=== PATIENT | female | born 1950 | race Caucasian/White ===

== ENCOUNTER 2017-08-24 20:04 | Inpatient (IN) ==
[2017-08-24 20:43] LABS: Basophils # 0.2 K/mm3 (0-0.2); Basophils % 0.5 % (0.1-2.0); Eosinophils # 0.2 K/mm3 (0.0-0.4); Eosinophils % 0.6 % (0.1-12.0); Hematocrit 35.8 % (37.0-47.0); Hemoglobin 10.6 g/dL (12.2-16.2); Lymphocytes # 0.9 K/mm3 (0.7-4.5); Lymphocytes % 2.7 K/mm3 (10-50); Mean Corpuscular HGB Conc 29.5 g/dL (31.8-35.4); Mean Corpuscular Hemoglobin 25.2 pg (27.0-31.2); Mean Corpuscular Volume 85.5 fl (81-99); Mean Platelet Volume 7.7 fl (7.4-10.4); Monocytes # 0.7 K/mm3 (0.1-1.0); Monocytes % 2.2 % (1.7-9.3); Neutrophils # 31.7 K/mm3 (1.8-7.8); Neutrophils % 94.1 % (37.0-80.0); Platelet Count 393 K/mm3 (142-424); Red Blood Count 4.18 M/mm3 (4.20-5.40); Red Cell Distribution Width 14.2 % (11.5-17.5); White Blood Count 33.7 K/mm3 (4.8-10.8)
[2017-08-24 20:51] LABS: Microscopic, Urine URINE MICROSCOPIC (MICROSCOPIC)
[2017-08-24 20:55] LABS: Albumin Level 2.7 gm/dL (3.4-5.0); Albumin/Globulin Ratio 0.5 (1.1-1.8); Anion Gap 16.4 mEq/L (5-15); Bilirubin,Total 0.4 mg/dL (0.2-1.0); Calcium 8.9 mg/dL (8.5-10.1); Globulin 5.7 gm/dl (1.3-3.2); Potassium 5.4 mmoL/L (3.5-5.1); Total Protein,Serum 8.4 gm/dL (6.4-8.2)
[2017-08-24 20:56] LABS: Appearance,Urine CLOUDY (Clear); Blood, Urine 3+ (Negative); Color,Urine YELLOW (Yellow); Glucose,Urine (UA) Negative (Negative); Ketones,Urine TRACE (Negative); Leukocyte Esterase,Urine 1+ (Negative); PH,Urine 5.5 (5.0-8.5); Protein,Urine 2+ (Negative); Specific Gravity, Urine 1.025 (1.005-1.030); Urobilinogen,Urine 0.2 EU/dl (0.2)
[2017-08-24 21:15] LABS: Bilirubin,Urine Negative (Negative)
[2017-08-24 21:16] LABS: Bacteria,Urine 2+ /lpf
--- NOTE | 2017-08-24 21:44 | Emergency Department Note ---
ED Disposition Clinical Impression: Acute febrile illness UTI (urinary tract infection) Qualifiers: Urinary tract infection type: site unspecified Hematuria presence: without hematuria Qualified Code(s): N39.0 - Urinary tract infection, site not specified Leukocytosis Qualifiers: Leukocytosis type: bandemia Qualified Code(s): D72.825 - Bandemia Disposition: Admitted as Observation Condition on Discharge: Good - Critical Care Critical Care Time: No Attestation: On 08/24/17, the high probability of a clinically significant, sudden or life threatening deterioration of the following system(s) required my full and direct attention, intervention and personal management. The time I documented below is in addition to time spent performing reported procedures but includes the following listed in this critical care notation. Medical Decision Making - Medical Records Medical records reviewed: Yes: I reviewed the patient's medical records. - Lonnie Inquiry Pt receiving controlled substance: No Vital Signs: 08/24/17 20:06 08/24/17 20:15 08/24/17 21:23 Temperature 103.7 F H 100.2 F H Temperature Source Rectal Oral Pulse Rate [Right Radial] 119 H Respiratory Rate 20 Blood Pressure [Right Arm] 188/90 Blood Pressure Mean [Right Arm] 122 Blood Pressure Source [Right Arm] Automatic Cuff Blood Pressure Position [Right Arm] Sitting 02 Sat by Pulse Oximetry 93 L Oxygen Delivery Method Room Air 08/24/17 21:49 08/24/17 22:14 08/24/17 22:21 Temperature 102.1 F H 101.1 F H Temperature Source Oral Oral Pulse Rate [Right Radial] 85 67 103 H Respiratory Rate 22 20 20 Blood Pressure [Right Arm] 120/60 120/60 Blood Pressure Mean [Right Arm] 80 80 Blood Pressure Source [Right Arm] Manual Cuff/ Auscultation Manual Cuff/ Auscultation Blood Pressure Position [Right Arm] Sitting 02 Sat by Pulse Oximetry 94 L 94 L 94 L Oxygen Delivery Method Room Air Room Air 08/24/17 23:45 Temperature Temperature Source Pulse Rate [Right Radial] 102 H Respiratory Rate 18 Blood Pressure [Right Arm] 124/62 Blood Pressure Mean [Right Arm] 82 Blood Pressure Source [Right Arm] Automatic Cuff Blood Pressure Position [Right Arm] 02 Sat by Pulse Oximetry 96 Oxygen Delivery Method - Lab Data Lab results reviewed: Yes: I reviewed the patient's lab results. Lab Results 08/24/17 20:20: WBC 33.7 H*, RBC 4.18 L, Hgb 10.6 L, Hct 35.8 L, MCV 85.5, MCH 25.2 L, MCHC 29.5 L, RDW 14.2, Plt Count 393, MPV 7.7, Neut % (Auto) 94.1 H, Lymph % (Auto) 2.7 L, [place] % (Auto) 2.2, Eos % (Auto) 0.6, Baso % (Auto) 0.5, Neut # (Auto) 31.7 H, Lymph # (Auto) 0.9, [place] # (Auto) 0.7, Eos # (Auto) 0.2, Baso # (Auto) 0.2, Total Counted 100, Neutrophils % (Manual) 91 H, Lymphocytes % (Manual) 5 L, Monocytes % (Manual) 3, Basophils % (Manual) 1.0, Platelet Estimate Normal, RBC Morphology Not Reportable, Anisocytosis 1+, Stomatocytes 1+ 08/24/17 20:20: Sodium 132 L, Potassium 5.4 H, Chloride 100, Carbon Dioxide 21, Anion Gap 16.4 H, BUN 24 H, Creatinine 1.38 H, Estimated Creat Clear 40, Estimated GFR 38 L, Est GFR ( Amer) 46 L, Glucose 209 H, Calcium 8.9, Total Bilirubin 0.4, AST 10 L, ALT 13, Alkaline Phosphatase 87, Total Protein 8.4 H, Albumin 2.7 L, Globulin 5.7 H, Albumin/Globulin Ratio 0.5 L 08/24/17 20:20: Lactic Acid 2.8 H 08/24/17 20:20: ESR 96 H 08/24/17 20:20: C-Reactive Protein 7.4 H 08/24/17 20:45: Urine Color Yellow, Urine Appearance Cloudy, Urine pH 5.5, Ur Specific [place] 1.025, Urine Protein 2+, Urine Glucose (UA) Negative, Urine Ketones Trace, Urine Blood 3+, Urine Nitrate Negative, Urine Bilirubin Negative , Urine Urobilinogen 0.2, Ur Leukocyte Esterase 1+ A, Urine RBC 5-10, Urine WBC 10-20, Ur Squamous Epith Cells 3-5, Urine Bacteria 2+ Result diagrams: 08/24/17 20:20 08/24/17 20:20 Orders (Tests/Meds): ED MEDICATIONS Discontinued Medications Generic Name Dose Route Start Last Admin Trade Name Rosalino PRN Reason Stop Dose Admin Acetaminophen 1,000 mg 08/24/17 20:15 08/24/17 20:22 Tylenol 500mg Tablet PO 08/24/17 20:16 1,000 mg ONCE ONE Administration Sodium Chloride 1,000 mls @ 999 mls/hr 08/24/17 20:15 08/24/17 20:22 Sod Chlor 0.9% 1000ml Bag IV 08/24/17 21:15 999 mls/hr .Q1H1M ULISES Administration Vancomycin HCl 2,500 mg/ 250 mls @ 125 mls/hr 08/24/17 23:30 08/24/17 23:47 Sodium Chloride IV 08/24/17 23:31 125 mls/hr ONCE ONE Administration Protocol Tobramycin Sulfate 500 mg/ 112.5 mls @ 112.5 mls/hr 08/24/17 23:30 Sodium Chloride IV 08/24/17 23:31 ONCE ONE Protocol ORDERS Category Date Time Status CT abdomen pelvis wo con Stat Cat Scan 08/24/17 20:17 Taken Peripheral Smear Review Routine Lab 08/24/17 20:20 Received Blood Culture Stat Micro 08/24/17 20:04 Received Urine Culture Stat Micro 08/24/17 20:45 Received - CT Data CT Scan: Abdomen, Pelvis Time Received: 00:[address] Reviewed: Yes: I have viewed the radiologist's interpretation Preliminary Findings: Abnormal (see report) - Physician Consults Physician Consulted: dinesh Reason -: Admission Nausea/Vomiting/Diarrhea HPI - General Chief complaint: Fever Stated complaint: fever Time Seen by Provider: 08/24/17 21:43 Mode of Arrival: EMS Source of Information: Patient, Relative, EMS, Medical Record Limitations: No Limitations Description of Symptoms (Recalled from ER Triage Doc. by RN): Pt. reports vomiting and fever that started at around 11am. - History of Present Illness HPI Narrative: fever with abd pain with vomiting - no diarrhea and no rash over the last 2-3 days MD complaint: nausea, vomiting, abdominal pain Onset (ago): day(s) Associated Abdominal Pain: Yes Location of pain: periumbilical Severity: moderate Quality: dull Consistency: intermittent Associated symptoms: nausea/vomiting - Related Data Home Medications Medication Instructions Recorded Confirmed Aspirin [Aspirin 81mg chewable 81 mg PO DAILY 08/24/17 08/24/17 tab] Fexofenadine HCl 180 mg PO DAILY 08/24/17 08/24/17 Furosemide [Furosemide 20mg Tab] 20 mg PO DAILY 08/24/17 08/24/17 Gabapentin [Gabapentin 300mg Cap] 300 mg PO DAILY 08/24/17 08/24/17 Gabapentin [Gabapentin 300mg Cap] 600 mg PO HS 08/24/17 08/24/17 Hydrocodone/Acetaminophen 10 mg PO QID 08/24/17 08/24/17 [Hydrocodone-Acetamin 10-325 mg] Levothyroxine Sodium 300 mcg PO DAILY 08/24/17 08/24/17 [Levothyroxine 300mcg (0.3mg) Tab] Metformin HCl 500 mg PO TID 08/24/17 08/24/17 Sennosides/Docusate Sodium [Stool 1 each PO DAILY 08/24/17 08/24/17 Softener-Laxative Tablet] Spironolactone 50 mg PO DAILY 08/24/17 08/24/17 Allergies Allergy/AdvReac Type Severity Reaction Status Date / Time vancomycin Allergy Severe red man Verified 08/24/17 20:14 syndrome ceftriaxone Allergy Mild Rash Verified 08/24/17 22:51 amoxicillin Allergy Unknown Verified 08/24/17 20:14 atropine Allergy Unknown Verified 08/24/17 20:14 aztreonam Allergy Unknown Verified 08/24/17 20:14 ciprofloxacin Allergy Unknown Verified 08/24/17 20:14 clindamycin Allergy Unknown Verified 08/24/17 20:14 levofloxacin Allergy Unknown Verified 08/24/17 20:14 morphine Allergy Unknown Verified 08/24/17 20:14 nabumetone Allergy Unknown Verified 08/24/17 20:14 oxytetracycline Allergy Unknown Verified 08/24/17 20:14 Penicillins Allergy Unknown Verified 08/24/17 20:14 polymyxin B Allergy Unknown Verified 08/24/17 20:14 Sulfa (Sulfonamide Allergy Unknown Verified 08/24/17 20:14 Antibiotics) tramadol Allergy Unknown Verified 08/24/17 20:14 [facility] History I have reviewed the patient's past medical history: Yes - Social History Alcohol Intake: never - Psychiatric History Expresses thoughts of harming self/others: None Suicide Plan Description: No Plan ROS Obtained: Yes All systems reviewed & no additional complaints - Constitutional Constitutional: Reports fever(s) - Eyes Eyes: Denies change in vision - ENT Ears, Nose, Mouth, and Throat: Denies sore throat - Cardiovascular Cardiovascular: Denies chest pain - Respiratory Respiratory: No cough - Gastrointestinal Gastrointestingal: Reports: abdominal pain, nausea, vomiting. Denies: diarrhea , bright red blood in stools, black, tarry stools - Genitourinary Female Genitourinary: Denies hematuria - Musculoskeletal Musculoskeletal: Denies joint pain - Integumentary/Breasts Skin/Breast: Denies rash - Neurologic Neurologic: Denies seizure-like activity Physical Exam - General General appearance: in no apparent distress - Head Head exam: normocephalic - Eye Eye exam: Present: PERRL, EOMI. Absent: scleral icterus - ENT ENT exam: Present: mucous membranes dry - Neck Neck exam: Present: trachea midline - Respiratory Respiratory exam: Present: normal lung sounds bilaterally. Absent: respiratory distress - Cardiovascular Cardiovascular exam: Present: regular rate, systolic murmur, +S4 - Abdominal Exam Abdominal exam: Present: soft, tenderness Abdominal tenderness: Present: epigastrium, moderate - Extremities Exam Extremities exam: Absent: calf tenderness - Neurological Exam Neurological exam: Present: alert, oriented X3, CN II-XII intact - Psychiatric Psychiatric exam: Present: normal affect - Skin Skin exam: Absent: rash
[2017-08-24 22:29] LABS: Anisocytosis 1+; Lymphocytes % 5 % (10-50); Monocytes % 3 % (2-9); Neutrophils % 91 % (42-76); Total Cells Counted 100
[2017-08-24 22:30] LABS: Stomatocytes 1+
--- NOTE | 2017-08-25 07:25 | History & Physical Report ---
*Admission Date: 08/24/17 *Chief complaint: Vomiting and chills *History of present illness: 66-year-old female with history of diabetes and chronic venous stasis ulcers of bilateral lower extremities presented to the emergency department after onset of vomiting yesterday morning. Patient attempted to replace any fluid she lost after vomiting by drinking water but vomiting persisted. She developed chills and according to the patient became confused as her was having a difficult time understanding her and her needs. Decision was made to bring her to the hospital. Workup revealed an elevated white blood cell count with abnormal urine. He was admitted and placed on IV antibiotics. Lactic acid was elevated on presentation but has since decreased. Patient has received tobramycin overnight. This morning she is still having chills. Patient was febrile on presentation with temperature of 103. She has been caring for her venous stasis ulcers at home and reports no change in their appearance. She denies redness of the extremities or significant purulent discharge. I have spoken with her nurse this morning who has actually in care of her at a home health nurse and reports that the ulcers have improved in appearance compared to the last time she saw him. [facility] History Medical History: Reports:: Diabetes Mellitus Type 2, Hypertension Denies:: Cancer, Diabetes Mellitus Type 1, MRSA Other Medical History: Reports: Hypothyroidism Comment: Venous stasis ulcers Amputation: No Fractures: No - *Social History Educational Level: Completed Grade School Smoking Status: Never smoker Alcohol Intake: never Occupational Status: disabled Housing: house Household Members: spouse - Psychiatric History Expresses thoughts of harming self/others: None Suicide Plan Description: No Plan *Family Hx:: Unable to obtain Review of Systems - Review of Systems Review of systems:: pertinent systems reviewed and negative unless documented below - *Cardiovascular Denies chest pain - *Respiratory Denies chest congestion, Denies cough - *Gastrointestinal Reports vomiting - *Genitourinary Denies difficulty urinating, Denies painful urination - *Neurologic Denies seizure-like activity Meds Home Medications Medication Instructions Recorded Confirmed Type Aspirin [Aspirin 81mg chewable 81 mg PO DAILY 08/24/17 08/25/17 History tab] Fexofenadine HCl 180 mg PO DAILY 08/24/17 08/25/17 History Gabapentin [Gabapentin 300mg Cap] 300 mg PO DAILY 08/24/17 08/25/17 History Gabapentin [Gabapentin 300mg Cap] 600 mg PO HS 08/24/17 08/25/17 History Hydrocodone/Acetaminophen 10 mg PO Q6HP PRN 08/24/17 08/25/17 History [Hydrocodone-Acetamin 10-325 mg] Levothyroxine Sodium 300 mcg PO DAILY 08/24/17 08/25/17 History [Levothyroxine 300mcg (0.3mg) Tab] Metformin HCl 500 mg PO TID 08/24/17 08/25/17 History Sennosides/Docusate Sodium [Stool 1 each PO DAILY 08/24/17 08/25/17 History Softener-Laxative Tablet] Spironolactone 50 mg PO DAILY 08/24/17 08/25/17 History Allergies Allergy/AdvReac Type Severity Reaction Status Date / Time vancomycin Allergy Severe red man Verified 08/25/17 01:29 syndrome ceftriaxone Allergy Mild Rash Verified 08/25/17 01:29 amoxicillin Allergy Unknown Verified 08/25/17 01:29 atropine Allergy Unknown Verified 08/25/17 01:29 aztreonam Allergy Unknown Verified 08/25/17 01:29 ciprofloxacin Allergy Unknown Verified 08/25/17 01:29 clindamycin Allergy Unknown Verified 08/25/17 01:29 levofloxacin Allergy Unknown Verified 08/25/17 01:29 morphine Allergy Unknown Verified 08/25/17 01:29 nabumetone Allergy Unknown Verified 08/25/17 01:29 oxytetracycline Allergy Unknown Verified 08/25/17 01:29 Penicillins Allergy Unknown Verified 08/25/17 01:29 polymyxin B Allergy Unknown Verified 08/25/17 01:29 Sulfa (Sulfonamide Allergy Unknown Verified 08/25/17 01:29 Antibiotics) tramadol Allergy Unknown Verified 08/25/17 01:29 Exam Vital signs and Labs for Last 24 Hours: Temp Pulse Resp BP Pulse Ox 98.8 F 91 H 20 123/73 98 08/25/17 04:00 08/25/17 04:00 08/25/17 04:00 08/25/17 04:00 08/25/17 04:00 Laboratory Results - last 24 hr 08/24/17 20:20: WBC 33.7 H*, RBC 4.18 L, Hgb 10.6 L, Hct 35.8 L, MCV 85.5, MCH 25.2 L, MCHC 29.5 L, RDW 14.2, Plt Count 393, MPV 7.7, Neut % (Auto) 94.1 H, Lymph % (Auto) 2.7 L, [place] % (Auto) 2.2, Eos % (Auto) 0.6, Baso % (Auto) 0.5, Neut # (Auto) 31.7 H, Lymph # (Auto) 0.9, [place] # (Auto) 0.7, Eos # (Auto) 0.2, Baso # (Auto) 0.2, Total Counted 100, Neutrophils % (Manual) 91 H, Lymphocytes % (Manual) 5 L, Monocytes % (Manual) 3, Basophils % (Manual) 1.0, Platelet Estimate Normal, RBC Morphology Not Reportable, Anisocytosis 1+, Stomatocytes 1+ 08/24/17 20:20: Sodium 132 L, Potassium 5.4 H, Chloride 100, Carbon Dioxide 21, Anion Gap 16.4 H, BUN 24 H, Creatinine 1.38 H, Estimated Creat Clear 40, Estimated GFR 38 L, Est GFR ( Amer) 46 L, Glucose 209 H, Calcium 8.9, Total Bilirubin 0.4, AST 10 L, ALT 13, Alkaline Phosphatase 87, Total Protein 8.4 H, Albumin 2.7 L, Globulin 5.7 H, Albumin/Globulin Ratio 0.5 L 08/24/17 20:20: Lactic Acid 2.8 H 08/24/17 20:20: ESR 96 H 08/24/17 20:20: C-Reactive Protein 7.4 H 08/24/17 20:45: Urine Color Yellow, Urine Appearance Cloudy, Urine pH 5.5, Ur Specific [place] 1.025, Urine Protein 2+, Urine Glucose (UA) Negative, Urine Ketones Trace, Urine Blood 3+, Urine Nitrate Negative, Urine Bilirubin Negative , Urine Urobilinogen 0.2, Ur Leukocyte Esterase 1+ A, Urine RBC 5-10, Urine WBC 10-20, Ur Squamous Epith Cells 3-5, Urine Bacteria 2+ 08/25/17 00:45: Lactic Acid Fup @ 4Hr 1.9 08/25/17 06:58: POC Glucose 182 H I & O for Last 24 hours: Intake & Output 08/22/17 08/23/17 08/24/17 08/25/17 11:59 11:59 11:59 11:59 Weight 280 lb 1 oz Narrative: Patient is sitting up in a chair covered in blankets. No Reiger's or tremors are witnessed. HEENT exam is grossly normal. Lungs overall sound clear although exam is difficult due to patient's body habitus. Heart has a regular rate and rhythm. Abdomen is obese. Lower extremities are bandaged. Pictures of her lower extremities have been reviewed. H&P: Result - Labs Labs: Short CBC 08/24/17 Range/Units 20:20 WBC 33.7 H* (4.8-10.8) K/mm3 Hgb 10.6 L (12.2-16.2) g/dL Hct 35.8 L (37.0-47.0) % Plt Count 393 (142-424) K/mm3 BMP 08/24/17 20:20 Sodium 132 L Potassium 5.4 H Chloride 100 Carbon Dioxide 21 BUN 24 H Creatinine 1.38 H Glucose 209 H Calcium 8.9 Liver Function 08/24/17 Range/Units 20:20 Total Bilirubin 0.4 (0.2-1.0) mg/dL AST 10 L (15-37) U/L ALT 13 (12-78) U/L Alkaline Phosphatase 87 (46-116) U/L Albumin 2.7 L (3.4-5.0) gm/dL Urine 08/24/17 Range/Units 20:45 Urine Color Yellow (Yellow) Urine Appearance Cloudy (Clear) Urine pH 5.5 (5.0-8.5) Ur Specific [place] 1.025 (1.005-1.030) Urine Protein 2+ (Negative) Urine Glucose (UA) Negative (Negative) Assessment and Plan (1) Sepsis Current visit: Yes Status: Suspected Category: Medical Code(s): A41.9 - Sepsis, unspecified organism (2) Acute febrile illness Current visit: Yes Status: Acute Category: Medical Code(s): R50.9 - Fever , unspecified (3) Leukocytosis Current visit: Yes Status: Acute Qualifiers: Leukocytosis type: bandemia Qualified Code(s): D72.825 - Bandemia Category: Medical Code(s): D72.829 - Elevated white blood cell count, unspecified (4) UTI (urinary tract infection) Current visit: Yes Status: Acute Qualifiers: Urinary tract infection type: site unspecified Hematuria presence: without hematuria Qualified Code(s): N39.0 - Urinary tract infection, site not specified Category: Medical Code(s): N39.0 - Urinary tract infection, site not specified - Assessment and plan all Dx Assessment and Plan for all problems:: He has been admitted and was given tobramycin initially. I am going to place the patient on Invanz for empiric antibiotic coverage while we await urine and blood cultures. Continue wound dressings per nursing. Home medications will be given.
[2017-08-25 09:05] LABS: Anion Gap 13.8 mEq/L (5-15); Calcium 8.6 mg/dL (8.5-10.1); Potassium 4.8 mmoL/L (3.5-5.1)
[2017-08-25 09:19] LABS: Basophils # 0.1 K/mm3 (0-0.2); Basophils % 0.3 % (0.1-2.0); Eosinophils # 0.1 K/mm3 (0.0-0.4); Eosinophils % 0.4 % (0.1-12.0); Hemoglobin 10.9 g/dL (12.2-16.2); Lymphocytes # 0.3 K/mm3 (0.7-4.5); Lymphocytes % 1.1 K/mm3 (10-50); Mean Corpuscular HGB Conc 28.6 g/dL (31.8-35.4); Mean Corpuscular Hemoglobin 24.4 pg (27.0-31.2); Mean Corpuscular Volume 85.4 fl (81-99); Mean Platelet Volume 7.8 fl (7.4-10.4); Monocytes # 0.4 K/mm3 (0.1-1.0); Monocytes % 1.4 % (1.7-9.3); Neutrophils # 26.9 K/mm3 (1.8-7.8); Neutrophils % 96.8 % (37.0-80.0); Platelet Count 337 K/mm3 (142-424); Red Blood Count 4.45 M/mm3 (4.20-5.40); Red Cell Distribution Width 14.3 % (11.5-17.5); White Blood Count 27.8 K/mm3 (4.8-10.8)
--- NOTE | 2017-08-25 09:59 | Pharmacy Consult Notes ---
[facility] Pharmacy VTE Monitoring - Patient Demographics Admission date: 08/25/17 Report Date: 08/25/17 Time: 09:58 Allergies/Adverse Reactions: Patient Allergies vancomycin Allergy (Severe, Verified 08/25/17 01:29) red man syndrome ceftriaxone Allergy (Mild, Verified 08/25/17 01:29) Rash amoxicillin Allergy (Unknown, Verified 08/25/17 01:29) atropine Allergy (Unknown, Verified 08/25/17 01:29) aztreonam Allergy (Unknown, Verified 08/25/17 01:29) ciprofloxacin Allergy (Unknown, Verified 08/25/17 01:29) clindamycin Allergy (Unknown, Verified 08/25/17 01:29) levofloxacin Allergy (Unknown, Verified 08/25/17 01:29) morphine Allergy (Unknown, Verified 08/25/17 01:29) nabumetone Allergy (Unknown, Verified 08/25/17 01:29) oxytetracycline Allergy (Unknown, Verified 08/25/17 01:29) Penicillins Allergy (Unknown, Verified 08/25/17 01:29) polymyxin B Allergy (Unknown, Verified 08/25/17 01:29) Sulfa (Sulfonamide Antibiotics) Allergy (Unknown, Verified 08/25/17 01:29) tramadol Allergy (Unknown, Verified 08/25/17 01:29) Height: 1.63 m Weight: 127.034 kg Patient Problems: Current Active Problems Acute febrile illness (Acute) UTI (urinary tract infection) (Acute) Leukocytosis (Acute) - VTE Risk Labs: VTE Related Lab Results Hgb 10.9 g/dL (12.2-16.2) L 08/25/17 08:40 Hct 38.0 % (37.0-47.0) 08/25/17 08:40 Plt Count 337 K/mm3 (142-424) 08/25/17 08:40 BUN 23 mg/dL (7-18) H 08/25/17 08:40 Creatinine 1.21 mg/dL (0.55-1.02) H 08/25/17 08:40 Estimated Creat Clear 40 mL/min (0-300) 08/25/17 08:40 Was VTE Risk Assessment Performed: Yes VTE Score: 6 VTE Risk Level: Moderate Risk - Prophylaxis VTE Prophylaxis Ordered?: Yes Types of VTE Prophylaxis: TEDS Knee High Location of Applied Device: Bilateral Lower Extremeties - VTE Diagnosis Confirmed Treatment or plan recommended: Continue Current Treatment
--- NOTE | 2017-08-25 10:19 | Consult Report ---
*Admission Date: 08/25/17 *Chief complaint: Urology consultation *History of present illness: 66-year-old female with history of diabetes and chronic venous stasis ulcers of bilateral lower extremities presented to the emergency department after onset of vomiting yesterday morning. Patient attempted to replace any fluid she lost after vomiting by drinking water but vomiting persisted. She developed chills and according to the patient became confused as her was having a difficult time understanding her and her needs. Decision was made to bring her to the hospital. Workup revealed an elevated white blood cell count with abnormal urine. He was admitted and placed on IV antibiotics. Lactic acid was elevated on presentation but has since decreased. Patient has received tobramycin overnight. This morning she is still having chills. Patient was febrile on presentation with temperature of 103. She has been caring for her venous stasis ulcers at home and reports no change in their appearance. She denies redness of the extremities or significant purulent discharge. I have spoken with her nurse this morning who has actually in care of her at a home health nurse and reports that the ulcers have improved in appearance compared to the last time she saw him. I saw this patient several years ago for recurrent urinary infections. She has had no infections in the last 2 years. She was feeling well 2 days ago but yesterday morning awoke and had generalized malaise and fever. She also had nausea and emesis. No flank pain. She had no dysuria. On presentation here catheterized specimen did appear to be infected. Urine culture and blood cultures are pending. CT scan was reviewed. She has several stones bilaterally no obstruction. She has a larger stone lower pole calyx on the right. She has no perinephric stranding. No ureteral stones or obstruction. Past medical history Type 2 diabetes, hypertension, morbid obesity, chronic venous stasis ulcers lower extremities Physical exam Appears ill. She has no palpable CVA tenderness with palpation or percussion Labs and CT scan reviewed and are as above. Impression: Fever and sepsis likely of urologic origin. She does not appear to have obstruction and does not require intervention urologically at this time. I recommend awaiting urine cultures for pointed antibiotic therapy but continue empiric broad based therapy at this time. She states that she is having suprapubic pressure and has not been able to void this morning. We will place a Childers catheter initially when she returns to the bed. Will be removed once she has improved her performance status. He will follow-up with me in 1-2 weeks. No surgical intervention at this time. We will then readdress her stones considering her surgical risks. Review of Systems - *Neurologic Denies seizure-like activity [facility] History Medical History: Reports:: Diabetes Mellitus Type 2, Hypertension Denies:: Cancer, Diabetes Mellitus Type 1, MRSA Other Medical History: Reports: Hypothyroidism Amputation: No Fractures: No - *Social History Educational Level: Completed Grade School Smoking Status: Never smoker Alcohol Intake: never Occupational Status: disabled Housing: house Household Members: spouse - Psychiatric History Expresses thoughts of harming self/others: None Suicide Plan Description: No Plan *Family Hx:: Unable to obtain Meds Home Medications Medication Instructions Recorded Confirmed Type Fexofenadine HCl 180 mg PO DAILY 08/24/17 08/25/17 History Gabapentin [Gabapentin 300mg Cap] 300 mg PO DAILY 08/24/17 08/25/17 History Gabapentin [Gabapentin 300mg Cap] 600 mg PO HS 08/24/17 08/25/17 History Hydrocodone/Acetaminophen 1 tab PO Q6HP PRN 08/24/17 08/25/17 History [Hydrocodone-Acetamin 10-325 mg] Levothyroxine Sodium 300 mcg PO DAILY 08/24/17 08/25/17 History [Levothyroxine 300mcg (0.3mg) Tab] Metformin HCl 500 mg PO TIDWM 08/24/17 08/25/17 History Sennosides/Docusate Sodium [Stool 1 each PO DAILY 08/24/17 08/25/17 History Softener-Laxative Tablet] Spironolactone 50 mg PO DAILY 08/24/17 08/25/17 History Aspirin [Aspirin 81mg EC Tab] 81 mg PO DAILY 08/25/17 08/25/17 History Allergies Allergy/AdvReac Type Severity Reaction Status Date / Time vancomycin Allergy Severe red man Verified 08/25/17 01:29 syndrome ceftriaxone Allergy Mild Rash Verified 08/25/17 01:29 amoxicillin Allergy Unknown Verified 08/25/17 01:29 atropine Allergy Unknown Verified 08/25/17 01:29 aztreonam Allergy Unknown Verified 08/25/17 01:29 ciprofloxacin Allergy Unknown Verified 08/25/17 01:29 clindamycin Allergy Unknown Verified 08/25/17 01:29 levofloxacin Allergy Unknown Verified 08/25/17 01:29 morphine Allergy Unknown Verified 08/25/17 01:29 nabumetone Allergy Unknown Verified 08/25/17 01:29 oxytetracycline Allergy Unknown Verified 08/25/17 01:29 Penicillins Allergy Unknown Verified 08/25/17 01:29 polymyxin B Allergy Unknown Verified 08/25/17 01:29 Sulfa (Sulfonamide Allergy Unknown Verified 08/25/17 01:29 Antibiotics) tramadol Allergy Unknown Verified 08/25/17 01:29 Exam Vital signs and Labs for Last 24 Hours: Temp Pulse Resp BP Pulse Ox 99.5 F 101 H 20 138/53 100 08/25/17 08:00 08/25/17 08:00 08/25/17 08:00 08/25/17 08:00 08/25/17 08:00 Laboratory Results - last 24 hr 08/24/17 20:20: WBC 33.7 H*, RBC 4.18 L, Hgb 10.6 L, Hct 35.8 L, MCV 85.5, MCH 25.2 L, MCHC 29.5 L, RDW 14.2, Plt Count 393, MPV 7.7, Neut % (Auto) 94.1 H, Lymph % (Auto) 2.7 L, [place] % (Auto) 2.2, Eos % (Auto) 0.6, Baso % (Auto) 0.5, Neut # (Auto) 31.7 H, Lymph # (Auto) 0.9, [place] # (Auto) 0.7, Eos # (Auto) 0.2, Baso # (Auto) 0.2, Total Counted 100, Neutrophils % (Manual) 91 H, Lymphocytes % (Manual) 5 L, Monocytes % (Manual) 3, Basophils % (Manual) 1.0, Platelet Estimate Normal, RBC Morphology Not Reportable, Anisocytosis 1+, Stomatocytes 1+ 08/24/17 20:20: Sodium 132 L, Potassium 5.4 H, Chloride 100, Carbon Dioxide 21, Anion Gap 16.4 H, BUN 24 H, Creatinine 1.38 H, Estimated Creat Clear 40, Estimated GFR 38 L, Est GFR ( Amer) 46 L, Glucose 209 H, Calcium 8.9, Total Bilirubin 0.4, AST 10 L, ALT 13, Alkaline Phosphatase 87, Total Protein 8.4 H, Albumin 2.7 L, Globulin 5.7 H, Albumin/Globulin Ratio 0.5 L 08/24/17 20:20: Lactic Acid 2.8 H 08/24/17 20:20: ESR 96 H 08/24/17 20:20: C-Reactive Protein 7.4 H 08/24/17 20:45: Urine Color Yellow, Urine Appearance Cloudy, Urine pH 5.5, Ur Specific [place] 1.025, Urine Protein 2+, Urine Glucose (UA) Negative, Urine Ketones Trace, Urine Blood 3+, Urine Nitrate Negative, Urine Bilirubin Negative , Urine Urobilinogen 0.2, Ur Leukocyte Esterase 1+ A, Urine RBC 5-10, Urine WBC 10-20, Ur Squamous Epith Cells 3-5, Urine Bacteria 2+ 08/25/17 00:45: Lactic Acid Fup @ 4Hr 1.9 08/25/17 06:58: POC Glucose 182 H 08/25/17 08:40: WBC 27.8 H*, RBC 4.45, Hgb 10.9 L, Hct 38.0, MCV 85.4, MCH 24.4 L, MCHC 28.6 L, RDW 14.3, Plt Count 337, MPV 7.8, Neut % (Auto) 96.8 H, Lymph % (Auto) 1.1 L, [place] % (Auto) 1.4 L, Eos % (Auto) 0.4, Baso % (Auto) 0.3, Neut # ( Auto) 26.9 H, Lymph # (Auto) 0.3 L, [place] # (Auto) 0.4, Eos # (Auto) 0.1, Baso # (Auto) 0.1 08/25/17 08:40: Sodium 131 L, Potassium 4.8, Chloride 100, Carbon Dioxide 22, Anion Gap 13.8, BUN 23 H, Creatinine 1.21 H, Estimated Creat Clear 40, Estimated GFR 45 L, Est GFR ( Amer) 54 L, Glucose 184 H, Calcium 8.6 I & O for Last 24 hours: Intake & Output 08/22/17 08/23/17 08/24/17 08/25/17 23:59 23:59 23:59 23:59 Intake Total 0 / 0 Balance 0 / 0 Weight 148.325 kg 127.034 kg Results - Labs 08/25/17 08:40 08/25/17 08:40 Laboratory Results - last 24 hr 08/24/17 20:20: WBC 33.7 H*, RBC 4.18 L, Hgb 10.6 L, Hct 35.8 L, MCV 85.5, MCH 25.2 L, MCHC 29.5 L, RDW 14.2, Plt Count 393, MPV 7.7, Neut % (Auto) 94.1 H, Lymph % (Auto) 2.7 L, [place] % (Auto) 2.2, Eos % (Auto) 0.6, Baso % (Auto) 0.5, Neut # (Auto) 31.7 H, Lymph # (Auto) 0.9, [place] # (Auto) 0.7, Eos # (Auto) 0.2, Baso # (Auto) 0.2, Total Counted 100, Neutrophils % (Manual) 91 H, Lymphocytes % (Manual) 5 L, Monocytes % (Manual) 3, Basophils % (Manual) 1.0, Platelet Estimate Normal, RBC Morphology Not Reportable, Anisocytosis 1+, Stomatocytes 1+ 08/24/17 20:20: Sodium 132 L, Potassium 5.4 H, Chloride 100, Carbon Dioxide 21, Anion Gap 16.4 H, BUN 24 H, Creatinine 1.38 H, Estimated Creat Clear 40, Estimated GFR 38 L, Est GFR ( Amer) 46 L, Glucose 209 H, Calcium 8.9, Total Bilirubin 0.4, AST 10 L, ALT 13, Alkaline Phosphatase 87, Total Protein 8.4 H, Albumin 2.7 L, Globulin 5.7 H, Albumin/Globulin Ratio 0.5 L 08/24/17 20:20: Lactic Acid 2.8 H 08/24/17 20:20: ESR 96 H 08/24/17 20:20: C-Reactive Protein 7.4 H 08/24/17 20:45: Urine Color Yellow, Urine Appearance Cloudy, Urine pH 5.5, Ur Specific [place] 1.025, Urine Protein 2+, Urine Glucose (UA) Negative, Urine Ketones Trace, Urine Blood 3+, Urine Nitrate Negative, Urine Bilirubin Negative , Urine Urobilinogen 0.2, Ur Leukocyte Esterase 1+ A, Urine RBC 5-10, Urine WBC 10-20, Ur Squamous Epith Cells 3-5, Urine Bacteria 2+ 08/25/17 00:45: Lactic Acid Fup @ 4Hr 1.9 08/25/17 06:58: POC Glucose 182 H 08/25/17 08:40: WBC 27.8 H*, RBC 4.45, Hgb 10.9 L, Hct 38.0, MCV 85.4, MCH 24.4 L, MCHC 28.6 L, RDW 14.3, Plt Count 337, MPV 7.8, Neut % (Auto) 96.8 H, Lymph % (Auto) 1.1 L, [place] % (Auto) 1.4 L, Eos % (Auto) 0.4, Baso % (Auto) 0.3, Neut # ( Auto) 26.9 H, Lymph # (Auto) 0.3 L, [place] # (Auto) 0.4, Eos # (Auto) 0.1, Baso # (Auto) 0.1 08/25/17 08:40: Sodium 131 L, Potassium 4.8, Chloride 100, Carbon Dioxide 22, Anion Gap 13.8, BUN 23 H, Creatinine 1.21 H, Estimated Creat Clear 40, Estimated GFR 45 L, Est GFR ( Amer) 54 L, Glucose 184 H, Calcium 8.6 Assessment and Plan (1) Sepsis Current visit: Yes Status: Suspected Category: Medical Code(s): A41.9 - Sepsis, unspecified organism (2) Acute febrile illness Current visit: Yes Status: Acute Category: Medical Code(s): R50.9 - Fever , unspecified (3) Leukocytosis Current visit: Yes Status: Acute Qualifiers: Leukocytosis type: bandemia Qualified Code(s): D72.825 - Bandemia Category: Medical Code(s): D72.829 - Elevated white blood cell count, unspecified (4) UTI (urinary tract infection) Current visit: Yes Status: Acute Qualifiers: Urinary tract infection type: site unspecified Hematuria presence: without hematuria Qualified Code(s): N39.0 - Urinary tract infection, site not specified Category: Medical Code(s): N39.0 - Urinary tract infection, site not specified
[2017-08-25 11:58] LABS: Lymphocytes % 6 % (10-50); Monocytes % 2 % (2-9); Neutrophils % 83 % (42-76); Total Cells Counted 100
[2017-08-26 06:56] LABS: Eosinophils # 0.3 K/mm3 (0.0-0.4); Eosinophils % 1.2 % (0.1-12.0); Hematocrit 34.3 % (37.0-47.0); Lymphocytes # 0.5 K/mm3 (0.7-4.5); Lymphocytes % 2.3 K/mm3 (10-50); Mean Corpuscular HGB Conc 29.1 g/dL (31.8-35.4); Mean Corpuscular Hemoglobin 24.6 pg (27.0-31.2); Mean Corpuscular Volume 84.6 fl (81-99); Mean Platelet Volume 7.5 fl (7.4-10.4); Monocytes # 0.8 K/mm3 (0.1-1.0); Monocytes % 3.3 % (1.7-9.3); Neutrophils # 21.4 K/mm3 (1.8-7.8); Neutrophils % 93.2 % (37.0-80.0); Platelet Count 283 K/mm3 (142-424); Red Blood Count 4.05 M/mm3 (4.20-5.40); Red Cell Distribution Width 14.4 % (11.5-17.5)
[2017-08-26 07:01] LABS: Anion Gap 12.1 mEq/L (5-15); Calcium 8.2 mg/dL (8.5-10.1); Potassium 4.1 mmoL/L (3.5-5.1)
--- NOTE | 2017-08-26 07:43 | Progress Note ---
Internal Medicine - PN: Subj *Date: 08/26/17 *Time: 07:42 Interval history: Patient is starting to feel better this morning. She did have another fever again yesterday afternoon. Wound care evaluated the large stasis ulcers on the anterior legs. Urine culture at this point has not shown any growth. Blood cultures are still pending. Exam Vital signs and Labs for Last 24 Hours: Temp Pulse Resp BP Pulse Ox 99.5 F 100 H 20 126/45 95 08/26/17 04:00 08/26/17 04:00 08/26/17 04:00 08/26/17 04:00 08/26/17 04:00 Laboratory Results - last 24 hr 08/25/17 08:40: WBC 27.8 H*, RBC 4.45, Hgb 10.9 L, Hct 38.0, MCV 85.4, MCH 24.4 L, MCHC 28.6 L, RDW 14.3, Plt Count 337, MPV 7.8, Neut % (Auto) 96.8 H, Lymph % (Auto) 1.1 L, [place] % (Auto) 1.4 L, Eos % (Auto) 0.4, Baso % (Auto) 0.3, Neut # ( Auto) 26.9 H, Lymph # (Auto) 0.3 L, [place] # (Auto) 0.4, Eos # (Auto) 0.1, Baso # (Auto) 0.1, Total Counted 100, Neutrophils % (Manual) 83 H, Band Neutrophils % 9.0 H, Lymphocytes % (Manual) 6 L, Monocytes % (Manual) 2, Platelet Estimate Normal 08/25/17 08:40: Sodium 131 L, Potassium 4.8, Chloride 100, Carbon Dioxide 22, Anion Gap 13.8, BUN 23 H, Creatinine 1.21 H, Estimated Creat Clear 40, Estimated GFR 45 L, Est GFR ( Amer) 54 L, Glucose 184 H, Calcium 8.6 08/25/17 11:46: POC Glucose 177 H 08/25/17 16:57: POC Glucose 148 H 08/25/17 20:24: POC Glucose 156 H 08/26/17 06:14: POC Glucose 131 H 08/26/17 06:40: WBC 23.0 H*, RBC 4.05 L, Hgb 10.0 L, Hct 34.3 L, MCV 84.6, MCH 24.6 L, MCHC 29.1 L, RDW 14.4, Plt Count 283, MPV 7.5, Neut % (Auto) 93.2 H, Lymph % (Auto) 2.3 L, [place] % (Auto) 3.3, Eos % (Auto) 1.2, Baso % (Auto) 0.0 L, Neut # (Auto) 21.4 H, Lymph # (Auto) 0.5 L, [place] # (Auto) 0.8, Eos # (Auto) 0.3 , Baso # (Auto) 0.0 08/26/17 06:40: Sodium 129 L, Potassium 4.1, Chloride 101, Carbon Dioxide 20 L, Anion Gap 12.1, BUN 27 H, Creatinine 1.11 H, Estimated Creat Clear 44, Estimated GFR 49 L, Est GFR ( Amer) 60, Glucose 133 H D, Calcium 8.2 L I & O for Last 24 hours: Intake & Output 08/23/17 08/24/17 08/25/17 08/26/17 11:59 11:59 11:59 11:59 Intake Total 0 / 0 360 / 360 Output Total 1525 / 1525 Balance 0 / 0 -1165 / -1165 Weight 280 lb 1 oz 282 lb 1 oz Microbiology Reports for the Last 24 Hours: Microbiology 08/24/17 20:45 Urine,Catheterized Urine Culture - Preliminary NO GROWTH AFTER 24 HOURS Narrative: Patient is more awake and alert this morning and appears to be feeling better. Lungs are clear to auscultation. Heart has regular rate and rhythm. Abdomen is soft. Childers catheter is in place Assessment and Plan (1) Sepsis Current visit: Yes Status: Suspected Category: Medical Code(s): A41.9 - Sepsis, unspecified organism (2) Acute febrile illness Current visit: Yes Status: Acute Category: Medical Code(s): R50.9 - Fever , unspecified (3) Leukocytosis Current visit: Yes Status: Acute Qualifiers: Leukocytosis type: bandemia Qualified Code(s): D72.825 - Bandemia Category: Medical Code(s): D72.829 - Elevated white blood cell count, unspecified (4) UTI (urinary tract infection) Current visit: Yes Status: Acute Qualifiers: Urinary tract infection type: site unspecified Hematuria presence: without hematuria Qualified Code(s): N39.0 - Urinary tract infection, site not specified Category: Medical Code(s): N39.0 - Urinary tract infection, site not specified - Assessment and plan all Dx Assessment and Plan for all problems:: Continue empiric antibiotic coverage while awaiting blood and urine cultures. Encourage patient to ambulate within the room.
[2017-08-26 13:01] LABS: Lymphocytes % 3 % (10-50); Monocytes % 3 % (2-9); Neutrophils % 94 % (42-76); Total Cells Counted 100
[2017-08-26 13:03] LABS: Hypochromasia 1+
--- NOTE | 2017-08-27 07:28 | Progress Note ---
Internal Medicine - PN: Subj *Date: 08/27/17 *Time: 07:26 Interval history: Patient developed significant fever to 102.4 again overnight. Fever has responded mildly to Tylenol. Patient reports poor appetite and malaise. Exam Vital signs and Labs for Last 24 Hours: Temp Pulse Resp BP Pulse Ox 100.0 F H 105 H 20 108/47 94 L 08/27/17 06:00 08/27/17 04:00 08/27/17 04:00 08/27/17 04:00 08/27/17 04:00 Laboratory Results - last 24 hr 08/26/17 06:40: Total Counted 100, Neutrophils % (Manual) 94 H, Lymphocytes % ( Manual) 3 L, Monocytes % (Manual) 3, Platelet Estimate Normal, Hypochromasia 1+ 08/26/17 10:46: POC Glucose 126 H 08/26/17 16:40: POC Glucose 98 08/26/17 20:20: POC Glucose 105 08/27/17 06:11: POC Glucose 86 I & O for Last 24 hours: Intake & Output 08/24/17 08/25/17 08/26/17 08/27/17 11:59 11:59 11:59 11:59 Intake Total 0 / 0 480 / 480 1368 / 1368 Output Total 1525 / 1525 2300 / 2300 Balance 0 / 0 -1045 / -1045 -932 / -932 Weight 280 lb 1 oz 282 lb 1 oz 286 lb 8 oz Microbiology Reports for the Last 24 Hours: Microbiology 08/24/17 20:45 Urine,Catheterized Urine Culture - Final NO GROWTH AFTER 48 HOURS 08/24/17 20:04 Blood Blood Culture - Preliminary NO GROWTH AFTER 48 HOURS 08/24/17 20:04 Blood Blood Culture - Preliminary NO GROWTH AFTER 48 HOURS 08/25/17 14:45 Urine,Catheterized Urine Culture - Preliminary NO GROWTH AFTER 24 HOURS Narrative: She is in no distress. Extremity exam reveals edematous bilateral lower extremities that have wound dressings in place. Patient has significant tenderness along the extremities from the popliteal space down to the foot. However patient tells me this is more of a chronic type pain Assessment and Plan (1) Cellulitis of anterior lower leg Current visit: Yes Status: Acute Category: Medical Code(s): L03.119 - Cellulitis of unspecified part of limb (2) Sepsis Current visit: Yes Status: Suspected Category: Medical Code(s): A41.9 - Sepsis, unspecified organism (3) Acute febrile illness Current visit: Yes Status: Acute Category: Medical Code(s): R50.9 - Fever , unspecified (4) Leukocytosis Current visit: Yes Status: Acute Qualifiers: Leukocytosis type: bandemia Qualified Code(s): D72.825 - Bandemia Category: Medical Code(s): D72.829 - Elevated white blood cell count, unspecified (5) UTI (urinary tract infection) Current visit: Yes Status: Acute Qualifiers: Urinary tract infection type: site unspecified Hematuria presence: without hematuria Qualified Code(s): N39.0 - Urinary tract infection, site not specified Category: Medical Code(s): N39.0 - Urinary tract infection, site not specified - Assessment and plan all Dx Assessment and Plan for all problems:: I am going to add clindamycin to the patient's antibiotic regimen. Repeat cultures if she spikes a temp again.
[2017-08-27 07:33] LABS: Basophils % 0.1 % (0.1-2.0); Eosinophils # 0.4 K/mm3 (0.0-0.4); Eosinophils % 2.9 % (0.1-12.0); Hematocrit 34.5 % (37.0-47.0); Hemoglobin 10.1 g/dL (12.2-16.2); Lymphocytes # 0.6 K/mm3 (0.7-4.5); Lymphocytes % 3.6 K/mm3 (10-50); Mean Corpuscular HGB Conc 29.4 g/dL (31.8-35.4); Mean Corpuscular Hemoglobin 24.8 pg (27.0-31.2); Mean Corpuscular Volume 84.3 fl (81-99); Monocytes # 0.5 K/mm3 (0.1-1.0); Monocytes % 3.6 % (1.7-9.3); Neutrophils # 13.6 K/mm3 (1.8-7.8); Neutrophils % 89.8 % (37.0-80.0); Platelet Count 258 K/mm3 (142-424); Red Blood Count 4.09 M/mm3 (4.20-5.40); Red Cell Distribution Width 14.1 % (11.5-17.5); White Blood Count 15.2 K/mm3 (4.8-10.8)
[2017-08-27 07:44] LABS: Anion Gap 11.4 mEq/L (5-15); Calcium 7.6 mg/dL (8.5-10.1); Potassium 3.4 mmoL/L (3.5-5.1)
[2017-08-27 09:11] LABS: Eosinophils % 3 % (0-3); Lymphocytes % 2 % (10-50); Monocytes % 1 % (2-9); Neutrophils % 92 % (42-76); Total Cells Counted 100
[2017-08-27 09:14] LABS: Hypochromasia 1+
--- NOTE | 2017-08-27 10:26 | Pharmacy Consult Notes ---
- Pharmacy Consult Date: 08/27/17 Time: 10:24 Referring provider: DR. VASQUEZ Reason for Consult:: TOBRAMYCIN DOSING Allergies and ADEs:: Allergies Allergy/AdvReac Type Severity Reaction Status Date / Time vancomycin Allergy Severe red man Verified 08/25/17 01:29 syndrome ceftriaxone Allergy Mild Rash Verified 08/25/17 01:29 amoxicillin Allergy Unknown Verified 08/25/17 01:29 atropine Allergy Unknown Verified 08/25/17 01:29 aztreonam Allergy Unknown Verified 08/25/17 01:29 ciprofloxacin Allergy Unknown Verified 08/25/17 01:29 clindamycin Allergy Unknown Verified 08/25/17 01:29 levofloxacin Allergy Unknown Verified 08/25/17 01:29 morphine Allergy Unknown Verified 08/25/17 01:29 nabumetone Allergy Unknown Verified 08/25/17 01:29 oxytetracycline Allergy Unknown Verified 08/25/17 01:29 Penicillins Allergy Unknown Verified 08/25/17 01:29 polymyxin B Allergy Unknown Verified 08/25/17 01:29 Sulfa (Sulfonamide Allergy Unknown Verified 08/25/17 01:29 Antibiotics) tramadol Allergy Unknown Verified 08/25/17 01:29 Home Medications:: Home Medications Medication Instructions Recorded Confirmed Type Fexofenadine HCl 180 mg PO DAILY 08/24/17 08/25/17 History Gabapentin [Gabapentin 300mg Cap] 300 mg PO DAILY 08/24/17 08/25/17 History Gabapentin [Gabapentin 300mg Cap] 600 mg PO HS 08/24/17 08/25/17 History Hydrocodone/Acetaminophen 1 tab PO Q6HP PRN 08/24/17 08/25/17 History [Hydrocodone-Acetamin 10-325 mg] Levothyroxine Sodium 300 mcg PO DAILY 08/24/17 08/25/17 History [Levothyroxine 300mcg (0.3mg) Tab] Metformin HCl 500 mg PO TIDWM 08/24/17 08/25/17 History Sennosides/Docusate Sodium [Stool 1 each PO DAILY 08/24/17 08/25/17 History Softener-Laxative Tablet] Spironolactone 50 mg PO DAILY 08/24/17 08/25/17 History Aspirin [Aspirin 81mg EC Tab] 81 mg PO DAILY 07/17/18 07/17/18 History Height: 1.63 m Weight: 129.954 kg Laboratory Results:: Laboratory Results - last 24 hr 08/26/17 06:40: Total Counted 100, Neutrophils % (Manual) 94 H, Lymphocytes % ( Manual) 3 L, Monocytes % (Manual) 3, Platelet Estimate Normal, Hypochromasia 1+ 08/26/17 10:46: POC Glucose 126 H 08/26/17 16:40: POC Glucose 98 08/26/17 20:20: POC Glucose 105 08/27/17 06:11: POC Glucose 86 08/27/17 06:43: WBC 15.2 H D, RBC 4.09 L, Hgb 10.1 L, Hct 34.5 L, MCV 84.3, MCH 24.8 L, MCHC 29.4 L, RDW 14.1, Plt Count 258, MPV 9.0, Neut % (Auto) 89.8 H, Lymph % (Auto) 3.6 L, [place] % (Auto) 3.6, Eos % (Auto) 2.9, Baso % (Auto) 0.1, Neut # (Auto) 13.6 H, Lymph # (Auto) 0.6 L, [place] # (Auto) 0.5, Eos # (Auto) 0.4 , Baso # (Auto) 0.0, Total Counted 100, Neutrophils % (Manual) 92 H, Band Neutrophils % 1.0, Lymphocytes % (Manual) 2 L, Monocytes % (Manual) 1 L, Eosinophils % (Manual) 3, Basophils % (Manual) 1.0, Platelet Estimate Normal, Hypochromasia 1+ 08/27/17 06:43: Sodium 131 L, Potassium 3.4 L, Chloride 102, Carbon Dioxide 21, Anion Gap 11.4, BUN 20 H D, Creatinine 1.03 H, Estimated Creat Clear 47, Estimated GFR 54 L, Est GFR ( Amer) 65, Glucose 95, Calcium 7.6 L Medical History: Reports:: Diabetes Mellitus Type 2, Hypertension Denies:: Cancer, Diabetes Mellitus Type 1, MRSA Assessment and Plan (1) Cellulitis of anterior lower leg Current visit: Yes Status: Acute Category: Medical Code(s): L03.119 - Cellulitis of unspecified part of limb (2) Sepsis Current visit: Yes Status: Suspected Category: Medical Code(s): A41.9 - Sepsis, unspecified organism (3) Acute febrile illness Current visit: Yes Status: Acute Category: Medical Code(s): R50.9 - Fever , unspecified (4) Leukocytosis Current visit: Yes Status: Acute Qualifiers: Leukocytosis type: bandemia Qualified Code(s): D72.825 - Bandemia Category: Medical Code(s): D72.829 - Elevated white blood cell count, unspecified (5) UTI (urinary tract infection) Current visit: Yes Status: Acute Qualifiers: Urinary tract infection type: site unspecified Hematuria presence: without hematuria Qualified Code(s): N39.0 - Urinary tract infection, site not specified Category: Medical Code(s): N39.0 - Urinary tract infection, site not specified - Assessment and plan all Dx Assessment and Plan for all problems:: BASED ON PATIENT FACTORS, RECOMMEND TOBRAMYCIN 440 MG IV Q36H. WILL OBTAIN LEVELS AT 4 AND 12 HOURS POST INFUSION. PHARMACY WILL FOLLOW DAILY AND ADJUST APPROPRIATE.
[2017-08-28 07:10] LABS: Anion Gap 9.8 mEq/L (5-15); Calcium 7.8 mg/dL (8.5-10.1); Potassium 3.8 mmoL/L (3.5-5.1)
[2017-08-28 07:41] LABS: Basophils % 0.1 % (0.1-2.0); Eosinophils # 0.7 K/mm3 (0.0-0.4); Eosinophils % 2.4 % (0.1-12.0); Hematocrit 34.8 % (37.0-47.0); Lymphocytes % 3.5 K/mm3 (10-50); Mean Corpuscular HGB Conc 31.7 g/dL (31.8-35.4); Mean Corpuscular Hemoglobin 26.5 pg (27.0-31.2); Mean Corpuscular Volume 83.5 fl (81-99); Mean Platelet Volume 8.1 fl (7.4-10.4); Monocytes # 1.3 K/mm3 (0.1-1.0); Monocytes % 4.5 % (1.7-9.3); Neutrophils # 25.1 K/mm3 (1.8-7.8); Neutrophils % 89.5 % (37.0-80.0); Platelet Count 284 K/mm3 (142-424); Red Blood Count 4.17 M/mm3 (4.20-5.40); Red Cell Distribution Width 14.5 % (11.5-17.5)
[2017-08-28 09:03] VITALS: BP 114/52
--- NOTE | 2017-08-28 10:33 | Pharmacy Consult Notes ---
- Pharmacy Consult Date: 08/28/17 Time: 10:29 Referring provider: DR. VASQUEZ Reason for Consult:: TOBRAMYCIN LEVELS Allergies and ADEs:: Allergies Allergy/AdvReac Type Severity Reaction Status Date / Time vancomycin Allergy Severe red man Verified 08/25/17 01:29 syndrome ceftriaxone Allergy Mild Rash Verified 08/25/17 01:29 amoxicillin Allergy Unknown Verified 08/25/17 01:29 atropine Allergy Unknown Verified 08/25/17 01:29 aztreonam Allergy Unknown Verified 08/25/17 01:29 ciprofloxacin Allergy Unknown Verified 08/25/17 01:29 clindamycin Allergy Unknown Verified 08/25/17 01:29 levofloxacin Allergy Unknown Verified 08/25/17 01:29 morphine Allergy Unknown Verified 08/25/17 01:29 nabumetone Allergy Unknown Verified 08/25/17 01:29 oxytetracycline Allergy Unknown Verified 08/25/17 01:29 Penicillins Allergy Unknown Verified 08/25/17 01:29 polymyxin B Allergy Unknown Verified 08/25/17 01:29 Sulfa (Sulfonamide Allergy Unknown Verified 08/25/17 01:29 Antibiotics) tramadol Allergy Unknown Verified 08/25/17 01:29 Home Medications:: Home Medications Medication Instructions Recorded Confirmed Type Fexofenadine HCl 180 mg PO DAILY 08/24/17 08/25/17 History Gabapentin [Gabapentin 300mg Cap] 300 mg PO DAILY 08/24/17 08/25/17 History Gabapentin [Gabapentin 300mg Cap] 600 mg PO HS 08/24/17 08/25/17 History Hydrocodone/Acetaminophen 1 tab PO Q6HP PRN 08/24/17 08/25/17 History [Hydrocodone-Acetamin 10-325 mg] Levothyroxine Sodium 300 mcg PO DAILY 08/24/17 08/25/17 History [Levothyroxine 300mcg (0.3mg) Tab] Metformin HCl 500 mg PO TIDWM 08/24/17 08/25/17 History Sennosides/Docusate Sodium [Stool 1 each PO DAILY 08/24/17 08/25/17 History Softener-Laxative Tablet] Spironolactone 50 mg PO DAILY 08/24/17 08/25/17 History Aspirin [Aspirin 81mg EC Tab] 81 mg PO DAILY 07/17/18 07/17/18 History Height: 1.63 m Weight: 132.052 kg Laboratory Results:: Laboratory Results - last 24 hr 08/27/17 11:24: POC Glucose 108 08/27/17 16:28: Random Tobramycin 6.9 08/27/17 16:30: POC Glucose 136 H 08/27/17 20:11: POC Glucose 123 H 08/28/17 00:45: Random Tobramycin 3.5 08/28/17 06:16: POC Glucose 135 H 08/28/17 06:46: WBC 28.0 H* D, RBC 4.17 L, Hgb 11.0 L, Hct 34.8 L, MCV 83.5, MCH 26.5 L, MCHC 31.7 L, RDW 14.5, Plt Count 284, MPV 8.1, Neut % (Auto) 89.5 H , Lymph % (Auto) 3.5 L, Walsh % (Auto) 4.5, Eos % (Auto) 2.4, Baso % (Auto) 0.1, Neut # (Auto) 25.1 H, Lymph # (Auto) 1.0, Walsh # (Auto) 1.3 H, Eos # (Auto) 0.7 H, Baso # (Auto) 0.0 08/28/17 06:46: Sodium 128 L, Potassium 3.8, Chloride 100, Carbon Dioxide 22, Anion Gap 9.8, BUN 24 H, Creatinine 1.08 H, Estimated Creat Clear 45, Estimated GFR 51 L, Est GFR ( Amer) 62, Glucose 140 H, Calcium 7.8 L Medical History: Reports:: Diabetes Mellitus Type 2, Hypertension Denies:: Cancer, Diabetes Mellitus Type 1, MRSA Assessment and Plan (1) Cellulitis of anterior lower leg Current visit: Yes Status: Acute Category: Medical Code(s): L03.119 - Cellulitis of unspecified part of limb (2) Sepsis Current visit: Yes Status: Ruled-out Category: Medical Code(s): A41.9 - Sepsis, unspecified organism (3) Acute febrile illness Current visit: Yes Status: Acute Category: Medical Code(s): R50.9 - Fever , unspecified (4) Leukocytosis Current visit: Yes Status: Acute Qualifiers: Leukocytosis type: bandemia Qualified Code(s): D72.825 - Bandemia Category: Medical Code(s): D72.829 - Elevated white blood cell count, unspecified (5) UTI (urinary tract infection) Current visit: Yes Status: Ruled-out Qualifiers: Urinary tract infection type: site unspecified Hematuria presence: without hematuria Qualified Code(s): N39.0 - Urinary tract infection, site not specified Category: Medical Code(s): N39.0 - Urinary tract infection, site not specified (6) Diabetes mellitus, type II, insulin dependent Current visit: Yes Status: Acute Category: Medical Code(s): E11.9 - Type 2 diabetes mellitus without complications; Z79.4 - assisted (current) use of insulin (7) Chronic pain Current visit: Yes Status: Acute Category: Medical Code(s): G89.29 - Other chronic pain - Assessment and plan all Dx Assessment and Plan for all problems:: TOBRAMYCIN LEVELS: 4-HOUR POST-INFUSION=6.9 MCG/ML CALCULATED PEAK=8.90 MCG/ML 12-HOUR POST-INFUSION=3.5 MCG/ML CALCULATED TROUGH=0.46 MCG/ML BASED ON PATIENT FACTORS AND LEVELS, RECOMMEND INCREASING TOBRAMYCIN TO 600 MG ( 7 MG/KG/DBW) IV Q36H. WILL OBTAIN A 12-HOUR TOBRAMYCIN LEVEL. PHARMACY WILL FOLLOW DAILY AND ADJUST APPROPRIATE.
[2017-08-28 12:48] LABS: Eosinophils % 2 % (0-3); Hypochromasia 1+; Lymphocytes % 3 % (10-50); Monocytes % 5 % (2-9); Neutrophils % 85 % (42-76); Total Cells Counted 100
== END 2017-08-28 11:41 | disposition swing bed (61) ==
LOC: 2ND 20:04 → ER 20:04 → 2ND 08-25 00:58 → UNDODISIN 08-28 09:30
PROVIDERS: ADMIT Internal Medicine Adolescent Medicine; ATTEND Family Medicine
CPT/HCPCS: 36415; 74176; 80048; 80053; 80200; 81001; 82962; 83605; 85007; 85025; 85651; 86140; 87040; 87086; 96365; 96366; 99285; J1335; J2405; J3370

== ENCOUNTER 2017-08-28 11:43 | Inpatient (IN) ==
--- NOTE | 2017-08-28 14:34 | Pharmacy Consult Notes ---
[facility] Pharmacy VTE Monitoring - Patient Demographics Admission date: 08/28/17 Report Date: 08/28/17 Time: 14:33 Allergies/Adverse Reactions: Patient Allergies vancomycin Allergy (Severe, Verified 08/25/17 01:29) red man syndrome ceftriaxone Allergy (Mild, Verified 08/25/17 01:29) Rash amoxicillin Allergy (Unknown, Verified 08/25/17 01:29) atropine Allergy (Unknown, Verified 08/25/17 01:29) aztreonam Allergy (Unknown, Verified 08/25/17 01:29) ciprofloxacin Allergy (Unknown, Verified 08/25/17 01:29) clindamycin Allergy (Unknown, Verified 08/25/17 01:29) levofloxacin Allergy (Unknown, Verified 08/25/17:29) morphine Allergy (Unknown, Verified 08/25/17:29) nabumetone Allergy (Unknown, Verified 08/25/17 01:29) oxytetracycline Allergy (Unknown, Verified 08/25/17 01:29) Penicillins Allergy (Unknown, Verified 08/25/17 01:29) polymyxin B Allergy (Unknown, Verified 08/25/17 01:29) Sulfa (Sulfonamide Antibiotics) Allergy (Unknown, Verified 08/25/17 01:29) tramadol Allergy (Unknown, Verified 08/25/17 01:29) Height: 1.63 m Weight: 129.444 kg - Prophylaxis Location of Applied Device: Bilateral Lower Extremeties (CHARISSA HOSE ORDERED)
--- NOTE | 2017-08-28 19:10 | Swing Bed Reports ---
[facility] Swing Bed H&P Swing Bed History and Physical: 66 year old female with chronic wounds of bilateral lower legs from stasis ulcers was admitted on 08/24 with high fevers. Initially source of infection was felt to be urologic but after negative urine and blood cultures it was beleived wounds with associated cellulitis are source of infection. Patient admitted for broad spectrum antibiotics and wound care to swing bed after 3 day qualifying stay. PMH: Diabetes, Venous stasis ulcers Soc: and lives at home. still cooks. Non smoker, nondrinker FH: noncontributory Ros: fevers, chills, myalgias, malaise, urinary retention PE: VS: see EMR HEENT: grossly normal NECK: no JVD Lungs: distant, clear CV: RRR Abd: obese Ext: erythema of feet and lower extermeities with bilateral large ulcerated wounds on anterior lower legs Neuro: no deficit A/P Cellulitis of Chronic Leg Wounds--broad spectrum antibiotics. Wound care. PT for strengthening Rehab potential: Fair Prognosis: Fair Mental status average
--- NOTE | 2017-08-29 12:22 | Pharmacy Consult Notes ---
- Pharmacy Consult Date: 08/29/17 Time: 12:19 Referring provider: DR. VASQUEZ Reason for Consult:: TOBRAMYCIN LEVEL Allergies and ADEs:: Allergies Allergy/AdvReac Type Severity Reaction Status Date / Time vancomycin Allergy Severe red man Verified 08/25/17 01:29 syndrome ceftriaxone Allergy Mild Rash Verified 08/25/17 01:29 amoxicillin Allergy Unknown Verified 08/25/17 01:29 atropine Allergy Unknown Verified 08/25/17 01:29 aztreonam Allergy Unknown Verified 08/25/17 01:29 ciprofloxacin Allergy Unknown Verified 08/25/17 01:29 clindamycin Allergy Unknown Verified 08/25/17 01:29 levofloxacin Allergy Unknown Verified 08/25/17 01:29 morphine Allergy Unknown Verified 08/25/17 01:29 nabumetone Allergy Unknown Verified 08/25/17 01:29 oxytetracycline Allergy Unknown Verified 08/25/17 01:29 Penicillins Allergy Unknown Verified 08/25/17 01:29 polymyxin B Allergy Unknown Verified 08/25/17 01:29 Sulfa (Sulfonamide Allergy Unknown Verified 08/25/17 01:29 Antibiotics) tramadol Allergy Unknown Verified 08/25/17 01:29 Home Medications:: Home Medications Medication Instructions Recorded Confirmed Type Fexofenadine HCl 180 mg PO DAILY 08/24/17 08/28/17 History Gabapentin [Gabapentin 300mg Cap] 300 mg PO DAILY 08/24/17 08/28/17 History Gabapentin [Gabapentin 300mg Cap] 600 mg PO HS 08/24/17 08/28/17 History Levothyroxine Sodium 300 mcg PO DAILY 08/24/17 08/28/17 History [Levothyroxine 300mcg (0.3mg) Tab] Metformin HCl 500 mg PO TIDWM 08/24/17 08/28/17 History Sennosides/Docusate Sodium [Stool 1 each PO DAILY 08/24/17 08/28/17 History Softener-Laxative Tablet] Spironolactone 50 mg PO DAILY 08/24/17 08/28/17 History Aspirin [Aspirin 81mg EC Tab] 81 mg PO DAILY 08/25/17 08/28/17 History Ertapenem Sodium [Invanz 1gm Vial] 1 gm IV Q24H 08/28/17 08/28/17 History Insulin Lispro [HumaLOG 100 0 unit SQ ACHS 08/28/17 08/28/17 History units/mL 3mL vial (SSI)] Tobramycin Sulfate [Tobramycin 440 mg IV Q36H 08/28/17 08/28/17 History 80mg/2mL Vial] Height: 1.63 m Weight: 134.887 kg Laboratory Results:: Laboratory Results - last 24 hr 08/28/17 16:54: POC Glucose 141 H 08/28/17 21:33: POC Glucose 132 H 08/29/17 06:58: POC Glucose 97 08/29/17 11:25: Random Tobramycin 7.9 08/29/17 11:59: POC Glucose 92 Medical History: Reports:: Diabetes Mellitus Type 2, Hypertension Denies:: Cancer, Diabetes Mellitus Type 1, MRSA Assessment and Plan - Assessment and plan all Dx Assessment and Plan for all problems:: BASED ON PATIENT FACTORS AND TOBRAMYCIN 12-HOUR LEVEL, RECOMMEND TOBRAMYCIN 600 MG IV Q48H. PHARMACY WILL CONTINUE TO MONITOR DAILY AND ADJUST APPROPRIATE.
[2017-08-30 06:55] LABS: Calcium 8.2 mg/dL (8.5-10.1)
[2017-08-31 06:40] LABS: Anion Gap 10.6 mEq/L (5-15); Potassium 3.6 mmoL/L (3.5-5.1)
--- NOTE | 2017-08-31 07:14 | Progress Note ---
Internal Medicine - PN: Subj *Date: 08/31/17 *Time: 07:11 Interval history: Patient has remained afebrile through the weekend. Nursing staff reports significant sloughing of skin with dressing changes. Patient admits she feels quite weak and it is painful to try to walk which is limited her attempts at getting out of bed. Exam Vital signs and Labs for Last 24 Hours: Temp Pulse Resp BP Pulse Ox 98.2 F 85 20 131/51 99 08/30/17 19:28 08/30/17 21:15 08/30/17 19:28 08/30/17 19:28 08/30/17 19:28 Laboratory Results - last 24 hr 08/30/17 16:22: POC Glucose 107 08/30/17 21:17: POC Glucose 130 H 08/31/17 06:13: Sodium 138, Potassium 3.6, Chloride 105, Carbon Dioxide 26, Anion Gap 10.6, BUN 22 H, Creatinine 1.16 H, Estimated Creat Clear 42, Estimated GFR 47 L, Est GFR ( Amer) 57 L, Glucose 122 H D, Calcium 8.0 L 08/31/17 06:26: POC Glucose 113 H I & O for Last 24 hours: Intake & Output 08/28/17 08/29/17 08/30/17 08/31/17 11:59 11:59 11:59 11:59 Intake Total 1080 / 1080 510 / 510 980 / 980 Output Total 1999 / 1999 1800 / 1800 600 / 600 Balance -920 / -920 -1290 / -1290 380 / 380 Weight 285 lb 6 oz 297 lb 6 oz 284 lb 7 oz 282 lb 9 oz Microbiology Reports for the Last 24 Hours: Microbiology 08/28/17 11:15 Leg,Left Gram Stain - Final 08/28/17 11:15 Leg,Left Wound Culture - Final Pseudomonas aeruginosa 08/28/17 11:10 Leg,Right Gram Stain - Final 08/28/17 11:10 Leg,Right Wound Culture - Final Pseudomonas putida Narrative: Patient appears comfortable. Dressings are in place on the legs below the knees. Feet remain erythematous although they are no longer hot to the touch. Swelling in the feet has decreased significantly. Assessment and Plan (1) Cellulitis of anterior lower leg Current visit: No Status: Acute Category: Medical Code(s): L03.119 - Cellulitis of unspecified part of limb (2) Chronic pain Current visit: No Status: Acute Category: Medical Code(s): G89.29 - Other chronic pain (3) Diabetes mellitus, type II, insulin dependent Current visit: No Status: Acute Category: Medical Code(s): E11.9 - Type 2 diabetes mellitus without complications; Z79.4 - terminal computer operator (current) use of insulin - Assessment and plan all Dx Assessment and Plan for all problems:: I discussed with the patient treatment of her cellulitis and chronic wound infections. Cultures have returned positive for Pseudomonas. Review of old records at the office shows previous pseudomonal leg infections. 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 We will continue tobramycin and add on imipenem with the last and to treat the wound infections. In the past it has been suggested to the patient that she undergo bilateral lower leg amputations for definitive treatment of her wounds. Patient tells me that as long as she can walk, even if it is just a little, she hopes to avoid amputations. Remove Childers catheter today
--- NOTE | 2017-09-02 06:54 | Progress Note ---
Internal Medicine - PN: Subj *Date: 09/02/17 *Time: 06:52 Interval history: Patient has no complaints. She has not been out of bed in the last 24 hours to participate in any physical therapy. Nursing staff reports is very difficult to get the patient out of bed. I did question the patient about her activity level at home and essentially she has to be able to walk about 10 feet at the most. Exam Vital signs and Labs for Last 24 Hours: Temp Pulse Resp BP Pulse Ox 98.3 F 76 20 105/48 96 09/01/17 20:00 09/01/17 20:00 09/01/17 20:00 09/01/17 20:00 09/01/17 22:00 Laboratory Results - last 24 hr 09/01/17 12:02: POC Glucose 100 09/01/17 17:07: POC Glucose 89 09/01/17 21:25: Tobramycin Trough 0.9 09/01/17 21:35: POC Glucose 107 I & O for Last 24 hours: Intake & Output 08/30/17 08/31/17 09/01/17 09/02/17 11:59 11:59 11:59 11:59 Intake Total 510 / 510 980 / 980 1530 / 1530 980 / 980 Output Total 1800 / 1800 600 / 600 1100 / 1100 950 / 950 Balance -1290 / -1290 380 / 380 430 / 430 30 / 30 Weight 284 lb 7 oz 282 lb 9 oz 286 lb 6.087 oz 291 lb 0.163 oz Narrative: Patient is in no distress. Erythema of the feet is improving. Patient has no edema of the feet. Dressings are in place on the lower legs Assessment and Plan (1) Cellulitis of anterior lower leg Current visit: No Status: Acute Category: Medical Code(s): L03.119 - Cellulitis of unspecified part of limb (2) Chronic pain Current visit: No Status: Acute Category: Medical Code(s): G89.29 - Other chronic pain (3) Diabetes mellitus, type II, insulin dependent Current visit: No Status: Acute Category: Medical Code(s): E11.9 - Type 2 diabetes mellitus without complications; Z79.4 - detention (current) use of insulin - Assessment and plan all Dx Assessment and Plan for all problems:: Continue dual antibiotics for Pseudomonas. Anticipate patient will be discharged on Thursday of this week
--- NOTE | 2017-09-02 08:36 | Progress Note ---
Internal Medicine - PN: Subj *Date: 09/02/17 *Time: 08:35 Exam Vital signs and Labs for Last 24 Hours: Temp Pulse Resp BP Pulse Ox 99.1 F 81 16 106/49 97 09/02/17 08:00 09/02/17 08:00 09/02/17 08:00 09/02/17 08:00 09/02/17 08:00 Laboratory Results - last 24 hr 09/01/17 12:02: POC Glucose 100 09/01/17 17:07: POC Glucose 89 09/01/17 21:25: Tobramycin Trough 0.9 09/01/17 21:35: POC Glucose 107 09/02/17 06:23: POC Glucose 95 I & O for Last 24 hours: Intake & Output 08/30/17 08/31/17 09/01/17 09/02/17 23:59 23:59 23:59 23:59 Intake Total 1440 / 1440 1050 / 1050 920 / 920 780 / 780 Output Total 1300 / 1300 1100 / 1100 750 / 750 800 / 800 Balance 140 / 140 -50 / -50 170 / 170 -20 / -20 Weight 129.019 kg 128.168 kg 129.9 kg 132 kg Assessment and Plan (1) Cellulitis of anterior lower leg Current visit: No Status: Acute Category: Medical Code(s): L03.119 - Cellulitis of unspecified part of limb (2) Chronic pain Current visit: No Status: Acute Category: Medical Code(s): G89.29 - Other chronic pain (3) Diabetes mellitus, type II, insulin dependent Current visit: No Status: Acute Category: Medical Code(s): E11.9 - Type 2 diabetes mellitus without complications; Z79.4 - half-way (current) use of insulin The patient's infection will respond to the chosen ABx?: Yes Is the patient receiving the right drug, dose, and route?: Yes Could a more targeted ABx be ordered?: No (pseudomonas/merrem+tobramycin)
--- NOTE | 2017-09-02 10:23 | Pharmacy Consult Notes ---
- Pharmacy Consult Date: 09/02/17 Time: 10:20 Referring provider: DR. VASQUEZ Reason for Consult:: TOBRAMYCIN TROUGH LEVEL Allergies and ADEs:: Allergies Allergy/AdvReac Type Severity Reaction Status Date / Time vancomycin Allergy Severe red man Verified 08/25/17 01:29 syndrome ceftriaxone Allergy Mild Rash Verified 08/25/17 01:29 amoxicillin Allergy Unknown Verified 08/25/17 01:29 atropine Allergy Unknown Verified 08/25/17 01:29 aztreonam Allergy Unknown Verified 08/25/17 01:29 ciprofloxacin Allergy Unknown Verified 08/25/17 01:29 clindamycin Allergy Unknown Verified 08/25/17 01:29 levofloxacin Allergy Unknown Verified 08/25/17 01:29 morphine Allergy Unknown Verified 08/25/17 01:29 nabumetone Allergy Unknown Verified 08/25/17 01:29 oxytetracycline Allergy Unknown Verified 08/25/17 01:29 Penicillins Allergy Unknown Verified 08/25/17 01:29 polymyxin B Allergy Unknown Verified 08/25/17 01:29 Sulfa (Sulfonamide Allergy Unknown Verified 08/25/17 01:29 Antibiotics) tramadol Allergy Unknown Verified 08/25/17 01:29 Home Medications:: Home Medications Medication Instructions Recorded Confirmed Type Fexofenadine HCl 180 mg PO DAILY 08/24/17 08/28/17 History Gabapentin [Gabapentin 300mg Cap] 300 mg PO DAILY 08/24/17 08/28/17 History Gabapentin [Gabapentin 300mg Cap] 600 mg PO HS 08/24/17 08/28/17 History Levothyroxine Sodium 300 mcg PO DAILY 08/24/17 08/28/17 History [Levothyroxine 300mcg (0.3mg) Tab] Metformin HCl 500 mg PO TIDWM 08/24/17 08/28/17 History Sennosides/Docusate Sodium [Stool 1 each PO DAILY 08/24/17 08/28/17 History Softener-Laxative Tablet] Spironolactone 50 mg PO DAILY 08/24/17 08/28/17 History Aspirin [Aspirin 81mg EC Tab] 81 mg PO DAILY 08/25/17 08/28/17 History Ertapenem Sodium [Invanz 1gm Vial] 1 gm IV Q24H 08/28/17 08/28/17 History Insulin Lispro [HumaLOG 100 0 unit SQ ACHS 08/28/17 08/28/17 History units/mL 3mL vial (SSI)] Tobramycin Sulfate [Tobramycin 440 mg IV Q36H 08/28/17 08/28/17 History 80mg/2mL Vial] Height: 1.63 m Weight: 132 kg Laboratory Results:: Laboratory Results - last 24 hr 09/01/17 12:02: POC Glucose 100 09/01/17 17:07: POC Glucose 89 09/01/17 21:25: Tobramycin Trough 0.9 09/01/17 21:35: POC Glucose 107 09/02/17 06:23: POC Glucose 95 Medical History: Reports:: Diabetes Mellitus Type 2, Hypertension Denies:: Cancer, Diabetes Mellitus Type 1, MRSA Assessment and Plan (1) Cellulitis of anterior lower leg Current visit: No Status: Acute Category: Medical Code(s): L03.119 - Cellulitis of unspecified part of limb (2) Chronic pain Current visit: No Status: Acute Category: Medical Code(s): G89.29 - Other chronic pain (3) Diabetes mellitus, type II, insulin dependent Current visit: No Status: Acute Category: Medical Code(s): E11.9 - Type 2 diabetes mellitus without complications; Z79.4 - terminal makeup operator (current) use of insulin - Assessment and plan all Dx Assessment and Plan for all problems:: DAY 7 OF TOBRAMYCIN BASED ON TOBRAMYCIN LEVEL AND PATIENT FACTORS, RECOMMEND CONTINUING TOBRAMYCIN 600 MG IV Q48H. PATIENT WILL RECEIVE 2 MORE DOSES BEFORE LIKELY DISCHARGE ON .
--- NOTE | 2017-09-04 07:07 | Progress Note ---
Internal Medicine - PN: Subj *Date: 09/04/17 *Time: 07:06 Interval history: Patient is feeling better and reports she thinks she is getting stronger and is doing better with therapy. Exam Vital signs and Labs for Last 24 Hours: Temp Pulse Resp BP Pulse Ox 98.6 F 85 16 130/60 99 09/03/17 20:00 09/03/17 20:00 09/03/17 20:00 09/03/17 20:00 09/03/17 20:00 Laboratory Results - last 24 hr 09/02/17 17:12: POC Glucose 116 H 09/03/17 06:04: POC Glucose 115 H 09/03/17 11:17: POC Glucose 109 09/03/17 17:03: POC Glucose 117 H 09/03/17 20:57: POC Glucose 121 H I & O for Last 24 hours: Intake & Output 09/01/17 09/02/17 09/03/17 09/04/17 11:59 11:59 11:59 11:59 Intake Total 1530 / 1530 1220 / 1220 820 / 820 240 / 240 Output Total 1100 / 1100 950 / 950 400 / 400 1250 / 1250 Balance 430 / 430 270 / 270 420 / 420 -1010 / -1010 Weight 286 lb 6.087 oz 291 lb 0.163 oz 284 lb 6.341 oz 287 lb 4 oz Narrative: Legs are dressed. Feet are less red and edematous. There is still some heat radiating from the lower legs. 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 She feels like she is almost back to baseline in regards to her physical activity. Anticipate discharge on Thursday
--- NOTE | 2017-09-06 06:52 | Discharge Summary ---
General - General Admission date:: 08/28/17 Discharge date: 09/06/17 HPI HPI: 66-year-old male with chronic venous stasis ulcers that are rather large on the lower legs was admitted to swing bed for IV antibiotics secondary to pseudomonal cellulitis. Patient had been admitted to the hospital initially for sepsis workup and other source of infection were ruled out. Patient was admitted to swing bed for antibiotics and physical therapy for strengthening. Hospital Course Hospital Course: Upon admission to the swing bed patient was on Invanz and tobramycin. Wound cultures had not returned at that time but later returned with Pseudomonas as the cause infection. Invanz was switched to Merrem and tobramycin was continued. Patient was continued antibiotics throughout the week and physical therapy visited the patient twice daily. Patient participated with PT approximately 50% of the time. As the week went on patient's strength improved. Cellulitis improved as well. Dressing changes were performed daily. On September 06 patient was discharged home. Patient completed 1 week of Merrem in 2 weeks of tobramycin. Home health will be arranged at discharge for wound monitoring, physical therapy, home safety. Patient does require either a walker or wheelchair to ambulate within the home Objective Vital signs: Temp Pulse Resp BP Pulse Ox 97.8 F 73 18 95/56 96 09/05/17 19:34 09/05/17 19:34 09/05/17 19:34 09/05/17 19:34 09/05/17 19:34 Results Labs on day of discharge: Labs from last 24 hours 09/05/17 09/05/17 09/05/17 20:04 16:29 11:55 POC Glucose 98 121 H 90 DS: Diagnosis - Discharge Diagnosis (1) Cellulitis of anterior lower leg Status: Acute (2) Chronic pain Status: Acute (3) Diabetes mellitus, type II, insulin dependent Status: Acute Discharge Plan - Patient Discharge Instructions ACTIVITY: Continue current activity DIET: continue same diet - Follow up Plan Follow up with: Yann Hargrove MD [Staff Physician] - Disposition: Home, Self-Correction Medications: Home Medications Medication Instructions Recorded Confirmed Type Fexofenadine HCl 180 mg PO DAILY 08/24/17 08/28/17 History Gabapentin [Gabapentin 300mg Cap] 300 mg PO DAILY 08/24/17 08/28/17 History Gabapentin [Gabapentin 300mg Cap] 600 mg PO HS 08/24/17 08/28/17 History Levothyroxine Sodium 300 mcg PO DAILY 08/24/17 08/28/17 History [Levothyroxine 300mcg (0.3mg) Tab] Metformin HCl 500 mg PO TIDWM 08/24/17 08/28/17 History Sennosides/Docusate Sodium [Stool 1 each PO DAILY 08/24/17 08/28/17 History Softener-Laxative Tablet] Spironolactone 50 mg PO DAILY 08/24/17 08/28/17 History Aspirin [Aspirin 81mg EC Tab] 81 mg PO DAILY 08/25/17 08/28/17 History Ertapenem Sodium [Invanz 1gm Vial] 1 gm IV Q24H 08/28/17 08/28/17 History Insulin Lispro [HumaLOG 100 0 unit SQ ACHS 08/28/17 08/28/17 History units/mL 3mL vial (SSI)] Tobramycin Sulfate [Tobramycin 440 mg IV Q36H 08/28/17 08/28/17 History 80mg/2mL Vial] Prescriptions/Medication Reconciliation: Continue Gabapentin [Gabapentin 300mg Cap] 600 mg PO HS Levothyroxine Sodium [Levothyroxine 300mcg (0.3mg) Tab] 300 mcg PO DAILY Gabapentin [Gabapentin 300mg Cap] 300 mg PO DAILY Sennosides/Docusate Sodium [Stool Softener-Laxative Tablet] 1 each PO DAILY Fexofenadine HCl 180 mg PO DAILY Insulin Lispro [HumaLOG 100 units/mL 3mL vial (SSI)] 0 unit SQ ACHS Spironolactone 50 mg PO DAILY Metformin HCl 500 mg PO TIDWM Aspirin [Aspirin 81mg EC Tab] 81 mg PO DAILY Hydrocodone/Acetaminophen [Lortab 10/325mg tablet] 1 tab PO Q4HP PRN tab PRN Reason: Moderate To Severe Pain Discontinued Ondansetron HCl/Pf [Zofran 4mg/2mL vial] 4 mg IV Q8HP PRN vial PRN Reason: Nausea Tobramycin Sulfate [Tobramycin 80mg/2mL Vial] 440 mg IV Q36H Ertapenem Sodium [Invanz 1gm Vial] 1 gm IV Q24H
== END 2017-09-06 11:53 | disposition home or self-care (01) ==
LOC: 2ND 11:43
PROVIDERS: ADMIT Internal Medicine Adolescent Medicine; ATTEND Family Medicine
CPT/HCPCS: 36415; 80048; 80200; 82962; 86580; 87070; 87077; 87186; 87205; 97530; 97597; 97598; J1335; J2185; J2405

== ENCOUNTER 2017-09-26 05:28 | Inpatient (IN) ==
[2017-09-26 06:09] LABS: Basophils # 0.1 K/mm3 (0-0.2); Basophils % 0.4 % (0.1-2.0); Eosinophils % 0.1 % (0.1-12.0); Lymphocytes # 3.1 K/mm3 (0.7-4.5); Lymphocytes % 17.3 K/mm3 (10-50); Mean Corpuscular HGB Conc 28.9 g/dL (31.8-35.4); Mean Corpuscular Hemoglobin 26.1 pg (27.0-31.2); Mean Corpuscular Volume 90.2 fl (81-99); Mean Platelet Volume 7.5 fl (7.4-10.4); Monocytes # 0.7 K/mm3 (0.1-1.0); Neutrophils # 14.2 K/mm3 (1.8-7.8); Neutrophils % 78.2 % (37.0-80.0); Platelet Count 473 K/mm3 (142-424); Red Blood Count 1.31 M/mm3 (4.20-5.40); Red Cell Distribution Width 20.9 % (11.5-17.5); White Blood Count 18.1 K/mm3 (4.8-10.8)
[2017-09-26 06:11] LABS: Albumin Level 1.8 gm/dL (3.4-5.0); Albumin/Globulin Ratio 0.4 (1.1-1.8); Anion Gap 18.4 mEq/L (5-15); Bilirubin,Total 0.1 mg/dL (0.2-1.0); Calcium 7.9 mg/dL (8.5-10.1); Globulin 4.7 gm/dl (1.3-3.2); Total Protein,Serum 6.5 gm/dL (6.4-8.2)
[2017-09-26 06:13] LABS: Hematocrit 11.8 % (37.0-47.0)
[2017-09-26 06:14] LABS: Potassium 6.4 mmoL/L (3.5-5.1)
--- NOTE | 2017-09-26 06:30 | Emergency Department Note ---
ED Disposition Clinical Impression: Acute upper GI bleeding, Hyperkalemia, Anemia associated with acute blood loss , Diabetes mellitus, type II, insulin dependent Acute renal failure (ARF) Qualifiers: Acute renal failure type: unspecified Qualified Code(s): N17.9 - Acute kidney failure, unspecified Disposition: Admitted As Inpatient Condition on Discharge: Serious Instructions: DI for Diarrhea and Traveler's Diarrhea -- Adult, DI for Diarrhea and Traveler's Diarrhea -- Child, DI for Nausea -- Adult, DI for Nausea -- Child Referrals: Jacoby Jordan MD [Primary Care Provider] - - Critical Care Critical Care Time: Yes Attestation: On 09/26/17, the high probability of a clinically significant, sudden or life threatening deterioration of the following system(s) required my full and direct attention, intervention and personal management. The time I documented below is in addition to time spent performing reported procedures but includes the following listed in this critical care notation. Total Critical Care Time: 60 Vital system(s) involved:: Metabolic Failure My critical care processes included: Assessment & monitoring of V/S, Initial and Re-exams, Data Review/Interpretation, Coordinating Care, Medication Orders and management, Documentation Medical Decision Making - Medical Records Medical records reviewed: Yes: I reviewed the patient's medical records. - Lonnie Inquiry Pt receiving controlled substance: No Vital Signs: 09/26/17 05:29 09/26/17 06:28 Temperature 98.5 F 98.5 F Temperature Source Oral Oral Pulse Rate [Right] 106 H 103 H Respiratory Rate 18 18 Blood Pressure [Right Arm] 130/37 150/84 Blood Pressure Mean [Right Arm] 68 106 Blood Pressure Source [Right Arm] Manual Cuff/ Doppler Automatic Cuff Blood Pressure Position [Right Arm] Sitting Sitting 02 Sat by Pulse Oximetry 100 100 Oxygen Delivery Method Room Air Room Air - Lab Data Lab results reviewed: Yes: I reviewed the patient's lab results. Lab Results 09/26/17 05:44: WBC 18.1 H, RBC 1.31 L*, Hgb 3.4 L*, Hct 11.8 L*, MCV 90.2, MCH 26.1 L, MCHC 28.9 L, RDW 20.9 H, Plt Count 473 H, MPV 7.5, Neut % (Auto) 78.2, Lymph % (Auto) 17.3, [place] % (Auto) 4.0, Eos % (Auto) 0.1, Baso % (Auto) 0.4, Neut # (Auto) 14.2 H, Lymph # (Auto) 3.1, [place] # (Auto) 0.7, Eos # (Auto) 0.0, Baso # (Auto) 0.1, Total Counted 100, Neutrophils % (Manual) 75, Lymphocytes % ( Manual) 25, Platelet Estimate Slight increase, Hypochromasia 1+ 09/26/17 05:44: Sodium 134 L, Potassium 6.4 H*, Chloride 101, Carbon Dioxide 21 , Anion Gap 18.4 H, BUN 82 H, Creatinine 3.55 H, Estimated Creat Clear 14, Estimated GFR 13 L*, Est GFR ( Amer) 16 L*, Glucose 225 H, Calcium 7.9 L , Total Bilirubin 0.1 L, AST 10 L, ALT 14, Alkaline Phosphatase 67, Total Protein 6.5, Albumin 1.8 L, Globulin 4.7 H, Albumin/Globulin Ratio 0.4 L, Amylase 43, Lipase 172 09/26/17 05:44: Troponin I < 0.02 09/26/17 06:25: Stool Occult Blood Positive A 09/26/17 06:30: Lactate 2.5 H 09/26/17 06:30: Blood Type A Positive, Crossmatch (AHG) See Detail Result diagrams: 09/26/17 05:44 09/26/17 05:44 Orders (Tests/Meds): ED MEDICATIONS Generic Name Dose Route Start Last Admin Trade Name Freq PRN Reason Stop Dose Admin Sodium Chloride 250 mls @ 25 mls/hr 09/26/17 06:30 Sod Chlor 0.9% 250ml Bag IV 09/27/17 06:29 .Q10H ULISES Discontinued Medications Generic Name Dose Route Start Last Admin Trade Name Freq PRN Reason Stop Dose Admin Albuterol Sulfate 2.5 mg 09/26/17 06:47 Albuterol 0.083% 2.5mg/3ml Neb IH 09/26/17 06:48 ONCE ONE Dextrose 50 ml 09/26/17 06:46 09/26/17 07:02 Dextrose 50% 50ml Syringe IVP 09/26/17 06:47 50 ml ONCE ONE Administration Insulin Human Regular 5 unit 09/26/17 06:46 09/26/17 07:02 Humulin R Insulin 100 Units/Ml 10ml Vial SQ 09/26/17 06:47 5 unit ONCE ONE Administration Ondansetron HCl 4 mg 09/26/17 06:03 09/26/17 07:02 Zofran 4mg/2ml Vial IV 09/26/17 06:04 4 mg ONCE ONE Administration Sodium Polystyrene Sulfonate 30 gm 09/26/17 06:47 09/26/17 07:02 Kayexalate 15gm/60ml Bottle RC 09/26/17 06:48 30 gm ONCE ONE Administration ORDERS Category Date Time Status Packed Red Cells [Red Blood Cells] Stat BBK 09/26/17 06:30 Results Type and Screen Stat BBK 09/26/17 06:[address] abdomen pelvis wo con Stat Cat Scan 09/26/17 05:42 Taken CXR --portable [XR chest portable] Stat Exams 09/26/17 06:29 Taken Lactic Acid Follow Up (RFLX 1) Stat Lab 09/26/17 06:59 Ordered UA [Urinalysis and Microscopic] Stat Lab 09/26/17 05:42 Ordered Blood Culture Stat Micro 09/26/17 06:30 Received 12-lead EKG Request [ECG Request by /Gavin] Stat Y 09/26/17 06:17 Ordered - Radiology Data #1 Image(s): Chest Image Reviewed: Yes I reviewed the patient's radiology image Preliminary Findings: Abnormal (cm ) - CT Data CT Scan: Abdomen, Pelvis Time Received: 07:[address] Reviewed: Yes: I have viewed the radiologist's interpretation Preliminary Findings: Abnormal (rt renal pelvis stones ) - ECG Data Tracing #1 I reviewed this ECG and interpreted as documented below: Arrhythmias present: sinus tach Ischemic changes: non-specific ST-T wave changes - Physician Consults Physician Consulted: lanny Reason -: Admission GI Bleed HPI - General Chief complaint: Nausea/Vomiting/Diarrhea Stated complaint: bleeding Time Seen by Provider: 09/26/17 05:35 Mode of Arrival: EMS Source of Information: Patient, Relative, Medical Record Limitations: No Limitations Description of Symptoms (Recalled from ER Triage Doc. by RN): c/o nausea, vomiting, poor appetite, diarrhea that looks like blood x 2 days. c/o abd pain - History of Present Illness HPI Narrative: upper abd pain with weakness and dark stool over the last few days MD complaint: melena Onset (ago): day(s) Severity: moderate Associated symptoms: abdominal pain, nausea Treatments Prior to Arrival: none - Related Data Home Medications Medication Instructions Recorded Confirmed Fexofenadine HCl 180 mg PO DAILY 08/24/17 09/26/17 Gabapentin [Gabapentin 300mg Cap] 300 mg PO DAILY 08/24/17 09/26/17 Gabapentin [Gabapentin 300mg Cap] 600 mg PO HS 08/24/17 09/26/17 Levothyroxine Sodium 300 mcg PO DAILY 08/24/17 09/26/17 [Levothyroxine 300mcg (0.3mg) Tab] Metformin HCl 500 mg PO TIDWM 08/24/17 09/26/17 Sennosides/Docusate Sodium [Stool 1 each PO DAILY 08/24/17 09/26/17 Softener-Laxative Tablet] Spironolactone 50 mg PO DAILY 08/24/17 09/26/17 Aspirin [Aspirin 81mg EC Tab] 81 mg PO DAILY 08/25/17 09/26/17 Insulin Lispro [HumaLOG 100 0 unit SQ ACHS 08/28/17 09/26/17 units/mL 3mL vial (SSI)] Previous Rx's Medication Instructions Recorded Hydrocodone/Acetaminophen [Lortab 1 tab PO Q4HP PRN tab 08/28/17 10/325mg tablet] Allergies Allergy/AdvReac Type Severity Reaction Status Date / Time vancomycin Allergy Severe red man Verified 08/25/17 01:29 syndrome ceftriaxone Allergy Mild Rash Verified 08/25/17 01:29 amoxicillin Allergy Unknown Verified 08/25/17 01:29 atropine Allergy Unknown Verified 08/25/17 01:29 aztreonam Allergy Unknown Verified 08/25/17 01:29 ciprofloxacin Allergy Unknown Verified 08/25/17 01:29 clindamycin Allergy Unknown Verified 08/25/17 01:29 levofloxacin Allergy Unknown Verified 08/25/17 01:29 morphine Allergy Unknown Verified 08/25/17 01:29 nabumetone Allergy Unknown Verified 08/25/17 01:29 oxytetracycline Allergy Unknown Verified 08/25/17 01:29 Penicillins Allergy Unknown Verified 08/25/17 01:29 polymyxin B Allergy Unknown Verified 08/25/17 01:29 Sulfa (Sulfonamide Allergy Unknown Verified 08/25/17 01:29 Antibiotics) tramadol Allergy Unknown Verified 08/25/17 01:[address] [facility] History I have reviewed the patient's past medical history: Yes Medical History: Reports:: Diabetes Mellitus Type 2, Hypertension Denies:: Cancer, Diabetes Mellitus Type 1, Internal Pacemaker, MRSA Other Medical History: Reports: Hypothyroidism Comment: Venous stasis ulcers Other Surgeries: No: Pacemaker Amputation: No Fractures: No - Social History Educational Level: Attended High School Smoking Status: Never smoker Alcohol Intake: never Occupational Status: retired Housing: house Household Members: spouse, family - Psychiatric History Expresses thoughts of harming self/others: None Suicide Plan Description: No Plan Family Hx:: Unable to obtain ROS Obtained: Yes All systems reviewed & no additional complaints - Constitutional Constitutional: Denies fever(s) - Eyes Eyes: Denies change in vision - ENT Ears, Nose, Mouth, and Throat: Denies sore throat - Cardiovascular Cardiovascular: Denies chest pain - Respiratory Respiratory: No cough - Gastrointestinal Gastrointestingal: Reports: abdominal pain, black, tarry stools, nausea, vomiting - Genitourinary Female Genitourinary: Denies hematuria - Integumentary/Breasts Skin/Breast: Reports other (lt post thigh changes - compression boots bilat ) - Neurologic Neurologic: Denies seizure-like activity Physical Exam - General General appearance: alert, obese - Head Head exam: normocephalic - Eye Eye exam: Present: PERRL, EOMI, other (pale conj) - ENT ENT exam: Present: mucous membranes dry - Neck Neck exam: Present: trachea midline - Respiratory Respiratory exam: Present: other (dec bs bilat ). Absent: respiratory distress - Cardiovascular Cardiovascular exam: Present: regular rate, systolic murmur, +S4 - Abdominal Exam Abdominal exam: Present: soft, tenderness, diminished bowel sounds Abdominal tenderness: Present: epigastrium - Rectal Exam Rectal exam: Present: normal rectal tone, heme (+) stool, black stool - Extremities Exam Extremities exam: Present: other (bilat compression ) - Neurological Exam Neurological exam: Present: alert, oriented X3, CN II-XII intact - Psychiatric Psychiatric exam: Present: normal affect - Skin Skin exam: Absent: rash
[2017-09-26 06:35] LABS: Hypochromasia 1+; Lymphocytes % 25 % (10-50); Neutrophils % 75 % (42-76); Total Cells Counted 100
[2017-09-26 06:48] LABS: Hemoglobin 3.4 g/dL (12.2-16.2)
--- NOTE | 2017-09-26 08:20 | History & Physical Report ---
*Admission Date: 09/26/17 *Chief complaint: nausea, melana *History of present illness: 66-year-old female with diabetes and chronic lymphedema of the lower extremities with chronic bilateral leg wounds presented to the emergency department with a near 3 day history of nausea without abdominal pain but change in bowel habits with stools becoming black. Patient denies use of NSAIDs. She has never had any upper or lower GI bleeding. Patient was recently hospitalized at this facility with cellulitis of the lower extremities from her open wounds by Pseudomonas. [facility] History I have reviewed the patient's past medical history: Yes Medical History: Reports:: Diabetes Mellitus Type 2, Hypertension Denies:: Cancer, Diabetes Mellitus Type 1, Internal Pacemaker, MRSA Other Medical History: Reports: Hypothyroidism Comment: Chronic venous insufficiency/lymphedema with bilateral leg wounds Other Surgeries: No: Pacemaker Amputation: No Fractures: No - *Social History Educational Level: Attended High School Smoking Status: Never smoker Alcohol Intake: never Occupational Status: retired Housing: house Household Members: spouse, family - Psychiatric History Expresses thoughts of harming self/others: None Suicide Plan Description: No Plan *Family Hx:: Unable to obtain Review of Systems - Review of Systems Review of systems:: pertinent systems reviewed and negative unless documented below - Constitutional Reports anorexia, Reports fatigue, Denies chills, Denies fever(s) - *Cardiovascular Denies chest pain - *Gastrointestinal Reports abdominal pain, Reports change in bowel habits, Reports change in stools , Reports black, tarry stools, Reports nausea - Integumentary/Breasts Reports unusual bruising - *Neurologic Reports abnormal walking, Denies seizure-like activity - Hematologic/Lymphatic Reports other (Lymphedema of both legs) Meds Home Medications Medication Instructions Recorded Confirmed Type Fexofenadine HCl 180 mg PO DAILY 08/24/17 09/26/17 History Gabapentin [Gabapentin 300mg Cap] 300 mg PO DAILY 08/24/17 09/26/17 History Gabapentin [Gabapentin 300mg Cap] 600 mg PO HS 08/24/17 09/26/17 History Levothyroxine Sodium 300 mcg PO DAILY 08/24/17 09/26/17 History [Levothyroxine 300mcg (0.3mg) Tab] Metformin HCl 500 mg PO TIDWM 08/24/17 09/26/17 History Sennosides/Docusate Sodium [Stool 1 each PO DAILY 08/24/17 09/26/17 History Softener-Laxative Tablet] Spironolactone 50 mg PO DAILY 08/24/17 09/26/17 History Aspirin [Aspirin 81mg EC Tab] 81 mg PO DAILY 08/25/17 09/26/17 History Insulin Lispro [HumaLOG 100 0 unit SQ ACHS 08/28/17 09/26/17 History units/mL 3mL vial (SSI)] Allergies Allergy/AdvReac Type Severity Reaction Status Date / Time vancomycin Allergy Severe red man Verified 08/25/17 01:29 syndrome ceftriaxone Allergy Mild Rash Verified 08/25/17 01:29 amoxicillin Allergy Unknown Verified 08/25/17 01:29 atropine Allergy Unknown Verified 08/25/17 01:29 aztreonam Allergy Unknown Verified 08/25/17 01:29 ciprofloxacin Allergy Unknown Verified 08/25/17 01:29 clindamycin Allergy Unknown Verified 08/25/17 01:29 levofloxacin Allergy Unknown Verified 08/25/17 01:29 morphine Allergy Unknown Verified 08/25/17 01:29 nabumetone Allergy Unknown Verified 08/25/17 01:29 oxytetracycline Allergy Unknown Verified 08/25/17 01:29 Penicillins Allergy Unknown Verified 08/25/17 01:29 polymyxin B Allergy Unknown Verified 08/25/17 01:29 Sulfa (Sulfonamide Allergy Unknown Verified 08/25/17 01:29 Antibiotics) tramadol Allergy Unknown Verified 08/25/17 01:29 Exam Vital signs and Labs for Last 24 Hours: Temp Pulse Resp BP Pulse Ox 98.5 F 103 H 18 150/84 100 09/26/17 06:28 09/26/17 06:28 09/26/17 06:28 09/26/17 06:28 09/26/17 06:28 Laboratory Results - last 24 hr 09/26/17 05:44: WBC 18.1 H, RBC 1.31 L*, Hgb 3.4 L*, Hct 11.8 L*, MCV 90.2, MCH 26.1 L, MCHC 28.9 L, RDW 20.9 H, Plt Count 473 H, MPV 7.5, Neut % (Auto) 78.2, Lymph % (Auto) 17.3, [place] % (Auto) 4.0, Eos % (Auto) 0.1, Baso % (Auto) 0.4, Neut # (Auto) 14.2 H, Lymph # (Auto) 3.1, [place] # (Auto) 0.7, Eos # (Auto) 0.0, Baso # (Auto) 0.1, Total Counted 100, Neutrophils % (Manual) 75, Lymphocytes % ( Manual) 25, Platelet Estimate Slight increase, Hypochromasia 1+ 09/26/17 05:44: Sodium 134 L, Potassium 6.4 H*, Chloride 101, Carbon Dioxide 21 , Anion Gap 18.4 H, BUN 82 H, Creatinine 3.55 H, Estimated Creat Clear 14, Estimated GFR 13 L*, Est GFR ( Amer) 16 L*, Glucose 225 H, Calcium 7.9 L , Total Bilirubin 0.1 L, AST 10 L, ALT 14, Alkaline Phosphatase 67, Total Protein 6.5, Albumin 1.8 L, Globulin 4.7 H, Albumin/Globulin Ratio 0.4 L, Amylase 43, Lipase 172 09/26/17 05:44: Troponin I < 0.02 09/26/17 06:25: Stool Occult Blood Positive A 09/26/17 06:30: Lactate 2.5 H 09/26/17 06:30: Blood Type A Positive, Antibody Screen Negative, Crossmatch (AHG ) See Detail 09/26/17 07:00: Blood Type Confirm A Positive I & O for Last 24 hours: Intake & Output 09/23/17 09/24/17 09/25/17 09/26/17 11:59 11:59 11:59 11:59 Weight 296 lb 9.092 oz Narrative: Patient is pale, but awake and alert and oriented. HEENT exam reveals a moist oropharynx, normal external ears, pupils are reactive to light. Skin is cool. Lungs are clear. Heart has a rapid rate and rhythm. Abdomen is obese and soft with active bowel sounds. Lower extremities have wound dressings in place. Assessment and Plan (1) Chronic venous insufficiency Current visit: Yes Status: Acute Category: Medical Code(s): I87.2 - Venous insufficiency (chronic) (peripheral) (2) Lymphedema Current visit: Yes Status: Acute Category: Medical Code(s): I89.0 - Lymphedema, not elsewhere classified (3) Acute renal failure (ARF) Current visit: Yes Status: Acute Qualifiers: Acute renal failure type: unspecified Qualified Code(s): N17.9 - Acute kidney failure, unspecified Category: Medical Code(s): N17.9 - Acute kidney failure, unspecified (4) Acute upper GI bleeding Current visit: Yes Status: Acute Category: Medical Code(s): K92.2 - Gastrointestinal hemorrhage, unspecified (5) Anemia associated with acute blood loss Current visit: Yes Status: Acute Category: Medical Code(s): D62 - Acute posthemorrhagic anemia (6) Diabetes mellitus, type II, insulin dependent Current visit: Yes Status: Acute Category: Medical Code(s): E11.9 - Type 2 diabetes mellitus without complications; Z79.4 - half-way (current) use of insulin (7) Hyperkalemia Current visit: Yes Status: Acute Category: Medical Code(s): E87.5 - Hyperkalemia - Assessment and plan all Dx Assessment and Plan for all problems:: 1. Transfuse 4 units packed red blood cells and repeat H&H 2. Intravenous Protonix 3. IV fluids 4. Wound care to lower legs
--- NOTE | 2017-09-26 08:55 | Consult Report ---
*Admission Date: 09/26/17 *Chief complaint: ANEMIA, GI BLOOD LOSS *History of present illness: 66-year-old female with diabetes and chronic lymphedema of the lower extremities with chronic bilateral leg wounds presented to the emergency department with a near 3 day history of nausea without abdominal pain but change in bowel habits with stools becoming black. Patient denies use of NSAIDs. She has never had any upper or lower GI bleeding. Patient was recently hospitalized at this facility with cellulitis of the lower extremities from her open wounds by Pseudomonas. Review of Systems - Constitutional Reports fatigue, Reports lack of energy, Reports malaise, Reports weakness - Eyes Denies change in vision - ENT Denies abnormal hearing - *Cardiovascular Denies chest pain - *Gastrointestinal Reports black, tarry stools, Reports nausea, Denies abdominal pain, Denies vomiting blood, Denies bright, red blood in stools - *Neurologic Reports abnormal walking, Denies seizure-like activity [facility] History Medical History: Reports:: Diabetes Mellitus Type 2, Hypertension Denies:: Cancer, Diabetes Mellitus Type 1, Internal Pacemaker, MRSA Other Medical History: Reports: Hypothyroidism Other Surgeries: No: Pacemaker Amputation: No Fractures: No - *Social History Educational Level: Attended High School Smoking Status: Never smoker Alcohol Intake: never Occupational Status: retired Housing: house Household Members: spouse, family - Psychiatric History Expresses thoughts of harming self/others: None Suicide Plan Description: No Plan *Family Hx:: Unable to obtain Meds Home Medications Medication Instructions Recorded Confirmed Type Fexofenadine HCl 180 mg PO DAILY 08/24/17 09/26/17 History Gabapentin [Gabapentin 300mg Cap] 300 mg PO DAILY 08/24/17 09/26/17 History Gabapentin [Gabapentin 300mg Cap] 600 mg PO HS 08/24/17 09/26/17 History Levothyroxine Sodium 300 mcg PO DAILY 08/24/17 09/26/17 History [Levothyroxine 300mcg (0.3mg) Tab] Metformin HCl 500 mg PO TIDWM 08/24/17 09/26/17 History Sennosides/Docusate Sodium [Stool 1 each PO DAILY 08/24/17 09/26/17 History Softener-Laxative Tablet] Spironolactone 50 mg PO DAILY 08/24/17 09/26/17 History Aspirin [Aspirin 81mg EC Tab] 81 mg PO DAILY 08/25/17 09/26/17 History Insulin Lispro [HumaLOG 100 0 unit SQ ACHS 08/28/17 09/26/17 History units/mL 3mL vial (SSI)] Allergies Allergy/AdvReac Type Severity Reaction Status Date / Time vancomycin Allergy Severe red man Verified 08/25/17 01:29 syndrome ceftriaxone Allergy Mild Rash Verified 08/25/17 01:29 amoxicillin Allergy Unknown Verified 08/25/17 01:29 atropine Allergy Unknown Verified 08/25/17 01:29 aztreonam Allergy Unknown Verified 08/25/17 01:29 ciprofloxacin Allergy Unknown Verified 08/25/17 01:29 clindamycin Allergy Unknown Verified 08/25/17 01:29 levofloxacin Allergy Unknown Verified 08/25/17 01:29 morphine Allergy Unknown Verified 08/25/17 01:29 nabumetone Allergy Unknown Verified 08/25/17 01:29 oxytetracycline Allergy Unknown Verified 08/25/17 01:29 Penicillins Allergy Unknown Verified 08/25/17 01:29 polymyxin B Allergy Unknown Verified 08/25/17 01:29 Sulfa (Sulfonamide Allergy Unknown Verified 08/25/17 01:29 Antibiotics) tramadol Allergy Unknown Verified 08/25/17 01:29 Exam Vital signs and Labs for Last 24 Hours: Temp Pulse Resp BP Pulse Ox 97.9 F 109 H 20 111/61 100 09/26/17 08:31 09/26/17 08:31 09/26/17 08:31 09/26/17 08:31 09/26/17 08:08 Laboratory Results - last 24 hr 09/26/17 05:44: WBC 18.1 H, RBC 1.31 L*, Hgb 3.4 L*, Hct 11.8 L*, MCV 90.2, MCH 26.1 L, MCHC 28.9 L, RDW 20.9 H, Plt Count 473 H, MPV 7.5, Neut % (Auto) 78.2, Lymph % (Auto) 17.3, [place] % (Auto) 4.0, Eos % (Auto) 0.1, Baso % (Auto) 0.4, Neut # (Auto) 14.2 H, Lymph # (Auto) 3.1, [place] # (Auto) 0.7, Eos # (Auto) 0.0, Baso # (Auto) 0.1, Total Counted 100, Neutrophils % (Manual) 75, Lymphocytes % ( Manual) 25, Platelet Estimate Slight increase, Hypochromasia 1+ 09/26/17 05:44: Sodium 134 L, Potassium 6.4 H*, Chloride 101, Carbon Dioxide 21 , Anion Gap 18.4 H, BUN 82 H, Creatinine 3.55 H, Estimated Creat Clear 14, Estimated GFR 13 L*, Est GFR ( Amer) 16 L*, Glucose 225 H, Calcium 7.9 L , Total Bilirubin 0.1 L, AST 10 L, ALT 14, Alkaline Phosphatase 67, Total Protein 6.5, Albumin 1.8 L, Globulin 4.7 H, Albumin/Globulin Ratio 0.4 L, Amylase 43, Lipase 172 09/26/17 05:44: Troponin I < 0.02 09/26/17 05:44: TSH 0.32 L 09/26/17 06:25: Stool Occult Blood Positive A 09/26/17 06:30: Lactate 2.5 H 09/26/17 06:30: Blood Type A Positive, Antibody Screen Negative, Crossmatch (AHG ) See Detail 09/26/17 07:00: Blood Type Confirm A Positive I & O for Last 24 hours: Intake & Output 09/23/17 09/24/17 09/25/17 09/26/17 11:59 11:59 11:59 11:59 Weight 296 lb 9.092 oz - Constitutional no acute distress - *Routine HEENT Exam Head: Present: normocephalic - *Routine Respiratory Exam Present: decreased breath sounds - *Routine Cardiovascular Exam Present: RRR - *Routine Abdominal Exam Present: soft Results - Labs 09/26/17 05:44 09/26/17 05:44 Laboratory Results - last 24 hr 09/26/17 05:44: WBC 18.1 H, RBC 1.31 L*, Hgb 3.4 L*, Hct 11.8 L*, MCV 90.2, MCH 26.1 L, MCHC 28.9 L, RDW 20.9 H, Plt Count 473 H, MPV 7.5, Neut % (Auto) 78.2, Lymph % (Auto) 17.3, York % (Auto) 4.0, Eos % (Auto) 0.1, Baso % (Auto) 0.4, Neut # (Auto) 14.2 H, Lymph # (Auto) 3.1, York # (Auto) 0.7, Eos # (Auto) 0.0, Baso # (Auto) 0.1, Total Counted 100, Neutrophils % (Manual) 75, Lymphocytes % ( Manual) 25, Platelet Estimate Slight increase, Hypochromasia 1+ 09/26/17 05:44: Sodium 134 L, Potassium 6.4 H*, Chloride 101, Carbon Dioxide 21 , Anion Gap 18.4 H, BUN 82 H, Creatinine 3.55 H, Estimated Creat Clear 14, Estimated GFR 13 L*, Est GFR ( Amer) 16 L*, Glucose 225 H, Calcium 7.9 L , Total Bilirubin 0.1 L, AST 10 L, ALT 14, Alkaline Phosphatase 67, Total Protein 6.5, Albumin 1.8 L, Globulin 4.7 H, Albumin/Globulin Ratio 0.4 L, Amylase 43, Lipase 172 09/26/17 05:44: Troponin I < 0.02 09/26/17 05:44: TSH 0.32 L 09/26/17 06:25: Stool Occult Blood Positive A 09/26/17 06:30: Lactate 2.5 H 09/26/17 06:30: Blood Type A Positive, Antibody Screen Negative, Crossmatch (AHG ) See Detail 09/26/17 07:00: Blood Type Confirm A Positive Assessment and Plan (1) Chronic venous insufficiency Current visit: Yes Status: Acute Category: Medical Code(s): I87.2 - Venous insufficiency (chronic) (peripheral) (2) Lymphedema Current visit: Yes Status: Acute Category: Medical Code(s): I89.0 - Lymphedema, not elsewhere classified (3) Acute renal failure (ARF) Current visit: Yes Status: Acute Qualifiers: Acute renal failure type: unspecified Qualified Code(s): N17.9 - Acute kidney failure, unspecified Category: Medical Code(s): N17.9 - Acute kidney failure, unspecified (4) Acute upper GI bleeding Current visit: Yes Status: Acute Category: Medical Code(s): K92.2 - Gastrointestinal hemorrhage, unspecified (5) Anemia associated with acute blood loss Current visit: Yes Status: Acute Category: Medical Code(s): D62 - Acute posthemorrhagic anemia (6) Diabetes mellitus, type II, insulin dependent Current visit: Yes Status: Acute Category: Medical Code(s): E11.9 - Type 2 diabetes mellitus without complications; Z79.4 - correction (current) use of insulin (7) Hyperkalemia Current visit: Yes Status: Acute Category: Medical Code(s): E87.5 - Hyperkalemia - Assessment and plan all Dx Assessment and Plan for all problems:: Patient has signs and symptoms consistent with anemia likely secondary to GI blood loss. This appears to be most likely upper GI etiology. She seems to be relatively compensated at this time. Plan for IV fluid hydration, transfusion, correction of hyperkalemia. Recommend proton pump inhibitors. Tentatively would plan for upper endoscopy in 24-48 hours.
--- NOTE | 2017-09-26 11:16 | Pharmacy Consult Notes ---
[facility] Pharmacy VTE Monitoring - Patient Demographics Admission date: 09/26/17 Report Date: 09/26/17 Time: 11:15 Allergies/Adverse Reactions: Patient Allergies vancomycin Allergy (Severe, Verified 08/25/17 01:29) red man syndrome ceftriaxone Allergy (Mild, Verified 08/25/17 01:29) Rash amoxicillin Allergy (Unknown, Verified 08/25/17 01:29) atropine Allergy (Unknown, Verified 08/25/17 01:29) aztreonam Allergy (Unknown, Verified 08/25/17 01:29) ciprofloxacin Allergy (Unknown, Verified 08/25/17 01:29) clindamycin Allergy (Unknown, Verified 08/25/17:29) levofloxacin Allergy (Unknown, Verified 08/25/17:29) morphine Allergy (Unknown, Verified 08/25/17:29) nabumetone Allergy (Unknown, Verified 08/25/17:29) oxytetracycline Allergy (Unknown, Verified 08/25/17 01:29) Penicillins Allergy (Unknown, Verified 08/25/17:29) polymyxin B Allergy (Unknown, Verified 08/25/17 01:29) Sulfa (Sulfonamide Antibiotics) Allergy (Unknown, Verified 08/25/17:29) tramadol Allergy (Unknown, Verified 08/25/17 01:29) Height: 1.63 m Weight: 134.521 kg Patient Problems: Current Active Problems Diabetes mellitus, type II, insulin dependent (Acute) Acute upper GI bleeding (Acute) Acute renal failure (ARF) (Acute) Hyperkalemia (Acute) Anemia associated with acute blood loss (Acute) Chronic venous insufficiency (Acute) Lymphedema (Acute) - VTE Risk Labs: VTE Related Lab Results Hgb 3.4 g/dL (12.2-16.2) L* 09/26/17 05:44 Hct 11.8 % (37.0-47.0) L* 09/26/17 05:44 Plt Count 473 K/mm3 (142-424) H 09/26/17 05:44 BUN 82 mg/dL (7-18) H 09/26/17 05:44 Creatinine 3.55 mg/dL (0.55-1.02) H 09/26/17 05:44 Estimated Creat Clear 14 mL/min (0-300) 09/26/17 05:44 - Prophylaxis Types of VTE Prophylaxis: TEDS Knee High (CHARISSA HOSE ORDERED) Location of Applied Device: Not Applicable
[2017-09-26 13:38] LABS: Anion Gap 14.9 mEq/L (5-15); Calcium 7.8 mg/dL (8.5-10.1); Potassium 4.9 mmoL/L (3.5-5.1)
[2017-09-26 21:29] LABS: Hematocrit 25.1 % (37.0-47.0)
[2017-09-26 21:36] LABS: Hemoglobin 8.2 g/dL (12.2-16.2)
[2017-09-27 05:44] LABS: Basophils % 0.3 % (0.1-2.0); Eosinophils # 0.1 K/mm3 (0.0-0.4); Eosinophils % 0.7 % (0.1-12.0); Lymphocytes # 2.8 K/mm3 (0.7-4.5); Lymphocytes % 18.7 K/mm3 (10-50); Mean Corpuscular HGB Conc 32.6 g/dL (31.8-35.4); Mean Corpuscular Hemoglobin 29.1 pg (27.0-31.2); Mean Corpuscular Volume 89.2 fl (81-99); Mean Platelet Volume 7.3 fl (7.4-10.4); Monocytes # 0.8 K/mm3 (0.1-1.0); Monocytes % 5.1 % (1.7-9.3); Neutrophils # 11.3 K/mm3 (1.8-7.8); Neutrophils % 75.3 % (37.0-80.0); Platelet Count 241 K/mm3 (142-424); Red Blood Count 2.55 M/mm3 (4.20-5.40); Red Cell Distribution Width 17.9 % (11.5-17.5)
[2017-09-27 06:10] LABS: Hematocrit 22.7 % (37.0-47.0); Hemoglobin 7.4 g/dL (12.2-16.2)
--- NOTE | 2017-09-27 07:57 | Progress Note ---
Internal Medicine - PN: Subj *Date: 09/27/17 *Time: 07:56 Interval history: Patient complains of feeling a little better than she did yesterday. She is on liquid diet and tolerating that. She denies any abdominal pain or nausea. She reports having one small bowel movement and stools remained black Exam Vital signs and Labs for Last 24 Hours: Temp Pulse Resp BP Pulse Ox 98.0 F 73 16 123/82 100 09/27/17 07:32 09/27/17 07:32 09/27/17 07:32 09/27/17 07:32 09/27/17 07:32 Laboratory Results - last 24 hr 09/26/17 05:44: TSH 0.32 L 09/26/17 06:30: Blood Type A Positive, Antibody Screen Negative, Crossmatch (AHG ) See Detail 09/26/17 10:52: Lactate 2.9 H 09/26/17 11:24: POC Glucose 195 H 09/26/17 13:20: Sodium 134 L, Potassium 4.9 D, Chloride 102, Carbon Dioxide 22 , Anion Gap 14.9, BUN 79 H, Creatinine 3.36 H, Estimated Creat Clear 14, Estimated GFR 14 L*, Est GFR ( Amer) 17 L*, Glucose 160 H D, Calcium 7.8 L 09/26/17 13:20: Lactate 1.3 09/26/17 16:43: POC Glucose 127 H 09/26/17 20:32: POC Glucose 127 H 09/26/17 21:20: Hgb 8.2 L D, Hct 25.1 L 09/27/17 05:08: WBC 15.0 H, RBC 2.55 L D, Hgb 7.4 L*, Hct 22.7 L*, MCV 89.2, MCH 29.1, MCHC 32.6, RDW 17.9 H, Plt Count 241 D, MPV 7.3 L, Neut % (Auto) 75.3 , Lymph % (Auto) 18.7, [place] % (Auto) 5.1, Eos % (Auto) 0.7, Baso % (Auto) 0.3, Neut # (Auto) 11.3 H, Lymph # (Auto) 2.8, [place] # (Auto) 0.8, Eos # (Auto) 0.1, Baso # (Auto) 0.0 09/27/17 05:50: POC Glucose 102 I & O for Last 24 hours: Intake & Output 09/24/17 09/25/17 09/26/17 09/27/17 11:59 11:59 11:59 11:59 Intake Total 250 / 250 701 / 701 Output Total 600 / 600 750 / 750 Balance -350 / -350 -49 / -49 Weight 296 lb 9.092 oz 274 lb 9 oz Narrative: Pallor has improved. Lungs remain clear. Heart has a regular rate and rhythm. Abdomen is obese and soft. Assessment and Plan (1) Chronic venous insufficiency Current visit: Yes Status: Acute Category: Medical Code(s): I87.2 - Venous insufficiency (chronic) (peripheral) (2) Lymphedema Current visit: Yes Status: Acute Category: Medical Code(s): I89.0 - Lymphedema, not elsewhere classified (3) Acute renal failure (ARF) Current visit: Yes Status: Acute Qualifiers: Acute renal failure type: unspecified Qualified Code(s): N17.9 - Acute kidney failure, unspecified Category: Medical Code(s): N17.9 - Acute kidney failure, unspecified (4) Acute upper GI bleeding Current visit: Yes Status: Acute Category: Medical Code(s): K92.2 - Gastrointestinal hemorrhage, unspecified (5) Anemia associated with acute blood loss Current visit: Yes Status: Acute Category: Medical Code(s): D62 - Acute posthemorrhagic anemia (6) Diabetes mellitus, type II, insulin dependent Current visit: Yes Status: Acute Category: Medical Code(s): E11.9 - Type 2 diabetes mellitus without complications; Z79.4 - rat exterminator (current) use of insulin (7) Hyperkalemia Current visit: Yes Status: Acute Category: Medical Code(s): E87.5 - Hyperkalemia - Assessment and plan all Dx Assessment and Plan for all problems:: Transfuse an additional 2 units of packed red blood cells this morning due to a drop in hemoglobin. Continue Protonix IV although I will place her on twice daily dosing and discontinue her drip.
[2017-09-27 08:17] LABS: Lymphocytes % 18 % (10-50); Monocytes % 9 % (2-9); Neutrophils % 73 % (42-76); Nucleated Red Blood Cells 3; RBC Morphology Normal; Total Cells Counted 100
--- NOTE | 2017-09-27 09:17 | Progress Note ---
Subjective Patient reports: feels better Narrative: Patient transfused 4 units of packed red blood cells yesterday for hemoglobin of 3.4 with a evening hemoglobin of 8.2. This morning hemoglobin is 7.4. She feels somewhat stronger. Exam Vital signs and Labs for Last 24 Hours: Temp Pulse Resp BP Pulse Ox 98.0 F 73 16 123/82 100 09/27/17 07:32 09/27/17 07:32 09/27/17 07:32 09/27/17 07:32 09/27/17 07:32 Laboratory Results - last 24 hr 09/26/17 06:30: Blood Type A Positive, Antibody Screen Negative, Crossmatch (AHG ) See Detail 09/26/17 10:52: Lactate 2.9 H 09/26/17 11:24: POC Glucose 195 H 09/26/17 13:20: Sodium 134 L, Potassium 4.9 D, Chloride 102, Carbon Dioxide 22 , Anion Gap 14.9, BUN 79 H, Creatinine 3.36 H, Estimated Creat Clear 14, Estimated GFR 14 L*, Est GFR ( Amer) 17 L*, Glucose 160 H D, Calcium 7.8 L 09/26/17 13:20: Lactate 1.3 09/26/17 16:43: POC Glucose 127 H 09/26/17 20:32: POC Glucose 127 H 09/26/17 21:20: Hgb 8.2 L D, Hct 25.1 L 09/27/17 05:08: WBC 15.0 H, RBC 2.55 L D, Hgb 7.4 L*, Hct 22.7 L*, MCV 89.2, MCH 29.1, MCHC 32.6, RDW 17.9 H, Plt Count 241 D, MPV 7.3 L, Neut % (Auto) 75.3 , Lymph % (Auto) 18.7, Esmeralda % (Auto) 5.1, Eos % (Auto) 0.7, Baso % (Auto) 0.3, Neut # (Auto) 11.3 H, Lymph # (Auto) 2.8, Esmeralda # (Auto) 0.8, Eos # (Auto) 0.1, Baso # (Auto) 0.0, Total Counted 100, Neutrophils % (Manual) 73, Lymphocytes % ( Manual) 18, Monocytes % (Manual) 9, Nucleated RBCs 3, Platelet Estimate Normal, RBC Morphology Normal 09/27/17 05:50: POC Glucose 102 I & O for Last 24 hours: Intake & Output 09/24/17 09/25/17 09/26/17 09/27/17 11:59 11:59 11:59 11:59 Intake Total 250 / 250 701 / 701 Output Total 600 / 600 750 / 750 Balance -350 / -350 -49 / -49 Weight 296 lb 9.092 oz 274 lb 9 oz - Constitutional somnolent - *Routine Abdominal Exam Present: soft. Absent: tenderness Progress Note: A&P (1) Chronic venous insufficiency Status: Acute Current Visit: Yes (2) Lymphedema Status: Acute Current Visit: Yes (3) Acute renal failure (ARF) Status: Acute Current Visit: Yes (4) Acute upper GI bleeding Status: Acute Current Visit: Yes (5) Anemia associated with acute blood loss Status: Acute Current Visit: Yes (6) Diabetes mellitus, type II, insulin dependent Status: Acute Current Visit: Yes (7) Hyperkalemia Status: Acute Current Visit: Yes Assessment and Plan for All Diagnoses:: Patient receiving 2 additional units today. Plan for upper endoscopy tomorrow morning.
[2017-09-27 18:20] LABS: Hematocrit 29.1 % (37.0-47.0)
[2017-09-27 18:44] LABS: Hemoglobin 9.5 g/dL (12.2-16.2)
--- NOTE | 2017-09-28 07:06 | Progress Note ---
Internal Medicine - PN: Subj *Date: 09/28/17 *Time: 07:05 Interval history: Patient has no complaints this morning. She continues to deny abdominal pain. She received 2 units of packed red blood cells yesterday with excellent response and H&H. Her morning labs are pending at this time. Exam Vital signs and Labs for Last 24 Hours: Temp Pulse Resp BP Pulse Ox 98.2 F 71 22 127/55 94 L 09/28/17 04:00 09/28/17 04:00 09/28/17 04:00 09/28/17 04:00 09/28/17 04:00 Laboratory Results - last 24 hr 09/26/17 06:30: Blood Type A Positive, Antibody Screen Negative, Crossmatch (AHG ) See Detail 09/27/17 05:08: Total Counted 100, Neutrophils % (Manual) 73, Lymphocytes % ( Manual) 18, Monocytes % (Manual) 9, Nucleated RBCs 3, Platelet Estimate Normal, RBC Morphology Normal 09/27/17 11:22: POC Glucose 89 09/27/17 16:39: POC Glucose 79 09/27/17 18:12: Hgb 9.5 L D, Hct 29.1 L 09/27/17 20:15: POC Glucose 79 09/28/17 06:01: POC Glucose 83 I & O for Last 24 hours: Intake & Output 09/25/17 09/26/17 09/27/17 09/28/17 11:59 11:59 11:59 11:59 Intake Total 250 / 250 701 / 701 3936 / 3936 Output Total 600 / 600 750 / 750 800 / 800 Balance -350 / -350 -49 / -49 3136 / 3136 Weight 296 lb 9.092 oz 274 lb 9 oz 270 lb Microbiology Reports for the Last 24 Hours: Microbiology 09/26/17 06:30 Blood Blood Culture - Preliminary NO GROWTH AFTER 48 HOURS 09/26/17 06:30 Blood Blood Culture - Preliminary NO GROWTH AFTER 48 HOURS Narrative: Pallor has improved. Lungs are clear. Heart has a regular rate and rhythm. Abdomen is obese and soft. Lower extremities remained bandaged Assessment and Plan (1) Acute upper GI bleeding Current visit: Yes Status: Acute Category: Medical Code(s): K92.2 - Gastrointestinal hemorrhage, unspecified (2) Anemia associated with acute blood loss Current visit: Yes Status: Acute Category: Medical Code(s): D62 - Acute posthemorrhagic anemia (3) Chronic venous insufficiency Current visit: Yes Status: Acute Category: Medical Code(s): I87.2 - Venous insufficiency (chronic) (peripheral) (4) Lymphedema Current visit: Yes Status: Acute Category: Medical Code(s): I89.0 - Lymphedema, not elsewhere classified (5) Acute renal failure (ARF) Current visit: Yes Status: Acute Qualifiers: Acute renal failure type: unspecified Qualified Code(s): N17.9 - Acute kidney failure, unspecified Category: Medical Code(s): N17.9 - Acute kidney failure, unspecified (6) Diabetes mellitus, type II, insulin dependent Current visit: Yes Status: Acute Category: Medical Code(s): E11.9 - Type 2 diabetes mellitus without complications; Z79.4 - longterm (current) use of insulin (7) Hyperkalemia Current visit: Yes Status: Acute Category: Medical Code(s): E87.5 - Hyperkalemia - Assessment and plan all Dx Assessment and Plan for all problems:: 1. EGD today 2. Continue close monitoring of H&H
--- NOTE | 2017-09-28 07:07 | Progress Note ---
[facility] Anesthesia Checklist - Patient Identification Patient Identification: Arm Band, Verbal (Name & ) - Structural Data Admitted From: Inpatient Planned Operative Procedure/s: EGD Consent for Planned Operative Procedure(s) Verified: Yes Verified Documents: Surgical Consent, History and Physical - NPO Status Verified Time NPO: 00:00 - Additional verifications Anesthesia Reactions: No - Airway Assessment C-Spine Mobility Assessed: Yes TMJ Mobility Assessed: Yes Dentition: Poor Dentition (Broken teeth, missing teeth) - Neurological Assessment Level of Consciousness: Awake Hx Seizures: No Numbness or tingling in extremities: No - Anesthesia Plan Anesthesia Risk discussed: Yes Anesthesia Plan: Verified ASA Class: III Anesthesia Type: MAC [facility] Anesthesia HX I have reviewed the patient's past medical history: Yes Medical History: Reports:: Diabetes Mellitus Type 2, Hypertension Denies:: Cancer, Diabetes Mellitus Type 1, Internal Pacemaker, MRSA Other Medical History: Reports: Anemia, Arthritis, Fibromyalgia, Hypothyroidism , Other (Morbid obesity) Other Surgeries: Yes: No Previous Surgery. No: Pacemaker Amputation: No Fractures: No *Family Hx:: Cancer, Diabetes
--- NOTE | 2017-09-28 07:29 | Procedure Note ---
- Procedure: Date: 09/28/17 Procedure Performed:: Esophagogastroduodenoscopy with biopsy Indications:: Patient is a 66-year-old white female. She has several chronic medical conditions. She had presented with melena and was found to have a hemoglobin of 3.4. She was admitted for inpatient management and surgical consultation. Patient was relatively stable regarding vital signs. She was transfused 4 units of packed red blood cells with somewhat of a hyper response with resultant hemoglobin of 8.2. Following morning she had more than appropriate laboratory finding after transfusion of 4 units of 7.4. She was given additional 2 units of packed red blood cells for a total 6 and the plan was made for upper endoscopy to evaluate source. Performing Provider:: Austin Burgos MD Referring Provider:: Yann Hargrove MD Sedation:: Propofol Procedure:: Consent was obtained. Patient was taken to endoscopy procedure room. She was positioned in lateral decubitus position. Adequate intravenous sedation was achieved. Olympus endoscope was inserted via the oropharynx and advanced through the esophagus which appeared overall grossly normal. Stomach was cannulated and insufflated and retroflexion revealed no evidence of any appreciable hiatal hernia. In the prepyloric location there is linear erosion with exudate. No evidence of any recent bleeding. Pylorus was traversed. Within the duodenal bulb there was a small nonbleeding duodenal bulb ulcer with clean exudative base. I thin the separation of the duodenum there was a small to moderate ulcer. This was somewhat inflamed appearing with erythematous edematous surrounding mucosa but no evidence of any active bleeding, visible vessel, or adherent clot. Endoscope was advanced into the distal duodenum which appeared unremarkable. Endoscope was withdrawn into the stomach and gastric antral mucosal biopsy was obtained for CLOtest for H. pylori. Stomach was desufflated and the scope was withdrawn. Findings:: Prepyloric gastric erosion Duodenal ulcer 2 Recommendations:: Continue proton pump inhibitors. There were no stigmata that would be indicative of high likelihood of recurrent bleeding. Likely had bled from the ulcer within the second portion of the duodenum due to some of the inflammatory changes surrounding this. If hemoglobin remains stable after transfusion for 4872 hours may be a little discharge on oral therapy with plan for repeat endoscopy in several weeks. Complications:: None immediately apparent Estimated blood obtained (mL): 1
[2017-09-28 08:38] LABS: Basophils % 0.2 % (0.1-2.0); Eosinophils # 0.2 K/mm3 (0.0-0.4); Eosinophils % 1.6 % (0.1-12.0); Hematocrit 31.2 % (37.0-47.0); Hemoglobin 10.1 g/dL (12.2-16.2); Lymphocytes # 2.1 K/mm3 (0.7-4.5); Lymphocytes % 17.6 K/mm3 (10-50); Mean Corpuscular HGB Conc 32.5 g/dL (31.8-35.4); Mean Corpuscular Hemoglobin 29.3 pg (27.0-31.2); Mean Corpuscular Volume 90.1 fl (81-99); Mean Platelet Volume 7.2 fl (7.4-10.4); Monocytes # 0.8 K/mm3 (0.1-1.0); Monocytes % 6.2 % (1.7-9.3); Neutrophils % 74.4 % (37.0-80.0); Platelet Count 234 K/mm3 (142-424); Red Blood Count 3.46 M/mm3 (4.20-5.40); Red Cell Distribution Width 17.7 % (11.5-17.5); White Blood Count 12.1 K/mm3 (4.8-10.8)
[2017-09-28 08:45] LABS: Anion Gap 12.4 mEq/L (5-15); Calcium 7.6 mg/dL (8.5-10.1); Potassium 3.4 mmoL/L (3.5-5.1)
[2017-09-29 05:25] LABS: Basophils % 0.2 % (0.1-2.0); Eosinophils # 0.3 K/mm3 (0.0-0.4); Eosinophils % 3.1 % (0.1-12.0); Hematocrit 29.1 % (37.0-47.0); Hemoglobin 9.5 g/dL (12.2-16.2); Lymphocytes # 1.9 K/mm3 (0.7-4.5); Lymphocytes % 22.7 K/mm3 (10-50); Mean Corpuscular HGB Conc 32.5 g/dL (31.8-35.4); Mean Corpuscular Hemoglobin 29.3 pg (27.0-31.2); Mean Corpuscular Volume 90.2 fl (81-99); Mean Platelet Volume 7.2 fl (7.4-10.4); Monocytes # 0.7 K/mm3 (0.1-1.0); Monocytes % 8.5 % (1.7-9.3); Neutrophils # 5.5 K/mm3 (1.8-7.8); Neutrophils % 65.5 % (37.0-80.0); Platelet Count 195 K/mm3 (142-424); Red Blood Count 3.23 M/mm3 (4.20-5.40); White Blood Count 8.4 K/mm3 (4.8-10.8)
[2017-09-29 05:31] LABS: Anion Gap 6.2 mEq/L (5-15); Potassium 3.2 mmoL/L (3.5-5.1)
--- NOTE | 2017-09-29 07:10 | Progress Note ---
Subjective Patient reports: no new complaints Exam Vital signs and Labs for Last 24 Hours: Temp Pulse Resp BP Pulse Ox 97.9 F 75 20 114/45 97 09/29/17 04:00 09/29/17 04:00 09/29/17 04:00 09/29/17 04:00 09/29/17 04:00 Laboratory Results - last 24 hr 09/28/17 08:05: WBC 12.1 H, RBC 3.46 L D, Hgb 10.1 L, Hct 31.2 L, MCV 90.1, MCH 29.3, MCHC 32.5, RDW 17.7 H, Plt Count 234, MPV 7.2 L, Neut % (Auto) 74.4, Lymph % (Auto) 17.6, [place] % (Auto) 6.2, Eos % (Auto) 1.6, Baso % (Auto) 0.2, Neut # (Auto) 9.0 H, Lymph # (Auto) 2.1, [place] # (Auto) 0.8, Eos # (Auto) 0.2, Baso # (Auto) 0.0 09/28/17 08:05: Sodium 138, Potassium 3.4 L D, Chloride 106, Carbon Dioxide 23, Anion Gap 12.4, BUN 52 H D, Creatinine 2.44 H D, Estimated Creat Clear 20, Estimated GFR 20 L, Est GFR ( Amer) 24 L D, Glucose 72 L, Calcium 7.6 L 09/28/17 11:33: POC Glucose 78 09/28/17 17:01: POC Glucose 73 09/28/17 21:00: POC Glucose 105 09/29/17 00:00: Random Gentamicin 9.0 09/29/17 05:05: WBC 8.4 D, RBC 3.23 L, Hgb 9.5 L, Hct 29.1 L, MCV 90.2, MCH 29.3, MCHC 32.5, RDW 18.0 H, Plt Count 195, MPV 7.2 L, Neut % (Auto) 65.5, Lymph % (Auto) 22.7, [place] % (Auto) 8.5, Eos % (Auto) 3.1, Baso % (Auto) 0.2, Neut # (Auto) 5.5, Lymph # (Auto) 1.9, [place] # (Auto) 0.7, Eos # (Auto) 0.3, Baso # (Auto) 0.0 09/29/17 05:05: Sodium 136, Potassium 3.2 L, Chloride 108 H, Carbon Dioxide 25, Anion Gap 6.2, BUN 46 H, Creatinine 2.24 H, Estimated Creat Clear 22, Estimated GFR 22 L, Est GFR ( Amer) 27 L, Glucose 87 D, Calcium 7.0 L 09/29/17 06:36: POC Glucose 89 I & O for Last 24 hours: Intake & Output 09/26/17 09/27/17 09/28/17 09/29/17 11:59 11:59 11:59 11:59 Intake Total 250 / 250 701 / 701 4246 / 4246 1160 / 1160 Output Total 600 / 600 750 / 750 800 / 800 2300 / 2300 Balance -350 / -350 -49 / -49 3446 / 3446 -1140 / -1140 Weight 296 lb 9.092 oz 274 lb 9 oz 270 lb 275 lb 2 oz Microbiology Reports for the Last 24 Hours: Microbiology 09/26/17 06:30 Blood Blood Culture - Preliminary Staphylococcus species 09/26/17 06:30 Blood Blood Culture - Preliminary NO GROWTH AFTER 48 HOURS - *Routine Abdominal Exam Present: soft. Absent: tenderness Progress Note: A&P (1) Acute upper GI bleeding Status: Acute Current Visit: Yes (2) Anemia associated with acute blood loss Status: Acute Current Visit: Yes (3) Chronic venous insufficiency Status: Acute Current Visit: Yes (4) Lymphedema Status: Acute Current Visit: Yes (5) Acute renal failure (ARF) Status: Acute Current Visit: Yes (6) Diabetes mellitus, type II, insulin dependent Status: Acute Current Visit: Yes (7) Hyperkalemia Status: Acute Current Visit: Yes Assessment and Plan for All Diagnoses:: Continue medical management.
--- NOTE | 2017-09-29 07:25 | Progress Note ---
Internal Medicine - PN: Subj *Date: 09/29/17 *Time: 07:23 Interval history: Patient is without complaints this morning. She has not had a bowel movement in the last 24 hours. EGD performed yesterday showed 2 duodenal ulcers and a gastric erosion. None of the lesions were actively bleeding. Biopsies were performed for H pylori Exam Vital signs and Labs for Last 24 Hours: Temp Pulse Resp BP Pulse Ox 97.9 F 75 20 114/45 97 09/29/17 04:00 09/29/17 04:00 09/29/17 04:00 09/29/17 04:00 09/29/17 04:00 Laboratory Results - last 24 hr 09/28/17 08:05: WBC 12.1 H, RBC 3.46 L D, Hgb 10.1 L, Hct 31.2 L, MCV 90.1, MCH 29.3, MCHC 32.5, RDW 17.7 H, Plt Count 234, MPV 7.2 L, Neut % (Auto) 74.4, Lymph % (Auto) 17.6, [place] % (Auto) 6.2, Eos % (Auto) 1.6, Baso % (Auto) 0.2, Neut # (Auto) 9.0 H, Lymph # (Auto) 2.1, [place] # (Auto) 0.8, Eos # (Auto) 0.2, Baso # (Auto) 0.0 09/28/17 08:05: Sodium 138, Potassium 3.4 L D, Chloride 106, Carbon Dioxide 23, Anion Gap 12.4, BUN 52 H D, Creatinine 2.44 H D, Estimated Creat Clear 20, Estimated GFR 20 L, Est GFR ( Amer) 24 L D, Glucose 72 L, Calcium 7.6 L 09/28/17 11:33: POC Glucose 78 09/28/17 17:01: POC Glucose 73 09/28/17 21:00: POC Glucose 105 09/29/17 00:00: Random Gentamicin 9.0 09/29/17 05:05: WBC 8.4 D, RBC 3.23 L, Hgb 9.5 L, Hct 29.1 L, MCV 90.2, MCH 29.3, MCHC 32.5, RDW 18.0 H, Plt Count 195, MPV 7.2 L, Neut % (Auto) 65.5, Lymph % (Auto) 22.7, [place] % (Auto) 8.5, Eos % (Auto) 3.1, Baso % (Auto) 0.2, Neut # (Auto) 5.5, Lymph # (Auto) 1.9, [place] # (Auto) 0.7, Eos # (Auto) 0.3, Baso # (Auto) 0.0 09/29/17 05:05: Sodium 136, Potassium 3.2 L, Chloride 108 H, Carbon Dioxide 25, Anion Gap 6.2, BUN 46 H, Creatinine 2.24 H, Estimated Creat Clear 22, Estimated GFR 22 L, Est GFR ( Amer) 27 L, Glucose 87 D, Calcium 7.0 L 09/29/17 06:36: POC Glucose 89 I & O for Last 24 hours: Intake & Output 09/26/17 09/27/17 09/28/17 09/29/17 11:59 11:59 11:59 11:59 Intake Total 250 / 250 701 / 701 4246 / 4246 1160 / 1160 Output Total 600 / 600 750 / 750 800 / 800 2300 / 2300 Balance -350 / -350 -49 / -49 3446 / 3446 -1140 / -1140 Weight 296 lb 9.092 oz 274 lb 9 oz 270 lb 275 lb 2 oz Microbiology Reports for the Last 24 Hours: Microbiology 09/26/17 06:30 Blood Blood Culture - Preliminary Staphylococcus species 09/26/17 06:30 Blood Blood Culture - Preliminary NO GROWTH AFTER 48 HOURS - Constitutional no acute distress - *Routine Abdominal Exam Present: soft, normoactive bowel sounds. Absent: tenderness Assessment and Plan (1) Acute upper GI bleeding Current visit: Yes Status: Acute Category: Medical Code(s): K92.2 - Gastrointestinal hemorrhage, unspecified (2) Anemia associated with acute blood loss Current visit: Yes Status: Acute Category: Medical Code(s): D62 - Acute posthemorrhagic anemia (3) Chronic venous insufficiency Current visit: Yes Status: Acute Category: Medical Code(s): I87.2 - Venous insufficiency (chronic) (peripheral) (4) Lymphedema Current visit: Yes Status: Acute Category: Medical Code(s): I89.0 - Lymphedema, not elsewhere classified (5) Acute renal failure (ARF) Current visit: Yes Status: Acute Qualifiers: Acute renal failure type: unspecified Qualified Code(s): N17.9 - Acute kidney failure, unspecified Category: Medical Code(s): N17.9 - Acute kidney failure, unspecified (6) Diabetes mellitus, type II, insulin dependent Current visit: Yes Status: Acute Category: Medical Code(s): E11.9 - Type 2 diabetes mellitus without complications; Z79.4 - termite control service representative (current) use of insulin (7) Hyperkalemia Current visit: Yes Status: Acute Category: Medical Code(s): E87.5 - Hyperkalemia (8) Morbid obesity with BMI of 45.0-49.9, adult Current visit: Yes Status: Acute Category: Medical Code(s): E66.01 - Morbid (severe) obesity due to excess calories; Z68.42 - Body mass index (BMI) 45.0-49.9, adult (9) Acute worsening of stage 3 chronic kidney disease Current visit: Yes Status: Acute Category: Medical Code(s): N18.3 - Chronic kidney disease, stage 3 (moderate) - Assessment and plan all Dx Assessment and Plan for all problems:: Advance diet and repeat H&H this afternoon. Patient is on gentamicin due to a single positive blood culture that is growing staph aureus. Repeat cultures were performed yesterday.
--- NOTE | 2017-09-29 08:41 | Pharmacy Consult Notes ---
- Pharmacy Consult Date: 09/29/17 Time: 08:39 Referring provider: DR. VASQUEZ Reason for Consult:: GENTAMICIN DOSING AND LEVELS Allergies and ADEs:: Allergies Allergy/AdvReac Type Severity Reaction Status Date / Time vancomycin Allergy Severe red man Verified 08/25/17 01:29 syndrome ceftriaxone Allergy Mild Rash Verified 08/25/17 01:29 amoxicillin Allergy Unknown Verified 08/25/17 01:29 atropine Allergy Unknown Verified 08/25/17 01:29 aztreonam Allergy Unknown Verified 08/25/17 01:29 ciprofloxacin Allergy Unknown Verified 08/25/17 01:29 clindamycin Allergy Unknown Verified 08/25/17 01:29 levofloxacin Allergy Unknown Verified 08/25/17 01:29 morphine Allergy Unknown Verified 08/25/17 01:29 nabumetone Allergy Unknown Verified 08/25/17 01:29 oxytetracycline Allergy Unknown Verified 08/25/17 01:29 Penicillins Allergy Unknown Verified 08/25/17 01:29 polymyxin B Allergy Unknown Verified 08/25/17 01:29 Sulfa (Sulfonamide Allergy Unknown Verified 08/25/17 01:29 Antibiotics) tramadol Allergy Unknown Verified 08/25/17 01:29 Home Medications:: Home Medications Medication Instructions Recorded Confirmed Type Fexofenadine HCl 180 mg PO DAILY 08/24/17 09/26/17 History Gabapentin [Gabapentin 300mg Cap] 300 mg PO DAILY 08/24/17 09/26/17 History Gabapentin [Gabapentin 300mg Cap] 600 mg PO HS 08/24/17 09/26/17 History Levothyroxine Sodium 300 mcg PO DAILY 08/24/17 09/26/17 History [Levothyroxine 300mcg (0.3mg) Tab] Sennosides/Docusate Sodium [Stool 1 each PO DAILY 08/24/17 09/26/17 History Softener-Laxative Tablet] Spironolactone 50 mg PO DAILY 08/24/17 09/26/17 History Aspirin [Aspirin 81mg EC Tab] 81 mg PO DAILY 08/25/17 09/26/17 History glipiZIDE [Glucotrol 5mg tablet] 5 mg PO DAILY 09/26/17 09/26/17 History Height: 1.63 m Weight: 124.795 kg Laboratory Results:: Laboratory Results - last 24 hr 09/28/17 08:05: WBC 12.1 H, RBC 3.46 L D, Hgb 10.1 L, Hct 31.2 L, MCV 90.1, MCH 29.3, MCHC 32.5, RDW 17.7 H, Plt Count 234, MPV 7.2 L, Neut % (Auto) 74.4, Lymph % (Auto) 17.6, [place] % (Auto) 6.2, Eos % (Auto) 1.6, Baso % (Auto) 0.2, Neut # (Auto) 9.0 H, Lymph # (Auto) 2.1, [place] # (Auto) 0.8, Eos # (Auto) 0.2, Baso # (Auto) 0.0 09/28/17 08:05: Sodium 138, Potassium 3.4 L D, Chloride 106, Carbon Dioxide 23, Anion Gap 12.4, BUN 52 H D, Creatinine 2.44 H D, Estimated Creat Clear 20, Estimated GFR 20 L, Est GFR ( Amer) 24 L D, Glucose 72 L, Calcium 7.6 L 09/28/17 11:33: POC Glucose 78 09/28/17 17:01: POC Glucose 73 09/28/17 21:00: POC Glucose 105 09/29/17 00:00: Random Gentamicin 9.0 09/29/17 05:05: WBC 8.4 D, RBC 3.23 L, Hgb 9.5 L, Hct 29.1 L, MCV 90.2, MCH 29.3, MCHC 32.5, RDW 18.0 H, Plt Count 195, MPV 7.2 L, Neut % (Auto) 65.5, Lymph % (Auto) 22.7, [place] % (Auto) 8.5, Eos % (Auto) 3.1, Baso % (Auto) 0.2, Neut # (Auto) 5.5, Lymph # (Auto) 1.9, [place] # (Auto) 0.7, Eos # (Auto) 0.3, Baso # (Auto) 0.0 09/29/17 05:05: Sodium 136, Potassium 3.2 L, Chloride 108 H, Carbon Dioxide 25, Anion Gap 6.2, BUN 46 H, Creatinine 2.24 H, Estimated Creat Clear 22, Estimated GFR 22 L, Est GFR ( Amer) 27 L, Glucose 87 D, Calcium 7.0 L 09/29/17 06:36: POC Glucose 89 09/29/17 07:58: Random Gentamicin 6.8 Medical History: Reports:: Diabetes Mellitus Type 2, Hypertension Denies:: Cancer, Diabetes Mellitus Type 1, Internal Pacemaker, MRSA, Seizures Assessment and Plan (1) Acute upper GI bleeding Current visit: Yes Status: Acute Category: Medical Code(s): K92.2 - Gastrointestinal hemorrhage, unspecified (2) Anemia associated with acute blood loss Current visit: Yes Status: Acute Category: Medical Code(s): D62 - Acute posthemorrhagic anemia (3) Chronic venous insufficiency Current visit: Yes Status: Acute Category: Medical Code(s): I87.2 - Venous insufficiency (chronic) (peripheral) (4) Lymphedema Current visit: Yes Status: Acute Category: Medical Code(s): I89.0 - Lymphedema, not elsewhere classified (5) Acute renal failure (ARF) Current visit: Yes Status: Acute Qualifiers: Acute renal failure type: unspecified Qualified Code(s): N17.9 - Acute kidney failure, unspecified Category: Medical Code(s): N17.9 - Acute kidney failure, unspecified (6) Diabetes mellitus, type II, insulin dependent Current visit: Yes Status: Acute Category: Medical Code(s): E11.9 - Type 2 diabetes mellitus without complications; Z79.4 - correction (current) use of insulin (7) Hyperkalemia Current visit: Yes Status: Acute Category: Medical Code(s): E87.5 - Hyperkalemia (8) Morbid obesity with BMI of 45.0-49.9, adult Current visit: Yes Status: Acute Category: Medical Code(s): E66.01 - Morbid (severe) obesity due to excess calories; Z68.42 - Body mass index (BMI) 45.0-49.9, adult (9) Acute worsening of stage 3 chronic kidney disease Current visit: Yes Status: Acute Category: Medical Code(s): N18.3 - Chronic kidney disease, stage 3 (moderate) - Assessment and plan all Dx Assessment and Plan for all problems:: GENTAMICIN LEVELS 4-HOUR POST-INFUSION: 9.0 MCG/ML CALCULATED PEAK: 10.0 MCG/ML 12-HOUR POST-INFUSION: 6.8 MCG/ML CALCULATED TROUGH: 1.93 MCG/ML BASED ON GENTAMICIN LEVELS AND PATIENT FACTORS, RECOMMEND GENTAMICIN 400 MG ( 4.8 MG/KG/DBW) IV Q72H. PHARMACY WILL CONTINUE TO MONITOR DAILY AND ADJUST APPROPRIATE.
[2017-09-29 16:22] LABS: Hemoglobin 11.8 g/dL (12.2-16.2)
[2017-09-30 06:35] LABS: Anion Gap 10.4 mEq/L (5-15); Calcium 7.2 mg/dL (8.5-10.1); Potassium 3.4 mmoL/L (3.5-5.1)
[2017-09-30 06:42] LABS: Basophils % 0.3 % (0.1-2.0); Eosinophils # 0.4 K/mm3 (0.0-0.4); Hematocrit 28.6 % (37.0-47.0); Lymphocytes # 1.7 K/mm3 (0.7-4.5); Lymphocytes % 19.1 K/mm3 (10-50); Mean Corpuscular HGB Conc 32.2 g/dL (31.8-35.4); Mean Corpuscular Hemoglobin 29.4 pg (27.0-31.2); Mean Corpuscular Volume 91.2 fl (81-99); Mean Platelet Volume 7.3 fl (7.4-10.4); Monocytes # 0.8 K/mm3 (0.1-1.0); Monocytes % 8.7 % (1.7-9.3); Neutrophils % 67.9 % (37.0-80.0); Platelet Count 213 K/mm3 (142-424); Red Blood Count 3.14 M/mm3 (4.20-5.40); Red Cell Distribution Width 17.5 % (11.5-17.5); White Blood Count 8.8 K/mm3 (4.8-10.8)
--- NOTE | 2017-09-30 07:08 | Progress Note ---
Internal Medicine - PN: Subj *Date: 09/30/17 *Time: 07:05 Interval history: Patient has no complaints this morning. She ambulated some within her room yesterday. She spent the day in the wheelchair. Her appetite is good. She has not had another bowel movement. She does admit to flatus though Exam Vital signs and Labs for Last 24 Hours: Temp Pulse Resp BP Pulse Ox 98.2 F 82 20 143/61 98 09/30/17 03:41 09/30/17 03:41 09/30/17 03:41 09/30/17 03:41 09/30/17 03:41 Laboratory Results - last 24 hr 09/29/17 07:58: Random Gentamicin 6.8 09/29/17 10:54: POC Glucose 105 09/29/17 16:02: Hgb 11.8 L D, Hct 36.0 L 09/29/17 16:26: POC Glucose 116 H 09/29/17 21:59: POC Glucose 103 09/30/17 05:48: WBC 8.8, RBC 3.14 L, Hct 28.6 L, MCV 91.2, MCH 29.4, MCHC 32.2, RDW 17.5, Plt Count 213, MPV 7.3 L, Neut % (Auto) 67.9, Lymph % (Auto) 19.1, [place] % (Auto) 8.7, Eos % (Auto) 4.0, Baso % (Auto) 0.3, Neut # (Auto) 6.0, Lymph # (Auto) 1.7, [place] # (Auto) 0.8, Eos # (Auto) 0.4, Baso # (Auto) 0.0 09/30/17 05:48: Sodium 138, Potassium 3.4 L, Chloride 108 H, Carbon Dioxide 23, Anion Gap 10.4, BUN 34 H D, Creatinine 1.94 H, Estimated Creat Clear 25, Estimated GFR 26 L, Est GFR ( Amer) 31 L, Glucose 84, Calcium 7.2 L 09/30/17 06:10: POC Glucose 80 I & O for Last 24 hours: Intake & Output 09/27/17 09/28/17 09/29/17 09/30/17 11:59 11:59 11:59 11:59 Intake Total 701 / 701 4246 / 4246 1640 / 1640 4572 / 4572 Output Total 750 / 750 800 / 800 2300 / 2300 2250 / 2250 Balance -49 / -49 3446 / 3446 -660 / -660 2322 / 2322 Weight 274 lb 9 oz 270 lb 275 lb 2 oz 278 lb 6 oz Microbiology Reports for the Last 24 Hours: Microbiology 09/26/17 06:30 Blood Blood Culture - Preliminary Staphylococcus epidermidis 09/28/17 07:22 Gastric Biopsy Helicobacter pylori Urease &Culture - Final Negative Urease for Helicobacter pylori. Narrative: Patient is awake and alert. There is no pallor. Lungs are clear. Heart is regular rate abdomen is soft Assessment and Plan (1) Acute upper GI bleeding Current visit: Yes Status: Acute Category: Medical Code(s): K92.2 - Gastrointestinal hemorrhage, unspecified (2) Anemia associated with acute blood loss Current visit: Yes Status: Acute Category: Medical Code(s): D62 - Acute posthemorrhagic anemia (3) Chronic venous insufficiency Current visit: Yes Status: Acute Category: Medical Code(s): I87.2 - Venous insufficiency (chronic) (peripheral) (4) Lymphedema Current visit: Yes Status: Acute Category: Medical Code(s): I89.0 - Lymphedema, not elsewhere classified (5) Acute renal failure (ARF) Current visit: Yes Status: Acute Qualifiers: Acute renal failure type: unspecified Qualified Code(s): N17.9 - Acute kidney failure, unspecified Category: Medical Code(s): N17.9 - Acute kidney failure, unspecified (6) Diabetes mellitus, type II, insulin dependent Current visit: Yes Status: Acute Category: Medical Code(s): E11.9 - Type 2 diabetes mellitus without complications; Z79.4 - intermediate school teacher (current) use of insulin (7) Hyperkalemia Current visit: Yes Status: Acute Category: Medical Code(s): E87.5 - Hyperkalemia (8) Morbid obesity with BMI of 45.0-49.9, adult Current visit: Yes Status: Acute Category: Medical Code(s): E66.01 - Morbid (severe) obesity due to excess calories; Z68.42 - Body mass index (BMI) 45.0-49.9, adult (9) Acute worsening of stage 3 chronic kidney disease Current visit: Yes Status: Acute Category: Medical Code(s): N18.3 - Chronic kidney disease, stage 3 (moderate) - Assessment and plan all Dx Assessment and Plan for all problems:: Continue serial H&H's. Continue daily CBCs.. Anticipate discharge tomorrow as long as her repeat set of blood cultures are negative
--- NOTE | 2017-09-30 07:10 | Progress Note ---
Subjective Patient reports: no new complaints, feels better Exam Vital signs and Labs for Last 24 Hours: Temp Pulse Resp BP Pulse Ox 98.2 F 82 20 143/61 98 09/30/17 03:41 09/30/17 03:41 09/30/17 03:41 09/30/17 03:41 09/30/17 03:41 Laboratory Results - last 24 hr 09/29/17 07:58: Random Gentamicin 6.8 09/29/17 10:54: POC Glucose 105 09/29/17 16:02: Hgb 11.8 L D, Hct 36.0 L 09/29/17 16:26: POC Glucose 116 H 09/29/17 21:59: POC Glucose 103 09/30/17 05:48: WBC 8.8, RBC 3.14 L, Hct 28.6 L, MCV 91.2, MCH 29.4, MCHC 32.2, RDW 17.5, Plt Count 213, MPV 7.3 L, Neut % (Auto) 67.9, Lymph % (Auto) 19.1, [place] % (Auto) 8.7, Eos % (Auto) 4.0, Baso % (Auto) 0.3, Neut # (Auto) 6.0, Lymph # (Auto) 1.7, [place] # (Auto) 0.8, Eos # (Auto) 0.4, Baso # (Auto) 0.0 09/30/17 05:48: Sodium 138, Potassium 3.4 L, Chloride 108 H, Carbon Dioxide 23, Anion Gap 10.4, BUN 34 H D, Creatinine 1.94 H, Estimated Creat Clear 25, Estimated GFR 26 L, Est GFR ( Amer) 31 L, Glucose 84, Calcium 7.2 L 09/30/17 06:10: POC Glucose 80 I & O for Last 24 hours: Intake & Output 09/27/17 09/28/17 09/29/17 09/30/17 11:59 11:59 11:59 11:59 Intake Total 701 / 701 4246 / 4246 1640 / 1640 4572 / 4572 Output Total 750 / 750 800 / 800 2300 / 2300 2250 / 2250 Balance -49 / -49 3446 / 3446 -660 / -660 2322 / 2322 Weight 274 lb 9 oz 270 lb 275 lb 2 oz 278 lb 6 oz Microbiology Reports for the Last 24 Hours: Microbiology 09/26/17 06:30 Blood Blood Culture - Preliminary Staphylococcus epidermidis 09/28/17 07:22 Gastric Biopsy Helicobacter pylori Urease &Culture - Final Negative Urease for Helicobacter pylori. - *Routine Abdominal Exam Present: soft Progress Note: A&P (1) Acute upper GI bleeding Status: Acute Current Visit: Yes (2) Anemia associated with acute blood loss Status: Acute Current Visit: Yes (3) Chronic venous insufficiency Status: Acute Current Visit: Yes (4) Lymphedema Status: Acute Current Visit: Yes (5) Acute renal failure (ARF) Status: Acute Current Visit: Yes (6) Diabetes mellitus, type II, insulin dependent Status: Acute Current Visit: Yes (7) Hyperkalemia Status: Acute Current Visit: Yes (8) Morbid obesity with BMI of 45.0-49.9, adult Status: Acute Current Visit: Yes (9) Acute worsening of stage 3 chronic kidney disease Status: Acute Current Visit: Yes Assessment and Plan for All Diagnoses:: Patient has had no clinical bleeding and is doing well. Interestingly Hct this morning is 28%. Hgb still pending. Monitor closely.
[2017-09-30 07:18] LABS: Hemoglobin 9.3 g/dL (12.2-16.2)
[2017-10-01 07:00] LABS: Anion Gap 11.6 mEq/L (5-15); Calcium 7.3 mg/dL (8.5-10.1); Potassium 3.6 mmoL/L (3.5-5.1)
--- NOTE | 2017-10-01 07:10 | Discharge Summary ---
General - General Admission date:: 09/26/17 Discharge date: 10/01/17 HPI HPI: 66-year-old female with diabetes and chronic lymphedema of the lower extremities with chronic bilateral leg wounds presented to the emergency department with a near 3 day history of nausea without abdominal pain but change in bowel habits with stools becoming black. Patient denies use of NSAIDs. She has never had any upper or lower GI bleeding. Patient was recently hospitalized at this facility with cellulitis of the lower extremities from her open wounds by Pseudomonas. Hospital Course Hospital Course: Patient was admitted and initially transfused 4 units of packed red blood cells twice on a Protonix drip. Surgical service was consulted in case emergent EGD was needed and it was anticipated patient would need EGD during hospitalization. Patient had excellent response to initial blood transfusion but ultimately required 2 additional units almost 48 hours after hospitalization. On the morning of September 28 patient underwent EGD by Dr. Burgos was found to have 2 duodenal ulcers and gastric erosion. There was no active bleeding. Patient was continued on intravenous Protonix and started on a liquid diet which was gradually transitioned over the remainder of hospitalization to a diabetic diet. Patient had dark tarry stools initially but had infrequent bowel movements during hospitalization. She tolerated diet without problems. Serial H&H's were performed and hemoglobin stabilized in the low nines. Once hemoglobin had sufficiently stabilized patient was discharged home. Patient will follow-up with Dr. Burgos and myself as an outpatient. Patient has chronic lower extremity wounds from chronic lymphedema and venous insufficiency. When she arrived at the facility patient had a boots in place but when these were removed patient suffered some skin tears. Prior to discharge I have consulted wound care to make recommendations on her lower extremities. Patient will be discharged to home with home health for nursing and wound care Objective Vital signs: Temp Pulse Resp BP Pulse Ox 98.5 F 84 20 101/52 96 10/01/17 03:50 10/01/17 03:50 10/01/17 03:50 10/01/17 03:50 10/01/17 03:50 Results Labs on day of discharge: Labs from last 24 hours 10/01/17 09/30/17 09/30/17 06:04 20:38 16:38 Hgb POC Glucose 91 86 99 09/30/17 09/30/17 11:03 05:48 Hgb 9.3 L D POC Glucose 101 Preliminary micro results at discharge 09/28/17 16:59 Blood Culture - Preliminary Blood NO GROWTH AFTER 48 HOURS 09/28/17 16:50 Blood Culture - Preliminary Blood NO GROWTH AFTER 48 HOURS 09/26/17 06:30 Blood Culture - Preliminary Blood Staphylococcus epidermidis DS: Diagnosis - Discharge Diagnosis (1) Acute upper GI bleeding Status: Acute (2) Anemia associated with acute blood loss Status: Acute (3) Chronic venous insufficiency Status: Acute (4) Lymphedema Status: Acute (5) Acute renal failure (ARF) Status: Acute (6) Diabetes mellitus, type II, insulin dependent Status: Acute (7) Hyperkalemia Status: Acute (8) Morbid obesity with BMI of 45.0-49.9, adult Status: Acute (9) Acute worsening of stage 3 chronic kidney disease Status: Acute Discharge Plan - Patient Discharge Instructions ACTIVITY: Continue current activity DIET: continue same diet - Follow up Plan Follow up with: Austin Burgos MD [Staff Physician] - Yann Hargrove MD [Family Provider] - 10/05/17 11:00 am Disposition: Home, Self-Residential Medications: Home Medications Medication Instructions Recorded Confirmed Type RX: Fexofenadine HCl 180 mg PO DAILY 08/24/17 09/26/17 History RX: Gabapentin [Gabapentin 300mg 300 mg PO DAILY 08/24/17 09/26/17 History Cap] RX: Gabapentin [Gabapentin 300mg 600 mg PO HS 08/24/17 09/26/17 History Cap] RX: Levothyroxine Sodium 300 mcg PO DAILY 08/24/17 09/26/17 History [Levothyroxine 300mcg (0.3mg) Tab] RX: Sennosides/Docusate Sodium 1 each PO DAILY 08/24/17 09/26/17 History [Stool Softener-Laxative Tablet] RX: Spironolactone 50 mg PO DAILY 08/24/17 09/26/17 History RX: Aspirin [Aspirin 81mg EC 81 mg PO DAILY 08/25/17 09/26/17 History Tab] RX: glipiZIDE [Glucotrol 5mg 5 mg PO DAILY 09/26/17 09/26/17 History tablet] Prescriptions/Medication Reconciliation: New Pantoprazole Sodium [Protonix 40mg tablet] 40 mg PO BID 30 Days #60 tab Continue RX: Gabapentin [Gabapentin 300mg Cap] 600 mg PO HS RX: Levothyroxine Sodium [Levothyroxine 300mcg (0.3mg) Tab] 300 mcg PO DAILY RX: Gabapentin [Gabapentin 300mg Cap] 300 mg PO DAILY RX: Sennosides/Docusate Sodium [Stool Softener-Laxative Tablet] 1 each PO DAILY RX: Fexofenadine HCl 180 mg PO DAILY RX: glipiZIDE [Glucotrol 5mg tablet] 5 mg PO DAILY RX: Aspirin [Aspirin 81mg EC Tab] 81 mg PO DAILY RX: Hydrocodone/Acetaminophen [Lortab 10/325mg tablet] 1 tab PO Q4HP PRN tab PRN Reason: Moderate To Severe Pain Discontinued RX: Spironolactone 50 mg PO DAILY
[2017-10-01 07:19] LABS: Basophils % 0.3 % (0.1-2.0); Eosinophils # 0.4 K/mm3 (0.0-0.4); Eosinophils % 4.9 % (0.1-12.0); Hematocrit 28.5 % (37.0-47.0); Hemoglobin 9.2 g/dL (12.2-16.2); Lymphocytes # 1.5 K/mm3 (0.7-4.5); Lymphocytes % 19.9 K/mm3 (10-50); Mean Corpuscular HGB Conc 32.2 g/dL (31.8-35.4); Mean Corpuscular Hemoglobin 29.3 pg (27.0-31.2); Mean Corpuscular Volume 90.7 fl (81-99); Monocytes # 0.6 K/mm3 (0.1-1.0); Monocytes % 7.4 % (1.7-9.3); Neutrophils # 5.2 K/mm3 (1.8-7.8); Neutrophils % 67.5 % (37.0-80.0); Platelet Count 234 K/mm3 (142-424); Red Blood Count 3.14 M/mm3 (4.20-5.40); Red Cell Distribution Width 17.4 % (11.5-17.5); White Blood Count 7.7 K/mm3 (4.8-10.8)
== END 2017-10-01 12:29 | disposition home or self-care (01) ==
LOC: ER 05:28 → 2ND 07:35
PROVIDERS: ADMIT Family Medicine; ATTEND Family Medicine

== ENCOUNTER 2017-11-29 15:28 | Inpatient (IN) ==
[2017-11-29 17:44] LABS: Basophils % 0.2 % (0.1-2.0); Eosinophils # 0.1 K/mm3 (0.0-0.4); Eosinophils % 0.4 % (0.1-12.0); Hematocrit 32.4 % (37.0-47.0); Hemoglobin 9.8 g/dL (12.2-16.2); Lymphocytes # 0.8 K/mm3 (0.7-4.5); Lymphocytes % 4.3 K/mm3 (10-50); Mean Corpuscular HGB Conc 30.4 g/dL (31.8-35.4); Mean Corpuscular Hemoglobin 28.6 pg (27.0-31.2); Mean Platelet Volume 6.9 fl (7.4-10.4); Monocytes # 0.9 K/mm3 (0.1-1.0); Monocytes % 4.4 % (1.7-9.3); Neutrophils # 17.8 K/mm3 (1.8-7.8); Neutrophils % 90.8 % (37.0-80.0); Platelet Count 460 K/mm3 (142-424); Red Blood Count 3.44 M/mm3 (4.20-5.40); Red Cell Distribution Width 13.8 % (11.5-17.5); White Blood Count 19.6 K/mm3 (4.8-10.8)
[2017-11-29 17:54] LABS: Hypochromasia 3+; Lymphocytes % 6 % (10-50); Monocytes % 4 % (2-9); Neutrophils % 82 % (42-76); Rouleaux 2+; Total Cells Counted 100
[2017-11-29 18:08] LABS: Albumin Level 2.3 gm/dL (3.4-5.0); Albumin/Globulin Ratio 0.3 (1.1-1.8); Anion Gap 16.8 mEq/L (5-15); Bilirubin,Total 0.2 mg/dL (0.2-1.0); Calcium 9.2 mg/dL (8.5-10.1); Globulin 6.8 gm/dl (1.3-3.2); Potassium 5.8 mmoL/L (3.5-5.1); Total Protein,Serum 9.1 gm/dL (6.4-8.2)
--- NOTE | 2017-11-29 21:56 | Emergency Department Note ---
ED Disposition Clinical Impression: Sepsis, Hypoglycemia Disposition: Admitted As Inpatient Condition on Discharge: Serious - Critical Care Critical Care Time: Yes Attestation: On 11/29/17, the high probability of a clinically significant, sudden or life threatening deterioration of the following system(s) required my full and direct attention, intervention and personal management. The time I documented below is in addition to time spent performing reported procedures but includes the following listed in this critical care notation. Vital system(s) involved:: Circulatory Failure, Central Nervous System, Metabolic Failure My critical care processes included: Assessment & monitoring of V/S, Initial and Re-exams, Data Review/Interpretation, Coordinating Care, Medication Orders and management, Documentation Medical Decision Making - Medical Records Medical records reviewed: Yes: I reviewed the patient's medical records. - Lonnie Inquiry Pt receiving controlled substance: No Lonnie was queried for this patient: No Vital Signs: 11/29/17 15:36 11/29/17 16:23 11/29/17 17:24 Temperature 97.8 F Temperature Source Temporal Artery Scan Pulse Rate Pulse Rate [Right Brachial] 85 86 Respiratory Rate 18 Blood Pressure Blood Pressure [Right Arm] 142/75 H 150/86 H Blood Pressure Mean [Right Arm] 97 107 Blood Pressure Source Blood Pressure Source [Right Arm] Automatic Cuff Automatic Cuff Automatic Cuff Blood Pressure Position Blood Pressure Position [Right Arm] Sitting Sitting Sitting 02 Sat by Pulse Oximetry 98 100 95 Oxygen Delivery Method Room Air 11/29/17 18:34 11/29/17 19:08 11/29/17 20:43 Temperature Temperature Source Pulse Rate 87 Pulse Rate [Right Brachial] 83 85 Respiratory Rate Blood Pressure Blood Pressure [Right Arm] 100/66 L 144/69 H Blood Pressure Mean [Right Arm] 77 94 Blood Pressure Source Blood Pressure Source [Right Arm] Automatic Cuff Automatic Cuff Blood Pressure Position Blood Pressure Position [Right Arm] Supine Sitting 02 Sat by Pulse Oximetry 100 93 L Oxygen Delivery Method 11/29/17 20:44 11/29/17 21:30 11/29/17 21:55 Temperature 100.2 F H Temperature Source Oral Pulse Rate 92 H 102 H Pulse Rate [Right Brachial] 102 H Respiratory Rate 16 15 Blood Pressure 117/71 Blood Pressure [Right Arm] 117/71 Blood Pressure Mean [Right Arm] 86 Blood Pressure Source Automatic Cuff Blood Pressure Source [Right Arm] Automatic Cuff Blood Pressure Position Supine Blood Pressure Position [Right Arm] Supine 02 Sat by Pulse Oximetry 98 Oxygen Delivery Method Room Air Room Air 11/29/17 22:00 Temperature Temperature Source Pulse Rate Pulse Rate [Right Brachial] 102 H Respiratory Rate 16 Blood Pressure Blood Pressure [Right Arm] 119/70 Blood Pressure Mean [Right Arm] 86 Blood Pressure Source Blood Pressure Source [Right Arm] Manual Cuff/ Doppler Blood Pressure Position Blood Pressure Position [Right Arm] Left Lateral 02 Sat by Pulse Oximetry 98 Oxygen Delivery Method Room Air - Lab Data Lab results reviewed: Yes: I reviewed the patient's lab results. Lab Results 11/29/17 16:22: POC Glucose 101 11/29/17 17:40: WBC 19.6 H, RBC 3.44 L, Hgb 9.8 L, Hct 32.4 L, MCV 94.0, MCH 28.6, MCHC 30.4 L, RDW 13.8, Plt Count 460 H, MPV 6.9 L, Neut % (Auto) 90.8 H, Lymph % (Auto) 4.3 L, Whitley % (Auto) 4.4, Eos % (Auto) 0.4, Baso % (Auto) 0.2, Neut # (Auto) 17.8 H, Lymph # (Auto) 0.8, Whitley # (Auto) 0.9, Eos # (Auto) 0.1, Baso # (Auto) 0.0, Total Counted 100, Neutrophils % (Manual) 82 H, Band Neutrophils % 8.0, Lymphocytes % (Manual) 6 L, Monocytes % (Manual) 4, Platelet Estimate Slight increase, Hypochromasia 3+, Rouleaux 2+ 11/29/17 17:40: Sodium 132 L, Potassium 5.8 H, Chloride 100, Carbon Dioxide 21, Anion Gap 16.8 H, BUN 64 H, Creatinine 3.95 H, Estimated Creat Clear 24, Estimated GFR 11 L*, Est GFR ( Amer) 14 L*, Glucose 42 L, Calcium 9.2, Total Bilirubin 0.2, AST 15, ALT 10 L, Alkaline Phosphatase 78, Total Protein 9.1 H D, Albumin 2.3 L, Globulin 6.8 H, Albumin/Globulin Ratio 0.3 L 11/29/17 19:48: POC Glucose 69 L 11/29/17 20:10: Random Glucose 41 L* 11/29/17 20:10: Lactate 2.0 11/29/17 20:51: POC Glucose 54 L 11/29/17 21:28: POC Glucose 127 H Result diagrams: 11/29/17 17:40 11/29/17 17:40 Orders (Tests/Meds): ED MEDICATIONS Generic Name Dose Route Start Last Admin Trade Name Freq PRN Reason Stop Dose Admin Acetaminophen 1,000 mg 11/30/17 00:57 Tylenol 500mg Tablet PO 12/30/17 00:56 Q4HP PRN As Needed for Fever or Pain Hydrocodone Bitart/Acetaminophen 1 tab 11/29/17 22:46 Phillips 10/325mg Tablet PO 12/29/17 22:14 Q4HP PRN Moderate to Severe Pain Aspirin 81 mg 11/30/17 09:00 Aspirin 81mg Enteric Coated Tablet PO 12/30/17 08:59 DAILY ULISES Dextrose 50 ml 11/30/17 00:58 Dextrose 50% 50ml Syringe IV 12/30/17 00:57 DIRECTED PRN HYPOGLYCEMIC PROTOCOL Gabapentin 600 mg 11/30/17 21:00 Neurontin 300mg Capsule PO 12/30/17 20:59 HS ULISES Gabapentin 300 mg 11/30/17 09:00 Neurontin 300mg Capsule PO 12/30/17 08:59 DAILY ULISES Dextrose/Water 500 mls @ 25 mls/hr 11/29/17 22:46 11/30/17 00:28 Dextrose 10% In Water 500ml IV 12/29/17 19:14 25 mls/hr .Q20H ULISES Administration Sodium Chloride 1,000 mls @ 100 mls/hr 11/29/17 23:30 11/30/17 00:37 Sod Chlor 0.9% 1000ml Bag IV 12/29/17 23:29 100 mls/hr .Q10H ULISES Administration Sodium Chloride 1,000 mls @ 999 mls/hr 11/29/17 23:30 11/30/17 00:00 Sod Chlor 0.9% 1000ml Bag IV 11/30/17 00:30 999 mls/hr .Q1H1M ULISES Administration Linezolid 600 mg in 300 mls @ 300 mls/hr 11/30/17 09:00 11/30/17 00:02 Zyvox 600mg/300ml Premix Bag IV 12/07/17 08:59 300 mls/hr Q12 ULISES Administration Meropenem 1 gm/ Sodium 50 mls @ 100 mls/hr 11/29/17 01:00 11/30/17 00:30 Chloride IV 12/13/17 00:59 Not Given Q12H ULISES Tobramycin Sulfate 300 mg/ 107.5 mls @ 100 mls/hr 11/30/17 01:00 11/30/17 00:50 Sodium Chloride IV 12/14/17 00:59 100 mls/hr Q48H ULISES Administration Non-Formulary Medication 15 mg 11/30/17 09:00 Meloxicam [Meloxicam] PO 12/30/17 08:[address] [facility] Non-Formulary Medication 300 mcg 11/30/17 09:00 Levothyroxine Sodium [Levothyroxine 300mcg (0.3mg) Tab] PO 12/30/17 08:[address] [facility] Ondansetron HCl 4 mg 11/29/17 23:01 Zofran 4mg/2ml Vial IV 12/29/17 23:00 Q8HP PRN Nausea Pantoprazole Sodium 40 mg 11/30/17 09:00 Protonix 40mg Tablet PO 12/30/17 08:59 BID ULISES Senna/Docusate Sodium 1 tab 11/30/17 09:00 Senokot-S Tablet PO 12/30/17 08:[address] [facility] Sodium Chloride 10 ml 11/29/17 23:24 11/30/17 01:00 Saline Flush 10ml Syringe IV 12/29/17 23:23 10 ml NEEDED PRN Administration Maintain IV Site Discontinued Medications Generic Name Dose Route Start Last Admin Trade Name Freq PRN Reason Stop Dose Admin Acetaminophen 650 mg 11/30/17 01:00 11/30/17 00:46 Acetaminophen 325mg Tab PO 11/30/17 01:01 650 mg ONCE ONE Administration Hydrocodone Bitart/Acetaminophen 1 tab 11/29/17 19:30 11/29/17 19:32 Phillips 10/325mg Tablet PO 11/29/17 19:31 1 tab ONCE ONE Administration Hydrocodone Bitart/Acetaminophen 1 tab 11/29/17 22:15 Phillips 10/325mg Tablet PO 12/29/17 22:14 Q4HP PRN Moderate to Severe Pain Albuterol Sulfate 5 mg 11/29/17 20:19 11/29/17 20:43 Albuterol 0.083% 2.5mg/3ml Neb IH 11/29/17 20:20 5 mg ONCE ONE Administration Aspirin 81 mg 11/30/17 09:00 Aspirin 81mg Enteric Coated Tablet PO 12/30/17 08:59 DAILY ULISES Dextrose 25 ml 11/29/17 15:53 11/29/17 16:06 Dextrose 50% 50ml Syringe IVP 11/29/17 15:54 25 ml ONCE ONE Administration Dextrose 50 ml 11/29/17 15:53 11/29/17 16:06 Dextrose 50% 50ml Syringe IVP 11/29/17 15:54 Not Given ONCE ONE Dextrose 50 ml 11/29/17 19:12 11/29/17 19:12 Dextrose 50% 50ml Syringe IVP 11/29/17 19:13 50 ml ONCE ONE Administration Dextrose 50 ml 11/30/17 01:00 11/29/17 23:52 Dextrose 50% 50ml Syringe IV 11/30/17 01:01 50 ml ONCE ONE Administration Gabapentin 600 mg 11/30/17 21:00 Neurontin 300mg Capsule PO 12/30/17 20:59 HS ULISES Gabapentin 300 mg 11/30/17 09:00 Neurontin 300mg Capsule PO 12/30/17 08:59 DAILY ULISES Dextrose/Water 500 mls @ 25 mls/hr 11/29/17 19:15 11/29/17 19:14 Dextrose 10% In Water 500ml IV 12/29/17 19:14 25 mls/hr .Q20H ULISES Administration Calcium Gluconate 1,000 mg/ 35 mls @ 100 mls/hr 11/29/17 20:20 11/29/17 20:31 Sodium Chloride IV 11/29/17 20:40 100 mls/hr ONCE ONE Administration Ertapenem 1 gm/ Sodium 50 mls @ 100 mls/hr 11/29/17 21:45 11/29/17 21:38 Chloride IV 12/13/17 21:44 100 mls/hr Q24H ULISES Administration Protocol Non-Formulary Medication 300 mcg 11/30/17 09:00 Levothyroxine Sodium [Levothyroxine 300mcg (0.3mg) Tab] PO 12/30/17 08:59 DAILY ULISES Non-Formulary Medication 15 mg 11/30/17 09:00 Meloxicam [Meloxicam] PO 12/30/17 08:59 DAILY ULISES Pantoprazole Sodium 40 mg 11/30/17 09:00 Protonix 40mg Tablet PO 12/30/17 08:59 BID ULISES Senna/Docusate Sodium 1 tab 11/30/17 09:00 Senokot-S Tablet PO 12/30/17 08:59 DAILY ULISES ORDERS Category Date Time Status Blood Culture Stat Micro 11/29/17 20:00 Ordered Wound Culture and Gram Stain Stat Micro 11/29/17 20:00 Ordered Wound Culture and Gram Stain Stat Micro 11/29/17 20:00 Ordered EKG Request [ECG Request by /Gavin] Stat Y 11/29/17 15:47 Ordered - ECG Data Tracing #1 Normal Sinus Rhythm: Yes General Adult HPI - General Chief complaint: Hyper/Hypoglycemia Stated complaint: Low Blood Sugar Time Seen by Provider: 11/29/17 15:38 Mode of Arrival: EMS Limitations: No Limitations Description of Symptoms (Recalled from ER Triage Doc. by RN): hypoglycemia - History of Present Illness HPI narrative: Brought to the ED for her complain of generalized weakness for several days. When EMS arrived her home, BG was 20. Patient was given 1 amp of D50 and brought to ED. Reports occasional chills for several days. Denies any other associated complains at this time. On examination, patient is found to have dressing over BL LE. States she has wound on her LE but stopped going to her wound care clinic because her wound was not getting better. Onset (ago): day(s) (0) Location: abdomen Radiation: non-radiation - Related Data Home Medications Medication Instructions Recorded Confirmed Gabapentin [Gabapentin 300mg Cap] 300 mg PO DAILY 08/24/17 11/29/17 Gabapentin [Gabapentin 300mg Cap] 600 mg PO HS 08/24/17 11/29/17 Levothyroxine Sodium 300 mcg PO DAILY 08/24/17 11/29/17 [Levothyroxine 300mcg (0.3mg) Tab] Sennosides/Docusate Sodium [Stool 100 mg PO DAILY 08/24/17 11/29/17 Softener-Laxative Tablet] Aspirin [Aspirin 81mg EC Tab] 81 mg PO DAILY 08/25/17 11/29/17 glipiZIDE [Glucotrol 5mg tablet] 5 mg PO DAILY 09/26/17 11/29/17 Fexofenadine HCl 180 mg PO DAILYP PRN 11/29/17 11/29/17 Hydrocodone/Acetaminophen 1 each PO Q6HP PRN 11/29/17 11/29/17 [Hydrocodone-Acetamin 10-325 mg] Meloxicam 15 mg PO DAILYP PRN 11/29/17 11/29/17 Pantoprazole Sodium [Protonix 40mg 40 mg PO BID 11/29/17 11/29/17 tablet] Spironolactone [Aldactone 50mg Tab] 50 mg PO DAILY 11/29/17 11/29/17 Allergies Allergy/AdvReac Type Severity Reaction Status Date / Time vancomycin Allergy Severe red man Verified 08/25/17 01:29 syndrome ceftriaxone Allergy Mild Rash Verified 08/25/17 01:29 amoxicillin Allergy Unknown Verified 08/25/17 01:29 atropine Allergy Unknown Verified 08/25/17 01:29 aztreonam Allergy Unknown Verified 08/25/17 01:29 ciprofloxacin Allergy Unknown Verified 08/25/17 01:29 clindamycin Allergy Unknown Verified 08/25/17 01:29 levofloxacin Allergy Unknown Verified 08/25/17 01:29 morphine Allergy Unknown Verified 08/25/17 01:29 nabumetone Allergy Unknown Verified 08/25/17 01:29 oxytetracycline Allergy Unknown Verified 08/25/17 01:29 Penicillins Allergy Unknown Verified 08/25/17 01:29 polymyxin B Allergy Unknown Verified 08/25/17 01:29 Sulfa (Sulfonamide Allergy Unknown Verified 08/25/17 01:29 Antibiotics) tramadol Allergy Unknown Verified 08/25/17 01:29 [facility] History I have reviewed the patient's past medical history: No Medical History: Reports:: Diabetes Mellitus Type 2, Hypertension Denies:: Cancer, Diabetes Mellitus Type 1, Internal Pacemaker, MRSA, Seizures Other Medical History: Reports: Anemia, Arthritis, Fibromyalgia, Hypothyroidism, Other (Morbid obesity) Comment: 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 No: Pacemaker Amputation: No Fractures: No - Social History Smoking Status: Never smoker Alcohol Intake: never Occupational Status: retired Housing: house Household Members: spouse, family - Psychiatric History Expresses thoughts of harming self/others: None Suicide Plan Description: No Plan Family Hx:: Cancer, Diabetes ROS Obtained: Yes All systems reviewed & no additional complaints Physical Exam - General General appearance: alert, in no apparent distress - Head Head exam: atraumatic, normocephalic, normal inspection - Eye Eye exam: Present: normal appearance, PERRL, EOMI - ENT ENT exam: Present: normal exam, normal oropharynx, mucous membranes moist, TM's normal bilaterally, normal external ear exam - Neck Neck exam: Present: normal inspection, full ROM, trachea midline. Absent: meningismus, lymphadenopathy - Chest Chest inspection: Present: normal inspection, symmetric chest wall rise. Absent: tenderness - Respiratory Respiratory exam: Present: normal lung sounds bilaterally. Absent: respiratory distress - Cardiovascular Cardiovascular exam: Present: regular rate, normal rhythm. Absent: JVD - Abdominal Exam Abdominal exam: Present: soft, normal bowel sounds. Absent: distention, tenderness, guarding - Extremities Exam Extremities exam: Present: normal inspection, full ROM, normal capillary refill. Absent: calf tenderness - Back Exam Back exam: Present: normal inspection. Absent: tenderness - Neurological Exam Neurological exam: Present: alert, oriented X3 - Psychiatric Psychiatric exam: Present: normal affect, normal mood - Skin Skin exam: Present: warm, dry, intact, normal color - Lymphatic Lymphatic Findings: no adenopathy
[2017-11-30 06:15] LABS: Albumin Level 1.6 gm/dL (3.4-5.0); Albumin/Globulin Ratio 0.3 (1.1-1.8); Anion Gap 14.9 mEq/L (5-15); Bilirubin,Total 0.2 mg/dL (0.2-1.0); Globulin 5.4 gm/dl (1.3-3.2); Phosphorous 4.2 mg/dL (2.4-4.9); Potassium 4.9 mmoL/L (3.5-5.1)
[2017-11-30 06:34] LABS: Basophils % 0.2 % (0.1-2.0); Eosinophils # 0.1 K/mm3 (0.0-0.4); Eosinophils % 0.5 % (0.1-12.0); Hematocrit 27.2 % (37.0-47.0); Lymphocytes % 6.6 K/mm3 (10-50); Mean Corpuscular HGB Conc 30.8 g/dL (31.8-35.4); Mean Corpuscular Hemoglobin 28.4 pg (27.0-31.2); Mean Corpuscular Volume 92.2 fl (81-99); Mean Platelet Volume 7.8 fl (7.4-10.4); Neutrophils # 12.7 K/mm3 (1.8-7.8); Neutrophils % 85.7 % (37.0-80.0); Platelet Count 434 K/mm3 (142-424); Red Blood Count 2.95 M/mm3 (4.20-5.40); White Blood Count 14.8 K/mm3 (4.8-10.8)
[2017-11-30 06:43] LABS: Hemoglobin 8.3 g/dL (12.2-16.2)
--- NOTE | 2017-11-30 07:27 | Pharmacy Consult Notes ---
[facility] Pharmacy VTE Monitoring - Patient Demographics Admission date: 11/29/17 Report Date: 11/30/17 Time: 07:27 Allergies/Adverse Reactions: Patient Allergies vancomycin Allergy (Severe, Verified 08/25/17 01:29) red man syndrome ceftriaxone Allergy (Mild, Verified 08/25/17 01:29) Rash amoxicillin Allergy (Unknown, Verified 08/25/17 01:29) atropine Allergy (Unknown, Verified 08/25/17 01:29) aztreonam Allergy (Unknown, Verified 08/25/17 01:29) ciprofloxacin Allergy (Unknown, Verified 08/25/17 01:29) clindamycin Allergy (Unknown, Verified 08/25/17 01:29) levofloxacin Allergy (Unknown, Verified 08/25/17 01:29) morphine Allergy (Unknown, Verified 08/25/17:29) nabumetone Allergy (Unknown, Verified 08/25/17 01:29) oxytetracycline Allergy (Unknown, Verified 08/25/17 01:29) Penicillins Allergy (Unknown, Verified 08/25/17 01:29) polymyxin B Allergy (Unknown, Verified 08/25/17 01:29) Sulfa (Sulfonamide Antibiotics) Allergy (Unknown, Verified 08/25/17 01:29) tramadol Allergy (Unknown, Verified 08/25/17 01:29) Height: 1.73 m Weight: 116.658 kg Patient Problems: Current Active Problems Sepsis (Acute) Hypoglycemia (Acute) - VTE Risk Labs: VTE Related Lab Results Hgb 8.3 g/dL (12.2-16.2) L D 11/30/17 05:40 Hct 27.2 % (37.0-47.0) L 11/30/17 05:40 Plt Count 434 K/mm3 (142-424) H 11/30/17 05:40 BUN 52 mg/dL (7-18) H 11/30/17 05:40 Creatinine 3.43 mg/dL (0.55-1.02) H 11/30/17 05:40 Estimated Creat Clear 30 mL/min (0-300) 11/30/17 05:40 Was VTE Risk Assessment Performed: Yes VTE Score: 5 VTE Risk Level: Low Risk - Prophylaxis VTE Prophylaxis Ordered?: Yes Types of VTE Prophylaxis: TEDS Knee High Location of Applied Device: Bilateral Lower Extremeties - VTE Diagnosis Confirmed Treatment or plan recommended: Continue Current Treatment
[2017-11-30 07:48] LABS: Lymphocytes % 6 % (10-50); Monocytes % 4 % (2-9); Neutrophils % 89 % (42-76); Total Cells Counted 100
[2017-11-30 07:50] LABS: Rouleaux 1+
[2017-11-30 07:51] LABS: Hypochromasia 1+
--- NOTE | 2017-11-30 08:00 | History & Physical Report ---
*Admission Date: 11/29/17 *Chief complaint: Fever and weakness *History of present illness: 67-year-old female with long-standing venous insufficiency and lymphedema of the lower extremity with open wounds of both lower legs now for 5+ years presented to the emergency department after acute onset of fevers, weakness and almost passing out at home. Please see ER note for full details. Patient was felt to be septic and likely this was secondary to infected leg wounds. Patient was admitted and placed on Zyvox and tobramycin. She has a history of pseudomonal infections in her leg wounds as recently as August of this year. Patient was hypoglycemic as well and was given dextrose. This morning the patient is awake and alert. She recalls of the events of yesterday. She does note increased pain in the right leg. [facility] History I have reviewed the patient's past medical history: Yes Medical History: Reports:: Diabetes Mellitus Type 2, Hypertension Denies:: Cancer, Diabetes Mellitus Type 1, Internal Pacemaker, MRSA, Seizures Other Medical History: Reports: Anemia, Arthritis, Fibromyalgia, Hypothyroidism, Other (Morbid obesity) Other Surgeries: Yes: No Previous Surgery, Tubal Ligation. No: Pacemaker Amputation: No Fractures: No - *Social History Educational Level: Attended High School Smoking Status: Never smoker Alcohol Intake: never Occupational Status: retired Housing: house Household Members: spouse, family - Psychiatric History Expresses thoughts of harming self/others: None Suicide Plan Description: No Plan *Family Hx:: Cancer, Diabetes Review of Systems - Review of Systems Review of systems:: pertinent systems reviewed and negative unless documented below - Constitutional Reports body ache(s), Reports chills, Denies anorexia - *Cardiovascular Denies chest pain, Denies chest pain at rest - *Respiratory Denies chest congestion - *Gastrointestinal Denies abdominal pain Meds Home Medications Medication Instructions Recorded Confirmed Type Gabapentin [Gabapentin 300mg Cap] 300 mg PO DAILY 08/24/17 11/29/17 History Gabapentin [Gabapentin 300mg Cap] 600 mg PO HS 08/24/17 11/29/17 History Levothyroxine Sodium 300 mcg PO DAILY 08/24/17 11/29/17 History [Levothyroxine 300mcg (0.3mg) Tab] Sennosides/Docusate Sodium [Stool 100 mg PO DAILY 08/24/17 11/29/17 History Softener-Laxative Tablet] Aspirin [Aspirin 81mg EC Tab] 81 mg PO DAILY 08/25/17 11/29/17 History glipiZIDE [Glucotrol 5mg tablet] 5 mg PO DAILY 09/26/17 11/29/17 History Fexofenadine HCl 180 mg PO DAILYP PRN 11/29/17 11/29/17 History Hydrocodone/Acetaminophen 1 each PO Q6HP PRN 11/29/17 11/29/17 History [Hydrocodone-Acetamin 10-325 mg] Meloxicam 15 mg PO DAILYP PRN 11/29/17 11/29/17 History Pantoprazole Sodium [Protonix 40mg 40 mg PO BID 11/29/17 11/29/17 History tablet] Spironolactone [Aldactone 50mg Tab] 50 mg PO DAILY 11/29/17 11/29/17 History Allergies Allergy/AdvReac Type Severity Reaction Status Date / Time vancomycin Allergy Severe red man Verified 08/25/17 01:29 syndrome ceftriaxone Allergy Mild Rash Verified 08/25/17 01:29 amoxicillin Allergy Unknown Verified 08/25/17 01:29 atropine Allergy Unknown Verified 08/25/17 01:29 aztreonam Allergy Unknown Verified 08/25/17 01:29 ciprofloxacin Allergy Unknown Verified 08/25/17 01:29 clindamycin Allergy Unknown Verified 08/25/17 01:29 levofloxacin Allergy Unknown Verified 08/25/17 01:29 morphine Allergy Unknown Verified 08/25/17 01:29 nabumetone Allergy Unknown Verified 08/25/17 01:29 oxytetracycline Allergy Unknown Verified 08/25/17 01:29 Penicillins Allergy Unknown Verified 08/25/17 01:29 polymyxin B Allergy Unknown Verified 08/25/17 01:29 Sulfa (Sulfonamide Allergy Unknown Verified 08/25/17 01:29 Antibiotics) tramadol Allergy Unknown Verified 08/25/17 01:29 Exam Vital signs and Labs for Last 24 Hours: Temp Pulse Resp BP Pulse Ox 99.6 F 73 19 145/89 H 98 11/30/17 04:00 11/30/17 06:00 11/30/17 06:00 11/30/17 06:00 11/30/17 06:00 Laboratory Results - last 24 hr 11/29/17 16:22: POC Glucose 101 11/29/17 17:40: WBC 19.6 H, RBC 3.44 L, Hgb 9.8 L, Hct 32.4 L, MCV 94.0, MCH 28.6, MCHC 30.4 L, RDW 13.8, Plt Count 460 H, MPV 6.9 L, Neut % (Auto) 90.8 H, Lymph % (Auto) 4.3 L, [place] % (Auto) 4.4, Eos % (Auto) 0.4, Baso % (Auto) 0.2, Neut # (Auto) 17.8 H, Lymph # (Auto) 0.8, [place] # (Auto) 0.9, Eos # (Auto) 0.1, Baso # (Auto) 0.0, Total Counted 100, Neutrophils % (Manual) 82 H, Band Neutrophils % 8.0, Lymphocytes % (Manual) 6 L, Monocytes % (Manual) 4, Platelet Estimate Slight increase, Hypochromasia 3+, Rouleaux 2+ 11/29/17 17:40: Sodium 132 L, Potassium 5.8 H, Chloride 100, Carbon Dioxide 21, Anion Gap 16.8 H, BUN 64 H, Creatinine 3.95 H, Estimated Creat Clear 24, Estimated GFR 11 L*, Est GFR ( Amer) 14 L*, Glucose 42 L, Calcium 9.2, Total Bilirubin 0.2, AST 15, ALT 10 L, Alkaline Phosphatase 78, Total Protein 9.1 H D, Albumin 2.3 L, Globulin 6.8 H, Albumin/Globulin Ratio 0.3 L 11/29/17 19:48: POC Glucose 69 L 11/29/17 20:10: Random Glucose 41 L* 11/29/17 20:10: Lactate 2.0 11/29/17 20:51: POC Glucose 54 L 11/29/17 21:28: POC Glucose 127 H 11/30/17 00:01: Random Glucose 122 H 11/30/17 00:02: POC Glucose 135 H 11/30/17 00:45: Urine Color Yellow, Urine Appearance Clear, Urine pH 5.5, Ur Specific [place] 1.020, Urine Protein Trace, Urine Glucose (UA) Negative, Urine Ketones Negative, Urine Blood Trace-l, Urine Nitrate Positive, Urine Bilirubin Negative, Urine Urobilinogen 0.2, Ur Leukocyte Esterase Negative, Urine RBC 5- 10, Urine Bacteria 2+ A 11/30/17 01:10: POC Glucose 89 11/30/17 02:00: Lactate 2.0 11/30/17 02:11: POC Glucose 77 11/30/17 03:04: POC Glucose 85 11/30/17 04:01: POC Glucose 77 11/30/17 05:03: POC Glucose 75 11/30/17 05:40: WBC 14.8 H, RBC 2.95 L, Hgb 8.3 L D, Hct 27.2 L, MCV 92.2, MCH 28.4, MCHC 30.8 L, RDW 14.0, Plt Count 434 H, MPV 7.8, Neut % (Auto) 85.7 H, Lymph % (Auto) 6.6 L, [place] % (Auto) 7.0, Eos % (Auto) 0.5, Baso % (Auto) 0.2, Neut # (Auto) 12.7 H, Lymph # (Auto) 1.0, [place] # (Auto) 1.0, Eos # (Auto) 0.1, Baso # (Auto) 0.0, Total Counted 100, Neutrophils % (Manual) 89 H, Band Neutrophils % 1.0, Lymphocytes % (Manual) 6 L, Monocytes % (Manual) 4, Platelet Estimate Slight increase, RBC Morphology Not Reportable, Hypochromasia 1+, [place] 1+ 11/30/17 05:40: Sodium 131 L, Potassium 4.9, Chloride 101, Carbon Dioxide 20 L, Anion Gap 14.9, BUN 52 H, Creatinine 3.43 H, Estimated Creat Clear 30, Estimated GFR 13 L*, Est GFR ( Amer) 16 L*, Glucose 69 L D, Calcium 8.0 L D, Phosphorus 4.2, Magnesium 2.4 H, Total Bilirubin 0.2, AST 28 D, ALT 10 L, Alkaline Phosphatase 62, Total Protein 7.0, Albumin 1.6 L D, Globulin 5.4 H, Albumin/Globulin Ratio 0.3 L 11/30/17 05:56: POC Glucose 70 11/30/17 06:53: POC Glucose 78 I & O for Last 24 hours: Intake & Output 11/27/17 11/28/17 11/29/17 11/30/17 11:59 11:59 11:59 11:59 Intake Total 3364 / 3364 Output Total 1400 / 1400 Balance 1963 / 1963 Weight 257 lb 3 oz Microbiology Reports for the Last 24 Hours: Microbiology 11/29/17 20:00 Leg,Left - Abscess Gram Stain - Final 11/29/17 20:00 Leg,Left - Abscess Wound Culture - Preliminary 11/29/17 20:00 Leg,Right Gram Stain - Final 11/29/17 20:00 Leg,Right Wound Culture - Preliminary Narrative: Patient awakens easily this morning. She is oriented to person place and time. ENT exam is grossly normal. Lungs are clear. Heart has a regular rate and rhythm. Abdomen is obese and soft. Lower extremities have changes consistent with both chronic venous insufficiency and lymphedema. The right lower leg wound was exposed. Patient has significant ulceration of the skin with moist yellow slough and for smell coming from the wound. Please see pictures taken upon admission of the left leg and left heel wound as well as the sacrum. Assessment and Plan (1) Sepsis Current visit: Yes Status: Acute Category: Medical Code(s): A41.9 - Sepsis, unspecified organism (2) Lymphedema in adult patient Current visit: Yes Status: Acute Category: Medical Code(s): I89.0 - Lymphedema, not elsewhere classified (3) Open wound of lower limb Current visit: Yes Status: Acute Category: Medical Code(s): S81.809A - Unspecified open wound, unspecified lower leg, initial encounter (4) Acute kidney injury (nontraumatic) Current visit: Yes Status: Acute Category: Medical Code(s): N17.9 - Acute kidney failure, unspecified (5) Hypoglycemia Current visit: Yes Status: Acute Category: Medical Code(s): E16.2 - Hypoglycemia, unspecified (6) Chronic venous insufficiency Current visit: No Status: Acute Category: Medical Code(s): I87.2 - Venous insufficiency (chronic) (peripheral) (7) Lymphedema Current visit: No Status: Acute Category: Medical Code(s): I89.0 - Lymphedema, not elsewhere classified (8) BMI 39.0-39.9,adult Current visit: Yes Status: Acute Category: Medical Code(s): Z68.39 - Body mass index (BMI) 39.0-39.9, adult (9) Anemia Current visit: Yes Status: Acute Qualifiers: Anemia type: due to chronic kidney disease Chronic kidney disease stage: stage 4 (severe) Qualified Code(s): N18.4 - Chronic kidney disease, stage 4 (severe); D63.1 - Anemia in chronic kidney disease Category: Medical Code(s): D64.9 - Anemia, unspecified - Assessment and plan all Dx Assessment and Plan for all problems:: 1. Start Merrem and Zyvox. Patient had Pseudomonas infection as recently as August and suspect this is recurrence. 2. Hold hypoglycemic agents 3. Daily BMP and CBC
--- NOTE | 2017-11-30 08:23 | Consult Report ---
*Admission Date: 11/29/17 *Chief complaint: LEG WOUNDS *History of present illness: Patient is a 67-year-old morbidly obese minimally ambulatory diabetic female with a 7-year history of chronic venous stasis ulcers. She presented to the emergency department with some mental status changes and weakness and admitted for inpatient management. Surgical consultation was obtained for possible debridement of lower extremity wounds. Review of Systems - Review of Systems Review of systems:: pertinent systems reviewed and negative unless documented below [facility] History Medical History: Reports:: Diabetes Mellitus Type 2, Hypertension Denies:: Cancer, Diabetes Mellitus Type 1, Internal Pacemaker, MRSA, Seizures Other Medical History: Reports: Anemia, Arthritis, Fibromyalgia, Hypothyroidism, Other (Morbid obesity) Other Surgeries: Yes: No Previous Surgery, Tubal Ligation. No: Pacemaker Amputation: No Fractures: No - *Social History Educational Level: Attended High School Smoking Status: Never smoker Alcohol Intake: never Occupational Status: retired Housing: house Household Members: spouse, family - Psychiatric History Expresses thoughts of harming self/others: None Suicide Plan Description: No Plan *Family Hx:: Cancer, Diabetes Meds Home Medications Medication Instructions Recorded Confirmed Type Gabapentin [Gabapentin 300mg Cap] 300 mg PO DAILY 08/24/17 11/29/17 History Gabapentin [Gabapentin 300mg Cap] 600 mg PO HS 08/24/17 11/29/17 History Levothyroxine Sodium 300 mcg PO DAILY 08/24/17 11/29/17 History [Levothyroxine 300mcg (0.3mg) Tab] Sennosides/Docusate Sodium [Stool 100 mg PO DAILY 08/24/17 11/29/17 History Softener-Laxative Tablet] Aspirin [Aspirin 81mg EC Tab] 81 mg PO DAILY 08/25/17 11/29/17 History glipiZIDE [Glucotrol 5mg tablet] 5 mg PO DAILY 09/26/17 11/29/17 History Fexofenadine HCl 180 mg PO DAILYP PRN 11/29/17 11/29/17 History Hydrocodone/Acetaminophen 1 each PO Q6HP PRN 11/29/17 11/29/17 History [Hydrocodone-Acetamin 10-325 mg] Meloxicam 15 mg PO DAILYP PRN 11/29/17 11/29/17 History Pantoprazole Sodium [Protonix 40mg 40 mg PO BID 11/29/17 11/29/17 History tablet] Spironolactone [Aldactone 50mg Tab] 50 mg PO DAILY 11/29/17 11/29/17 History Allergies Allergy/AdvReac Type Severity Reaction Status Date / Time vancomycin Allergy Severe red man Verified 08/25/17 01:29 syndrome ceftriaxone Allergy Mild Rash Verified 08/25/17 01:29 amoxicillin Allergy Unknown Verified 08/25/17 01:29 atropine Allergy Unknown Verified 08/25/17 01:29 aztreonam Allergy Unknown Verified 08/25/17 01:29 ciprofloxacin Allergy Unknown Verified 08/25/17 01:29 clindamycin Allergy Unknown Verified 08/25/17 01:29 levofloxacin Allergy Unknown Verified 08/25/17 01:29 morphine Allergy Unknown Verified 08/25/17 01:29 nabumetone Allergy Unknown Verified 08/25/17 01:29 oxytetracycline Allergy Unknown Verified 08/25/17 01:29 Penicillins Allergy Unknown Verified 08/25/17 01:29 polymyxin B Allergy Unknown Verified 08/25/17 01:29 Sulfa (Sulfonamide Allergy Unknown Verified 08/25/17 01:29 Antibiotics) tramadol Allergy Unknown Verified 08/25/17 01:29 Exam Vital signs and Labs for Last 24 Hours: Temp Pulse Resp BP Pulse Ox 99.6 F 73 19 145/89 H 98 11/30/17 04:00 11/30/17 06:00 11/30/17 06:00 11/30/17 06:00 11/30/17 06:00 Laboratory Results - last 24 hr 11/29/17 16:22: POC Glucose 101 11/29/17 17:40: WBC 19.6 H, RBC 3.44 L, Hgb 9.8 L, Hct 32.4 L, MCV 94.0, MCH 28.6, MCHC 30.4 L, RDW 13.8, Plt Count 460 H, MPV 6.9 L, Neut % (Auto) 90.8 H, Lymph % (Auto) 4.3 L, [place] % (Auto) 4.4, Eos % (Auto) 0.4, Baso % (Auto) 0.2, Neut # (Auto) 17.8 H, Lymph # (Auto) 0.8, [place] # (Auto) 0.9, Eos # (Auto) 0.1, Baso # (Auto) 0.0, Total Counted 100, Neutrophils % (Manual) 82 H, Band Neutr ophils % 8.0, Lymphocytes % (Manual) 6 L, Monocytes % (Manual) 4, Platelet Estimate Slight increase, Hypochromasia 3+, Rouleaux 2+ 11/29/17 17:40: Sodium 132 L, Potassium 5.8 H, Chloride 100, Carbon Dioxide 21, Anion Gap 16.8 H, BUN 64 H, Creatinine 3.95 H, Estimated Creat Clear 24, Estimated GFR 11 L*, Est GFR ( Amer) 14 L*, Glucose 42 L, Calcium 9.2, Total Bilirubin 0.2, AST 15, ALT 10 L, Alkaline Phosphatase 78, Total Protein 9.1 H D, Albumin 2.3 L, Globulin 6.8 H, Albumin/Globulin Ratio 0.3 L 11/29/17 19:48: POC Glucose 69 L 11/29/17 20:10: Random Glucose 41 L* 11/29/17 20:10: Lactate 2.0 11/29/17 20:51: POC Glucose 54 L 11/29/17 21:28: POC Glucose 127 H 11/30/17 00:01: Random Glucose 122 H 11/30/17 00:02: POC Glucose 135 H 11/30/17 00:45: Urine Color Yellow, Urine Appearance Clear, Urine pH 5.5, Ur Spe cific [place] 1.020, Urine Protein Trace, Urine Glucose (UA) Negative, Urine Ketones Negative, Urine Blood Trace-l, Urine Nitrate Positive, Urine Bilirubin Negative, Urine Urobilinogen 0.2, Ur Leukocyte Esterase Negative, Urine RBC 5- 10, Urine Bacteria 2+ A 11/30/17 01:10: POC Glucose 89 11/30/17 02:00: Lactate 2.0 11/30/17 02:11: POC Glucose 77 11/30/17 03:04: POC Glucose 85 11/30/17 04:01: POC Glucose 77 11/30/17 05:03: POC Glucose 75 11/30/17 05:40: WBC 14.8 H, RBC 2.95 L, Hgb 8.3 L D, Hct 27.2 L, MCV 92.2, MCH 28.4, MCHC 30.8 L, RDW 14.0, Plt Count 434 H, MPV 7.8, Neut % (Auto) 85.7 H, Lymph % (Auto) 6.6 L, [place] % (Auto) 7.0, Eos % (Auto) 0.5, Baso % (Auto) 0.2, Neut # (Auto) 12.7 H, Lymph # (Auto) 1.0, [place] # (Auto) 1.0, Eos # (Auto) 0.1, Baso # (Auto) 0.0, Total Counted 100, Neutrophils % (Manual) 89 H, Band Neutrophils % 1.0, Lymphocytes % (Manual) 6 L, Monocytes % (Manual) 4, Platelet Estimate Slight increase, RBC Morphology Not Reportable, Hypochromasia 1+, Rouleaux 1+ 11/30/17 05:40: Sodium 131 L, Potassium 4.9, Chloride 101, Carbon Dioxide 20 L, Anion Gap 14.9, BUN 52 H, Creatinine 3.43 H, Estimated Creat Clear 30, Estimated GFR 13 L*, Est GFR ( Amer) 16 L*, Glucose 69 L D, Calcium 8.0 L D, Phosphorus 4.2, Magnesium 2.4 H, Total Bilirubin 0.2, AST 28 D, ALT 10 L, Alkaline Phosphatase 62, Total Protein 7.0, Albumin 1.6 L D, Globulin 5.4 H, Albumin/Globulin Ratio 0.3 L 11/30/17 05:56: POC Glucose 70 11/30/17 06:53: POC Glucose 78 I & O for Last 24 hours: Intake & Output 11/27/17 11/28/17 11/29/17 11/30/17 11:59 11:59 11:59 11:59 Intake Total 3364 / 3364 Output Total 1400 / 1400 Balance 1963 / 1963 Weight 257 lb 3 oz Microbiology Reports for the Last 24 Hours: Microbiology 11/29/17 20:00 Leg,Left - Abscess Gram Stain - Final 11/29/17 20:00 Leg,Left - Abscess Wound Culture - Preliminary 11/29/17 20:00 Leg,Right Gram Stain - Final 11/29/17 20:00 Leg,Right Wound Culture - Preliminary - Constitutional no acute distress - *Routine HEENT Exam Head: Present: normocephalic - *Routine Respiratory Exam Present: CTA bilaterally - *Routine Cardiovascular Exam Present: RRR - *Routine Abdominal Exam Present: soft - *Routine Extremities Exam Comments: Patient has some very significant bilateral brawny edema from the proximal calf distally. He does have ulceration bilaterally with the right being greater than left mostly on the posterior lateral calf region likely secondary to some pressure necrosis. There is some fibrinopurulent exudate. She does have faintly palpable pedal pulses on the right and normal palpable pulse on the left. Results - Labs 11/30/17 05:40 11/30/17 05:40 Laboratory Results - last 24 hr 11/29/17 16:22: POC Glucose 101 11/29/17 17:40: WBC 19.6 H, RBC 3.44 L, Hgb 9.8 L, Hct 32.4 L, MCV 94.0, MCH 28.6, MCHC 30.4 L, RDW 13.8, Plt Count 460 H, MPV 6.9 L, Neut % (Auto) 90.8 H, Lymph % (Auto) 4.3 L, [place] % (Auto) 4.4, Eos % (Auto) 0.4, Baso % (Auto) 0.2, Neut # (Auto) 17.8 H, Lymph # (Auto) 0.8, [place] # (Auto) 0.9, Eos # (Auto) 0.1, Baso # (Auto) 0.0, Total Counted 100, Neutrophils % (Manual) 82 H, Band Neutrophils % 8.0, Lymphocytes % (Manual) 6 L, Monocytes % (Manual) 4, Platelet Estimate Slight increase, Hypochromasia 3+, Rouleaux 2+ 11/29/17 17:40: Sodium 132 L, Potassium 5.8 H, Chloride 100, Carbon Dioxide 21, Anion Gap 16.8 H, BUN 64 H, Creatinine 3.95 H, Estimated Creat Clear 24, Estimated GFR 11 L*, Est GFR ( Amer) 14 L*, Glucose 42 L, Calcium 9.2, Total Bilirubin 0.2, AST 15, ALT 10 L, Alkaline Phosphatase 78, Total Protein 9.1 H D, Albumin 2.3 L, Globulin 6.8 H, Albumin/Globulin Ratio 0.3 L 11/29/17 19:48: POC Glucose 69 L 11/29/17 20:10: Random Glucose 41 L* 11/29/17 20:10: Lactate 2.0 11/29/17 20:51: POC Glucose 54 L 11/29/17 21:28: POC Glucose 127 H 11/30/17 00:01: Random Glucose 122 H 11/30/17 00:02: POC Glucose 135 H 11/30/17 00:45: Urine Color Yellow, Urine Appearance Clear, Urine pH 5.5, Ur Specific [place] 1.020, Urine Protein Trace, Urine Glucose (UA) Negative, Urine Ketones Negative, Urine Blood Trace-l, Urine Nitrate Positive, Urine Bilirubin Negative, Urine Urobilinogen 0.2, Ur Leukocyte Esterase Negative, Urine RBC 5- 10, Urine Bacteria 2+ A 11/30/17 01:10: POC Glucose 89 11/30/17 02:00: Lactate 2.0 11/30/17 02:11: POC Glucose 77 11/30/17 03:04: POC Glucose 85 11/30/17 04:01: POC Glucose 77 11/30/17 05:03: POC Glucose 75 11/30/17 05:40: WBC 14.8 H, RBC 2.95 L, Hgb 8.3 L D, Hct 27.2 L, MCV 92.2, MCH 28.4, MCHC 30.8 L, RDW 14.0, Plt Count 434 H, MPV 7.8, Neut % (Auto) 85.7 H, Lymph % (Auto) 6.6 L, [place] % (Auto) 7.0, Eos % (Auto) 0.5, Baso % (Auto) 0.2, Neut # (Auto) 12.7 H, Lymph # (Auto) 1.0, [place] # (Auto) 1.0, Eos # (Auto) 0.1, Baso # (Auto) 0.0, Total Counted 100, Neutrophils % (Manual) 89 H, Band Neutrophils % 1.0, Lymphocytes % (Manual) 6 L, Monocytes % (Manual) 4, Platelet Estimate Slight increase, RBC Morphology Not Reportable, Hypochromasia 1+, Rouleaux 1+ 11/30/17 05:40: Sodium 131 L, Potassium 4.9, Chloride 101, Carbon Dioxide 20 L, Anion Gap 14.9, BUN 52 H, Creatinine 3.43 H, Estimated Creat Clear 30, Estimated GFR 13 L*, Est GFR ( Amer) 16 L*, Glucose 69 L D, Calcium 8.0 L D, Phosphorus 4.2, Magnesium 2.4 H, Total Bilirubin 0.2, AST 28 D, ALT 10 L, Alkaline Phosphatase 62, Total Protein 7.0, Albumin 1.6 L D, Globulin 5.4 H, Albumin/Globulin Ratio 0.3 L 11/30/17 05:56: POC Glucose 70 11/30/17 06:53: POC Glucose 78 Assessment and Plan (1) Sepsis Current visit: Yes Status: Acute Category: Medical Code(s): A41.9 - Sepsis, unspecified organism (2) Lymphedema in adult patient Current visit: Yes Status: Acute Category: Medical Code(s): I89.0 - Lymphedema, not elsewhere classified (3) Open wound of lower limb Current visit: Yes Status: Acute Category: Medical Code(s): S81.809A - Unspecified open wound, unspecified lower leg, initial encounter (4) Acute kidney injury (nontraumatic) Current visit: Yes Status: Acute Category: Medical Code(s): N17.9 - Acute kidney failure, unspecified (5) Hypoglycemia Current visit: Yes Status: Acute Category: Medical Code(s): E16.2 - Hypoglycemia, unspecified (6) Chronic venous insufficiency Current visit: No Status: Acute Category: Medical Code(s): I87.2 - Venous insufficiency (chronic) (peripheral) (7) Lymphedema Current visit: No Status: Acute Category: Medical Code(s): I89.0 - Lymphedema, not elsewhere classified (8) BMI 39.0-39.9,adult Current visit: Yes Status: Acute Category: Medical Code(s): Z68.39 - Body mass index (BMI) 39.0-39.9, adult (9) Anemia Current visit: Yes Status: Acute Qualifiers: Anemia type: due to chronic kidney disease Chronic kidney disease stage: stage 4 (severe) Qualified Code(s): N18.4 - Chronic kidney disease, stage 4 (severe); D63.1 - Anemia in chronic kidney disease Category: Medical Code(s): D64.9 - Anemia, unspecified - Assessment and plan all Dx Assessment and Plan for all problems:: Patient has significant bilateral venous stasis ulcer disease. This has been a chronic problem. Doubtful that any debridement would be beneficial. Recommend consideration of physical therapy consult for consideration of application of [place] boot. Limit pressure. May consider orthopedic consult as amputation may be the only feasible option.
[2017-12-01 06:20] LABS: Basophils % 0.3 % (0.1-2.0); Eosinophils # 0.3 K/mm3 (0.0-0.4); Eosinophils % 2.2 % (0.1-12.0); Hematocrit 26.2 % (37.0-47.0); Lymphocytes # 1.1 K/mm3 (0.7-4.5); Lymphocytes % 8.6 K/mm3 (10-50); Mean Corpuscular HGB Conc 30.3 g/dL (31.8-35.4); Mean Corpuscular Hemoglobin 28.1 pg (27.0-31.2); Mean Corpuscular Volume 92.8 fl (81-99); Mean Platelet Volume 6.9 fl (7.4-10.4); Monocytes % 7.5 % (1.7-9.3); Neutrophils # 10.4 K/mm3 (1.8-7.8); Neutrophils % 81.5 % (37.0-80.0); Platelet Count 419 K/mm3 (142-424); Red Blood Count 2.82 M/mm3 (4.20-5.40); Red Cell Distribution Width 14.1 % (11.5-17.5); White Blood Count 12.8 K/mm3 (4.8-10.8)
[2017-12-01 06:26] LABS: Hemoglobin 7.9 g/dL (12.2-16.2)
[2017-12-01 06:43] LABS: Potassium 4.9 mmoL/L (3.5-5.1)
--- NOTE | 2017-12-01 07:12 | Progress Note ---
Internal Medicine - PN: Subj *Date: 12/01/17 *Time: 07:10 Interval history: Patient has no new complaints this morning. She was evaluated by physical therapy/wound care and wraps were placed on the feet and lower legs. Cultures are still pending. Patient's blood sugars have remained in the low 100s-150s. Exam Vital signs and Labs for Last 24 Hours: Temp Pulse Resp BP Pulse Ox 98.0 F 88 16 109/40 L 96 12/01/17 06:00 12/01/17 06:00 12/01/17 06:00 12/01/17 06:00 12/01/17 06:00 Laboratory Results - last 24 hr 11/29/17 19:04: POC Glucose < 40 L* 11/29/17 23:46: POC Glucose 47 L* 11/30/17 05:40: Total Counted 100, Neutrophils % (Manual) 89 H, Band Neutrophils % 1.0, Lymphocytes % (Manual) 6 L, Monocytes % (Manual) 4, Platelet Estimate Slight increase, RBC Morphology Not Reportable, Hypochromasia 1+, Rouleaux 1+ 11/30/17 08:18: POC Glucose 86 11/30/17 09:57: POC Glucose 143 H 11/30/17 11:47: POC Glucose 110 11/30/17 13:10: POC Glucose 180 H 11/30/17 15:19: POC Glucose 157 H 11/30/17 17:05: POC Glucose 126 H 11/30/17 20:07: POC Glucose 134 H 11/30/17 23:41: POC Glucose 159 H 12/01/17 02:45: POC Glucose 152 H 12/01/17 04:02: POC Glucose 147 H 12/01/17 05:45: WBC 12.8 H, RBC 2.82 L, Hgb 7.9 L*, Hct 26.2 L, MCV 92.8, MCH 28.1, MCHC 30.3 L, RDW 14.1, Plt Count 419, MPV 6.9 L, Neut % (Auto) 81.5 H, Lym ph % (Auto) 8.6 L, [place] % (Auto) 7.5, Eos % (Auto) 2.2, Baso % (Auto) 0.3, Neut # (Auto) 10.4 H, Lymph # (Auto) 1.1, [place] # (Auto) 1.0, Eos # (Auto) 0.3, Baso # (Auto) 0.0 I & O for Last 24 hours: Intake & Output 11/28/17 11/29/17 11/30/17 12/01/17 11:59 11:59 11:59 11:59 Intake Total 3964 / 3964 2380 / 2380 Output Total 1400 / 1400 700 / 700 Balance 2564 / 2564 1680 / 1680 Weight 257 lb 3 oz 262 lb 1 oz Microbiology Reports for the Last 24 Hours: Microbiology 11/30/17 00:45 Urine,Catheterized Urine Culture - Preliminary Gram Negative Rods 11/29/17 20:00 Leg,Left - Abscess Gram Stain - Final 11/29/17 20:00 Leg,Left - Abscess Wound Culture - Preliminary Enterobact cloac comp 11/29/17 20:00 Leg,Right Gram Stain - Final 11/29/17 20:00 Leg,Right Wound Culture - Preliminary Narrative: Patient is in no distress. She is awake and alert. Lungs are clear. Heart has a regular rate and rhythm. Abdomen is obese. Lower legs have intact dressings. Assessment and Plan (1) Sepsis Current visit: Yes Status: Acute Category: Medical Code(s): A41.9 - Sepsis, unspecified organism (2) Lymphedema in adult patient Current visit: Yes Status: Acute Category: Medical Code(s): I89.0 - Lymphedema, not elsewhere classified (3) Open wound of lower limb Current visit: Yes Status: Acute Category: Medical Code(s): S81.809A - Unspecified open wound, unspecified lower leg, initial encounter (4) Acute kidney injury (nontraumatic) Current visit: Yes Status: Acute Category: Medical Code(s): N17.9 - Acute kidney failure, unspecified (5) Hypoglycemia Current visit: Yes Status: Acute Category: Medical Code(s): E16.2 - Hypoglycemia, unspecified (6) Chronic venous insufficiency Current visit: No Status: Acute Category: Medical Code(s): I87.2 - Venous insufficiency (chronic) (peripheral) (7) Lymphedema Current visit: No Status: Acute Category: Medical Code(s): I89.0 - Lymphedema, not elsewhere classified (8) BMI 39.0-39.9,adult Current visit: Yes Status: Acute Category: Medical Code(s): Z68.39 - Body mass index (BMI) 39.0-39.9, adult (9) Anemia Current visit: Yes Status: Acute Qualifiers: Anemia type: due to chronic kidney disease Chronic kidney disease stage: stage 4 (severe) Qualified Code(s): N18.4 - Chronic kidney disease, stage 4 (severe); D63.1 - Anemia in chronic kidney disease Category: Medical Code(s): D64.9 - Anemia, unspecified - Assessment and plan all Dx Assessment and Plan for all problems:: 1. Continue antibiotics and await blood cultures 2. Continue dressings per the instructions of wound care 3. Continue to hold hypoglycemic agents and discontinue dextrose drip at this time
[2017-12-01 07:15] LABS: Anion Gap 14.9 mEq/L (5-15)
[2017-12-01 15:21] LABS: Hematocrit 30.4 % (37.0-47.0)
[2017-12-01 15:26] LABS: Hemoglobin 9.2 g/dL (12.2-16.2)
[2017-12-02 07:10] LABS: Basophils % 0.2 % (0.1-2.0); Eosinophils # 0.5 K/mm3 (0.0-0.4); Eosinophils % 5.3 % (0.1-12.0); Hematocrit 29.8 % (37.0-47.0); Hemoglobin 8.9 g/dL (12.2-16.2); Lymphocytes % 9.4 K/mm3 (10-50); Mean Corpuscular Hemoglobin 27.6 pg (27.0-31.2); Mean Platelet Volume 7.5 fl (7.4-10.4); Monocytes # 0.7 K/mm3 (0.1-1.0); Monocytes % 6.9 % (1.7-9.3); Neutrophils % 78.2 % (37.0-80.0); Platelet Count 419 K/mm3 (142-424); Red Blood Count 3.24 M/mm3 (4.20-5.40); Red Cell Distribution Width 14.6 % (11.5-17.5); White Blood Count 10.2 K/mm3 (4.8-10.8)
--- NOTE | 2017-12-02 07:17 | Progress Note ---
Internal Medicine - PN: Subj *Date: 12/02/17 *Time: 07:14 Interval history: Patient has no complaints this morning. She denies significant pain. She is off IV fluids and maintaining blood sugars in the mid 1. Exam Vital signs and Labs for Last 24 Hours: Temp Pulse Resp BP Pulse Ox 98.5 F 85 16 137/53 L 97 12/02/17 04:00 12/02/17 04:00 12/02/17 04:00 12/02/17 04:00 12/02/17 04:00 Laboratory Results - last 24 hr 12/01/17 05:45: Sodium 133 L, Potassium 4.9, Chloride 103, Carbon Dioxide 20 L, Anion Gap 14.9, BUN 49 H, Creatinine 3.43 H, Estimated Creat Clear 30, Estimated GFR 13 L*, Est GFR ( Amer) 16 L*, Glucose 145 H, Calcium 8.0 L 12/01/17 07:32: Blood Type A Positive, Antibody Screen Negative, Crossmatch (AHG) See Detail 12/01/17 08:04: POC Glucose 135 H 12/01/17 09:00: Blood Type Confirm Cancelled 12/01/17 09:59: POC Glucose 168 H 12/01/17 12:06: POC Glucose 160 H 12/01/17 15:00: Hgb 9.2 L D, Hct 30.4 L 12/01/17 16:15: POC Glucose 162 H 12/01/17 21:23: POC Glucose 134 H 12/02/17 00:36: POC Glucose 130 H 12/02/17 06:06: POC Glucose 99 12/02/17 06:31: WBC 10.2, RBC 3.24 L, Hgb 8.9 L, Hct 29.8 L, MCV 92.0, MCH 27.6, MCHC 30.0 L, RDW 14.6, Plt Count 419, MPV 7.5, Neut % (Auto) 78.2, Lymph % (Auto) 9.4 L, [place] % (Auto) 6.9, Eos % (Auto) 5.3, Baso % (Auto) 0.2, Neut # (Auto) 8.0 H, Lymph # (Auto) 1.0, [place] # (Auto) 0.7, Eos # (Auto) 0.5 H, Baso # (Auto) 0.0 I & O for Last 24 hours: Intake & Output 11/29/17 11/30/17 12/01/17 12/02/17 11:59 11:59 11:59 11:59 Intake Total 3964 / 3964 3078 / 3078 1100 / 1100 Output Total 1400 / 1400 700 / 700 1500 / 1500 Balance 2564 / 2564 2378 / 2378 -400 / -400 Weight 257 lb 3 oz 262 lb 1 oz 258 lb 7 oz Microbiology Reports for the Last 24 Hours: Microbiology 11/29/17 20:00 Leg,Right Gram Stain - Final 11/29/17 20:00 Leg,Right Wound Culture - Preliminary Gram Negative Rods Gram Negative Rods#2 Gram Negative Rods#3 11/29/17 20:00 Leg,Left - Abscess Gram Stain - Final 11/29/17 20:00 Leg,Left - Abscess Wound Culture - Preliminary Enterobact cloac comp Staphylococcus aureus 11/30/17 00:45 Urine,Catheterized Urine Culture - Preliminary Escherichia coli 11/29/17 20:00 Blood Blood Culture - Preliminary NO GROWTH AFTER 48 HOURS 11/29/17 20:00 Blood Blood Culture - Preliminary NO GROWTH AFTER 48 HOURS Narrative: She is awake and alert. Lungs are clear. Heart has a regular rate and rhythm. Dressings are intact on the lower extremities Assessment and Plan (1) Sepsis Current visit: Yes Status: Acute Category: Medical Code(s): A41.9 - Sepsis, unspecified organism (2) Lymphedema in adult patient Current visit: Yes Status: Acute Category: Medical Code(s): I89.0 - Lymphedema, not elsewhere classified (3) Open wound of lower limb Current visit: Yes Status: Acute Category: Medical Code(s): S81.809A - Unspecified open wound, unspecified lower leg, initial encounter (4) Acute kidney injury (nontraumatic) Current visit: Yes Status: Acute Category: Medical Code(s): N17.9 - Acute kidney failure, unspecified (5) Hypoglycemia Current visit: Yes Status: Acute Category: Medical Code(s): E16.2 - Hypoglycemia, unspecified (6) Chronic venous insufficiency Current visit: No Status: Acute Category: Medical Code(s): I87.2 - Venous insufficiency (chronic) (peripheral) (7) Lymphedema Current visit: No Status: Acute Category: Medical Code(s): I89.0 - Lymphedema, not elsewhere classified (8) BMI 39.0-39.9,adult Current visit: Yes Status: Acute Category: Medical Code(s): Z68.39 - Body mass index (BMI) 39.0-39.9, adult (9) Anemia Current visit: Yes Status: Acute Qualifiers: Anemia type: due to chronic kidney disease Chronic kidney disease stage: stage 4 (severe) Qualified Code(s): N18.4 - Chronic kidney disease, stage 4 (severe); D63.1 - Anemia in chronic kidney disease Category: Medical Code(s): D64.9 - Anemia, unspecified (10) E. coli urinary tract infection Current visit: Yes Status: Acute Category: Medical Code(s): N39.0 - Urinary tract infection, site not specified; B96.20 - Unspecified Escherichia coli [E. coli] as the cause of diseases classified elsewhere (11) Infection of wound due to methicillin resistant Staphylococcus aureus (MRSA) Current visit: Yes Status: Acute Category: Medical Code(s): A49.02 - Methicillin resistant Staphylococcus aureus infection, unspecified site - Assessment and plan all Dx Assessment and Plan for all problems:: 1. Continue Merrem and Zyvox for multiple infections (urine and wound) 2. Dressing changes per wound care 3. Continue to monitor blood sugars and hold hypoglycemic agents 4. Due to the infections of the wound will give patient 1 week of IV antibiotics. These were started on the and will need to continue until the to complete a 7-day course. Patient has poor IV access. If IV access is lost she will be transitioned to intramuscular and oral options.
[2017-12-02 07:18] LABS: Anion Gap 13.6 mEq/L (5-15); Calcium 8.3 mg/dL (8.5-10.1); Potassium 4.6 mmoL/L (3.5-5.1)
--- NOTE | 2017-12-03 06:59 | Progress Note ---
Internal Medicine - PN: Subj *Date: 12/03/17 *Time: 06:56 Interval history: Patient is doing well. No complaints of leg pain. She does complain of some chest congestion because she has not had her allergy medicine in a few days and asks if I will reorder this. Patient is aware she is going to need IV antibiotics and we had discussion about placement of some form of long-term venous access such as a Port-A-Cath. Due to patient's comorbidities and recent illnesses it is highly likely she is going to get recurrent infections or be readmitted to the hospital in the future. Patient is agreeable to this. Nursing staff has reported that patient is a difficult stick for venous access and attempts at PICC lines have been unsuccessful in the past. Nursing staff also reports patient has not urinated since her Childers catheter was removed yesterday evening Exam Vital signs and Labs for Last 24 Hours: Temp Pulse Resp BP Pulse Ox 97.9 F 74 16 129/49 L 97 12/03/17 04:00 12/03/17 04:00 12/03/17 04:00 12/03/17 04:00 12/03/17 04:00 Laboratory Results - last 24 hr 12/02/17 06:31: WBC 10.2, RBC 3.24 L, Hgb 8.9 L, Hct 29.8 L, MCV 92.0, MCH 27.6, MCHC 30.0 L, RDW 14.6, Plt Count 419, MPV 7.5, Neut % (Auto) 78.2, Lymph % (Auto) 9.4 L, [place] % (Auto) 6.9, Eos % (Auto) 5.3, Baso % (Auto) 0.2, Neut # (Auto) 8.0 H, Lymph # (Auto) 1.0, [place] # (Auto) 0.7, Eos # (Auto) 0.5 H, Baso # (Auto) 0.0 12/02/17 06:31: Sodium 136, Potassium 4.6, Chloride 106, Carbon Dioxide 21, Anion Gap 13.6, BUN 47 H, Creatinine 3.34 H, Estimated Creat Clear 31, Estimated GFR 14 L*, Est GFR ( Amer) 17 L*, Glucose 104, Calcium 8.3 L 12/02/17 17:14: POC Glucose 124 H 12/02/17 20:34: POC Glucose 114 H 12/03/17 06:12: POC Glucose 97 I & O for Last 24 hours: Intake & Output 11/30/17 12/01/17 12/02/17 12/03/17 11:59 11:59 11:59 11:59 Intake Total 3964 / 3964 3078 / 3078 1640 / 1640 1480 / 1480 Output Total 1400 / 1400 700 / 700 1500 / 1500 1200 / 1200 Balance 2564 / 2564 2378 / 2378 140 / 140 280 / 280 Weight 257 lb 3 oz 262 lb 1 oz 258 lb 7 oz 260 lb 1 oz Microbiology Reports for the Last 24 Hours: Microbiology 11/29/17 20:00 Leg,Right Gram Stain - Final 11/29/17 20:00 Leg,Right Wound Culture - Preliminary Gram Negative Rods Pseudomonas aeruginosa Klebsiella oxytoca Gram Positive Bacilli 11/29/17 20:00 Leg,Right - Final Not Reportable 11/29/17 20:00 Leg,Right - Final Not Reportable 11/29/17 20:00 Leg,Right - Final Not Reportable 11/29/17 20:00 Leg,Right - Final Not Reportable 11/29/17 20:00 Leg,Right - Final Not Reportable 11/29/17 20:00 Leg,Left - Abscess - Final Not Reportable 11/29/17 20:00 Leg,Left - Abscess - Final Not Reportable 11/29/17 20:00 Leg,Left - Abscess - Final Not Reportable 11/29/17 20:00 Leg,Left - Abscess - Final Not Reportable 11/29/17 20:00 Leg,Left - Abscess - Final Not Reportable 11/29/17 20:00 Leg,Left - Abscess Gram Stain - Final 11/29/17 20:00 Leg,Left - Abscess Wound Culture - Final Enterobact cloac comp Staphylococcus aureus Gram Positive Bacilli 11/30/17 00:45 Urine,Catheterized Urine Culture - Preliminary Escherichia coli Narrative: She is awake, alert, no distress. Lungs are clear. Heart has a regular rate and rhythm. Abdomen is obese. Assessment and Plan (1) Sepsis Current visit: Yes Status: Acute Category: Medical Code(s): A41.9 - Sepsis, unspecified organism (2) Lymphedema in adult patient Current visit: Yes Status: Acute Category: Medical Code(s): I89.0 - Lymphedema, not elsewhere classified (3) Open wound of lower limb Current visit: Yes Status: Acute Category: Medical Code(s): S81.809A - Unspecified open wound, unspecified lower leg, initial encounter (4) Acute kidney injury (nontraumatic) Current visit: Yes Status: Acute Category: Medical Code(s): N17.9 - Acute kidney failure, unspecified (5) Hypoglycemia Current visit: Yes Status: Acute Category: Medical Code(s): E16.2 - Hypoglycemia, unspecified (6) Chronic venous insufficiency Current visit: No Status: Acute Category: Medical Code(s): I87.2 - Venous insufficiency (chronic) (peripheral) (7) Lymphedema Current visit: No Status: Acute Category: Medical Code(s): I89.0 - Lymphedema, not elsewhere classified (8) BMI 39.0-39.9,adult Current visit: Yes Status: Acute Category: Medical Code(s): Z68.39 - Body mass index (BMI) 39.0-39.9, adult (9) Anemia Current visit: Yes Status: Acute Qualifiers: Anemia type: due to chronic kidney disease Chronic kidney disease stage: stage 4 (severe) Qualified Code(s): N18.4 - Chronic kidney disease, stage 4 (severe); D63.1 - Anemia in chronic kidney disease Category: Medical Code(s): D64.9 - Anemia, unspecified (10) E. coli urinary tract infection Current visit: Yes Status: Acute Category: Medical Code(s): N39.0 - Urinary tract infection, site not specified; B96.20 - Unspecified Escherichia coli [E. coli] as the cause of diseases classified elsewhere (11) Infection of wound due to methicillin resistant Staphylococcus aureus (MRSA) Current visit: Yes Status: Acute Category: Medical Code(s): A49.02 - Methicillin resistant Staphylococcus aureus infection, unspecified site - Assessment and plan all Dx Assessment and Plan for all problems:: 1. Continue IV Merrem and Zyvox 2. Consult Dr. Burgos for Port-A-Cath placement. Dr. Burgos saw the patient earlier in the admission for her leg wounds 3. I have reordered the patient's home medicine. She is n.p.o. currently
--- NOTE | 2017-12-03 07:24 | Progress Note ---
Internal Medicine - PN: Subj *Date: 12/03/17 *Time: 07:21 Exam Vital signs and Labs for Last 24 Hours: Temp Pulse Resp BP Pulse Ox 97.9 F 74 16 129/49 L 97 12/03/17 04:00 12/03/17 04:00 12/03/17 04:00 12/03/17 04:00 12/03/17 04:00 Laboratory Results - last 24 hr 12/02/17 06:31: Sodium 136, Potassium 4.6, Chloride 106, Carbon Dioxide 21, Anion Gap 13.6, BUN 47 H, Creatinine 3.34 H, Estimated Creat Clear 31, Estimated GFR 14 L*, Est GFR ( Amer) 17 L*, Glucose 104, Calcium 8.3 L 12/02/17 17:14: POC Glucose 124 H 12/02/17 20:34: POC Glucose 114 H 12/03/17 06:12: POC Glucose 97 I & O for Last 24 hours: Intake & Output 11/30/17 12/01/17 12/02/17 12/03/17 23:59 23:59 23:59 23:59 Intake Total 4342 / 4342 3528 / 3528 1720 / 1720 350 / 350 Output Total 1400 / 1400 2200 / 2200 1200 / 1200 Balance 2942 / 2942 1328 / 1328 520 / 520 350 / 350 Weight 116.658 kg 118.87 kg 117.225 kg 117.962 kg Microbiology Reports for the Last 24 Hours: Microbiology 11/29/17 20:00 Leg,Right Gram Stain - Final 11/29/17 20:00 Leg,Right Wound Culture - Preliminary Gram Negative Rods Pseudomonas aeruginosa Klebsiella oxytoca Gram Positive Bacilli 11/29/17 20:00 Leg,Right - Final Not Reportable 11/29/17 20:00 Leg,Right - Final Not Reportable 11/29/17 20:00 Leg,Right - Final Not Reportable 11/29/17 20:00 Leg,Right - Final Not Reportable 11/29/17 20:00 Leg,Right - Final Not Reportable 11/29/17 20:00 Leg,Left - Abscess - Final Not Reportable 11/29/17 20:00 Leg,Left - Abscess - Final Not Reportable 11/29/17 20:00 Leg,Left - Abscess - Final Not Reportable 11/29/17 20:00 Leg,Left - Abscess - Final Not Reportable 11/29/17 20:00 Leg,Left - Abscess - Final Not Reportable 11/29/17 20:00 Leg,Left - Abscess Gram Stain - Final 11/29/17 20:00 Leg,Left - Abscess Wound Culture - Final Enterobact cloac comp Staphylococcus aureus Gram Positive Bacilli 11/30/17 00:45 Urine,Catheterized Urine Culture - Preliminary Escherichia coli Assessment and Plan (1) Sepsis Current visit: Yes Status: Acute Category: Medical Code(s): A41.9 - Sepsis, unspecified organism (2) Lymphedema in adult patient Current visit: Yes Status: Acute Category: Medical Code(s): I89.0 - Ly mphedema, not elsewhere classified (3) Open wound of lower limb Current visit: Yes Status: Acute Category: Medical Code(s): S81.809A - Unspecified open wound, unspecified lower leg, initial encounter (4) Acute kidney injury (nontraumatic) Current visit: Yes Status: Acute Category: Medical Code(s): N17.9 - Acute kidney failure, unspecified (5) Hypoglycemia Current visit: Yes Status: Acute Category: Medical Code(s): E16.2 - Hypog lycemia, unspecified (6) Chronic venous insufficiency Current visit: No Status: Acute Category: Medical Code(s): I87.2 - Venous insufficiency (chronic) (peripheral) (7) Lymphedema Current visit: No Status: Acute Category: Medical Code(s): I89.0 - Lymphedema, not elsewhere classified (8) BMI 39.0-39.9,adult Current visit: Yes Status: Acute Category: Medical Code(s): Z68.39 - Body mass index (BMI) 39.0-39.9, adult (9) Anemia Current visit: Yes Status: Acute Qualifiers: Anemia type: due to chronic kidney disease Chronic kidney disease stage: stage 4 (severe) Qualified Code(s): N18.4 - Chronic kidney disease, stage 4 (severe); D63.1 - Anemia in chronic kidney disease Category: Medical Code(s): D64.9 - Anemia, unspecified (10) E. coli urinary tract infection Current visit: Yes Status: Acute Category: Medical Code(s): N39.0 - Urinary tract infection, site not specified; B96.20 - Unspecified Escherichia coli [E. coli] as the cause of diseases classified elsewhere (11) Infection of wound due to methicillin resistant Staphylococcus aureus (MRSA) Current visit: Yes Status: Acute Category: Medical Code(s): A49.02 - Methicillin resistant Staphylococcus aureus infection, unspecified site The patient's infection will respond to the chosen ABx?: Yes Is the patient receiving the right drug, dose, and route?: Yes Could a more targeted ABx be ordered?: No (PSEUDOMONAS GROWN IN WOUND CULTURE. MERREM CURRENTLY BEING GIVEN.)
[2017-12-03 07:49] LABS: Anion Gap 13.5 mEq/L (5-15); Calcium 8.2 mg/dL (8.5-10.1); Potassium 4.5 mmoL/L (3.5-5.1)
[2017-12-03 07:58] LABS: Basophils % 0.3 % (0.1-2.0); Eosinophils # 0.5 K/mm3 (0.0-0.4); Eosinophils % 7.1 % (0.1-12.0); Hemoglobin 9.2 g/dL (12.2-16.2); Lymphocytes # 1.2 K/mm3 (0.7-4.5); Lymphocytes % 16.4 K/mm3 (10-50); Mean Corpuscular HGB Conc 30.5 g/dL (31.8-35.4); Mean Corpuscular Hemoglobin 27.7 pg (27.0-31.2); Mean Corpuscular Volume 90.8 fl (81-99); Mean Platelet Volume 6.8 fl (7.4-10.4); Monocytes # 0.6 K/mm3 (0.1-1.0); Monocytes % 8.4 % (1.7-9.3); Neutrophils # 5.1 K/mm3 (1.8-7.8); Neutrophils % 67.8 % (37.0-80.0); Platelet Count 440 K/mm3 (142-424); Red Blood Count 3.31 M/mm3 (4.20-5.40); Red Cell Distribution Width 14.4 % (11.5-17.5); White Blood Count 7.6 K/mm3 (4.8-10.8)
--- NOTE | 2017-12-03 12:00 | Consult Report ---
*Admission Date: 11/29/17 *Chief complaint: "Difficulty with IV" *History of present illness: This is a 67-year-old female with a complex past medical history who was seen earlier during this hospitalization in consultation by the surgical service for evaluation regarding chronic venous stasis ulcers. Please see Dr. Burgos's note for detail. The patient has been on IV antibiotics and concerns with regard to ongoing need for IV antibiotics have been discussed with the patient. She has tenuous IV access and has been deemed unsuitable for PICC multiple occasions historically. The surgical service has been consulted for possible port placement. Review of Systems - Constitutional Denies anorexia - Eyes Denies change in vision - ENT Denies change in voice - *Cardiovascular Denies chest pain - *Respiratory Denies excessive phlegm production - *Gastrointestinal Denies abdominal pain - *Neurologic Denies confusion - Psychiatric Denies anxiety [facility] History Medical History: Reports:: Diabetes Mellitus Type 2, Hypertension Denies:: Cancer, Diabetes Mellitus Type 1, Internal Pacemaker, MRSA, Seizures Other Medical History: Reports: Anemia, Arthritis, Fibromyalgia, Hypothyroidism, Other (Morbid obesity) Other Surgeries: Yes: No Previous Surgery, Tubal Ligation. No: Pacemaker Amputation: No Fractures: No - *Social History Educational Level: Attended High School Smoking Status: Never smoker Alcohol Intake: never Occupational Status: retired Housing: house Household Members: spouse, family - Psychiatric History Expresses thoughts of harming self/others: None Suicide Plan Description: No Plan *Family Hx:: Cancer, Diabetes Meds Home Medications Medication Instructions Recorded Confirmed Type Gabapentin [Gabapentin 300mg Cap] 300 mg PO DAILY 08/24/17 11/29/17 History Gabapentin [Gabapentin 300mg Cap] 600 mg PO HS 08/24/17 11/29/17 History Levothyroxine Sodium 300 mcg PO DAILY 08/24/17 11/29/17 History [Levothyroxine 300mcg (0.3mg) Tab] Sennosides/Docusate Sodium [Stool 1 cap PO DAILY 08/24/17 11/30/17 History Softener-Laxative Tablet] Aspirin [Aspirin 81mg EC Tab] 81 mg PO DAILY 08/25/17 11/29/17 History glipiZIDE [Glucotrol 5mg tablet] 2.5 mg PO DAILY 09/26/17 11/30/17 History Fexofenadine HCl 180 mg PO DAILY 11/29/17 11/30/17 History Hydrocodone/Acetaminophen 1 each PO Q6HP PRN 11/29/17 11/29/17 History [Hydrocodone-Acetamin 10-325 mg] Meloxicam 15 mg PO DAILYP PRN 11/29/17 11/29/17 History Pantoprazole Sodium [Protonix 40mg 40 mg PO BID 11/29/17 11/29/17 History tablet] Spironolactone [Aldactone 50mg Tab] 50 mg PO DAILY 11/29/17 11/29/17 History Metformin HCl 500 mg PO TID 11/30/17 11/30/17 History Allergies Allergy/AdvReac Type Severity Reaction Status Date / Time vancomycin Allergy Severe red man Verified 08/25/17 01:29 syndrome ceftriaxone Allergy Mild Rash Verified 08/25/17 01:29 amoxicillin Allergy Unknown Verified 08/25/17 01:29 atropine Allergy Unknown Verified 08/25/17 01:29 aztreonam Allergy Unknown Verified 08/25/17 01:29 ciprofloxacin Allergy Unknown Verified 08/25/17 01:29 clindamycin Allergy Unknown Verified 08/25/17 01:29 levofloxacin Allergy Unknown Verified 08/25/17 01:29 morphine Allergy Unknown Verified 08/25/17 01:29 nabumetone Allergy Unknown Verified 08/25/17 01:29 oxytetracycline Allergy Unknown Verified 08/25/17 01:29 Penicillins Allergy Unknown Verified 08/25/17 01:29 polymyxin B Allergy Unknown Verified 08/25/17 01:29 Sulfa (Sulfonamide Allergy Unknown Verified 08/25/17 01:29 Antibiotics) tramadol Allergy Unknown Verified 08/25/17 01:29 Exam Vital signs and Labs for Last 24 Hours: Temp Pulse Resp BP Pulse Ox 98.0 F 70 16 114/52 L 98 12/03/17 08:00 12/03/17 08:00 12/03/17 08:00 12/03/17 08:00 12/03/17 08:00 Laboratory Results - last 24 hr 12/02/17 17:14: POC Glucose 124 H 12/02/17 20:34: POC Glucose 114 H 12/03/17 06:12: POC Glucose 97 12/03/17 07:35: WBC 7.6 D, RBC 3.31 L, Hgb 9.2 L, Hct 30.0 L, MCV 90.8, MCH 27.7, MCHC 30.5 L, RDW 14.4, Plt Count 440 H, MPV 6.8 L, Neut % (Auto) 67.8, Lymph % (Auto) 16.4, [place] % (Auto) 8.4, Eos % (Auto) 7.1, Baso % (Auto) 0.3, Neut # (Auto) 5.1, Lymph # (Auto) 1.2, [place] # (Auto) 0.6, Eos # (Auto) 0.5 H, Baso # (Auto) 0.0 12/03/17 07:35: Sodium 136, Potassium 4.5, Chloride 105, Carbon Dioxide 22, Anion Gap 13.5, BUN 48 H, Creatinine 3.33 H, Estimated Creat Clear 31, Estimated GFR 14 L*, Est GFR ( Amer) 17 L*, Glucose 98, Calcium 8.2 L I & O for Last 24 hours: Intake & Output 11/30/17 12/01/17 12/02/17 12/03/17 11:59 11:59 11:59 11:59 Intake Total 3964 / 3964 3078 / 3078 1640 / 1640 1780 / 1780 Output Total 1400 / 1400 700 / 700 1500 / 1500 1200 / 1200 Balance 2564 / 2564 2378 / 2378 140 / 140 580 / 580 Weight 257 lb 3 oz 262 lb 1 oz 258 lb 7 oz 260 lb 1 oz Microbiology Reports for the Last 24 Hours: Microbiology 11/30/17 00:45 Urine,Catheterized Urine Culture - Preliminary Escherichia coli 11/29/17 20:00 Leg,Right Gram Stain - Final 11/29/17 20:00 Leg,Right Wound Culture - Preliminary Gram Negative Rods Pseudomonas aeruginosa Klebsiella oxytoca Gram Positive Bacilli 11/29/17 20:00 Leg,Right - Final Not Reportable 11/29/17 20:00 Leg,Right - Final Not Reportable 11/29/17 20:00 Leg,Right - Final Not Reportable 11/29/17 20:00 Leg,Right - Final Not Reportable 11/29/17 20:00 Leg,Right - Final Not Reportable 11/29/17 20:00 Leg,Left - Abscess - Final Not Reportable 11/29/17 20:00 Leg,Left - Abscess - Final Not Reportable 10/21/18 20:00 Leg,Left - Abscess - Final Not Reportable 11/29/17 20:00 Leg,Left - Abscess - Final Not Reportable 11/29/17 20:00 Leg,Left - Abscess - Final Not Reportable 11/29/17 20:00 Leg,Left - Abscess Gram Stain - Final 11/29/17 20:00 Leg,Left - Abscess Wound Culture - Final Enterobact cloac comp Staphylococcus aureus Gram Positive Bacilli - Constitutional no acute distress - *Routine Respiratory Exam Absent: respiratory distress - *Routine Cardiovascular Exam Present: RRR - *Routine Abdominal Exam Present: soft Results - Labs 12/03/17 07:35 12/03/17 07:35 Laboratory Results - last 24 hr 12/02/17 17:14: POC Glucose 124 H 12/02/17 20:34: POC Glucose 114 H 12/03/17 06:12: POC Glucose 97 12/03/17 07:35: WBC 7.6 D, RBC 3.31 L, Hgb 9.2 L, Hct 30.0 L, MCV 90.8, MCH 27.7, MCHC 30.5 L, RDW 14.4, Plt Count 440 H, MPV 6.8 L, Neut % (Auto) 67.8, Lymph % (Auto) 16.4, [place] % (Auto) 8.4, Eos % (Auto) 7.1, Baso % (Auto) 0.3, Neut # (Auto) 5.1, Lymph # (Auto) 1.2, [place] # (Auto) 0.6, Eos # (Auto) 0.5 H, Baso # (Auto) 0.0 12/03/17 07:35: Sodium 136, Potassium 4.5, Chloride 105, Carbon Dioxide 22, Anion Gap 13.5, BUN 48 H, Creatinine 3.33 H, Estimated Creat Clear 31, Estimated GFR 14 L*, Est GFR ( Amer) 17 L*, Glucose 98, Calcium 8.2 L Assessment and Plan (1) Sepsis Current visit: Yes Status: Acute Category: Medical Code(s): A41.9 - Sepsi s, unspecified organism (2) Lymphedema in adult patient Current visit: Yes Status: Acute Category: Medical Code(s): I89.0 - Lymphedema, not elsewhere classified (3) Open wound of lower limb Current visit: Yes Status: Acute Category: Medical Code(s): S81.809A - Unspecified open wound, unspecified lower leg, initial encounter (4) Acute kidney injury (nontraumatic) Current visit: Yes Status: Acute Category: Medical Code(s): N17.9 - Acute kidney failure, unspecified (5) Hypoglycemia Current visit: Yes Status: Acute Category: Medical Code(s): E16.2 - Hypoglycemia, unspecified (6) Chronic venous insufficiency Current visit: No Status: Acute Category: Medical Code(s): I87.2 - Venous insufficiency (chronic) (peripheral) (7) Lymphedema Current visit: No Status: Acute Category: Medical Code(s): I89.0 - Lymphedema, not elsewhere classified (8) BMI 39.0-39.9,adult Current visit: Yes Status: Acute Category: Medical Code(s): Z68.39 - Body mass index (BMI) 39.0-39.9, adult (9) Anemia Current visit: Yes Status: Acute Qualifiers: Anemia type: due to chronic kidney disease Chronic kidney disease stage: stage 4 (severe) Qualified Code(s): N18.4 - Chronic kidney disease, stage 4 (severe); D63.1 - Anemia in chronic kidney disease Category: Medical Code(s): D64.9 - Anemia, unspecified (10) E. coli urinary tract infection Current visit: Yes Status: Acute Category: Medical Code(s): N39.0 - Urinary tract infection, site not specified; B96.20 - Unspecified Escherichia coli [E. coli] as the cause of diseases classified elsewhere (11) Infection of wound due to methicillin resistant Staphylococcus aureus (MRSA) Current visit: Yes Status: Acute Category: Medical Code(s): A49.02 - Meth icillin resistant Staphylococcus aureus infection, unspecified site I have had a long discussion with the patient concerning the risks and benefits of port placement. Secondary to her ongoing infectious process, she has significant contraindications for permanent venous access. An extended t emporary access such as a [place]shong/Hodge is a consideration; however, this would not be a "permanent solution". Ongoing consideration with regard to amputation is warranted. Groshong/Hodge if necessary Consideration of conversion to IM/PO for antibiotic coverage
[2017-12-04 06:57] LABS: Basophils % 0.2 % (0.1-2.0); Eosinophils # 0.5 K/mm3 (0.0-0.4); Eosinophils % 6.2 % (0.1-12.0); Hematocrit 29.2 % (37.0-47.0); Hemoglobin 8.9 g/dL (12.2-16.2); Lymphocytes # 1.4 K/mm3 (0.7-4.5); Lymphocytes % 18.6 K/mm3 (10-50); Mean Corpuscular HGB Conc 30.6 g/dL (31.8-35.4); Mean Corpuscular Hemoglobin 27.6 pg (27.0-31.2); Mean Corpuscular Volume 90.3 fl (81-99); Mean Platelet Volume 6.5 fl (7.4-10.4); Monocytes # 0.7 K/mm3 (0.1-1.0); Monocytes % 8.9 % (1.7-9.3); Neutrophils # 4.9 K/mm3 (1.8-7.8); Platelet Count 460 K/mm3 (142-424); Red Blood Count 3.24 M/mm3 (4.20-5.40); Red Cell Distribution Width 14.5 % (11.5-17.5); White Blood Count 7.5 K/mm3 (4.8-10.8)
[2017-12-04 07:18] LABS: Anion Gap 14.6 mEq/L (5-15); Calcium 8.1 mg/dL (8.5-10.1); Potassium 4.6 mmoL/L (3.5-5.1)
--- NOTE | 2017-12-04 07:30 | Discharge Summary ---
General - General Admission date:: 12/01/17 Discharge date: 12/04/17 HPI HPI: 67-year-old female with long-standing venous insufficiency and lymphedema of the lower extremity with open wounds of both lower legs now for 5+ years presented to the emergency department after acute onset of fevers, weakness and almost passing out at home. Please see ER note for full details. Patient was felt to be septic and likely this was secondary to infected leg wounds. Patient was admitted and placed on Zyvox and tobramycin. She has a history of pseudomonal infections in her leg wounds as recently as August of this year. Patient was hypoglycemic as well and was given dextrose. This morning the patient is awake and alert. She recalls of the events of yesterday. She does note increased pain in the right leg. Hospital Course Hospital Course: Patient was admitted and started on broad-spectrum antibiotics for potential sepsis. Zyvox and Invanz are initially chosen. Due to patient's history of Pseudomonas the Invanz was switched to meropenem. Patient's hypoglycemia resolved within 48 hours. Hypoglycemic agents were held from this point on. I do believe some of her hypoglycemia was due to her worsening chronic kidney disease in association with her hypoglycemic agents. Patient had long-standing clinic bilateral leg wounds with new wounds of decubitus ulcers of the heels. These were believed to be a source of infection. Cultures were performed which grew multiple organisms. Patient also had a urine culture that was positive for E. coli. As patient's hospitalization progressed and the patient returned to baseline her culture also grew MRSA. Once patient returned completely to baseline she was discharged she will continue Zyvox for a total of 2 weeks. Zyvox will be taken orally. Due to loss of IV access patient will be given Invanz intramuscularly for 3 days starting at the day of discharge to treat her E. coli UTI adequately. She has chronic leg wounds and treatment options are limited. We will arrange for her to see a energy specialist at a special facility for further treatment options. These leg wounds been present for multiple years and it has actually been suggested that amputation may be the best form of treatment for her. It is understandable why the patient does not want to go this route but I fear that she is risking her life and potential infection by allowing these wounds persist. This was discussed with the patient. She will follow-up in the office in 1 week. Objective Vital signs: Temp Pulse Resp BP Pulse Ox 98.3 F 78 14 120/57 L 95 12/04/17 04:00 12/04/17 04:00 12/04/17 04:00 12/04/17 04:00 12/04/17 04:00 Results Labs on day of discharge: Labs from last 24 hours 12/04/17 12/04/17 12/04/17 06:50 06:50 06:06 WBC 7.5 RBC 3.24 L Hgb 8.9 L Hct 29.2 L MCV 90.3 MCH 27.6 MCHC 30.6 L RDW 14.5 Plt Count 460 H MPV 6.5 L Neut % (Auto) 66.0 Lymph % (Auto) 18.6 [place] % (Auto) 8.9 Eos % (Auto) 6.2 Baso % (Auto) 0.2 Neut # (Auto) 4.9 Lymph # (Auto) 1.4 [place] # (Auto) 0.7 Eos # (Auto) 0.5 H Baso # (Auto) 0.0 Sodium 137 Potassium 4.6 Chloride 105 Carbon Dioxide 22 Anion Gap 14.6 BUN 49 H Creatinine 3.34 H Estimated Creat Clear 31 Estimated GFR 14 L* Est GFR ( Amer) 17 L* Glucose 93 POC Glucose 95 Calcium 8.1 L 12/03/17 12/03/17 12/03/17 20:08 17:00 12:22 WBC RBC Hgb Hct MCV MCH MCHC RDW Plt Count MPV Neut % (Auto) Lymph % (Auto) [place] % (Auto) Eos % (Auto) Baso % (Auto) Neut # (Auto) Lymph # (Auto) [place] # (Auto) Eos # (Auto) Baso # (Auto) Sodium Potassium Chloride Carbon Dioxide Anion Gap BUN Creatinine Estimated Creat Clear Estimated GFR Est GFR ( Amer) Glucose POC Glucose 87 87 81 Calcium 12/03/17 12/03/17 07:35 07:35 WBC 7.6 D RBC 3.31 L Hgb 9.2 L Hct 30.0 L MCV 90.8 MCH 27.7 MCHC 30.5 L RDW 14.4 Plt Count 440 H MPV 6.8 L Neut % (Auto) 67.8 Lymph % (Auto) 16.4 [place] % (Auto) 8.4 Eos % (Auto) 7.1 Baso % (Auto) 0.3 Neut # (Auto) 5.1 Lymph # (Auto) 1.2 [place] # (Auto) 0.6 Eos # (Auto) 0.5 H Baso # (Auto) 0.0 Sodium 136 Potassium 4.5 Chloride 105 Carbon Dioxide 22 Anion Gap 13.5 BUN 48 H Creatinine 3.33 H Estimated Creat Clear 31 Estimated GFR 14 L* Est GFR ( Amer) 17 L* Glucose 98 POC Glucose Calcium 8.2 L Preliminary micro results at discharge 11/29/17 20:00 Wound Culture - Preliminary Leg,Right Gram Negative Rods Pseudomonas aeruginosa Klebsiella oxytoca Gram Positive Bacilli 11/29/17 20:00 Blood Culture - Preliminary Blood NO GROWTH AFTER 48 HOURS 11/29/17 20:00 Blood Culture - Preliminary Blood NO GROWTH AFTER 48 HOURS DS: Diagnosis - Discharge Diagnosis (1) Sepsis Status: Acute (2) Lymphedema in adult patient Status: Acute (3) Open wound of lower limb Status: Acute (4) Acute kidney injury (nontraumatic) Status: Acute (5) Hypoglycemia Status: Acute (6) Chronic venous insufficiency Status: Acute (7) Lymphedema Status: Acute (8) BMI 39.0-39.9,adult Status: Acute (9) Anemia Status: Acute (10) E. coli urinary tract infection Status: Acute (11) Infection of wound due to methicillin resistant Staphylococcus aureus (MRSA) Status: Acute Discharge Plan - Patient Discharge Instructions ACTIVITY: Continue current activity Patient Instructions: Diabetic Foot Ulcer, Hypoglycemia, DI for Sepsis -- Adult, DI for Altered Mental Status - Follow up Plan Follow up with: Yann Hargrove MD [Primary Care Provider] - 1 week Disposition: Home, Self-Custodial Medications: Home Medications Medication Instructions Recorded Confirmed Type Gabapentin [Gabapentin 300mg Cap] 300 mg PO DAILY 08/24/17 11/29/17 History Gabapentin [Gabapentin 300mg Cap] 600 mg PO HS 08/24/17 11/29/17 History Levothyroxine Sodium 300 mcg PO DAILY 08/24/17 11/29/17 History [Levothyroxine 300mcg (0.3mg) Tab] Sennosides/Docusate Sodium [Stool 1 cap PO DAILY 08/24/17 11/30/17 History Softener-Laxative Tablet] Aspirin [Aspirin 81mg EC Tab] 81 mg PO DAILY 08/25/17 11/29/17 History glipiZIDE [Glucotrol 5mg tablet] 2.5 mg PO DAILY 09/26/17 11/30/17 History Fexofenadine HCl 180 mg PO DAILY 11/29/17 11/30/17 History Hydrocodone/Acetaminophen 1 each PO Q6HP PRN 11/29/17 11/29/17 History [Hydrocodone-Acetamin 10-325 mg] Meloxicam 15 mg PO DAILYP PRN 11/29/17 11/29/17 History Pantoprazole Sodium [Protonix 40mg 40 mg PO BID 11/29/17 11/29/17 History tablet] Spironolactone [Aldactone 50mg Tab] 50 mg PO DAILY 11/29/17 11/29/17 History Metformin HCl 500 mg PO TID 11/30/17 11/30/17 History Prescriptions/Medication Reconciliation: Continue Gabapentin [Gabapentin 300mg Cap] 600 mg PO HS Levothyroxine Sodium [Levothyroxine 300mcg (0.3mg) Tab] 300 mcg PO DAILY Gabapentin [Gabapentin 300mg Cap] 300 mg PO DAILY Sennosides/Docusate Sodium [Stool Softener-Laxative Tablet] 1 cap PO DAILY Spironolactone [Aldactone 50mg Tab] 50 mg PO DAILY Pantoprazole Sodium [Protonix 40mg tablet] 40 mg PO BID Fexofenadine HCl 180 mg PO DAILY Aspirin [Aspirin 81mg EC Tab] 81 mg PO DAILY Hydrocodone/Acetaminophen [Hydrocodone-Acetamin 10-325 mg] 1 each PO Q6HP PRN PRN Reason: Mild To Moderate Pain Discontinued glipiZIDE [Glucotrol 5mg tablet] 2.5 mg PO DAILY Meloxicam 15 mg PO DAILYP PRN PRN Reason: pain Metformin HCl 500 mg PO TID
== END 2017-12-04 14:10 | disposition home or self-care (01) ==
LOC: ER 15:28 → 2ND 15:28
PROVIDERS: ADMIT Internal Medicine Adolescent Medicine; ATTEND Family Medicine

== ENCOUNTER 2017-12-05 10:49 | Outpatient (CLI) | payer MEDICARE, OTHER, SELFPAY ==
[2017-12-05 10:56] VITALS: BP 120/98; PULSE 83; RESP 15; TEMP 36.4; O2SAT 95; BMI 42.5
[2017-12-05 11:14] VITALS: BP 118/89; PULSE 81; RESP 16; O2SAT 96
== END 2017-12-05 11:14 | disposition home or self-care (01) ==
LOC: INF 10:51
PROVIDERS: PCP Family Medicine; Visit Provider Family Medicine
DX: N39.0 Urinary tract infection, site not specified (principal)
CPT/HCPCS: 96372; J1335

== ENCOUNTER 2017-12-06 10:27 | Outpatient (CLI) | payer MEDICARE, OTHER, SELFPAY ==
[2017-12-06 10:33] VITALS: BMI 42.3
[2017-12-06 10:36] VITALS: BP 134/74; PULSE 104; RESP 17; TEMP 36.4; O2SAT 93
== END 2017-12-06 10:59 | disposition home or self-care (01) ==
LOC: INF 10:28
PROVIDERS: PCP Family Medicine; Visit Provider Family Medicine
DX: N39.0 Urinary tract infection, site not specified (principal)
CPT/HCPCS: 96372; J1335

== ENCOUNTER → 2018-08-09 09:55 | Outpatient (CLI) | payer MEDICARE, BC, SELFPAY ==
[2018-08-09 10:40] LABS: Basophils % 0.4 % (0.1-2.0); Eosinophils # 0.4 K/mm3 (0.0-0.4); Eosinophils % 4.1 % (0.1-12.0); Hematocrit 33.3 % (37.0-47.0); Lymphocytes # 2.3 K/mm3 (0.7-4.5); Lymphocytes % 25.5 % (10-50); Mean Corpuscular HGB Conc 30.2 g/dL (31.8-35.4); Mean Corpuscular Hemoglobin 29.3 pg (27.0-31.2); Mean Platelet Volume 7.6 fl (7.4-10.4); Monocytes # 0.4 K/mm3 (0.1-1.0); Neutrophils # 5.9 K/mm3 (1.8-7.8); Neutrophils % 66.1 % (37.0-80.0); Platelet Count 465 K/mm3 (142-424); Red Blood Count 3.43 M/mm3 (4.20-5.40); Red Cell Distribution Width 14.9 % (11.5-17.5); White Blood Count 8.9 K/mm3 (4.8-10.8)
[2018-08-09 12:00] LABS: Alanine Aminotransferase 13 U/L (12-78); Albumin Level 2.9 gm/dL (3.4-5.0); Albumin/Globulin Ratio 0.6 (1.1-1.8); Alkaline Phosphatase 101 U/L (46-116); Anion Gap 15.6 mEq/L (5-15); Aspartate Amino Transferase 12 U/L (15-37); Bilirubin,Total 0.2 mg/dL (0.2-1.0); Blood Urea Nitrogen 26 mg/dL (7-18); Calcium 8.5 mg/dL (8.5-10.1); Carbon Dioxide 24 mmol/L (21.0-32.0); Chloride 106 mmol/L (98-107); Creatinine,Serum 1.51 mg/dL (0.55-1.02); Estimated Glomerular Filt Rate 34 ml/min (>60); GFR (African American) 42 ML/MIN (>60); Globulin 5.1 gm/dl (1.3-3.2); Glucose 103 mg/dL (74-106); Potassium 4.6 mmoL/L (3.5-5.1); Sodium 141 mmol/L (136-145); Thyroid Stimulating Hormone 0.69 uIU/ml (0.358-3.740)
== END ==
PROVIDERS: Visit Provider Family Medicine
DX: L03.90 Cellulitis, unspecified (principal); N18.3 Chronic kidney disease, stage 3 (moderate); Z79.899 Other long term (current) drug therapy
CPT/HCPCS: 80053; 84443; 85025

== ENCOUNTER → 2018-08-16 09:32 | Outpatient (CLI) | payer MEDICARE, BC, SELFPAY ==
[2018-08-16 09:52] LABS: Basophils % 0.5 % (0.1-2.0); Eosinophils # 0.3 K/mm3 (0.0-0.4); Eosinophils % 4.3 % (0.1-12.0); Hematocrit 34.8 % (37.0-47.0); Hemoglobin 10.3 g/dL (12.2-16.2); Lymphocytes # 2.4 K/mm3 (0.7-4.5); Lymphocytes % 32.4 % (10-50); Mean Corpuscular HGB Conc 29.8 g/dL (31.8-35.4); Mean Corpuscular Hemoglobin 29.1 pg (27.0-31.2); Mean Corpuscular Volume 97.9 fl (81-99); Mean Platelet Volume 8.3 fl (7.4-10.4); Monocytes # 0.6 K/mm3 (0.1-1.0); Monocytes % 7.6 % (1.7-9.3); Neutrophils # 4.1 K/mm3 (1.8-7.8); Neutrophils % 55.3 % (37.0-80.0); Platelet Count 396 K/mm3 (142-424); Red Blood Count 3.55 M/mm3 (4.20-5.40); Red Cell Distribution Width 14.5 % (11.5-17.5); White Blood Count 7.4 K/mm3 (4.8-10.8)
[2018-08-16 11:02] LABS: Anion Gap 14.6 mEq/L (5-15); Blood Urea Nitrogen 25 mg/dL (7-18); Calcium 8.8 mg/dL (8.5-10.1); Carbon Dioxide 25 mmol/L (21.0-32.0); Chloride 104 mmol/L (98-107); Creatinine,Serum 1.59 mg/dL (0.55-1.02); Estimated Glomerular Filt Rate 32 ml/min (>60); GFR (African American) 39 ML/MIN (>60); Glucose 89 mg/dL (74-106); Potassium 4.6 mmoL/L (3.5-5.1); Sodium 139 mmol/L (136-145)
== END ==
PROVIDERS: Visit Provider Family Medicine
DX: I87.333 Chronic venous hypertension (idiopathic) with ulcer and inflammation of bilateral lower extremity (principal); L97.221 Non-pressure chronic ulcer of left calf limited to breakdown of skin; N18.3 Chronic kidney disease, stage 3 (moderate); I50.9 Heart failure, unspecified; E11.22 Type 2 diabetes mellitus with diabetic chronic kidney disease
CPT/HCPCS: 80048; 85025

== ENCOUNTER → 2018-08-23 12:50 | Outpatient (CLI) | payer MEDICARE, BC, SELFPAY ==
[2018-08-23 14:25] LABS: Basophils % 0.6 % (0.1-2.0); Eosinophils # 0.4 K/mm3 (0.0-0.4); Eosinophils % 5.8 % (0.1-12.0); Hematocrit 32.7 % (37.0-47.0); Hemoglobin 9.7 g/dL (12.2-16.2); Lymphocytes # 2.5 K/mm3 (0.7-4.5); Mean Corpuscular HGB Conc 29.6 g/dL (31.8-35.4); Mean Corpuscular Hemoglobin 29.1 pg (27.0-31.2); Mean Corpuscular Volume 98.1 fl (81-99); Monocytes # 0.5 K/mm3 (0.1-1.0); Monocytes % 6.3 % (1.7-9.3); Neutrophils # 3.7 K/mm3 (1.8-7.8); Neutrophils % 52.2 % (37.0-80.0); Platelet Count 393 K/mm3 (142-424); Red Blood Count 3.33 M/mm3 (4.20-5.40); Red Cell Distribution Width 14.3 % (11.5-17.5); White Blood Count 7.1 K/mm3 (4.8-10.8)
[2018-08-23 14:52] LABS: Anion Gap 13.9 mEq/L (5-15); Blood Urea Nitrogen 23 mg/dL (7-18); Calcium 8.7 mg/dL (8.5-10.1); Carbon Dioxide 24 mmol/L (21.0-32.0); Chloride 102 mmol/L (98-107); Creatinine,Serum 1.61 mg/dL (0.55-1.02); Estimated Glomerular Filt Rate 32 ml/min (>60); GFR (African American) 39 ML/MIN (>60); Glucose 116 mg/dL (74-106); Potassium 3.9 mmoL/L (3.5-5.1); Sodium 136 mmol/L (136-145)
== END ==
PROVIDERS: Visit Provider Family Medicine
DX: I87.333 Chronic venous hypertension (idiopathic) with ulcer and inflammation of bilateral lower extremity (principal); L97.221 Non-pressure chronic ulcer of left calf limited to breakdown of skin; N18.3 Chronic kidney disease, stage 3 (moderate); I50.9 Heart failure, unspecified; E11.22 Type 2 diabetes mellitus with diabetic chronic kidney disease
CPT/HCPCS: 80048; 85025

== ENCOUNTER → 2018-08-27 13:57 | Outpatient (CLI) | payer MEDICARE, BC, SELFPAY ==
[2018-08-27 14:08] LABS: Microscopic, Urine URINE MICROSCOPIC (MICROSCOPIC)
[2018-08-27 14:49] LABS: Appearance,Urine CLEAR (Clear); Bilirubin,Urine Negative (Negative); Blood, Urine 3+ (Negative); Color,Urine YELLOW (Yellow); Glucose,Urine (UA) Negative (Negative); Ketones,Urine Negative (Negative); Leukocyte Esterase,Urine 2+ (Negative); Nitrate,Urine Negative (Negative); Protein,Urine TRACE (Negative); Specific Gravity, Urine 1.015 (1.005-1.030); Urobilinogen,Urine 0.2 EU/dl (0.2)
[2018-08-27 15:15] LABS: RBC,Urine 50-100 #/hpf (0-3)
[2018-08-27 15:16] LABS: Bacteria,Urine 1+ /lpf; Mucus,Urine Trace /lpf
== END ==
PROVIDERS: Visit Provider Family Medicine
DX: N39.0 Urinary tract infection, site not specified (principal)
CPT/HCPCS: 81001; 87086

== ENCOUNTER 2019-01-16 12:09 | Inpatient (IN) ==
--- NOTE | 2019-01-16 12:20 | Emergency Department Note ---
ED Disposition Clinical Impression: Chronic cutaneous venous stasis ulcer, Cellulitis of right lower leg, Infection of wound due to methicillin resistant Staphylococcus aureus (MRSA), Lymphedema, Cellulitis of anterior lower leg Leukocytosis Qualifiers: Leukocytosis type: unspecified Qualified Code(s): D72.829 - Elevated white blood cell count, unspecified Open wound of lower limb Qualifiers: Encounter type: sequela Laterality: right Qualified Code(s): S81.801S - Unspecified open wound, right lower leg, sequela Disposition: Admitted as Observation Condition on Discharge: Fair Time of Disposition: 14:59 (Patient was admitted to the floor under Dr. Hargrove after discussing the case with Dr. Albrecht) - Critical Care Critical Care Time: Yes Attestation: On , the high probability of a clinically significant, sudden or life threatening deterioration of the following system(s) required my full and direct attention, intervention and personal management. The time I documented below is in addition to time spent performing reported procedures but includes the following listed in this critical care notation. Vital system(s) involved:: Metabolic Failure My critical care processes included: Assessment & monitoring of V/S, Initial and Re-exams, Data Review/Interpretation, Coordinating Care, Medication Orders and management, Documentation Medical Decision Making - Lonnie Inquiry Pt receiving controlled substance: No Vital Signs: 01/16/19 12:10 Temperature 97.8 F Temperature Source Oral Pulse Rate [Right] 88 Respiratory Rate 20 Blood Pressure [Right Arm] 141/72 H Blood Pressure Mean [Right Arm] 95 Blood Pressure Source [Right Arm] Automatic Cuff Blood Pressure Position [Right Arm] Sitting 02 Sat by Pulse Oximetry 97 Oxygen Delivery Method Room Air - Lab Data Lab Results 01/16/19 12:48: WBC 30.0 H*, RBC 3.55 L, Hgb 9.7 L, Hct 32.6 L, MCV 92.0, MCH 27.4, MCHC 29.7 L, RDW 15.0, Plt Count 521 H, MPV 8.9, Neut % (Auto) 93.5 H, Lymph % (Auto) 3.1 L, [place] % (Auto) 1.7, Eos % (Auto) 1.4, Baso % (Auto) 0.3, Neut # (Auto) 28.1 H, Lymph # (Auto) 1.0, [place] # (Auto) 0.5, Eos # (Auto) 0.4, Baso # (Auto) 0.1, Total Counted 100, Neutrophils % (Manual) 94 H, Lymphocytes % (Manual) 3 L, Monocytes % (Manual) 1 L, Basophils % (Manual) 2.0 H, Platelet Estimate Normal, Hypochromasia 1+ 01/16/19 12:48: ESR 46 H 01/16/19 12:48: Lactate 1.1 01/16/19 13:40: Sodium 127 L, Potassium 5.0, Chloride 95 L, Carbon Dioxide 17 L, Anion Gap 20.0 H, BUN 33 H, Creatinine 1.95 H, Estimated Creat Clear 45, Estimated GFR 26 L, Est GFR ( Amer) 31 L, Glucose 149 H, Calcium 8.9, Total Bilirubin 0.3, AST 20, ALT 10 L, Alkaline Phosphatase 114, Troponin I < 0.02, C-Reactive Protein < 0.2, Total Protein 9.3 H, Albumin 2.3 L, Globulin 7.0 H, Albumin/Globulin Ratio 0.3 L Result diagrams: 01/16/19 12:48 01/16/19 13:40 Orders (Tests/Meds): ORDERS Category Date Time Status CT lumbar spine wo con Stat Cat Scan 01/16/19 12:31 Taken Pelvis XR 1-2 views [XR pelvis 1-2V] Stat Exams 01/16/19 12:27 Taken XR chest AP Stat Exams 01/16/19 12:27 Taken XR knee LT 3V Stat Exams 01/16/19 12:44 Taken XR tibia fibula RT 2V Stat Exams 01/16/19 12:44 Taken Troponin I Q3H Lab 01/16/19 15:45 Ordered Troponin I Q3H Lab 01/16/19 18:45 Ordered Blood Culture Stat Micro 01/16/19 13:40 Ordered Wound Culture and Gram Stain Stat Micro 01/16/19 12:41 Received Wound Culture and Gram Stain Stat Micro 01/16/19 12:41 Received - CT Data CT Scan: Head Time Received: 14:[address] Reviewed: Yes: I have reviewed the patient's CT results, I have viewed the radiologist's interpretation Findings Narrative: CT of the head is negative for any acute intracranial abnormality. CT of the cervical spine is negative for any acute abnormality. There is ch ronic arthritic changes. - Physician Consults Physician Consulted: Dr. Trena Time: 14:40 Reason -: Admission Comment/Response: To admit the patient to the floor for IV antibiotics and f urther management. Plan to discuss the IV choice with the pharmacy for further management. Additional Consult: Pharmacy oncall consult Time: 14:50 Reason -: Other (Antibiotics of choice) Comment/Response: Discussed with the pharmacist and plan to start the patient on tobramycin and meropenem. - Reevaluation(s) Time: 14:50 Reevaluation #1: Patient has been stable throughout the course of stay in the ER. Discussed the lab findings and the x-ray findings with the patient and the family. Plan to admit the patient for IV antibiotics and further management. Discussed the case with Dr. Albrecht, General Adult HPI - General Chief complaint: Fall Stated complaint: lower extremity pain Time Seen by Provider: 01/16/19 12:13 Mode of Arrival: EMS Source of Information: EMS Limitations: No Limitations - History of Present Illness HPI narrative: 68-year-old female was brought in by the EMS for having complaining of pain on the lower extremities, and having had a fall last night. Patient has history of diabetes and chronic ulcers on both lower extremities. She has had ulcers on the legs for more than 1 to 2 years. She had been following up with the wound care for the same but recently she has not had 1 follow-up due to insurance reason. She states the redness and the swelling on the right lower extremity has been getting worse. Redness, swelling, drainage is worse on the right lower extremity as compared to the left. No history of fever. Patient states she was getting out of the bed last night when she got tripped on her shoes and fell. Complaining of having some pain in the neck and the lower part of the back area. Also has some pain in the left knee area. Denies having loss of consciousness. Denies any altered mental status. Onset (ago): month(s) Location: lower extremity - Related Data Home Medications Medication Instructions Recorded Confirmed Gabapentin [Gabapentin 300mg Cap] 300 mg PO DAILY 08/24/17 11/29/17 Gabapentin [Gabapentin 300mg Cap] 600 mg PO HS 08/24/17 11/29/17 Levothyroxine Sodium 300 mcg PO DAILY 08/24/17 11/29/17 [Levothyroxine 300mcg (0.3mg) Tab] Sennosides/Docusate Sodium [Stool 1 cap PO DAILY 08/24/17 11/30/17 Softener-Laxative Tablet] Aspirin [Aspirin 81mg EC Tab] 81 mg PO DAILY 08/25/17 11/29/17 Fexofenadine HCl 180 mg PO DAILY 11/29/17 11/30/17 Hydrocodone/Acetaminophen 1 each PO Q6HP PRN 11/29/17 11/29/17 [Hydrocodone-Acetamin 10-325 mg] Pantoprazole Sodium [Protonix 40mg 40 mg PO BID 11/29/17 11/29/17 tablet] Spironolactone [Aldactone 50mg 50 mg PO DAILY 11/29/17 11/29/17 Tab] Allergies Allergy/AdvReac Type Severity Reaction Status Date / Time vancomycin Allergy Severe red man Verified 06/07/18 01:41 syndrome ceftriaxone Allergy Mild Rash Verified 06/07/18 01:41 amoxicillin Allergy Unknown Verified 06/07/18 01:41 atropine Allergy Unknown Verified 06/07/18 01:41 aztreonam Allergy Unknown Verified 06/07/18 01:41 ciprofloxacin Allergy Unknown Verified 06/07/18 01:41 clindamycin Allergy Unknown Verified 06/07/18 01:41 levofloxacin Allergy Unknown Verified 06/07/18 01:41 morphine Allergy Unknown Verified 06/07/18 01:41 nabumetone Allergy Unknown Verified 06/07/18 01:41 oxytetracycline Allergy Unknown Verified 06/07/18 01:41 Penicillins Allergy Unknown Verified 06/07/18 01:41 polymyxin B Allergy Unknown Verified 06/07/18 01:41 Sulfa (Sulfonamide Allergy Unknown Verified 06/07/18 01:41 Antibiotics) tramadol Allergy Unknown Verified 06/07/18 01:41 [facility] History - Hepatitis A Screen Attestation statement:: This patient has been screened for Hepatitis A risk factors. Medical History: Reports:: Diabetes Mellitus Type 2, Hypertension Denies:: Cancer, Diabetes Mellitus Type 1, Internal Pacemaker, MRSA, Seizures Other Medical History: Reports: Anemia, Arthritis, Fibromyalgia, Hypothyroidism, Other (Morbid obesity) Comment: Chronic venous insufficiency/lymphedema with bilateral leg wounds Other Surgeries: Yes: No Previous Surgery, Tubal Ligation. No: Pacemaker Amputation: No Fractures: No - Social History Smoking Status: Never smoker Alcohol Intake: never Occupational Status: retired Housing: house Household Members: spouse, family Family Hx:: Cancer, Diabetes ROS Obtained: Yes All systems reviewed & no additional complaints Physical Exam - General General appearance: alert, in no apparent distress, obese - Head Head exam: atraumatic, normocephalic, normal inspection - Eye Eye exam: Present: normal appearance, PERRL, EOMI - ENT ENT exam: Present: normal exam, normal oropharynx, mucous membranes moist, normal external ear exam - Neck Neck exam: Present: other (Chronic arthritic changes of the neck and pt keeps her head tilted towards the right.) - Chest Chest inspection: Present: normal inspection, symmetric chest wall rise. Absent: tenderness - Respiratory Respiratory exam: Present: normal lung sounds bilaterally. Absent: respiratory distress - Cardiovascular Cardiovascular exam: Present: regular rate, normal rhythm. Absent: JVD - Abdominal Exam Abdominal exam: Present: soft, normal bowel sounds. Absent: distention, tenderness, guarding - Extremities Exam Extremities exam: Present: tenderness, pedal edema (chronic venous stasis with u lcers on both the lower extremities, the right one has 4-5 ulcers about 4-5 cm diameter and each of them have greenish yellow type of discharge resembling possible Pseudomonas type of infection.The left lower leg has one ulcer about 4cm diameter and with some yellowish discharge. Swab cultures were taken from the wounds from both the right and left lower leg.), other (Swelling of both the lower leg. Right is worse than the left. Both the lower leg have chronic ulcers. The ulcers on the right leg is worse than the left. There is extensive swelling and redness extending from the right foot to the right knee due to cellulitis. There is increased temperature on the right lower leg as compared to the left. There are about 3-4 subcutaneous ulcers on the right lower leg about 5 to 6 cm diameter each. There is one ulcer about 4 cm diameter on the right lower leg. Swabs were taken from both the lower leg ulcers.) - Expanded Lower Extremity Exam Right Hip/Pelvis exam: Present: normal inspection, full ROM. Absent: tenderness Upper leg exam: Present: swelling Knee exam: Present: swelling, erythema Lower leg exam: Present: tenderness, swelling, erythema, other (Multiple ulcers on the right leg worse than the left. There is only one ulcer on the left lower leg. Extensive swelling of the right lower leg with redness and erythema as well as increasing temperature. She seems to be having cellulitic changes of the right lower leg. There is foul-smelling drainage from the ulcer sites on the right lower leg.) Ankle exam: Present: other (At baseline status.) Foot/toe exam: Present: other (At baseline status.) Neurovascular/Tendon exam: Present: other (At baseline status.) - Back Exam Back exam: Present: normal inspection, tenderness (Patient complains of tenderness on the lower lumbar area) - Neurological Exam Neurological exam: Present: alert, oriented X3, CN II-XII intact - Psychiatric Psychiatric exam: Present: normal affect, normal mood - Skin Skin exam: Present: warm, dry, intact, normal color
[2019-01-16 13:04] LABS: Basophils # 0.1 K/mm3 (0-0.2); Basophils % 0.3 % (0.1-2.0); Eosinophils # 0.4 K/mm3 (0.0-0.4); Eosinophils % 1.4 % (0.1-12.0); Hematocrit 32.6 % (37.0-47.0); Hemoglobin 9.7 g/dL (12.2-16.2); Lymphocytes % 3.1 % (10-50); Mean Corpuscular HGB Conc 29.7 g/dL (31.8-35.4); Mean Platelet Volume 8.9 fl (7.4-10.4); Monocytes # 0.5 K/mm3 (0.1-1.0); Monocytes % 1.7 % (1.7-9.3); Neutrophils # 28.1 K/mm3 (1.8-7.8); Neutrophils % 93.5 % (37.0-80.0); Platelet Count 521 K/mm3 (142-424); Red Blood Count 3.55 M/mm3 (4.20-5.40)
[2019-01-16 13:19] LABS: Hypochromasia 1+; Lymphocytes % 3 % (10-50); Monocytes % 1 % (2-9); Neutrophils % 94 % (42-76); Total Cells Counted 100
[2019-01-16 14:06] LABS: Alanine Aminotransferase 10 U/L (12-78); Albumin Level 2.3 gm/dL (3.4-5.0); Albumin/Globulin Ratio 0.3 (1.1-1.8); Alkaline Phosphatase 114 U/L (46-116); Aspartate Amino Transferase 20 U/L (15-37); Bilirubin,Total 0.3 mg/dL (0.2-1.0); Blood Urea Nitrogen 33 mg/dL (7-18); Calcium 8.9 mg/dL (8.5-10.1); Carbon Dioxide 17 mmol/L (21.0-32.0); Chloride 95 mmol/L (98-107); Glucose 149 mg/dL (74-106); Sodium 127 mmol/L (136-145); Total Protein,Serum 9.3 gm/dL (6.4-8.2)
[2019-01-16 14:09] LABS: C-Reactive Protein < 0.2 mg/dL (0.0-0.9)
--- NOTE | 2019-01-16 15:19 | Pharmacy Consult Notes ---
- Pharmacy Consult Date: 01/16/19 Time: 15:17 Referring provider: DR. VASQUEZ Reason for Consult:: TOBRAMYCIN DOSING Allergies and ADEs:: Allergies Allergy/AdvReac Type Severity Reaction Status Date / Time vancomycin Allergy Severe red man Verified 06/07/18 01:41 syndrome ceftriaxone Allergy Mild Rash Verified 06/07/18 01:41 amoxicillin Allergy Unknown Verified 06/07/18 01:41 atropine Allergy Unknown Verified 06/07/18 01:41 aztreonam Allergy Unknown Verified 06/07/18 01:41 ciprofloxacin Allergy Unknown Verified 06/07/18 01:41 clindamycin Allergy Unknown Verified 06/07/18 01:41 levofloxacin Allergy Unknown Verified 06/07/18 01:41 morphine Allergy Unknown Verified 06/07/18 01:41 nabumetone Allergy Unknown Verified 06/07/18 01:41 oxytetracycline Allergy Unknown Verified 06/07/18 01:41 Penicillins Allergy Unknown Verified 06/07/18 01:41 polymyxin B Allergy Unknown Verified 06/07/18 01:41 Sulfa (Sulfonamide Allergy Unknown Verified 06/07/18 01:41 Antibiotics) tramadol Allergy Unknown Verified 06/07/18 01:41 Home Medications:: Home Medications Medication Instructions Recorded Confirmed Type Gabapentin [Gabapentin 300mg Cap] 300 mg PO DAILY 08/24/17 11/29/17 History Gabapentin [Gabapentin 300mg Cap] 600 mg PO HS 08/24/17 11/29/17 History Levothyroxine Sodium 300 mcg PO DAILY 08/24/17 11/29/17 History [Levothyroxine 300mcg (0.3mg) Tab] Sennosides/Docusate Sodium [Stool 1 cap PO DAILY 08/24/17 11/30/17 History Softener-Laxative Tablet] Aspirin [Aspirin 81mg EC Tab] 81 mg PO DAILY 08/25/17 11/29/17 History Fexofenadine HCl 180 mg PO DAILY 11/29/17 11/30/17 History Hydrocodone/Acetaminophen 1 each PO Q6HP PRN 11/29/17 11/29/17 History [Hydrocodone-Acetamin 10-325 mg] Pantoprazole Sodium [Protonix 40mg 40 mg PO BID 11/29/17 11/29/17 History tablet] Spironolactone [Aldactone 50mg 50 mg PO DAILY 11/29/17 11/29/17 History Tab] Height: 1.63 m Weight: 100.698 kg Laboratory Results:: Laboratory Results - last 24 hr 01/16/19 12:48: WBC 30.0 H*, RBC 3.55 L, Hgb 9.7 L, Hct 32.6 L, MCV 92.0, MCH 27.4, MCHC 29.7 L, RDW 15.0, Plt Count 521 H, MPV 8.9, Neut % (Auto) 93.5 H, Lymph % (Auto) 3.1 L, [place] % (Auto) 1.7, Eos % (Auto) 1.4, Baso % (Auto) 0.3, Neut # (Auto) 28.1 H, Lymph # (Auto) 1.0, [place] # (Auto) 0.5, Eos # (Auto) 0.4, Baso # (Auto) 0.1, Total Counted 100, Neutrophils % (Manual) 94 H, Lymphocytes % (Manual) 3 L, Monocytes % (Manual) 1 L, Basophils % (Manual) 2.0 H, Platelet Estimate Normal, Hypochromasia 1+ 01/16/19 12:48: ESR 46 H 01/16/19 12:48: Lactate 1.1 01/16/19 13:40: Sodium 127 L, Potassium 5.0, Chloride 95 L, Carbon Dioxide 17 L, Anion Gap 20.0 H, BUN 33 H, Creatinine 1.95 H, Estimated Creat Clear 45, Estimated GFR 26 L, Est GFR ( Amer) 31 L, Glucose 149 H, Calcium 8.9, Total Bilirubin 0.3, AST 20, ALT 10 L, Alkaline Phosphatase 114, Troponin I < 0.02, C-Reactive Protein < 0.2, Total Protein 9.3 H, Albumin 2.3 L, Globulin 7.0 H, Albumin/Globulin Ratio 0.3 L Medical History: Reports:: Hypertension Denies:: Cancer, Diabetes Mellitus Type 1, Diabetes Mellitus Type 2, Internal Pacemaker, MRSA, Seizures Assessment and Plan - Assessment and plan all Dx Assessment and Plan for all problems:: BASED ON PATIENT FACTORS, RECOMMEND TOBRAMYCIN 400 MG IV Q48H. WILL OBTAIN TOBRAMYCIN LEVELS AT 4 AND 12 HOURS POST-INFUSION. PHARMACY WILL FOLLOW DAILY AND ADJUST APPROPRIATE.
[2019-01-17 07:02] LABS: Basophils % 0.1 % (0.1-2.0); Eosinophils # 0.3 K/mm3 (0.0-0.4); Eosinophils % 1.3 % (0.1-12.0); Hematocrit 34.2 % (37.0-47.0); Hemoglobin 10.4 g/dL (12.2-16.2); Lymphocytes # 0.8 K/mm3 (0.7-4.5); Lymphocytes % 3.3 % (10-50); Mean Corpuscular HGB Conc 30.3 g/dL (31.8-35.4); Mean Corpuscular Volume 89.7 fl (81-99); Monocytes # 0.6 K/mm3 (0.1-1.0); Monocytes % 2.6 % (1.7-9.3); Neutrophils # 22.9 K/mm3 (1.8-7.8); Neutrophils % 92.7 % (37.0-80.0); Platelet Count 447 K/mm3 (142-424); Red Blood Count 3.81 M/mm3 (4.20-5.40); Red Cell Distribution Width 14.8 % (11.5-17.5); White Blood Count 24.7 K/mm3 (4.8-10.8)
[2019-01-17 07:22] LABS: Anion Gap 18.5 mEq/L (5-15); Calcium 8.6 mg/dL (8.5-10.1); Tobramycin,Random 6.2 ug/ml
--- NOTE | 2019-01-17 07:32 | Pharmacy Consult Notes ---
[facility] Pharmacy VTE Monitoring - Patient Demographics Admission date: 01/16/19 Report Date: 01/17/19 Time: 07:32 Allergies/Adverse Reactions: Patient Allergies vancomycin Allergy (Severe, Verified 06/07/18 01:41) red man syndrome ceftriaxone Allergy (Mild, Verified 06/07/18 01:41) Rash amoxicillin Allergy (Unknown, Verified 06/07/18 01:41) atropine Allergy (Unknown, Verified 06/07/18 01:41) aztreonam Allergy (Unknown, Verified 06/07/18 01:41) ciprofloxacin Allergy (Unknown, Verified 06/07/18 01:41) clindamycin Allergy (Unknown, Verified 06/07/18 01:41) levofloxacin Allergy (Unknown, Verified 06/07/18 01:41) morphine Allergy (Unknown, Verified 06/07/18 01:41) nabumetone Allergy (Unknown, Verified 06/07/18 01:41) oxytetracycline Allergy (Unknown, Verified 06/07/18 01:41) Penicillins Allergy (Unknown, Verified 06/07/18 01:41) polymyxin B Allergy (Unknown, Verified 06/07/18 01:41) Sulfa (Sulfonamide Antibiotics) Allergy (Unknown, Verified 06/07/18 01:41) tramadol Allergy (Unknown, Verified 06/07/18 01:41) Height: 1.6 m Weight: 95.396 kg Patient Problems: Current Active Problems Leukocytosis (Acute) Cellulitis of anterior lower leg (Acute) Lymphedema (Acute) Open wound of lower limb (Acute) Infection of wound due to methicillin resistant Staphylococcus aureus (MRSA) (Acute) Chronic cutaneous venous stasis ulcer (Acute) Cellulitis of right lower leg (Acute) - VTE Risk Labs: VTE Related Lab Results Hgb 10.4 g/dL (12.2-16.2) L 01/17/19 06:40 Hct 34.2 % (37.0-47.0) L 01/17/19 06:40 Plt Count 447 K/mm3 (142-424) H 01/17/19 06:40 BUN 33 mg/dL (7-18) H 01/17/19 06:40 Creatinine 1.61 mg/dL (0.55-1.02) H 01/17/19 06:40 Estimated Creat Clear 51 mL/min (50-200) 01/17/19 06:40 Was VTE Risk Assessment Performed: No VTE Score: 4 VTE Risk Level: Low Risk - Prophylaxis VTE Prophylaxis Ordered?: Yes Types of VTE Prophylaxis: TEDS Knee High Location of Applied Device: Bilateral Lower Extremeties - VTE Diagnosis Confirmed Treatment or plan recommended: Continue Current Treatment
--- NOTE | 2019-01-17 08:09 | History & Physical Report ---
*Admission Date: 01/16/19 *Chief complaint: Fall at home with weakness *History of present illness: 68-year-old female with history of chronic venous insufficiency that have led to a large wounds on the legs presented to the emergency department after a fall at home. Patient felt mildly nauseous and was weak and was brought to the emergency department. In the emergency department work-up was significant for cellulitis of the right lower extremity with ulceration of the lower extremity. Patient also has some open wounds on the back of the right leg and buttocks. Decision was made to admit her for IV antibiotics. This morning patient reports nausea and apparently has vomited multiple times with emesis being described as thick and green. However patient denies abdominal pain, only nausea. Regarding these ulcers she has been under the care of home health for the last several months but apparently due to a change in insurance has not had any home health nursing for wound evaluation in the last 3 weeks. During this time she and her have been trying to manage the wounds but have been running out of supplies due to her underlying health insurance issue. [facility] History I have reviewed the patient's past medical history: Yes Medical History: Reports:: Congestive Heart Failure, Hypertension Denies:: Cancer, Diabetes Mellitus Type 1, Diabetes Mellitus Type 2, Internal Pacemaker, MRSA, Seizures *Have you ever received a pneumonia vaccine?: Yes *Have you received a flu vaccine this season?: Yes Other Medical History: Reports: Anemia, Arthritis, Fibromyalgia, Hypothyroidism, Other (Morbid obesity) Other Surgeries: Yes: No Previous Surgery, Tubal Ligation. No: Pacemaker Amputation: No Fractures: No - *Social History Educational Level: Attended High School Smoking Status: Never smoker Alcohol Intake: never *Occupational Status:: retired Housing: house Household Members: spouse, family *Travel in the last 8 weeks: None Family Hx:: Cancer, Diabetes Review of Systems - Review of Systems Review of systems:: pertinent systems reviewed and negative unless documented below Meds Home Medications Medication Instructions Recorded Confirmed Type Gabapentin [Gabapentin 300mg Cap] 300 mg PO DAILY 08/24/17 11/29/17 History Gabapentin [Gabapentin 300mg Cap] 600 mg PO HS 08/24/17 11/29/17 History Sennosides/Docusate Sodium [Stool 1 cap PO DAILY PRN 08/24/17 11/30/17 History Softener-Laxative Tablet] Aspirin [Aspirin 81mg EC Tab] 81 mg PO DAILY 08/25/17 11/29/17 History Hydrocodone/Acetaminophen 1 each PO Q6HP PRN 11/29/17 11/29/17 History [Hydrocodone-Acetamin 10-325 mg] Pantoprazole Sodium [Protonix 40mg 40 mg PO BID 11/29/17 11/29/17 History tablet] Ferrous Sulfate [Ferrous Sulfate 325 mg PO DAILY 01/16/19 01/16/19 History 325mg Tablet] Furosemide [Furosemide 20mg Tab] 20 mg PO DAILY 01/16/19 01/16/19 History Metformin HCl 500 mg PO TID 01/16/19 01/16/19 History raNITIdine HCl [Ranitidine HCl] 150 mg PO DAILY 01/16/19 01/16/19 History Allergies Allergy/AdvReac Type Severity Reaction Status Date / Time vancomycin Allergy Severe red man Verified 06/07/18 01:41 syndrome ceftriaxone Allergy Mild Rash Verified 06/07/18 01:41 amoxicillin Allergy Unknown Verified 06/07/18 01:41 atropine Allergy Unknown Verified 06/07/18 01:41 aztreonam Allergy Unknown Verified 06/07/18 01:41 ciprofloxacin Allergy Unknown Verified 06/07/18 01:41 clindamycin Allergy Unknown Verified 06/07/18 01:41 levofloxacin Allergy Unknown Verified 06/07/18 01:41 morphine Allergy Unknown Verified 06/07/18 01:41 nabumetone Allergy Unknown Verified 06/07/18 01:41 oxytetracycline Allergy Unknown Verified 06/07/18 01:41 Penicillins Allergy Unknown Verified 06/07/18 01:41 polymyxin B Allergy Unknown Verified 06/07/18 01:41 Sulfa (Sulfonamide Allergy Unknown Verified 06/07/18 01:41 Antibiotics) tramadol Allergy Unknown Verified 06/07/18 01:41 Exam Vital signs and Labs for Last 24 Hours: Temp Pulse Resp BP Pulse Ox 99.6 F 94 H 21 144/61 H 96 01/17/19 04:00 01/17/19 04:00 01/17/19 04:00 01/17/19 04:00 01/17/19 04:00 Laboratory Results - last 24 hr 01/16/19 12:48: WBC 30.0 H*, RBC 3.55 L, Hgb 9.7 L, Hct 32.6 L, MCV 92.0, MCH 27.4, MCHC 29.7 L, RDW 15.0, Plt Count 521 H, MPV 8.9, Neut % (Auto) 93.5 H, Lymph % (Auto) 3.1 L, Hale % (Auto) 1.7, Eos % (Auto) 1.4, Baso % (Auto) 0.3, Neut # (Auto) 28.1 H, Lymph # (Auto) 1.0, Hale # (Auto) 0.5, Eos # (Auto) 0.4, Baso # (Auto) 0.1, Total Counted 100, Neutrophils % (Manual) 94 H, Lymphocytes % (Manual) 3 L, Monocytes % (Manual) 1 L, Basophils % (Manual) 2.0 H, Platelet Estimate Normal, Hypochromasia 1+ 01/16/19 12:48: ESR 46 H 01/16/19 12:48: Lactate 1.1 01/16/19 13:40: Sodium 127 L, Potassium 5.0, Chloride 95 L, Carbon Dioxide 17 L, Anion Gap 20.0 H, BUN 33 H, Creatinine 1.95 H, Estimated Creat Clear 45, Estimated GFR 26 L, Est GFR ( Amer) 31 L, Glucose 149 H, Calcium 8.9, Total Bilirubin 0.3, AST 20, ALT 10 L, Alkaline Phosphatase 114, Troponin I < 0.02, C-Reactive Protein < 0.2, Total Protein 9.3 H, Albumin 2.3 L, Globulin 7.0 H, Albumin/Globulin Ratio 0.3 L 01/16/19 16:59: Urine Color Yellow, Urine Appearance Sl cloudy, Urine pH 5.0, Ur Specific [place] >= 1.030, Urine Protein Trace, Urine Glucose (UA) Negative, Urine Ketones Negative, Urine Blood 1+, Urine Nitrate Negative, Urine Bilirubin Negative, Urine Urobilinogen 0.2, Ur Leukocyte Esterase Trace, Urine RBC 5-10, Urine WBC 20-50 A, Urine Bacteria 4+ A 01/16/19 17:18: POC Glucose 136 H 01/16/19 19:15: Troponin I < 0.02 01/16/19 20:49: POC Glucose 150 H 01/16/19 22:00: Random Tobramycin 11.2 01/17/19 06:39: POC Glucose 156 H 01/17/19 06:40: WBC 24.7 H*, RBC 3.81 L, Hgb 10.4 L, Hct 34.2 L, MCV 89.7, MCH 27.1, MCHC 30.3 L, RDW 14.8, Plt Count 447 H, MPV 8.0, Neut % (Auto) 92.7 H, Lymph % (Auto) 3.3 L, Hale % (Auto) 2.6, Eos % (Auto) 1.3, Baso % (Auto) 0.1, Neut # (Auto) 22.9 H, Lymph # (Auto) 0.8, Hale # (Auto) 0.6, Eos # (Auto) 0.3, Baso # (Auto) 0.0 01/17/19 06:40: Sodium 134 L, Potassium 4.5, Chloride 99, Carbon Dioxide 21 D, Anion Gap 18.5 H, BUN 33 H, Creatinine 1.61 H, Estimated Creat Clear 51, Estimated GFR 32 L, Est GFR ( Amer) 39 L D, Glucose 159 H, Calcium 8.6, Random Tobramycin 6.2 Aloft aloft does not I & O for Last 24 hours: Intake & Output 01/14/19 01/15/19 01/16/19 01/17/19 11:59 11:59 11:59 11:59 Intake Total 270 / 270 Output Total 5 / 2075 Balance -1805 / -1805 Weight 210 lb 5 oz Microbiology Reports for the Last 24 Hours: Microbiology 01/16/19 12:41 Foot,Right Gram Stain - Final 01/16/19 12:41 Foot,Left Gram Stain - Final Narrative: Patient looks weak and tired. Oropharynx is dry. Neck is without lymphadenopathy or jugular venous distention. Heart has a regular rate and rhythm. Lungs are clear. Abdomen is soft and obese but nontender. Right lower extremity from just below the knee to the foot is erythematous and tender with large ulceration on the lateral posterior aspect of the leg. There is significant edema in the posterior thigh. Assessment and Plan (1) Nausea & vomiting Current visit: Yes Status: Acute Category: Medical Code(s): R11.2 - Nausea with vomiting, unspecified (2) Cellulitis of right lower leg Current visit: Yes Status: Acute Category: Medical Code(s): L03.115 - Cellulitis of right lower limb (3) Chronic cutaneous venous stasis ulcer Current visit: Yes Status: Acute Category: Medical Code(s): I83.009 - Varicose veins of unspecified lower extremity with ulcer of unspecified site; L97.909 - Non-pressure chronic ulcer of unspecified part of unspecified lower leg with unspecified severity (4) Lymphedema Current visit: Yes Status: Acute Category: Medical Code(s): I89.0 - Lymphedema, not elsewhere classified (5) Acute kidney injury Current visit: Yes Status: Acute Category: Medical Code(s): N17.9 - Acute kidney failure, unspecified - Assessment and plan all Dx Assessment and Plan for all problems:: 1. Continue tobramycin and meropenem 2. Wound therapy consult 3. P.o. intake as tolerated 4. Home medications
[2019-01-17 08:17] LABS: Hypochromasia 1+; Lymphocytes % 4 % (10-50); Monocytes % 3 % (2-9); Neutrophils % 93 % (42-76); Nucleated Red Blood Cells 1; Total Cells Counted 100
--- NOTE | 2019-01-17 10:00 | Pharmacy Consult Notes ---
- Pharmacy Consult Date: 01/17/19 Time: 09:57 Referring provider: DR. VASQUEZ Reason for Consult:: TOBRAMYCIN DOSING Allergies and ADEs:: Allergies Allergy/AdvReac Type Severity Reaction Status Date / Time vancomycin Allergy Severe red man Verified 06/07/18 01:41 syndrome ceftriaxone Allergy Mild Rash Verified 06/07/18 01:41 amoxicillin Allergy Unknown Verified 06/07/18 01:41 atropine Allergy Unknown Verified 06/07/18 01:41 aztreonam Allergy Unknown Verified 06/07/18 01:41 ciprofloxacin Allergy Unknown Verified 06/07/18 01:41 clindamycin Allergy Unknown Verified 06/07/18 01:41 levofloxacin Allergy Unknown Verified 06/07/18 01:41 morphine Allergy Unknown Verified 06/07/18 01:41 nabumetone Allergy Unknown Verified 06/07/18 01:41 oxytetracycline Allergy Unknown Verified 06/07/18 01:41 Penicillins Allergy Unknown Verified 06/07/18 01:41 polymyxin B Allergy Unknown Verified 06/07/18 01:41 Sulfa (Sulfonamide Allergy Unknown Verified 06/07/18 01:41 Antibiotics) tramadol Allergy Unknown Verified 06/07/18 01:41 Home Medications:: Home Medications Medication Instructions Recorded Confirmed Type Gabapentin [Gabapentin 300mg Cap] 300 mg PO DAILY 08/24/17 11/29/17 History Gabapentin [Gabapentin 300mg Cap] 600 mg PO HS 08/24/17 11/29/17 History Sennosides/Docusate Sodium [Stool 1 cap PO DAILY PRN 08/24/17 11/30/17 History Softener-Laxative Tablet] Aspirin [Aspirin 81mg EC Tab] 81 mg PO DAILY 08/25/17 11/29/17 History Hydrocodone/Acetaminophen 1 each PO Q6HP PRN 11/29/17 11/29/17 History [Hydrocodone-Acetamin 10-325 mg] Pantoprazole Sodium [Protonix 40mg 40 mg PO BID 11/29/17 11/29/17 History tablet] Ferrous Sulfate [Ferrous Sulfate 325 mg PO DAILY 01/16/19 01/16/19 History 325mg Tablet] Furosemide [Furosemide 20mg Tab] 20 mg PO DAILY 01/16/19 01/16/19 History Metformin HCl 500 mg PO TID 01/16/19 01/16/19 History raNITIdine HCl [Ranitidine HCl] 150 mg PO DAILY 01/16/19 01/16/19 History Height: 1.6 m Weight: 95.396 kg Laboratory Results:: Laboratory Results - last 24 hr 01/16/19 12:48: WBC 30.0 H*, RBC 3.55 L, Hgb 9.7 L, Hct 32.6 L, MCV 92.0, MCH 27.4, MCHC 29.7 L, RDW 15.0, Plt Count 521 H, MPV 8.9, Neut % (Auto) 93.5 H, Lymph % (Auto) 3.1 L, [place] % (Auto) 1.7, Eos % (Auto) 1.4, Baso % (Auto) 0.3, Neut # (Auto) 28.1 H, Lymph # (Auto) 1.0, [place] # (Auto) 0.5, Eos # (Auto) 0.4, Baso # (Auto) 0.1, Total Counted 100, Neutrophils % (Manual) 94 H, Lymphocytes % (Manual) 3 L, Monocytes % (Manual) 1 L, Basophils % (Manual) 2.0 H, Platelet Estimate Normal, Hypochromasia 1+ 01/16/19 12:48: ESR 46 H 01/16/19 12:48: Lactate 1.1 01/16/19 13:40: Sodium 127 L, Potassium 5.0, Chloride 95 L, Carbon Dioxide 17 L, Anion Gap 20.0 H, BUN 33 H, Creatinine 1.95 H, Estimated Creat Clear 45, Estimated GFR 26 L, Est GFR ( Amer) 31 L, Glucose 149 H, Calcium 8.9, Total Bilirubin 0.3, AST 20, ALT 10 L, Alkaline Phosphatase 114, Troponin I < 0.02, C-Reactive Protein < 0.2, Total Protein 9.3 H, Albumin 2.3 L, Globulin 7.0 H, Albumin/Globulin Ratio 0.3 L 01/16/19 16:59: Urine Color Yellow, Urine Appearance Sl cloudy, Urine pH 5.0, Ur Specific [place] >= 1.030, Urine Protein Trace, Urine Glucose (UA) Negative, Urine Ketones Negative, Urine Blood 1+, Urine Nitrate Negative, Urine Bilirubin Negative, Urine Urobilinogen 0.2, Ur Leukocyte Esterase Trace, Urine RBC 5-10, Urine WBC 20-50 A, Urine Bacteria 4+ A 01/16/19 17:18: POC Glucose 136 H 01/16/19 19:15: Troponin I < 0.02 01/16/19 20:49: POC Glucose 150 H 01/16/19 22:00: Random Tobramycin 11.2 01/17/19 06:39: POC Glucose 156 H 01/17/19 06:40: WBC 24.7 H*, RBC 3.81 L, Hgb 10.4 L, Hct 34.2 L, MCV 89.7, MCH 27.1, MCHC 30.3 L, RDW 14.8, Plt Count 447 H, MPV 8.0, Neut % (Auto) 92.7 H, Lymph % (Auto) 3.3 L, [place] % (Auto) 2.6, Eos % (Auto) 1.3, Baso % (Auto) 0.1, Neut # (Auto) 22.9 H, Lymph # (Auto) 0.8, [place] # (Auto) 0.6, Eos # (Auto) 0.3, Baso # (Auto) 0.0, Total Counted 100, Neutrophils % (Manual) 93 H, Lymphocytes % (Manual) 4 L, Monocytes % (Manual) 3, Nucleated RBCs 1, Platelet Estimate Normal, Hypochromasia 1+ 01/17/19 06:40: Sodium 134 L, Potassium 4.5, Chloride 99, Carbon Dioxide 21 D, Anion Gap 18.5 H, BUN 33 H, Creatinine 1.61 H, Estimated Creat Clear 51, Estimated GFR 32 L, Est GFR ( Amer) 39 L D, Glucose 159 H, Calcium 8.6, Random Tobramycin 6.2 Medical History: Reports:: Congestive Heart Failure, Hypertension Denies:: Cancer, Diabetes Mellitus Type 1, Diabetes Mellitus Type 2, Internal Pacemaker, MRSA, Seizures Assessment and Plan (1) Nausea & vomiting Current visit: Yes Status: Acute Category: Medical Code(s): R11.2 - Nausea with vomiting, unspecified (2) Cellulitis of right lower leg Current visit: Yes Status: Acute Category: Medical Code(s): L03.115 - Cellulitis of right lower limb (3) Chronic cutaneous venous stasis ulcer Current visit: Yes Status: Acute Category: Medical Code(s): I83.009 - Varicose veins of unspecified lower extremity with ulcer of unspecified site; L97.909 - Non-pressure chronic ulcer of unspecified part of unspecified lower leg with unspecified severity (4) Lymphedema Current visit: Yes Status: Acute Category: Medical Code(s): I89.0 - Lymphedema, not elsewhere classified (5) Acute kidney injury Current visit: Yes Status: Acute Category: Medical Code(s): N17.9 - Acute kidney failure, unspecified - Assessment and plan all Dx Assessment and Plan for all problems:: BASED ON PATIENT'S FACTORS, RECOMMEND CONTINUING WITH TOBRAMYCIN 400 MG Q48H AT THIS TIME. TOBRAMYCIN LEVEL AT 2 HR AND 11 HR POST INFUSION WERE 11.2 MCG/ML AND 6.2 MCG/ML, RESPECTIVELY. CALCULATED CMAX AND CMIN WERE 12.0 MCG/ML AND 0.5 MCG/ML.
--- OUTSIDE RECORDS SUMMARY | 2019-01-17 15:22 | External Medical Summary | Continuity of Care Document ---
:1950 Author Organization [facility] Address [address] [facility] [address] [place] [address] Phone Care Team Providers Name Role Phone Delvin Primary Care Provider Delvin Attending Provider Monico Albrecht Attending Provider Allergies, Adverse Reactions, Alerts Allergen Type Severity Reaction Last Verified Status Updated vancomycin Allergy Severe red man Yes Active syndrome ceftriaxone Allergy Mild Rash Yes Active amoxicillin Allergy Unknown Yes Active atropine Allergy Unknown Yes Active aztreonam Allergy Unknown Yes Active ciprofloxacin Allergy Unknown Yes Active clindamycin Allergy Unknown Yes Active levofloxacin Allergy Unknown Yes Active morphine Allergy Unknown Yes Active nabumetone Allergy Unknown Yes Active oxytetracycline Allergy Unknown Yes Acti ve Penicillins Allergy Unknown Yes Active polymyxin B Allergy Unknown Yes Active Sulfa (Sulfonamide Allergy Unknown Yes A ctive Antibiotics) tramadol Allergy Unknown Yes Active Medications Medication Status Dose Units Route Sig Qty Days Start End Instruct ions Date Date Gabapentin Active 600 MG Oral At August bedtime , nightly 2017 10:32pm Gabapentin Active 300 MG Oral Daily August IN THE 2017 10:52pm Aspirin Active 81 MG Oral Daily August 25, 2017 8:29am Pantoprazole Active 40 MG Oral Daily November 10:08pm Hydrocodone/Acet Active 1 TAB Oral Every 14 November aminophen hours as 2017 11:27pm Ferrous Sulfate Active 325 MG Oral Daily January 16, 2019 4:30pm Furosemide Active 20 MG Oral Daily January 16, 2019 4:30pm Metformin Hcl Active 500 MG Oral Three January times 2018 day 4:30pm Ranitidine Hcl Active 150 MG Oral Daily January 16, 2019 4:30pm Docusate Sodium Active 100 MG Oral Daily as January 10:05am Fexofenadine Hcl Active 180 MG Oral Daily January 17, 2019 10:05am Glipizide Active 5 MG Oral Daily January 17, 2019 10:05am Levothyroxine Active 125 MCG Oral Daily January 10:05am Spironolactone Active 50 MG Oral Daily January 17, 2019 10:05am Problems Active Problems Medical Problem Onset Date Status Acute kidney injury Active Cellulitis of right lower leg Active Cellulitis of anterior lower leg Active Diabetes mellitus, type II, insulin Acti ve dependent Chronic pain Active Acute renal failure (ARF) Active Elevated erythrocyte sedimentation Activ e rate CKD (chronic kidney disease) stage Activ e 3, GFR 30-59 ml/min Anemia Active Cellulitis Active Hypoglycemia Active Lymphedema in adult patient Active Leukocytosis Active Lymphedema Active Infection of wound due to Active methicillin resistant Staphylococcus aureus (MRSA) Chronic cutaneous venous stasis Active ulcer Open wound of lower limb Active Acute worsening of stage 3 chronic Activ e kidney disease BMI 39.0-39.9,adult Active Morbid obesity with BMI of Active 45.0-49.9, adult Sepsis Active E. coli urinary tract infection Active Acute kidney injury (nontraumatic) Activ e Anemia associated with acute blood Activ e loss Chronic venous insufficiency Active Acute upper GI bleeding Active Nausea & vomiting Active Obesity Active Acute febrile illness Active Hyperkalemia Active Procedures Procedure Date Performed Status XR chest AP January 16, 2019 completed XR pelvis 1-2V January 16, [address] head/brain wo con January 16, [address] cervical spine wo con January 16, [address] lumbar spine wo con January 16, 2019 completed XR tibia fibula RT 2V January 16, 2019 completed XR knee LT 3V January 16, 2019 completed Gram Stain January 16, 2019 completed Wound Culture January 16, 2019 active Urine Culture January 16, 2019 active Blood Culture January 16, 2019 active Relevant Diagnostic Tests and/or Laboratory Data Laboratory Results Test Date/Time Result Interpretation Reference Result Perfo rming Range Comment Site White Blood Count February 01.7 4.8-10.8 Ferrer [facility], [address] [place] [address] 36 E 2018 K/mm3 Jack CANTU 40486 6:40am Red Blood Count January 3.81 4.20-5.40 [facility], [address] [place] [address] 36 E 2018 M/mm3 Jack CANTU 32548 6:40am Hemoglobin Sabino 10.4 g/dL 12.2-16.2 [facility], [address] [place] [address] 36 [address] 2018 [place] [address] 6:40am Hematocrit Sabino 34.2 % 37.0-47.0 [facility], [address] [place] [address] 36 [address] 2018 [place] [address] 6:40am Mean Corpuscular Sabino 89.7 fl 81-99 [facility], [address] [place] [address] 36 E Volume 2018 [place] [address] 6:40am Mean Corpuscular Sabino 27.1 pg 27.0-31.2 [facility], [address] [place] [address] 36 E Hemoglobin 2018 [place] [address] 6:40am Mean Corpuscular Sabino 30.3 g/dL 31.8-35.4 [facility], [address] [place] [address] 36 E Hemoglobin 2018 [place] [address] Concent 6:40am Red Cell Sabino 14.8 % 11.5-17.5 [facility], [address] [place] [address] 36 E Distribution 2018 Brit CANTU 73573 Width 6:40am Platelet Count January 447 K/mm3 142-424 [facility], [address] [place] [address] 36 [address] 2018 [place] [address] 6:40am Mean Platelet Sabino 8.0 fl 7.4-10.4 [facility], [address] [place] [address] 36 E Volume 2018 [place] [address] 6:40am Neutrophils (%) January 92.7 % 37.0-80.0 [facility], [address] [place] [address] 36 E (Auto) 2018 [place] [address] 6:40am Lymphocytes (%) January 3.3 % 10-50 [facility], [address] [place] [address] 36 E (Auto) 2018 [place] [address] 6:40am Monocytes (%) Sabino 2.6 % 1.7-9.3 [facility], [address] [place] [address] 36 E (Auto) 2018 Jack CANTU 39347 6:40am Eosinophils (%) Sabino 1.3 % 0.1-12.0 [facility], [address] [place] [address] 36 E (Auto) 2018 Jack CANTU 28134 6:40am Basophils (%) Sabino 0.1 % 0.1-2.0 [facility], [address] [place] [address] 36 E (Auto) 2018 Jack CANT[place] 09064 6:40am Neutrophils # Sabino 22.9 1.8-7.8 [facility], [address] [place] [address] E (Auto) 2018 K/mm3 Jack CANTU 6:40am Lymphocytes # Sabino 0.8 K/mm3 0.7-4.5 [facility], [address] [place] [address] E (Auto) 2018 Jack CANT[place] 09511 6:40am Monocytes # Sabino 0.6 K/mm3 0.1-1.0 [facility], [address] [place] [address] 36 E (Auto) 2018 Jack [place] 09080 6:40am Eosinophils # Sabino 0.3 K/mm3 0.0-0.4 [facility], [address] [place] [address] E (Auto) 2018 Jack CANTU 01792 6:40am Basophils # Sabino 0.0 K/mm3 0-0.2 [facility], [address] [place] [address] E (Auto) 2018 Jack CANTU 88630 6:40am Differential January 100 [facility], [address] [place] [address] 36 E Total Cells 2018 Maria Rtalita CANTU 37171 Counted 6:40am Neutrophils % January 93 % 42-76 [facility], [address] [place] [address] 36 E (Manual) 2018 Jack CANTU 43552 6:40am Lymphocytes % Sabino 4 % 10-50 [facility], [address] [place] [address] 36 E (Manual) 2018 Jack CANTU 75832 6:40am Monocytes % Sabino 3 % 2-9 [facility], [address] [place] [address] E (Manual) 2018 [place] [address] 6:40am Basophils % Sabino 2.0 0-1 [facility], [address] [place] [address] 36 E (Manual) 2018 Jack CANTU 98484 12:48pm Nucleated Red January 09 [facility], [address] [place] [address] 36 E Blood Cells 2018 Shayan No 6:40am Platelet Estimate Sabino Normal Ferrer [facility], [address] [place] [address] 36 E 2018 Jack CANT[place] 18045 6:40am Hypochromasia January 1+ [facility], [address] [place] [address] 36 E 2018 Jack C[place] 88182 6:40am Erythrocyte January 46 mm/hr 0-30 [facility], [address] [place] [address] 36 E Sedimentation 2018 Billie CANTU 82742 Rate 12:48pm Urine Color January Yellow Yellow [facility], [address] [place] [address] 36 E 2018 Jack Watters31 4:59pm Urine Appearance January Sl cloudy Clear [facility], [address] [place] [address] 36 E 2018 Jack CANTU 15284 4:59pm Urine pH January 5.0 5.0-8.5 [facility], [address] [place] [address] 36 E 2018 Jack CANT[place] 01110 4:59pm Urine Specific Sabino >= 1.030 1.005-1.03 [facility], [address] [place] [address] 36 E [place] 2018 0 Jack CANTU 51478 4:59pm Urine Protein Sabino Trace Negative [facility], [address] [place] [address] 36 E 2018 Jack CANT[place] 98704 4:59pm Urine Glucose Sabino Negative Negative [facility], [address] [place] [address] 36 E (UA) 2018 Jack CANTU 93718 4:59pm Urine Ketones Sabino Negative Negative [facility], [address] [place] [address] 36 E 2018 Jack CANT[place] 79801 4:59pm Urine Blood Sabino 1+ Negative [facility], [address] [place] [address] 36 E 2018 Jack C[place] 99034 4:59pm Urine Nitrate Sabino Negative Negative [facility], [address] [place] [address] 36 E 2018 Jack CANT[place] 41301 4:59pm Urine Bilirubin Sabino Negative Negative [facility], [address] [place] [address] 36 E 2018 Jack CANT[place] 49170 4:59pm Urine Sabino 0.2 EU/dl [facility], [address] [place] [address] 36 E Urobilinogen 2018 Brit CANTU 87537 4:59pm Urine Leukocyte January Trace Negative [facility], [address] [place] [address] 36 E Esterase 2018 Jack CANTU 71770 4:59pm Urine RBC January 13-10 # [facility], [address] [place] [address] 36 E 2018 /hpf Jack CANTU 26028 4:59pm Urine WBC January 28- [facility], [address] [place] [address] E 2018 #/hpf Jack CANTU 00172 4:59pm Urine Bacteria January 4+ /lpf None [facility], [address] [place] [address] 36 E 2018 Jack CANTU 90182 4:59pm Troponin I January < 0.02 0.00-0.06 *ALERT* [facility], [address] [place] [address] E 2018 ng/ml levels of Jack No 7:15pm Biotin can falsely depress Troponin results.Many dietary supplements promoted for hair,skin, and nail benefits contain biotin levels up to 650 times the recommended daily intake of biotin. In additon to dietary supplements, Biotin is occasionally prescribed for medical conditions. Sodium Level January 134 136-145 [facility], [address] [place] [address] 36 E 2018 mmol/L Jack CANTU 22953 6:40am Potassium Level January 4.5 3.5-5.1 MAY BE [address] 36 E 2018 mmoL/L FALSELY Jack CANTU 85189 6:40am ELEVATED DUE TO HEMOLYSIS Chloride Level January 99 mmol/L 98-107 [facility], [address] [place] [address] 36 E 2018 Jack CANTU 16503 6:40am Carbon Dioxide January 21 mmol/L 21.0-32.0 Delta: 17 on Ferrer [facility], [address] [place] [address] 36 E Level 201801/16/19-1340 Billie CANTU 22015 6:40am Anion Gap January 18.5 5-15 [facility], [address] [place] [address] 36 E 2018 mEq/L Jack CANTU 36846 6:40am Blood Urea January 33 mg/dL 7-18 [facility], [address] [place] [address] 36 E Nitrogen 2018 Jack CANTU 52845 6:40am Creatinine January 1.61 0.55-1.02 [facility], [address] [place] [address] 36 E 2018 mg/dL Jack CANTU 18281 6:40am Estimated January 51 mL/min 0-300 [facility], [address] [place] [address] 36 E Creatinine 2018 Jack CANTU 04855 Clearance 6:40am Estimated GFR January 39 ML/MIN >59 Delta: 31 on [facility], [address] [place] [address] 36 E ( 201801/16/19-1340 Billie CANTU 28567 Russian) 6:40am Estimat January 32 ml/min >59 [facility], [address] [place] [address] 36 E Glomerular 2018 Jack CANTU 10208 Filtration Rate 6:40am Glucose Level January 159 mg/dL 74-106 [facility], [address] [place] [address] 36 E 2018 Jack CANTU 14298 6:40am Bedside Glucose January 162 70-110 Poin t-of-Ca 2018 re (RALS) 11:37am Lactate January 1.1 0.4-2.0 [facility], [address] [place] [address] 36 E 2018 mmol/L Jack CANTU 33041 12:48pm Calcium Level January 8.6 mg/dL 8.5-10.1 [facility], [address] [place] [address] 36 E 2018 Jack CANTU 76576 6:40am Total Bilirubin January 0.3 mg/dL 0.2-1.0 [facility], [address] [place] [address] 36 E 2018 Jack CANTU 17852 1:40pm Aspartate Amino Sabino 20 U/L 15-37 [facility], [address] [place] [address] 36 E Transf (AST/SGOT) 2018 Darnell álvarez [place] [address] 1:40pm Alanine January 10 U/L [facility], [address] [place] [address] 36 E Aminotransferase 2018 Maria R syed CANTU 19293 (ALT/SGPT) 1:40pm C-Reactive Sabino < 0.2 0.0-0.9 [facility], [facility] [address] Protein 2018 mg/[place] [address] 1:40pm Total Protein January 9.3 gm/dL 6.4-8.2 [facility] [address] [place] [address] 1:40pm Albumin January 2.3 gm/dL 3.4-5.0 [facility], [address] [place] [address] 36 E 2018 [place] [address] 1:40pm Globulin January 7.0 gm/dl 1.3-3.2 [facility], [address] [place] [address] 36 E 2018 [place] [address] 1:40pm Albumin/Globulin January 0.3 1.1-1.8 [facility], [address] [place] [address] 36 E Ratio 2018 [place] [address] 1:40pm Alkaline January 114 U/L 46-116 [facility], [address] [place] [address] 36 E Phosphatase 2018 [place] [address] 1:40pm Random Tobramycin January 6.2 ug/ml [facility], [address] [place] [address] 36 E Level 2018 [place] [address] 6:40am Microbiology Results Procedure Source Result Collection Result Result Performin g Date/Time Date/Time Comment Site Gram Stain Foot,Right January 16, January 16, [facility], [address] [place], [place] [address]way 36 E 2018 12:41pm 2018 3:22pm [place] [address] Diagnostic Imaging Reports Report Dictated Date/Time Dictated By Status Radiology Report January 16, 2019 Bertin Muniz MD completed 1:54pm [address] [place] [address] [address] Scan Report Sig rajeev Patient: Radha Wood MR#: [id number] : 1950 Acct:[id number] Age/Sex: 68 / F ADM Date: 9 Loc: ER Attending Dr: Ordering Physician: Suma Urbina MD Date of Service: 01/16/19 Procedure(s): CT head/brain wo con Accession Number(s): [id number] cc: Bertin Muinz MD; Suma Urbina MD; Yann Turner MD~ PROCEDURE: CT HEAD/BRAIN WO CON CLINICAL INDICATION: fall Headache, injury with pain, blunt traum a with contusion or hematoma COMPARISON: HEADWO CT head/brain wo co n from 06/07/2018 TECHNIQUE: Axial images obtained. All CT scans at the facility use one or more dose reduction, viz: automa janel exposure control, ma/kV adjustment per patient size (including targeted exams where dose is matched to indication, i.e. head), or i terative reconstruction technique. FINDINGS: No midline shift, mass effect, intracra nial hemorrhage, hydrocephalus, or extra-axial fluid col lection is evident. Patient's head is tilted in the CT gantry. There is generalized atrophy with hypoattenuation of the periventricular white matter consistent with microangiopathic changes. The calvariu m has an unremarkable appearance. There is opacification of t he right mastoid sinus and partial opacification of the left masto id sinus. No sinus air-fluid level. IMPRESSION: No acute intracranial findings. Bilateral mastoid sinus disease Dictated by: Bertin Muniz MD 01/16/2019 14:39 Electronically signed by Bertin Muniz in OV 01/16/2019 14:39 Radiology Report January 16, 2019 Bertin Muniz MD completed 2:01pm [place] [address] [facility] [address] [place] [address] [address] Scan Report Sig rajeev Patient: Radha Wood MR#: [id number] : 1950 Acct:[id number] Age/Sex: 68 / F ADM Date: 9 Loc: ER Attending Dr: Ordering Physician: Suma Urbina MD Date of Service: 01/16/19 Procedure(s): CT cervical spine wo con Accession Number(s): [id number] cc: Bertin Muniz MD; Suma Urbina MD; Yann Turner MD~ PROCEDURE: CT CERVICAL SPINE WO CON CLINICAL INDICATION: fall Neck pain following injury, patient's h ead is contracted toward the right COMPARISON: SPCERVWO CT cervical spine wo con from 06/07/2018 TECHNIQUE: Axial images obtained with sagittal and coronal reformats. All CT scans at the facility use one or more d ose reduction, viz: automated exposure control, ma/kV adjustment per patient size (including targeted exams where dose is matched to indication, i.e. head), or iterative reconstruction technique. Axial spiral CT scanning performed of t he cervical spine beginning at the base of the skull and continuing to the upper T-spine. 3-D multiplanar reconstruction with 3-D man ipulation of volumetric data set in image rendering was completed by the radiologist and/or technologist with the supervision of rené radiologist on independent workstation. FINDINGS: Patient's head is contracted toward the right. There is normal alignment. No acute fracture or disloc ation. No lytic or blastic change. There are degenerative changes with facet and uncovertebral arthropathy. Lung apices are clear. S evere degenerative changes are present involving the right sternoclavi cular joint with bony hypertrophy IMPRESSION: Degenerative change, no acute fracture Dictated by: Bertin Muniz MD 01/16/2019 14:42 Electronically signed by Bertin Muniz in OV 01/16/2019 14:42 Radiology Report January 16, 2019 Bertin Muniz MD completed 2:07pm [facility] [address] [facility] [address] [place] [address] [address] Scan Report Sig rajeev Patient: Radha Wood MR#: [id number] : 1950 Acct:[id number] Age/Sex: 68 / F ADM Date: 9 Loc: [address] [place] [address]: Yann Hargrove MD Ordering Physician: Suma Urbina MD Date of Service: 01/16/19 Procedure(s): CT lumbar spine wo con Accession Number(s): [id number] cc: Bertin Muniz MD; Suma Urbina MD; Yann Turner MD~ PROCEDURE: CT LUMBAR SPINE WO CON CLINICAL HISTORY: fall Back pain following injury, fall with i njury and pain the COMPARISON: ABDPELWO CT abdomen pelvis wo con from 09/26/2017 TECHNIQUE: Axial images obtained with sagittal and coronal reformats. All CT scans at the facility use one or more d ose reduction, viz: automated exposure control, ma/kV adjustment per patient size (including targeted exams where dose is matched to indication, i.e. head), or iterative reconstruction technique. FINDINGS: There is diffuse osteopenia. No malali gnment. There is lumbar scoliosis convex left. No acute fractu re evident. There is multilevel degenerative changes with de generative disc disease T11-T12, mild chronic wedging of L1, de generative disc disease L1-L2, degenerative disc disease L2-L3 . There is a defect along the inferior en dplate of L1 on the right which may represent a prominent Schmorl 's node. This is somewhat more prominent than when compared to th e previous exam with discontinuity of the bone anteriorly. A slow growing lytic lesion is an additional consideration. A nonemer gent MRI of the lumbar spine without and with contrast may be of fur ther value. Degenerative disc disease L3-L4 with bi lateral lateral recess and foraminal narrowing from facet and liga mentum hypertrophy. Degenerative disc disease L4-5 with sev ere canal stenosis and severe bilateral lateral recess and foraminal narrowing. There is bulging disc with facet and ligamentum hypertro phy. L5-S1: Degenerate disc disease with end plate osteophytes and facet and ligamentum hypertrophy with severe bilateral foraminal narrowing and moderate to severe left lateral rec ess narrowing from disc osteophyte complex There is a moderate amount of retained colonic feces. There is an IVC filter present. There are multiple right renal calculi. The largest stone is in the mid aspect of t he right renal pelvis and measures 2 cm. IMPRESSION: 1. No acute fracture. 2. Severe lumbar spondylosis with canal stenosis lateral recess and foraminal narrowing. Please see above for detailed description at each level. 3. There an endplate lucency involving L2 anteriorly on the right and may be due to a Schmorl's node somewhat more prominent compared to the previous exam 4. Right nephrolithiasis. 5. Constipation Dictated by: Bertin Muniz MD 01/16/2019 14:50 Electronically signed by Bertin Muniz in [place] 01/16/2019 14:50 Radiology Report January 16, 2019 Bertin Muniz MD completed 2:37pm [facility] [address] [place] [facility] [address] [place] [address] XRay R eport Sig rajeev Patient: Radha Wood MR#: [id number] : 1950 Acct:[id number] Age/Sex: 68 / F ADM Date: 9 Loc: Attending Dr: Yann Hargrove MD Ordering Physician: Suma Urbina MD Date of Service: 01/16/19 Procedure(s): XR knee LT 3V Accession Number(s): [id number] cc: Bertin Muniz MD; Yann Hargrove MD~ PROCEDURE: XR KNEE LT 3V CLINICAL INDICATION: hx of fall last n ight Posttraumatic pain COMPARISON: No exams were available fo r comparison FINDINGS: No fracture or dislocation. No lytic or blastic change. There is normal mineralization. Diffuse osteopenia with tricompartmenta l osteoarthritic change Other findings:None. IMPRESSION: No acute fracture, arthritic change Dictated by: Bertin Muniz MD 01/16/2019 14:51 Electronically signed by Bertin Muniz in [place] 01/16/2019 14:51 Radiology Report January 16, 2019 Bertin Muniz MD completed 2:36pm [place] [address] [place] [facility] [address] [place] [place] [address] XRay R eport Sig rajeev Patient: Radha Wood MR#: [id number] : 1950 Acct:[id number] Age/Sex: 68 / F ADM Date: 9 Loc: Attending Dr: Yann Hargrove MD Ordering Physician: Suma Urbina MD Date of Service: 01/16/19 Procedure(s): XR tibia fibula RT 2V Accession Number(s): [id number] cc: Bertin Muniz MD; Yann Hargrove MD~ PROCEDURE: XR TIBIA FIBULA RT 2V CLINICAL INDICATION: cellulitis/infect ion Pain and swelling COMPARISON: No exams were available fo r comparison FINDINGS: Diffuse osteopenia. Soft tissue swelli ng noted. No fracture or dislocation. No focal lytic lesion. T here are osteoarthritic changes of the knee IMPRESSION: Osteoarthritis with diffuse osteopenia and soft tissue swelling Dictated by: Bertin Muniz MD 01/16/2019 14:52 Electronically signed by Bertin Muniz in [place] 01/16/2019 14:52 Radiology Report January 16, 2019 Bertin Muniz MD completed 2:37pm [facility] [address] [place] [address] XRay R eport Sig rajeev Patient: Radha Wood MR#: [id number] : 1950 Acct:[id number] Age/Sex: 68 / F ADM Date: 9 Loc: Attending Dr: Yann Hargrove MD Ordering Physician: Suma Urbina MD Date of Service: 01/16/19 Procedure(s): XR pelvis 1-2V Accession Number(s): [id number] cc: Bertin Muniz MD; Yann Hargrove MD~ PROCEDURE: XR PELVIS 1-2V CLINICAL INDICATION: fall Posttraumatic pain, contusion, trauma p rotocol COMPARISON: No exams were available fo r comparison TECHNIQUE: XR Pelvis AP View FINDINGS: There is diffuse osteopenia with severe osteoarthritis of the right hip. No obvious fracture or dislocatio n IMPRESSION: Osteopenia with osteoarthritis of the r ight hip Dictated by: Bertin Muniz MD 01/16/2019 14:53 Electronically signed by Bertin Muniz in [place] 01/16/2019 14:53 Radiology Report January 16, 2019 Bertin Muniz MD completed 2:37pm [address] [place] [address] XRay R eport Sig rajeev Patient: Radha Wood MR#: [id number] : 1950 Acct:[id number] Age/Sex: 68 / F ADM Date: 9 Loc: Attending Dr: Yann Hargrove MD Ordering Physician: Suma Urbina MD Date of Service: 01/16/19 Procedure(s): XR chest AP Accession Number(s): [id number] cc: Bertin Muniz MD; Yann Hargrove MD~ PROCEDURE: XR CHEST AP CLINICAL HISTORY: fall Posttraumatic pain COMPARISON: CXR1 CHEST-PORTABLE from 02/24/2014 CXR1VP XR chest portable from 8 FINDINGS: Patient is tilted toward the right. Mild cardiomegaly without failure. Deyanira gs are clear No acute bony abnormalities. IMPRESSION: No acute findings. Dictated by: Bertin Muniz MD 01/16/2019 14:54 Electronically signed by Bertin Muniz in [place] 01/16/2019 14:54 Advance Directives Advance Directive Response Recorded Date/Time Living Will No January 16, 2019 2 :52pm Chief Complaint and Reason for Visit Chief Complaint Right lower leg cellulitis Reason for Visit Acute kidney injury Cellulitis of anterior lower leg Cellulitis of right lower le g Chronic cutaneous venous sta sis ulcer Infection of wound due to me thicillin resistant Staphylococcus aureus (MRSA) Leukocytosis Lymphedema Nausea & vomiting Open wound of lower limb Encounters Encounter Location(s) Arrival/Admit Date Discharge/Depart Date Provider(s) Admitted [facility] Physician January 16, 2019 [facility]-Second 8:00pm Floor Registered [facility] Physician January 17, 2019 [facility]- 3:17pm MD Trena Recent Diagnosis Onset Date Acute kidney injury Cellulitis of anterior lower leg Cellulitis of right lower leg Chronic cutaneous venous stasis ulcer Infection of wound due to methicillin resistant Staphylococcus aureus (MRSA) Leukocytosis Lymphedema Nausea & vomiting Open wound of lower limb Assessments Diagnosis Onset Date Resolution Status Acute kidney injury acute Cellulitis of anterior acute lower leg Cellulitis of right lower acute leg Chronic cutaneous venous acute stasis ulcer Infection of wound due to acute methicillin resistant Staphylococcus aureus (MRSA) Leukocytosis acute Lymphedema acute Nausea & vomiting acute Open wound of lower limb acute Functional Status Observation Response Date Recorded Oral Care Ability Independent January 16, 2019 2 :52pm Bathing Ability Total Dependance January 17, 2019 8 :00am Eating (Feeding) Ability Independent January 16 019 2:52pm Toileting Ability Assistance X2 January 16, 2019 2 :52pm Ambulation Ability Total Dependance January 16, 2019 2 :52pm Goals Goals may be documented in an alternate section. Mental Status Observation Response Date Recorded Comprehension Ability No Impairment January 16, 2019 9:00pm Able to Read Yes January 16, 2019 2 :52pm Able to Write Yes January 16, 2019 2 :52pm Ability to Follow Directions Good January 2:52pm Eye Contact Maintains Eye Contact January 16, 2019 2:52pm Oral Expression Ability No Impairment January 16 2:52pm Medical Equipment No Medical Equipment Information available Insurance Providers Guarantor Radha Kim [place] Address [address] [place], [place] [id number] Contact Info. Home Phone: Payer Policy Id Coverage Id Subscriber's Subscriber Id Effective E xpiration Name Date Date Luistbertha CHADWICK [id number] Marcus [id number] Healthcare 5 Matteo Spivey [id number] Marcus [id number] Card Program [id number] [employer] Medicare [id number] Radha Kim [id number] 62 [place] Self Pay Self N/A Plan of Treatment Future Tests Future scheduled test information is unavailable Pending Tests Pending diagnostic test information is unavailable Future Visits Future appointment information is unavailable Referrals to Other Providers Reason for Referral Start Provider Provider Contact Provider Address Referral Date Information Admission to [facility] January [address] [place] [address] Future Procedures Future procedure information is unavailable Future Medications Future medication information is unavailable Patient Instructions Methicillin-Resistant Staph Infection Social History Observation Status Date of Observation Not January 16, 2019 Assigned Sex Female Vital Signs Vital Reading Result Reference Range Collection Date/ Time Height 160.02 cm January 17 6:56am Weight 95.39 kg January 17 6:56am Body Temperature 97.5 [degF] 97.6-99.6 January 17, 2 019 12:00pm Heart Rate 89 /min 60-90 January 17 12:00pm Respiratory rate 17 /min 12-January 17, 2 019 12:00pm Oxygen saturation by 96 % 95-100 January Pulse oximetry 12:00pm BP Systolic 133 mm[Hg] 110-140 January 17 12:00pm BP Diastolic 69 mm[Hg] 60-90 January 17 12:00pm BMI (Body Mass Index) 37.2 kg/m2 January 172018 6:56am
[2019-01-18 06:29] LABS: Basophils % 0.1 % (0.1-2.0); Eosinophils # 0.3 K/mm3 (0.0-0.4); Eosinophils % 1.4 % (0.1-12.0); Hematocrit 31.6 % (37.0-47.0); Hemoglobin 9.7 g/dL (12.2-16.2); Mean Corpuscular HGB Conc 30.7 g/dL (31.8-35.4); Mean Corpuscular Volume 88.7 fl (81-99); Mean Platelet Volume 7.9 fl (7.4-10.4); Monocytes # 0.9 K/mm3 (0.1-1.0); Monocytes % 4.4 % (1.7-9.3); Neutrophils # 17.3 K/mm3 (1.8-7.8); Neutrophils % 89.2 % (37.0-80.0); Platelet Count 483 K/mm3 (142-424); Red Blood Count 3.56 M/mm3 (4.20-5.40); Red Cell Distribution Width 14.7 % (11.5-17.5); White Blood Count 19.4 K/mm3 (4.8-10.8)
[2019-01-18 06:36] LABS: Anion Gap 12.8 mEq/L (5-15); Calcium 8.2 mg/dL (8.5-10.1)
--- NOTE | 2019-01-18 07:13 | Progress Note ---
Internal Medicine - PN: Subj *Date: 01/18/19 *Time: 07:12 Interval history: Patient complains of nausea. She continues to have episodes of vomiting. She also continues to have discomfort originating from the right leg. Exam Vital signs and Labs for Last 24 Hours: Temp Pulse Resp BP Pulse Ox 98.4 F 75 18 140/64 97 01/18/19 04:00 01/18/19 04:00 01/18/19 04:00 01/18/19 04:00 01/18/19 04:00 Laboratory Results - last 24 hr 01/17/19 06:40: Total Counted 100, Neutrophils % (Manual) 93 H, Lymphocytes % (Manual) 4 L, Monocytes % (Manual) 3, Nucleated RBCs 1, Platelet Estimate Normal, Hypochromasia 1+ 01/17/19 06:40: Sodium 134 L, Potassium 4.5, Chloride 99, Carbon Dioxide 21 D, Anion Gap 18.5 H, BUN 33 H, Creatinine 1.61 H, Estimated Creat Clear 51, Estimated GFR 32 L, Est GFR ( Amer) 39 L D, Glucose 159 H, Calcium 8.6, Random Tobramycin 6.2 01/17/19 11:37: POC Glucose 162 H 01/17/19 17:19: POC Glucose 122 H 01/17/19 20:37: POC Glucose 129 H 01/18/19 06:05: WBC 19.4 H, RBC 3.56 L, Hgb 9.7 L, Hct 31.6 L, MCV 88.7, MCH 27.2, MCHC 30.7 L, RDW 14.7, Plt Count 483 H, MPV 7.9, Neut % (Auto) 89.2 H, Lymph % (Auto) 5.0 L, [place] % (Auto) 4.4, Eos % (Auto) 1.4, Baso % (Auto) 0.1, Neut # (Auto) 17.3 H, Lymph # (Auto) 1.0, [place] # (Auto) 0.9, Eos # (Auto) 0.3, Baso # (Auto) 0.0 01/18/19 06:05: Sodium 135 L, Potassium 3.8, Chloride 101, Carbon Dioxide 25, Anion Gap 12.8, BUN 29 H, Creatinine 1.36 H, Estimated Creat Clear 60, Estimated GFR 39 L, Est GFR ( Amer) 47 L D, Glucose 116 H D, Calcium 8.2 L I & O for Last 24 hours: Intake & Output 01/15/19 01/16/19 01/17/19 01/18/19 11:59 11:59 11:59 11:59 Intake Total 390 / 390 2409 / 2409 Output Total 2075 / 2075 1250 / 1250 Balance -1685 / -1685 1159 / 1159 Weight 210 lb 5 oz 210 lb 4.995 oz Microbiology Reports for the Last 24 Hours: Microbiology 01/16/19 12:41 Foot,Right Gram Stain - Final 01/16/19 12:41 Foot,Right Wound Culture - Preliminary Gram Negative Rods 01/16/19 12:41 Foot,Left Gram Stain - Final 01/16/19 12:41 Foot,Left Wound Culture - Preliminary 01/16/19 16:59 Urine,Catheterized Urine Culture - Preliminary Narrative: Patient looks mildly ill. Lungs are clear. Heart has a regular rate and rhythm. Abdomen is diffusely tender without rebound or guarding. Bowel sounds are present. The right lower extremity is bandaged. Assessment and Plan (1) Cellulitis of right lower leg Current visit: Yes Status: Acute Category: Medical Code(s): L03.115 - Cellulitis of right lower limb (2) Nausea & vomiting Current visit: Yes Status: Acute Category: Medical Code(s): R11.2 - Nausea with vomiting, unspecified (3) Chronic cutaneous venous stasis ulcer Current visit: Yes Status: Acute Category: Medical Code(s): I83.009 - Varicose veins of unspecified lower extremity with ulcer of unspecified site; L97.909 - Non-pressure chronic ulcer of unspecified part of unspecified lower leg with unspecified severity (4) Lymphedema Current visit: Yes Status: Acute Category: Medical Code(s): I89.0 - Lymphedema, not elsewhere classified (5) Acute kidney injury Current visit: Yes Status: Acute Category: Medical Code(s): N17.9 - Acute kidney failure, unspecified - Assessment and plan all Dx Assessment and Plan for all problems:: 1. Continue broad-spectrum antibiotics. White blood cell count has decreased 2. Continue dressings to right lower extremity 3. Changed to liquid diet
[2019-01-18 07:38] LABS: Eosinophils % 1 % (0-3); Lymphocytes % 6 % (10-50); Monocytes % 6 % (2-9); Neutrophils % 87 % (42-76); Total Cells Counted 100
[2019-01-18 07:40] LABS: Hypochromasia 1+
--- NOTE | 2019-01-18 14:01 | Pharmacy Consult Notes ---
- Pharmacy Consult Date: 01/18/19 Time: 13:57 Referring provider: DR. VASQUEZ Reason for Consult:: PATIENT'S TOBRAMYCIN TROUGH LEVEL WAS 0.8 MCG/ML. SENSITIVITIES FOR WOUND CULTURES WITH SERRATIA MARCESANS INSENSITIVE TO TOBRAMYCIN AND SENSITIVE TO GENTAMICIN. MD SWITCHING TO GENTAMICIN. Allergies and ADEs:: Allergies Allergy/AdvReac Type Severity Reaction Status Date / Time vancomycin Allergy Severe red man Verified 06/07/18 01:41 syndrome ceftriaxone Allergy Mild Rash Verified 06/07/18 01:41 amoxicillin Allergy Unknown UNKNOWN Verified 01/18/19 07:33 atropine Allergy Unknown UNKNOWN Verified 01/18/19 07:33 aztreonam Allergy Unknown UNKNOWN Verified 01/18/19 07:33 ciprofloxacin Allergy Unknown UNKNOWN Verified 01/18/19 07:33 clindamycin Allergy Unknown UNKNOWN Verified 01/18/19 07:33 levofloxacin Allergy Unknown UNKNOWN Verified 01/18/19 07:33 morphine Allergy Unknown UNKNOWN Verified 01/18/19 07:33 nabumetone Allergy Unknown UNKNOWN Verified 01/18/19 07:33 oxytetracycline Allergy Unknown UNKNOWN Verified 01/18/19 07:33 Penicillins Allergy Unknown UNKNOWN Verified 01/18/19 07:33 polymyxin B Allergy Unknown UNKNOWN Verified 01/18/19 07:33 Sulfa (Sulfonamide Allergy Unknown UNKNOWN Verified 01/18/19 07:33 Antibiotics) tramadol Allergy Unknown UNKNOWN Verified 01/18/19 07:33 Home Medications:: Home Medications Medication Instructions Recorded Confirmed Type Gabapentin [Gabapentin 300mg Cap] 300 mg PO DAILY 08/24/17 01/17/19 History Gabapentin [Gabapentin 300mg Cap] 600 mg PO HS 08/24/17 01/17/19 History Aspirin [Aspirin 81mg EC Tab] 81 mg PO DAILY 08/25/17 01/17/19 History Hydrocodone/Acetaminophen 1 tab PO Q6HP PRN 11/29/17 01/17/19 History [Hydrocodone-Acetamin 10-325 mg] Pantoprazole Sodium [Protonix 40mg 40 mg PO DAILY 11/29/17 01/17/19 History tablet] Ferrous Sulfate [Ferrous Sulfate 325 mg PO DAILY 01/16/19 01/16/19 History 325mg Tablet] Furosemide [Furosemide 20mg Tab] 20 mg PO DAILY 01/16/19 01/16/19 History Metformin HCl 500 mg PO TID 01/16/19 01/16/19 History raNITIdine HCl [Ranitidine HCl] 150 mg PO DAILY 01/16/19 01/16/19 History Docusate Sodium 100 mg PO DAILYP PRN 01/17/19 01/17/19 History Fexofenadine HCl [Lexus 180 mg PO DAILY 01/17/19 01/17/19 History Allergy] Levothyroxine Sodium 125 mcg PO DAILY 01/17/19 01/17/19 History [Levothyroxine 125mcg (0.125mg) Tab] Spironolactone 50 mg PO DAILY 01/17/19 01/17/19 History glipiZIDE [Glucotrol 5mg tablet] 5 mg PO DAILY 01/17/19 01/17/19 History Height: 1.6 m Weight: 95.396 kg Laboratory Results:: Laboratory Results - last 24 hr 01/17/19 17:19: POC Glucose 122 H 01/17/19 20:37: POC Glucose 129 H 01/18/19 06:05: WBC 19.4 H, RBC 3.56 L, Hgb 9.7 L, Hct 31.6 L, MCV 88.7, MCH 27.2, MCHC 30.7 L, RDW 14.7, Plt Count 483 H, MPV 7.9, Neut % (Auto) 89.2 H, Lymph % (Auto) 5.0 L, [place] % (Auto) 4.4, Eos % (Auto) 1.4, Baso % (Auto) 0.1, Neut # (Auto) 17.3 H, Lymph # (Auto) 1.0, [place] # (Auto) 0.9, Eos # (Auto) 0.3, Baso # (Auto) 0.0, Total Counted 100, Neutrophils % (Manual) 87 H, Lymphocytes % (Manual) 6 L, Monocytes % (Manual) 6, Eosinophils % (Manual) 1, Platelet Estimate Slight increase, Hypochromasia 1+ 01/18/19 06:05: Sodium 135 L, Potassium 3.8, Chloride 101, Carbon Dioxide 25, Anion Gap 12.8, BUN 29 H, Creatinine 1.36 H, Estimated Creat Clear 60, Estimated GFR 39 L, Est GFR ( Amer) 47 L D, Glucose 116 H D, Calcium 8.2 L 01/18/19 10:27: Tobramycin Trough 0.8 01/18/19 11:56: POC Glucose 105 Medical History: Reports:: Congestive Heart Failure, Hypertension Denies:: Cancer, Diabetes Mellitus Type 1, Diabetes Mellitus Type 2, Internal Pacemaker, MRSA, Seizures Assessment and Plan (1) Cellulitis of right lower leg Current visit: Yes Status: Acute Category: Medical Code(s): L03.115 - Cellulitis of right lower limb (2) Nausea & vomiting Current visit: Yes Status: Acute Category: Medical Code(s): R11.2 - Nausea with vomiting, unspecified (3) Chronic cutaneous venous stasis ulcer Current visit: Yes Status: Acute Category: Medical Code(s): I83.009 - Varicose veins of unspecified lower extremity with ulcer of unspecified site; L97.909 - Non-pressure chronic ulcer of unspecified part of unspecified lower leg with unspecified severity (4) Lymphedema Current visit: Yes Status: Acute Category: Medical Code(s): I89.0 - Lymphedema, not elsewhere classified (5) Acute kidney injury Current visit: Yes Status: Acute Category: Medical Code(s): N17.9 - Acute kidney failure, unspecified
[2019-01-19 06:25] LABS: Basophils % 0.1 % (0.1-2.0); Eosinophils # 0.2 K/mm3 (0.0-0.4); Eosinophils % 1.7 % (0.1-12.0); Hematocrit 31.5 % (37.0-47.0); Hemoglobin 9.3 g/dL (12.2-16.2); Lymphocytes # 1.5 K/mm3 (0.7-4.5); Mean Corpuscular HGB Conc 29.5 g/dL (31.8-35.4); Mean Corpuscular Volume 90.4 fl (81-99); Mean Platelet Volume 7.9 fl (7.4-10.4); Monocytes # 0.7 K/mm3 (0.1-1.0); Monocytes % 5.9 % (1.7-9.3); Neutrophils # 9.9 K/mm3 (1.8-7.8); Neutrophils % 80.2 % (37.0-80.0); Platelet Count 426 K/mm3 (142-424); Red Blood Count 3.48 M/mm3 (4.20-5.40); Red Cell Distribution Width 14.7 % (11.5-17.5); White Blood Count 12.4 K/mm3 (4.8-10.8)
[2019-01-19 06:48] LABS: Anion Gap 11.2 mEq/L (5-15); Calcium 7.8 mg/dL (8.5-10.1)
--- NOTE | 2019-01-19 07:41 | Progress Note ---
Internal Medicine - PN: Subj *Date: 01/19/19 *Time: 07:38 Interval history: Patient is feeling slightly better in regards to her nausea with her last episode of vomiting being yesterday afternoon. She feels like there may be some improvement in the right leg pain. Wound culture has grown Serratia. Antibiotic adjustments were made yesterday with the assistance of the pharmacy. Patient does request something to assist with bowel movement Exam Vital signs and Labs for Last 24 Hours: Temp Pulse Resp BP Pulse Ox 98.1 F 70 17 135/55 L 100 01/19/19 04:00 01/19/19 04:00 01/19/19 04:00 01/19/19 04:00 01/19/19 04:00 Laboratory Results - last 24 hr 01/18/19 06:05: Total Counted 100, Neutrophils % (Manual) 87 H, Lymphocytes % (Manual) 6 L, Monocytes % (Manual) 6, Eosinophils % (Manual) 1, Platelet Estimate Slight increase, Hypochromasia 1+ 01/18/19 10:27: Tobramycin Trough 0.8 01/18/19 11:56: POC Glucose 105 01/18/19 17:29: POC Glucose 86 01/18/19 20:56: POC Glucose 91 01/19/19 05:54: WBC 12.4 H D, RBC 3.48 L, Hgb 9.3 L, Hct 31.5 L, MCV 90.4, MCH 26.7 L, MCHC 29.5 L, RDW 14.7, Plt Count 426 H, MPV 7.9, Neut % (Auto) 80.2 H, Lymph % (Auto) 12.0, [place] % (Auto) 5.9, Eos % (Auto) 1.7, Baso % (Auto) 0.1, Neut # (Auto) 9.9 H, Lymph # (Auto) 1.5, [place] # (Auto) 0.7, Eos # (Auto) 0.2, Baso # (Auto) 0.0 01/19/19 05:54: Sodium 135 L, Potassium 4.2, Chloride 102, Carbon Dioxide 26, Anion Gap 11.2, BUN 23 H, Creatinine 1.23 H, Estimated Creat Clear 67, Estimated GFR 44 L, Est GFR ( Amer) 53 L, Glucose 97, Calcium 7.8 L 01/19/19 05:58: POC Glucose 97 I & O for Last 24 hours: Intake & Output 01/16/19 01/17/19 01/18/19 01/19/19 11:59 11:59 11:59 11:59 Intake Total 390 / 390 2409 / 2409 2010 Output Total 2074 / 2074 1400 / 1400 900 / 900 Balance -1685 / -1685 1009 / 1009 1111 / 1111 Weight 210 lb 5 oz 210 lb 4.995 oz 210 lb 4.995 oz Microbiology Reports for the Last 24 Hours: Microbiology 01/16/19 12:41 Foot,Left Gram Stain - Final 01/16/19 12:41 Foot,Left Wound Culture - Preliminary Pseudomonas mendocina 01/16/19 19:15 Blood Blood Culture - Preliminary NO GROWTH AFTER 48 HOURS 01/16/19 13:40 Blood Blood Culture - Preliminary NO GROWTH AFTER 48 HOURS 01/16/19 12:41 Foot,Right Gram Stain - Final 01/16/19 12:41 Foot,Right Wound Culture - Preliminary Serratia marcescens Gram Positive Cocci 01/16/19 16:59 Urine,Catheterized Urine Culture - Preliminary Narrative: Patient is in no distress this morning and is attempting to eat breakfast. Lungs are clear. Heart has a regular rate and rhythm. Abdomen is obese. There is less tenderness in the foot and toes of the right leg this morning. Bandage is covering the rest of the right lower extremity Assessment and Plan (1) Cellulitis of right lower leg Current visit: Yes Status: Acute Category: Medical Code(s): L03.115 - Cellulitis of right lower limb (2) Nausea & vomiting Current visit: Yes Status: Acute Category: Medical Code(s): R11.2 - Nausea with vomiting, unspecified (3) Chronic cutaneous venous stasis ulcer Current visit: Yes Status: Acute Category: Medical Code(s): I83.009 - Varicose veins of unspecified lower extremity with ulcer of unspecified site; L97.909 - Non-pressure chronic ulcer of unspecified part of unspecified lower leg with unspecified severity (4) Lymphedema Current visit: Yes Status: Acute Category: Medical Code(s): I89.0 - Lymphedema, not elsewhere classified (5) Acute kidney injury Current visit: Yes Status: Acute Category: Medical Code(s): N17.9 - Acute kidney failure, unspecified (6) Acute kidney injury (nontraumatic) Current visit: No Status: Resolved Category: Medical Code(s): N17.9 - Acute kidney failure, unspecified (7) Anemia Current visit: No Status: Chronic Qualifiers: Anemia type: due to chronic kidney disease Chronic kidney disease stage: stage 4 (severe) Qualified Code(s): N18.4 - Chronic kidney disease, stage 4 (severe); D63.1 - Anemia in chronic kidney disease Category: Medical Code(s): D64.9 - Anemia, unspecified (8) CKD (chronic kidney disease) stage 3, GFR 30-59 ml/min Current visit: No Status: Acute Category: Medical Code(s): N18.3 - Chronic kidney disease, stage 3 (moderate) (9) Obesity Current visit: No Status: Acute Qualifiers: Obesity type: due to excess calories Obesity classification: adult class 3 (BMI >= 40) Serious obesity comorbidity presence: with serious comorbidity Body mass index: BMI 40.0-44.9 Qualified Code(s): E66.01 - Morbid (severe) obesity due to excess calories; Z68.41 - Body mass index (BMI) 40.0-44.9, adult Category: Medical Code(s): E66.9 - Obesity, unspecified (10) Serratia marcescens infection Current visit: Yes Status: Acute Category: Medical Code(s): A48.8 - Other specified bacterial diseases (11) Serratia wound infection Current visit: Yes Status: Acute Category: Medical Code(s): A49.8 - Other bacterial infections of unspecified site - Assessment and plan all Dx Assessment and Plan for all problems:: 1. Give patient a fleets enema per her request and start daily stool softeners 2. Continue IV antibiotics and dressing changes 3. Plan for PT eval tomorrow
[2019-01-20 06:13] LABS: Basophils % 0.1 % (0.1-2.0); Eosinophils % 0.1 % (0.1-12.0); Hemoglobin 9.3 g/dL (12.2-16.2); Lymphocytes # 1.4 K/mm3 (0.7-4.5); Lymphocytes % 10.4 % (10-50); Mean Corpuscular Volume 89.6 fl (81-99); Mean Platelet Volume 8.8 fl (7.4-10.4); Monocytes # 0.6 K/mm3 (0.1-1.0); Monocytes % 4.1 % (1.7-9.3); Neutrophils # 11.4 K/mm3 (1.8-7.8); Neutrophils % 85.2 % (37.0-80.0); Platelet Count 461 K/mm3 (142-424); Red Blood Count 3.46 M/mm3 (4.20-5.40); Red Cell Distribution Width 14.4 % (11.5-17.5); White Blood Count 13.4 K/mm3 (4.8-10.8)
[2019-01-20 06:19] LABS: Anion Gap 10.8 mEq/L (5-15); Calcium 7.8 mg/dL (8.5-10.1)
[2019-01-20 07:19] LABS: Hypochromasia 1+; Lymphocytes % 10 % (10-50); Monocytes % 3 % (2-9); Neutrophils % 87 % (42-76); Total Cells Counted 100
--- NOTE | 2019-01-20 07:27 | Progress Note ---
Internal Medicine - PN: Subj *Date: 01/20/19 *Time: 07:26 Interval history: Patient has no new complaints this morning. She continues to experience some nausea although it is decreasing in intensity. She reports one episode of gagging yesterday. Pain in the right lower extremity is improving. Exam Vital signs and Labs for Last 24 Hours: Temp Pulse Resp BP Pulse Ox 97.8 F 61 17 115/41 L 100 01/20/19 04:00 01/20/19 04:00 01/20/19 04:00 01/20/19 04:00 01/20/19 04:00 Laboratory Results - last 24 hr 01/19/19 11:17: POC Glucose 97 01/19/19 16:10: POC Glucose 139 H 01/19/19 20:03: POC Glucose 170 H 01/20/19 00:31: Gentamicin Trough 1.4 01/20/19 05:26: WBC 13.4 H, RBC 3.46 L, Hgb 9.3 L, Hct 31.0 L, MCV 89.6, MCH 26.9 L, MCHC 30.0 L, RDW 14.4, Plt Count 461 H, MPV 8.8, Neut % (Auto) 85.2 H, Lymph % (Auto) 10.4, [place] % (Auto) 4.1, Eos % (Auto) 0.1, Baso % (Auto) 0.1, Neut # (Auto) 11.4 H, Lymph # (Auto) 1.4, [place] # (Auto) 0.6, Eos # (Auto) 0.0, Baso # (Auto) 0.0, Total Counted 100, Neutrophils % (Manual) 87 H, Lymphocytes % (Manual) 10, Monocytes % (Manual) 3, Platelet Estimate Normal, Hypochromasia 1+ 01/20/19 05:26: Sodium 135 L, Potassium 4.8, Chloride 101, Carbon Dioxide 28, Anion Gap 10.8, BUN 23 H, Creatinine 1.23 H, Estimated Creat Clear 67, Estimated GFR 44 L, Est GFR ( Amer) 53 L, Glucose 127 H D, Calcium 7.8 L I & O for Last 24 hours: Intake & Output 01/17/19 01/18/19 01/19/19 01/20/19 11:59 11:59 11:59 11:59 Intake Total 390 / 390 2409 / 2409 2251 / 2251 2164 / 2164 Output Total 2075 / 2075 1400 / 1400 900 / 900 700 / 700 Balance -1685 / -1685 1009 / 1009 1351 / 1351 1464 / 1464 Weight 210 lb 5 oz 210 lb 4.995 oz 210 lb 4.995 oz 210 lb 3 oz Microbiology Reports for the Last 24 Hours: Microbiology 01/16/19 16:59 Urine,Catheterized Urine Culture - Preliminary 01/16/19 12:41 Foot,Left Gram Stain - Final 01/16/19 12:41 Foot,Left Wound Culture - Preliminary Pseudomonas mendocina 01/16/19 12:41 Foot,Right Gram Stain - Final 01/16/19 12:41 Foot,Right Wound Culture - Preliminary Serratia marcescens Gram Positive Cocci Narrative: Patient is in no distress. Lungs remain clear. Heart has a regular rate and rhythm. Abdomen is obese and soft. Right lower extremity is bandaged from the proximal tibia to the ankle. Foot is no longer erythematous and it is nontender. Proximal lower leg does not reveal any erythema. Assessment and Plan (1) Cellulitis of right lower leg Current visit: Yes Status: Acute Category: Medical Code(s): L03.115 - Cellulitis of right lower limb (2) Nausea & vomiting Current visit: Yes Status: Acute Category: Medical Code(s): R11.2 - Nausea with vomiting, unspecified (3) Chronic cutaneous venous stasis ulcer Current visit: Yes Status: Acute Category: Medical Code(s): I83.009 - Varicose veins of unspecified lower extremity with ulcer of unspecified site; L97.909 - Non-pressure chronic ulcer of unspecified part of unspecified lower leg with unspecified severity (4) Lymphedema Current visit: Yes Status: Acute Category: Medical Code(s): I89.0 - Lymphedema, not elsewhere classified (5) Acute kidney injury Current visit: Yes Status: Acute Category: Medical Code(s): N17.9 - Acute kidney failure, unspecified (6) Acute kidney injury (nontraumatic) Current visit: No Status: Resolved Category: Medical Code(s): N17.9 - Acute kidney failure, unspecified (7) Anemia Current visit: No Status: Chronic Qualifiers: Anemia type: due to chronic kidney disease Chronic kidney disease stage: stage 4 (severe) Qualified Code(s): N18.4 - Chronic kidney disease, stage 4 (severe); D63.1 - Anemia in chronic kidney disease Category: Medical Code(s): D64.9 - Anemia, unspecified (8) CKD (chronic kidney disease) stage 3, GFR 30-59 ml/min Current visit: No Status: Acute Category: Medical Code(s): N18.3 - Chronic kidney disease, stage 3 (moderate) (9) Obesity Current visit: No Status: Acute Qualifiers: Obesity type: due to excess calories Obesity classification: adult class 3 (BMI >= 40) Serious obesity comorbidity presence: with serious comorbidity Body mass index: BMI 40.0-44.9 Qualified Code(s): E66.01 - Morbid (severe) obesity due to excess calories; Z68.41 - Body mass index (BMI) 40.0-44.9, adult Category: Medical Code(s): E66.9 - Obesity, unspecified (10) Serratia marcescens infection Current visit: Yes Status: Acute Category: Medical Code(s): A48.8 - Other specified bacterial diseases (11) Serratia wound infection Current visit: Yes Status: Acute Category: Medical Code(s): A49.8 - Other bacterial infections of unspecified site - Assessment and plan all Dx Assessment and Plan for all problems:: Continue broad-spectrum antibiotics and await full wound culture results. Anticipate 1 week of antibiotics. Care management consulted for half-way facility placement
--- NOTE | 2019-01-20 09:53 | Pharmacy Consult Notes ---
- Pharmacy Consult Date: 01/20/19 Time: 09:51 Referring provider: DR. VASQUEZ Reason for Consult:: GENTAMICIN LEVEL AND DOSING INTERVAL CHANGE Allergies and ADEs:: Allergies Allergy/AdvReac Type Severity Reaction Status Date / Time vancomycin Allergy Severe red man Verified 06/07/18 01:41 syndrome ceftriaxone Allergy Mild Rash Verified 06/07/18 01:41 amoxicillin Allergy Unknown UNKNOWN Verified 01/18/19 07:33 atropine Allergy Unknown UNKNOWN Verified 01/18/19 07:33 aztreonam Allergy Unknown UNKNOWN Verified 01/18/19 07:33 ciprofloxacin Allergy Unknown UNKNOWN Verified 01/18/19 07:33 clindamycin Allergy Unknown UNKNOWN Verified 01/18/19 07:33 levofloxacin Allergy Unknown UNKNOWN Verified 01/18/19 07:33 morphine Allergy Unknown UNKNOWN Verified 01/18/19 07:33 nabumetone Allergy Unknown UNKNOWN Verified 01/18/19 07:33 oxytetracycline Allergy Unknown UNKNOWN Verified 01/18/19 07:33 Penicillins Allergy Unknown UNKNOWN Verified 01/18/19 07:33 polymyxin B Allergy Unknown UNKNOWN Verified 01/18/19 07:33 Sulfa (Sulfonamide Allergy Unknown UNKNOWN Verified 01/18/19 07:33 Antibiotics) tramadol Allergy Unknown UNKNOWN Verified 01/18/19 07:33 Home Medications:: Home Medications Medication Instructions Recorded Confirmed Type Gabapentin [Gabapentin 300mg Cap] 300 mg PO DAILY 08/24/17 01/17/19 History Gabapentin [Gabapentin 300mg Cap] 600 mg PO HS 08/24/17 01/17/19 History Aspirin [Aspirin 81mg EC Tab] 81 mg PO DAILY 08/25/17 01/17/19 History Hydrocodone/Acetaminophen 1 tab PO Q6HP PRN 11/29/17 01/17/19 History [Hydrocodone-Acetamin 10-325 mg] Pantoprazole Sodium [Protonix 40mg 40 mg PO DAILY 11/29/17 01/17/19 History tablet] Ferrous Sulfate [Ferrous Sulfate 325 mg PO DAILY 01/16/19 01/16/19 History 325mg Tablet] Furosemide [Furosemide 20mg Tab] 20 mg PO DAILY 01/16/19 01/16/19 History Metformin HCl 500 mg PO TID 01/16/19 01/16/19 History raNITIdine HCl [Ranitidine HCl] 150 mg PO DAILY 01/16/19 01/16/19 History Docusate Sodium 100 mg PO DAILYP PRN 01/17/19 01/17/19 History Fexofenadine HCl [Lexus 180 mg PO DAILY 01/17/19 01/17/19 History Allergy] Levothyroxine Sodium 125 mcg PO DAILY 01/17/19 01/17/19 History [Levothyroxine 125mcg (0.125mg) Tab] Spironolactone 50 mg PO DAILY 01/17/19 01/17/19 History glipiZIDE [Glucotrol 5mg tablet] 5 mg PO DAILY 01/17/19 01/17/19 History Height: 1.6 m Weight: 95.339 kg Laboratory Results:: Laboratory Results - last 24 hr 01/19/19 11:17: POC Glucose 97 01/19/19 16:10: POC Glucose 139 H 01/19/19 20:03: POC Glucose 170 H 01/20/19 00:31: Gentamicin Trough 1.4 01/20/19 05:26: WBC 13.4 H, RBC 3.46 L, Hgb 9.3 L, Hct 31.0 L, MCV 89.6, MCH 26.9 L, MCHC 30.0 L, RDW 14.4, Plt Count 461 H, MPV 8.8, Neut % (Auto) 85.2 H, Lymph % (Auto) 10.4, [place] % (Auto) 4.1, Eos % (Auto) 0.1, Baso % (Auto) 0.1, Neut # (Auto) 11.4 H, Lymph # (Auto) 1.4, [place] # (Auto) 0.6, Eos # (Auto) 0.0, Baso # (Auto) 0.0, Total Counted 100, Neutrophils % (Manual) 87 H, Lymphocytes % (Manual) 10, Monocytes % (Manual) 3, Platelet Estimate Normal, Hypochromasia 1+ 01/20/19 05:26: Sodium 135 L, Potassium 4.8, Chloride 101, Carbon Dioxide 28, Anion Gap 10.8, BUN 23 H, Creatinine 1.23 H, Estimated Creat Clear 67, Estimated GFR 44 L, Est GFR ( Amer) 53 L, Glucose 127 H D, Calcium 7.8 L Medical History: Reports:: Congestive Heart Failure, Hypertension Denies:: Cancer, Diabetes Mellitus Type 1, Diabetes Mellitus Type 2, Internal Pacemaker, MRSA, Seizures Assessment and Plan (1) Cellulitis of right lower leg Current visit: Yes Status: Acute Category: Medical Code(s): L03.115 - Cellulitis of right lower limb (2) Nausea & vomiting Current visit: Yes Status: Acute Category: Medical Code(s): R11.2 - Nausea with vomiting, unspecified (3) Chronic cutaneous venous stasis ulcer Current visit: Yes Status: Acute Category: Medical Code(s): I83.009 - Varicose veins of unspecified lower extremity with ulcer of unspecified site; L97.909 - Non-pressure chronic ulcer of unspecified part of unspecified lower leg with unspecified severity (4) Lymphedema Current visit: Yes Status: Acute Category: Medical Code(s): I89.0 - Lymphedema, not elsewhere classified (5) Acute kidney injury Current visit: Yes Status: Acute Category: Medical Code(s): N17.9 - Acute kidney failure, unspecified (6) Acute kidney injury (nontraumatic) Current visit: No Status: Resolved Category: Medical Code(s): N17.9 - Acute kidney failure, unspecified (7) Anemia Current visit: No Status: Chronic Qualifiers: Anemia type: due to chronic kidney disease Chronic kidney disease stage: stage 4 (severe) Qualified Code(s): N18.4 - Chronic kidney disease, stage 4 (severe); D63.1 - Anemia in chronic kidney disease Category: Medical Code(s): D64.9 - Anemia, unspecified (8) CKD (chronic kidney disease) stage 3, GFR 30-59 ml/min Current visit: No Status: Acute Category: Medical Code(s): N18.3 - Chronic kidney disease, stage 3 (moderate) (9) Obesity Current visit: No Status: Acute Qualifiers: Obesity type: due to excess calories Obesity classification: adult class 3 (BMI >= 40) Serious obesity comorbidity presence: with serious comorbidity Body mass index: BMI 40.0-44.9 Qualified Code(s): E66.01 - Morbid (severe) obesity due to excess calories; Z68.41 - Body mass index (BMI) 40.0-44.9, adult Category: Medical Code(s): E66.9 - Obesity, unspecified (10) Serratia marcescens infection Current visit: Yes Status: Acute Category: Medical Code(s): A48.8 - Other specified bacterial diseases (11) Serratia wound infection Current visit: Yes Status: Acute Category: Medical Code(s): A49.8 - Other bacterial infections of unspecified site - Assessment and plan all Dx Assessment and Plan for all problems:: PATIENT'S GENTAMICIN TROUGH LEVEL WAS 1.4 MCG/ML THIS AM. DOSE WAS HELD UNTIL 0900 AND RESTARTED AT Q48H DOSING INSTEAD OF Q48H. WILL CONTINUE TO MONITOR DAILY AND ADJUST APPROPRIATE.
--- NOTE | 2019-01-20 10:54 | Progress Note ---
Internal Medicine - PN: Subj *Date: 01/20/19 *Time: 10:54 Exam Vital signs and Labs for Last 24 Hours: Temp Pulse Resp BP Pulse Ox 97.8 F 59 L 16 118/50 L 97 01/20/19 08:00 01/20/19 08:00 01/20/19 08:00 01/20/19 08:00 01/20/19 08:00 Laboratory Results - last 24 hr 01/19/19 11:17: POC Glucose 97 01/19/19 16:10: POC Glucose 139 H 01/19/19 20:03: POC Glucose 170 H 01/20/19 00:31: Gentamicin Trough 1.4 01/20/19 05:26: WBC 13.4 H, RBC 3.46 L, Hgb 9.3 L, Hct 31.0 L, MCV 89.6, MCH 26.9 L, MCHC 30.0 L, RDW 14.4, Plt Count 461 H, MPV 8.8, Neut % (Auto) 85.2 H, Lymph % (Auto) 10.4, [place] % (Auto) 4.1, Eos % (Auto) 0.1, Baso % (Auto) 0.1, Neut # (Auto) 11.4 H, Lymph # (Auto) 1.4, [place] # (Auto) 0.6, Eos # (Auto) 0.0, Baso # (Auto) 0.0, Total Counted 100, Neutrophils % (Manual) 87 H, Lymphocytes % (Manual) 10, Monocytes % (Manual) 3, Platelet Estimate Normal, Hypochromasia 1+ 01/20/19 05:26: Sodium 135 L, Potassium 4.8, Chloride 101, Carbon Dioxide 28, Anion Gap 10.8, BUN 23 H, Creatinine 1.23 H, Estimated Creat Clear 67, Estimated GFR 44 L, Est GFR ( Amer) 53 L, Glucose 127 H D, Calcium 7.8 L I & O for Last 24 hours: Intake & Output 01/17/19 01/18/19 01/19/19 01/20/19 23:59 23:59 23:59 23:59 Intake Total 1612 / 1612 1207 / 1207 2611 / 2611 1924 / 1924 Output Total 2400 / 2400 500 / 500 1600 / 1600 Balance -788 / -788 707 / 707 1011 / 1011 1924 / 1924 Weight 95.396 kg 95.396 kg 95.396 kg 95.339 kg Microbiology Reports for the Last 24 Hours: Microbiology 01/16/19 12:41 Foot,Left Gram Stain - Final 01/16/19 12:41 Foot,Left Wound Culture - Preliminary Pseudomonas mendocina 01/16/19 12:41 Foot,Right Gram Stain - Final 01/16/19 12:41 Foot,Right Wound Culture - Preliminary Serratia marcescens Gram Positive Cocci 01/16/19 16:59 Urine,Catheterized Urine Culture - Preliminary Assessment and Plan (1) Cellulitis of right lower leg Current visit: Yes Status: Acute Category: Medical Code(s): L03.115 - Cellulitis of right lower limb (2) Nausea & vomiting Current visit: Yes Status: Acute Category: Medical Code(s): R11.2 - Nausea with vomiting, unspecified (3) Chronic cutaneous venous stasis ulcer Current visit: Yes Status: Acute Category: Medical Code(s): I83.009 - Varicose veins of unspecified lower extremity with ulcer of unspecified site; L97.909 - Non-pressure chronic ulcer of unspecified part of unspecified lower leg with unspecified severity (4) Lymphedema Current visit: Yes Status: Acute Category: Medical Code(s): I89.0 - Lymphedema, not elsewhere classified (5) Acute kidney injury Current visit: Yes Status: Acute Category: Medical Code(s): N17.9 - Acute kidney failure, unspecified (6) Acute kidney injury (nontraumatic) Current visit: No Status: Resolved Category: Medical Code(s): N17.9 - Acute kidney failure, unspecified (7) Anemia Current visit: No Status: Chronic Qualifiers: Anemia type: due to chronic kidney disease Chronic kidney disease stage: stage 4 (severe) Qualified Code(s): N18.4 - Chronic kidney disease, stage 4 (severe); D63.1 - Anemia in chronic kidney disease Category: Medical Code(s): D64.9 - Anemia, unspecified (8) CKD (chronic kidney disease) stage 3, GFR 30-59 ml/min Current visit: No Status: Acute Category: Medical Code(s): N18.3 - Chronic kidney disease, stage 3 (moderate) (9) Obesity Current visit: No Status: Acute Qualifiers: Obesity type: due to excess calories Obesity classification: adult class 3 (BMI >= 40) Serious obesity comorbidity presence: with serious comorbidity Body mass index: BMI 40.0-44.9 Qualified Code(s): E66.01 - Morbid (severe) obesity due to excess calories; Z68.41 - Body mass index (BMI) 40.0-44.9, adult Category: Medical Code(s): E66.9 - Obesity, unspecified (10) Serratia marcescens infection Current visit: Yes Status: Acute Category: Medical Code(s): A48.8 - Other specified bacterial diseases (11) Serratia wound infection Current visit: Yes Status: Acute Category: Medical Code(s): A49.8 - Other bacterial infections of unspecified site The patient's infection will respond to the chosen ABx?: Yes Is the patient receiving the right drug, dose, and route?: Yes Could a more targeted ABx be ordered?: No (PATIENT RESPONDING TO GENTAMICIN/MEROPENEM)
[2019-01-21 06:41] LABS: Basophils % 0.2 % (0.1-2.0); Eosinophils # 0.4 K/mm3 (0.0-0.4); Eosinophils % 2.9 % (0.1-12.0); Hematocrit 34.5 % (37.0-47.0); Hemoglobin 10.4 g/dL (12.2-16.2); Lymphocytes # 1.9 K/mm3 (0.7-4.5); Lymphocytes % 15.7 % (10-50); Mean Corpuscular HGB Conc 30.1 g/dL (31.8-35.4); Mean Corpuscular Volume 89.3 fl (81-99); Monocytes # 0.8 K/mm3 (0.1-1.0); Monocytes % 6.7 % (1.7-9.3); Neutrophils % 74.4 % (37.0-80.0); Platelet Count 402 K/mm3 (142-424); Red Blood Count 3.87 M/mm3 (4.20-5.40); Red Cell Distribution Width 14.6 % (11.5-17.5); White Blood Count 12.1 K/mm3 (4.8-10.8)
--- NOTE | 2019-01-21 07:09 | Progress Note ---
Internal Medicine - PN: Subj *Date: 01/21/19 *Time: 07:07 Interval history: Patient continues to have nausea. She reports improvement in pain in the right lower extremity. Exam Vital signs and Labs for Last 24 Hours: Temp Pulse Resp BP Pulse Ox 97.6 F 73 16 130/64 96 01/21/19 04:00 01/21/19 04:00 01/21/19 04:00 01/21/19 04:00 01/21/19 04:00 Laboratory Results - last 24 hr 01/20/19 05:26: Total Counted 100, Neutrophils % (Manual) 87 H, Lymphocytes % (Manual) 10, Monocytes % (Manual) 3, Platelet Estimate Normal, Hypochromasia 1+ 01/20/19 11:21: POC Glucose 107 01/20/19 17:53: POC Glucose 95 01/20/19 20:44: POC Glucose 94 01/21/19 06:05: POC Glucose 82 01/21/19 06:07: WBC 12.1 H, RBC 3.87 L, Hgb 10.4 L, Hct 34.5 L, MCV 89.3, MCH 26.8 L, MCHC 30.1 L, RDW 14.6, Plt Count 402, MPV 8.0, Neut % (Auto) 74.4, Lymph % (Auto) 15.7, [place] % (Auto) 6.7, Eos % (Auto) 2.9, Baso % (Auto) 0.2, Neut # (Auto) 9.0 H, Lymph # (Auto) 1.9, [place] # (Auto) 0.8, Eos # (Auto) 0.4, Baso # (Auto) 0.0 I & O for Last 24 hours: Intake & Output 01/18/19 01/19/19 01/20/19 01/21/19 11:59 11:59 11:59 11:59 Intake Total 2409 / 2409 2251 / 2251 2404 / 2404 2434 / 2434 Output Total 1400 / 1400 900 / 900 700 / 700 1600 / 1600 Balance 1009 / 1009 1351 / 1351 1704 / 1704 834 / 834 Weight 210 lb 4.995 oz 210 lb 4.995 oz 210 lb 3 oz 211 lb 6 oz Microbiology Reports for the Last 24 Hours: Microbiology 01/16/19 16:59 Urine,Catheterized Urine Culture - Final Enterococcus faecalis 01/16/19 12:41 Foot,Left Gram Stain - Final 01/16/19 12:41 Foot,Left Wound Culture - Preliminary Pseudomonas mendocina 01/16/19 12:41 Foot,Right Gram Stain - Final 01/16/19 12:41 Foot,Right Wound Culture - Preliminary Serratia marcescens Gram Positive Cocci Narrative: She is in no distress. Lungs are clear. Heart has a regular rate and rhythm. Abdomen is soft and obese with some left lower periumbilical tenderness. Right lower extremity shows improvement in edema. Wound is dressed. Patient still has tenderness around the mid calf Assessment and Plan (1) Cellulitis of right lower leg Current visit: Yes Status: Acute Category: Medical Code(s): L03.115 - Cellulitis of right lower limb (2) Nausea & vomiting Current visit: Yes Status: Acute Category: Medical Code(s): R11.2 - Nausea with vomiting, unspecified (3) Chronic cutaneous venous stasis ulcer Current visit: Yes Status: Acute Category: Medical Code(s): I83.009 - Varicose veins of unspecified lower extremity with ulcer of unspecified site; L97.909 - Non-pressure chronic ulcer of unspecified part of unspecified lower leg with unspecified severity (4) Lymphedema Current visit: Yes Status: Acute Category: Medical Code(s): I89.0 - Lymphedema, not elsewhere classified (5) Acute kidney injury Current visit: Yes Status: Acute Category: Medical Code(s): N17.9 - Acute kidney failure, unspecified (6) Acute kidney injury (nontraumatic) Current visit: No Status: Resolved Category: Medical Code(s): N17.9 - Acute kidney failure, unspecified (7) Anemia Current visit: No Status: Chronic Qualifiers: Anemia type: due to chronic kidney disease Chronic kidney disease stage: stage 4 (severe) Qualified Code(s): N18.4 - Chronic kidney disease, stage 4 (severe); D63.1 - Anemia in chronic kidney disease Category: Medical Code(s): D64.9 - Anemia, unspecified (8) CKD (chronic kidney disease) stage 3, GFR 30-59 ml/min Current visit: No Status: Acute Category: Medical Code(s): N18.3 - Chronic kidney disease, stage 3 (moderate) (9) Obesity Current visit: No Status: Acute Qualifiers: Obesity type: due to excess calories Obesity classification: adult class 3 (BMI >= 40) Serious obesity comorbidity presence: with serious comorbidity Body mass index: BMI 40.0-44.9 Qualified Code(s): E66.01 - Morbid (severe) obesity due to excess calories; Z68.41 - Body mass index (BMI) 40.0-44.9, adult Category: Medical Code(s): E66.9 - Obesity, unspecified (10) Serratia marcescens infection Current visit: Yes Status: Acute Category: Medical Code(s): A48.8 - Other specified bacterial diseases (11) Serratia wound infection Current visit: Yes Status: Acute Category: Medical Code(s): A49.8 - Other bacterial infections of unspecified site (12) Enterococcus UTI Current visit: Yes Status: Acute Category: Medical Code(s): N39.0 - Urinary tract infection, site not specified; B95.2 - Enterococcus as the cause of diseases classified elsewhere - Assessment and plan all Dx Assessment and Plan for all problems:: 1. Continue antibiotics for wound infection 2. PT eval for mobility in anticipation of transfer to longterm facility in the future 3. Patient's urine is growing enterococcus again. Patient has had multiple positive urines for enterococcus over the last 5 months as an outpatient. 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
[2019-01-21 08:43] LABS: Anion Gap 14.6 mEq/L (5-15); Calcium 7.6 mg/dL (8.5-10.1)
[2019-01-22 06:31] LABS: Anion Gap 12.3 mEq/L (5-15); Calcium 7.3 mg/dL (8.5-10.1)
--- NOTE | 2019-01-22 06:55 | Progress Note ---
Internal Medicine - PN: Subj *Date: 01/22/19 *Time: 06:52 Interval history: Patient reports mild improvement in nausea. Patient required reinsertion of Childers catheter yesterday evening due to a complaint of lower abdominal pain and inability to urinate. Reinsertion of catheter produced 1200 mL's of urine. Patient reports with therapy yesterday she was able to sit on the side of the bed. She admits to just overall feeling of unwellness and lack of energy Exam Vital signs and Labs for Last 24 Hours: Temp Pulse Resp BP Pulse Ox 97.9 F 70 18 123/65 98 01/22/19 04:00 01/22/19 04:00 01/22/19 04:00 01/22/19 04:00 01/22/19 04:00 Laboratory Results - last 24 hr 01/21/19 06:07: Sodium 136, Potassium 4.6, Chloride 102, Carbon Dioxide 24, Anion Gap 14.6, BUN 22 H, Creatinine 1.26 H, Estimated Creat Clear 66, Estimated GFR 42 L, Est GFR ( Amer) 51 L, Glucose 86, Calcium 7.6 L 01/21/19 16:33: POC Glucose 91 01/21/19 21:05: POC Glucose 88 01/22/19 05:55: Sodium 134 L, Potassium 4.3, Chloride 101, Carbon Dioxide 25, Anion Gap 12.3, BUN 18, Creatinine 1.24 H, Estimated Creat Clear 67, Estimated GFR 43 L, Est GFR ( Amer) 52 L, Glucose 97, Calcium 7.3 L 01/22/19 06:28: POC Glucose 92 I & O for Last 24 hours: Intake & Output 01/19/19 01/20/19 01/21/19 01/22/19 11:59 11:59 11:59 11:59 Intake Total 2251 / 2251 2404 / 2404 2674 / 2674 780 / 780 Output Total 900 / 900 700 / 700 1600 / 1600 4200 / 4200 Balance 1351 / 1351 1704 / 1704 1074 / 1074 -3420 / -3420 Weight 210 lb 4.995 oz 210 lb 3 oz 211 lb 6 oz 212 lb 5 oz Microbiology Reports for the Last 24 Hours: Microbiology 01/16/19 19:15 Blood Blood Culture - Final NO GROWTH AFTER 5 DAYS 01/16/19 13:40 Blood Blood Culture - Final NO GROWTH AFTER 5 DAYS 01/16/19 12:41 Foot,Left Gram Stain - Final 01/16/19 12:41 Foot,Left Wound Culture - Preliminary Pseudomonas mendocina Gram Positive Cocci 01/16/19 12:41 Foot,Right Gram Stain - Final 01/16/19 12:41 Foot,Right Wound Culture - Final Serratia marcescens Strep dysgalactiae/canis 01/16/19 16:59 Urine,Catheterized Urine Culture - Final Enterococcus faecalis - Constitutional no acute distress - *Routine Respiratory Exam Present: accessory muscle use - *Routine Cardiovascular Exam Present: RRR - *Routine Extremities Exam Comments: Both lower legs remained bandaged. The feet are warm. Feet are very dry. There is no tenderness of the right lower leg. However the left lower leg is extremely tender along the tibia as well as the calf. Assessment and Plan (1) Cellulitis of right lower leg Current visit: Yes Status: Acute Category: Medical Code(s): L03.115 - Cellulitis of right lower limb (2) Nausea & vomiting Current visit: Yes Status: Acute Category: Medical Code(s): R11.2 - Nausea with vomiting, unspecified (3) Chronic cutaneous venous stasis ulcer Current visit: Yes Status: Acute Category: Medical Code(s): I83.009 - Varicose veins of unspecified lower extremity with ulcer of unspecified site; L97.909 - Non-pressure chronic ulcer of unspecified part of unspecified lower leg with unspecified severity (4) Lymphedema Current visit: Yes Status: Acute Category: Medical Code(s): I89.0 - Lymphedema, not elsewhere classified (5) Acute kidney injury Current visit: Yes Status: Acute Category: Medical Code(s): N17.9 - Acute kidney failure, unspecified (6) Acute kidney injury (nontraumatic) Current visit: No Status: Resolved Category: Medical Code(s): N17.9 - Acute kidney failure, unspecified (7) Anemia Current visit: No Status: Chronic Qualifiers: Anemia type: due to chronic kidney disease Chronic kidney disease stage: stage 4 (severe) Qualified Code(s): N18.4 - Chronic kidney disease, stage 4 (severe); D63.1 - Anemia in chronic kidney disease Category: Medical Code(s): D64.9 - Anemia, unspecified (8) CKD (chronic kidney disease) stage 3, GFR 30-59 ml/min Current visit: No Status: Acute Category: Medical Code(s): N18.3 - Chronic kidney disease, stage 3 (moderate) (9) Obesity Current visit: No Status: Acute Qualifiers: Obesity type: due to excess calories Obesity classification: adult class 3 (BMI >= 40) Serious obesity comorbidity presence: with serious comorbidity Body mass index: BMI 40.0-44.9 Qualified Code(s): E66.01 - Morbid (severe) obesity due to excess calories; Z68.41 - Body mass index (BMI) 40.0-44.9, adult Category: Medical Code(s): E66.9 - Obesity, unspecified (10) Serratia marcescens infection Current visit: Yes Status: Acute Category: Medical Code(s): A48.8 - Other specified bacterial diseases (11) Serratia wound infection Current visit: Yes Status: Acute Category: Medical Code(s): A49.8 - Other bacterial infections of unspecified site (12) Enterococcus UTI Current visit: Yes Status: Acute Category: Medical Code(s): N39.0 - Urinary tract infection, site not specified; B95.2 - Enterococcus as the cause of diseases classified elsewhere - Assessment and plan all Dx Assessment and Plan for all problems:: 1. Continue gentamicin and meropenem for her infected leg wounds 2. Continue linezolid for her enterococcus UTI 3. Continue dressing changes. 4. Patient will be up to the side of the bed today 5. Await morning labs and I have added a sed rate.
[2019-01-22 07:04] LABS: White Blood Count 11.1 K/mm3 (4.8-10.8)
[2019-01-22 07:05] LABS: Basophils % 0.4 % (0.1-2.0); Eosinophils % 3.5 % (0.1-12.0); Hematocrit 32.1 % (37.0-47.0); Hemoglobin 10.3 g/dL (12.2-16.2); Lymphocytes # 3.4 K/mm3 (0.7-4.5); Lymphocytes % 21.7 % (10-50); Mean Corpuscular Volume 88.4 fl (81-99); Mean Platelet Volume 7.4 fl (7.4-10.4); Monocytes % 9.9 % (1.7-9.3); Neutrophils # 7.2 K/mm3 (1.8-7.8); Neutrophils % 64.6 % (37.0-80.0); Platelet Count 394 K/mm3 (142-424); Red Blood Count 3.63 M/mm3 (4.20-5.40); Red Cell Distribution Width 15.7 % (11.5-17.5)
[2019-01-22 07:06] LABS: Basophils # 0.1 K/mm3 (0-0.2); Eosinophils # 0.4 K/mm3 (0.0-0.4); Monocytes # 1.1 K/mm3 (0.1-1.0)
--- NOTE | 2019-01-22 13:57 | Pharmacy Consult Notes ---
- Pharmacy Consult Date: 01/22/19 Time: 13:55 Referring provider: DR. VASQUEZ Reason for Consult:: GENTAMICIN LEVEL Allergies and ADEs:: Allergies Allergy/AdvReac Type Severity Reaction Status Date / Time vancomycin Allergy Severe red man Verified 06/07/18 01:41 syndrome ceftriaxone Allergy Mild Rash Verified 06/07/18 01:41 amoxicillin Allergy Unknown UNKNOWN Verified 01/18/19 07:33 atropine Allergy Unknown UNKNOWN Verified 01/18/19 07:33 aztreonam Allergy Unknown UNKNOWN Verified 01/18/19 07:33 ciprofloxacin Allergy Unknown UNKNOWN Verified 01/18/19 07:33 clindamycin Allergy Unknown UNKNOWN Verified 01/18/19 07:33 levofloxacin Allergy Unknown UNKNOWN Verified 01/18/19 07:33 morphine Allergy Unknown UNKNOWN Verified 01/18/19 07:33 nabumetone Allergy Unknown UNKNOWN Verified 01/18/19 07:33 oxytetracycline Allergy Unknown UNKNOWN Verified 01/18/19 07:33 Penicillins Allergy Unknown UNKNOWN Verified 01/18/19 07:33 polymyxin B Allergy Unknown UNKNOWN Verified 01/18/19 07:33 Sulfa (Sulfonamide Allergy Unknown UNKNOWN Verified 01/18/19 07:33 Antibiotics) tramadol Allergy Unknown UNKNOWN Verified 01/18/19 07:33 Home Medications:: Home Medications Medication Instructions Recorded Confirmed Type Gabapentin [Gabapentin 300mg Cap] 300 mg PO DAILY 08/24/17 01/17/19 History Gabapentin [Gabapentin 300mg Cap] 600 mg PO HS 08/24/17 01/17/19 History Aspirin [Aspirin 81mg EC Tab] 81 mg PO DAILY 08/25/17 01/17/19 History Hydrocodone/Acetaminophen 1 tab PO Q6HP PRN 11/29/17 01/17/19 History [Hydrocodone-Acetamin 10-325 mg] Pantoprazole Sodium [Protonix 40mg 40 mg PO DAILY 11/29/17 01/17/19 History tablet] Ferrous Sulfate [Ferrous Sulfate 325 mg PO DAILY 01/16/19 01/16/19 History 325mg Tablet] Furosemide [Furosemide 20mg Tab] 20 mg PO DAILY 01/16/19 01/16/19 History Metformin HCl 500 mg PO TID 01/16/19 01/16/19 History raNITIdine HCl [Ranitidine HCl] 150 mg PO DAILY 01/16/19 01/16/19 History Docusate Sodium 100 mg PO DAILYP PRN 01/17/19 01/17/19 History Fexofenadine HCl [Lexus 180 mg PO DAILY 01/17/19 01/17/19 History Allergy] Levothyroxine Sodium 125 mcg PO DAILY 01/17/19 01/17/19 History [Levothyroxine 125mcg (0.125mg) Tab] Spironolactone 50 mg PO DAILY 01/17/19 01/17/19 History glipiZIDE [Glucotrol 5mg tablet] 5 mg PO DAILY 01/17/19 01/17/19 History Height: 1.6 m Weight: 96.303 kg Laboratory Results:: Laboratory Results - last 24 hr 01/21/19 16:33: POC Glucose 91 01/21/19 21:05: POC Glucose 88 01/22/19 05:50: ESR 66 H 01/22/19 05:55: WBC 11.1 H, RBC 3.63 L, Hgb 10.3 L, Hct 32.1 L, MCV 88.4, MCH 28.3, MCHC 32.0, RDW 15.7, Plt Count 394, MPV 7.4, Neut % (Auto) 64.6, Lymph % (Auto) 21.7, [place] % (Auto) 9.9 H, Eos % (Auto) 3.5, Baso % (Auto) 0.4, Neut # (Auto) 7.2, Lymph # (Auto) 3.4, [place] # (Auto) 1.1 H, Eos # (Auto) 0.4, Baso # (Auto) 0.1 01/22/19 05:55: Sodium 134 L, Potassium 4.3, Chloride 101, Carbon Dioxide 25, Anion Gap 12.3, BUN 18, Creatinine 1.24 H, Estimated Creat Clear 67, Estimated GFR 43 L, Est GFR ( Amer) 52 L, Glucose 97, Calcium 7.3 L 01/22/19 06:28: POC Glucose 92 01/22/19 09:50: Gentamicin Trough 0.8 01/22/19 11:50: POC Glucose 88 Medical History: Reports:: Congestive Heart Failure, Hypertension Denies:: Cancer, Diabetes Mellitus Type 1, Diabetes Mellitus Type 2, Internal Pacemaker, MRSA, Seizures Assessment and Plan (1) Cellulitis of right lower leg Current visit: Yes Status: Acute Category: Medical Code(s): L03.115 - Cellulitis of right lower limb (2) Nausea & vomiting Current visit: Yes Status: Acute Category: Medical Code(s): R11.2 - Nausea with vomiting, unspecified (3) Chronic cutaneous venous stasis ulcer Current visit: Yes Status: Acute Category: Medical Code(s): I83.009 - Varicose veins of unspecified lower extremity with ulcer of unspecified site; L97.909 - Non-pressure chronic ulcer of unspecified part of unspecified lower leg with unspecified severity (4) Lymphedema Current visit: Yes Status: Acute Category: Medical Code(s): I89.0 - Lymp hedema, not elsewhere classified (5) Acute kidney injury Current visit: Yes Status: Acute Category: Medical Code(s): N17.9 - Acute kidney failure, unspecified (6) Acute kidney injury (nontraumatic) Current visit: No Status: Resolved Category: Medical Code(s): N17.9 - Acute kidney failure, unspecified (7) Anemia Current visit: No Status: Chronic Qualifiers: Anemia type: due to chronic kidney disease Chronic kidney disease stage: stage 4 (severe) Qualified Code(s): N18.4 - Chronic kidney disease, stage 4 (severe); D63.1 - Anemia in chronic kidney disease Category: Medical Code(s): D64.9 - Anemia, unspecified (8) CKD (chronic kidney disease) stage 3, GFR 30-59 ml/min Current visit: No Status: Acute Category: Medical Code(s): N18.3 - Chronic kidney disease, stage 3 (moderate) (9) Obesity Current visit: No Status: Acute Qualifiers: Obesity type: due to excess calories Obesity classification: adult class 3 (BMI >= 40) Serious obesity comorbidity presence: with serious comorbidity Body mass index: BMI 40.0-44.9 Qualified Code(s): E66.01 - Morbid (severe) obesity due to excess calories; Z68.41 - Body mass index (BMI) 40.0-44.9, adult Category: Medical Code(s): E66.9 - Obesity, unspecified (10) Serratia marcescens infection Current visit: Yes Status: Acute Category: Medical Code(s): A48.8 - Other specified bacterial diseases (11) Serratia wound infection Current visit: Yes Status: Acute Category: Medical Code(s): A49.8 - Other bacterial infections of unspecified site (12) Enterococcus UTI Current visit: Yes Status: Acute Category: Medical Code(s): N39.0 - Urinary tract infection, site not specified; B95.2 - Enterococcus as the cause of diseases classified elsewhere - Assessment and plan all Dx Assessment and Plan for all problems:: GENTAMICIN TROUGH LEVEL 0.8 MCG/ML THIS AM PRIOR TO DOSE. RECOMMENDED CONTINUING WITH GENTAMICIN 360 MG Q48H AT THIS TIME. WILL OBTAIN PEAK LEVEL AFTER DOSE TODAY. PHARMACY WILL FOLLOW DAILY AND ADJUST APPROPRIATE.
[2019-01-23 07:20] LABS: Basophils % 0.2 % (0.1-2.0); Eosinophils # 0.3 K/mm3 (0.0-0.4); Eosinophils % 3.6 % (0.1-12.0); Hemoglobin 10.5 g/dL (12.2-16.2); Lymphocytes # 1.8 K/mm3 (0.7-4.5); Lymphocytes % 21.1 % (10-50); Mean Platelet Volume 9.2 fl (7.4-10.4); Monocytes # 0.8 K/mm3 (0.1-1.0); Monocytes % 9.6 % (1.7-9.3); Neutrophils # 5.6 K/mm3 (1.8-7.8); Neutrophils % 65.5 % (37.0-80.0); Platelet Count 401 K/mm3 (142-424); Red Blood Count 3.89 M/mm3 (4.20-5.40); Red Cell Distribution Width 14.7 % (11.5-17.5); White Blood Count 8.5 K/mm3 (4.8-10.8)
[2019-01-23 07:34] LABS: Anion Gap 13.2 mEq/L (5-15); Calcium 7.5 mg/dL (8.5-10.1)
--- NOTE | 2019-01-23 08:08 | Pharmacy Consult Notes ---
- Pharmacy Consult Date: 01/23/19 Time: 08:06 Referring provider: DR. VASQUEZ Reason for Consult:: GENTAMICIN PEAK LEVEL Allergies and ADEs:: Allergies Allergy/AdvReac Type Severity Reaction Status Date / Time vancomycin Allergy Severe red man Verified 06/07/18 01:41 syndrome ceftriaxone Allergy Mild Rash Verified 06/07/18 01:41 amoxicillin Allergy Unknown UNKNOWN Verified 01/18/19 07:33 atropine Allergy Unknown UNKNOWN Verified 01/18/19 07:33 aztreonam Allergy Unknown UNKNOWN Verified 01/18/19 07:33 ciprofloxacin Allergy Unknown UNKNOWN Verified 01/18/19 07:33 clindamycin Allergy Unknown UNKNOWN Verified 01/18/19 07:33 levofloxacin Allergy Unknown UNKNOWN Verified 01/18/19 07:33 morphine Allergy Unknown UNKNOWN Verified 01/18/19 07:33 nabumetone Allergy Unknown UNKNOWN Verified 01/18/19 07:33 oxytetracycline Allergy Unknown UNKNOWN Verified 01/18/19 07:33 Penicillins Allergy Unknown UNKNOWN Verified 01/18/19 07:33 polymyxin B Allergy Unknown UNKNOWN Verified 01/18/19 07:33 Sulfa (Sulfonamide Allergy Unknown UNKNOWN Verified 01/18/19 07:33 Antibiotics) tramadol Allergy Unknown UNKNOWN Verified 01/18/19 07:33 Home Medications:: Home Medications Medication Instructions Recorded Confirmed Type Gabapentin [Gabapentin 300mg Cap] 300 mg PO DAILY 08/24/17 01/17/19 History Gabapentin [Gabapentin 300mg Cap] 600 mg PO HS 08/24/17 01/17/19 History Aspirin [Aspirin 81mg EC Tab] 81 mg PO DAILY 08/25/17 01/17/19 History Hydrocodone/Acetaminophen 1 tab PO Q6HP PRN 11/29/17 01/17/19 History [Hydrocodone-Acetamin 10-325 mg] Pantoprazole Sodium [Protonix 40mg 40 mg PO DAILY 11/29/17 01/17/19 History tablet] Ferrous Sulfate [Ferrous Sulfate 325 mg PO DAILY 01/16/19 01/16/19 History 325mg Tablet] Furosemide [Furosemide 20mg Tab] 20 mg PO DAILY 01/16/19 01/16/19 History Metformin HCl 500 mg PO TID 01/16/19 01/16/19 History raNITIdine HCl [Ranitidine HCl] 150 mg PO DAILY 01/16/19 01/16/19 History Docusate Sodium 100 mg PO DAILYP PRN 01/17/19 01/17/19 History Fexofenadine HCl [Lexus 180 mg PO DAILY 01/17/19 01/17/19 History Allergy] Levothyroxine Sodium 125 mcg PO DAILY 01/17/19 01/17/19 History [Levothyroxine 125mcg (0.125mg) Tab] Spironolactone 50 mg PO DAILY 01/17/19 01/17/19 History glipiZIDE [Glucotrol 5mg tablet] 5 mg PO DAILY 01/17/19 01/17/19 History Height: 1.6 m Weight: 96.332 kg Laboratory Results:: Laboratory Results - last 24 hr 01/22/19 09:50: Gentamicin Trough 0.8 01/22/19 11:50: POC Glucose 88 01/22/19 16:00: Gentamicin Peak 14.1 H* 01/22/19 16:08: POC Glucose 98 01/22/19 21:45: POC Glucose 96 01/23/19 05:13: POC Glucose 107 01/23/19 06:30: WBC 8.5, RBC 3.89 L, Hgb 10.5 L, Hct 35.0 L, MCV 90.0, MCH 27.0, MCHC 30.0 L, RDW 14.7, Plt Count 401, MPV 9.2, Neut % (Auto) 65.5, Lymph % (Auto) 21.1, [place] % (Auto) 9.6 H, Eos % (Auto) 3.6, Baso % (Auto) 0.2, Neut # (Auto) 5.6, Lymph # (Auto) 1.8, [place] # (Auto) 0.8, Eos # (Auto) 0.3, Baso # (Auto) 0.0 01/23/19 06:30: Sodium 134 L, Potassium 4.2, Chloride 100, Carbon Dioxide 25, Anion Gap 13.2, BUN 16, Creatinine 1.16 H, Estimated Creat Clear 72, Estimated GFR 47 L, Est GFR ( Amer) 56 L, Glucose 89, Calcium 7.5 L Medical History: Reports:: Congestive Heart Failure, Hypertension Denies:: Cancer, Diabetes Mellitus Type 1, Diabetes Mellitus Type 2, Internal Pacemaker, MRSA, Seizures Assessment and Plan (1) Cellulitis of right lower leg Current visit: Yes Status: Acute Category: Medical Code(s): L03.115 - Cellulitis of right lower limb (2) Nausea & vomiting Current visit: Yes Status: Acute Category: Medical Code(s): R11.2 - Nausea with vomiting, unspecified (3) Chronic cutaneous venous stasis ulcer Current visit: Yes Status: Acute Category: Medical Code(s): I83.009 - Varicose veins of unspecified lower extremity with ulcer of unspecified site; L97.909 - Non-pressure chronic ulcer of unspecified part of unspecified lower leg with unspecified severity (4) Lymphedema Current visit: Yes Status: Acute Category: Medical Code(s): I89.0 - Lymphedema, not elsewhere classified (5) Acute kidney injury Current visit: Yes Status: Acute Category: Medical Code(s): N17.9 - Acute kidney failure, unspecified (6) Acute kidney injury (nontraumatic) Current visit: No Status: Resolved Category: Medical Code(s): N17.9 - Acute kidney failure, unspecified (7) Anemia Current visit: No Status: Chronic Qualifiers: Anemia type: due to chronic kidney disease Chronic kidney disease stage: stage 4 (severe) Qualified Code(s): N18.4 - Chronic kidney disease, stage 4 (severe); D63.1 - Anemia in chronic kidney disease Category: Medical Code(s): D64.9 - Anemia, unspecified (8) CKD (chronic kidney disease) stage 3, GFR 30-59 ml/min Current visit: No Status: Acute Category: Medical Code(s): N18.3 - Chronic kidney disease, stage 3 (moderate) (9) Obesity Current visit: No Status: Acute Qualifiers: Obesity type: due to excess calories Obesity classification: adult class 3 (BMI >= 40) Serious obesity comorbidity presence: with serious comorbidity Body mass index: BMI 40.0-44.9 Qualified Code(s): E66.01 - Morbid (severe) obesity due to excess calories; Z68.41 - Body mass index (BMI) 40.0-44.9, adult Category: Medical Code(s): E66.9 - Obesity, unspecified (10) Serratia marcescens infection Current visit: Yes Status: Acute Category: Medical Code(s): A48.8 - Other specified bacterial diseases (11) Serratia wound infection Current visit: Yes Status: Acute Category: Medical Code(s): A49.8 - Other bacterial infections of unspecified site (12) Enterococcus UTI Current visit: Yes Status: Acute Category: Medical Code(s): N39.0 - Urinary tract infection, site not specified; B95.2 - Enterococcus as the cause of diseases classified elsewhere - Assessment and plan all Dx Assessment and Plan for all problems:: PATIENT'S GENTAMICIN PEAK YESTERDAY WAS 14.1 MCG/ML AND TROUGH 0.8 MCG/ML. WITH THESE VALUES, RECOMMEND CONTINUING WITH CURRENT DOSE AND INTERVAL OF GENTAMICIN 360 MG Q48H AT THIS TIME. PHARMACY WILL FOLLOW DAILY AND ADJUST APPROPRIATE.
--- NOTE | 2019-01-23 08:31 | Progress Note ---
Internal Medicine - PN: Subj *Date: 01/23/19 *Time: 08:29 Interval history: Patient complains of nausea and headache this morning. She claims her headache is been present for 2 days and nausea has been present since dressings were removed from her lower extremities. She also endorses some abdominal discomfort and describes a sensation as if there is a hole in her epigastrium and her stomach is going to burst out. Exam Vital signs and Labs for Last 24 Hours: Temp Pulse Resp BP Pulse Ox 97.4 F L 67 18 124/51 L 97 01/23/19 04:00 01/23/19 04:00 01/23/19 04:00 01/23/19 04:00 01/23/19 04:00 Laboratory Results - last 24 hr 01/22/19 09:50: Gentamicin Trough 0.8 01/22/19 11:50: POC Glucose 88 01/22/19 16:00: Gentamicin Peak 14.1 H* 01/22/19 16:08: POC Glucose 98 01/22/19 21:45: POC Glucose 96 01/23/19 05:13: POC Glucose 107 01/23/19 06:30: WBC 8.5, RBC 3.89 L, Hgb 10.5 L, Hct 35.0 L, MCV 90.0, MCH 27.0, MCHC 30.0 L, RDW 14.7, Plt Count 401, MPV 9.2, Neut % (Auto) 65.5, Lymph % (Auto) 21.1, [place] % (Auto) 9.6 H, Eos % (Auto) 3.6, Baso % (Auto) 0.2, Neut # (Auto) 5.6, Lymph # (Auto) 1.8, [place] # (Auto) 0.8, Eos # (Auto) 0.3, Baso # (Auto) 0.0 01/23/19 06:30: Sodium 134 L, Potassium 4.2, Chloride 100, Carbon Dioxide 25, Anion Gap 13.2, BUN 16, Creatinine 1.16 H, Estimated Creat Clear 72, Estimated GFR 47 L, Est GFR ( Amer) 56 L, Glucose 89, Calcium 7.5 L I & O for Last 24 hours: Intake & Output 01/20/19 01/21/19 01/22/19 01/23/19 11:59 11:59 11:59 11:59 Intake Total 2404 / 2404 2674 / 2674 3685 / 3685 2937 / 2937 Output Total 700 / 700 1600 / 1600 4200 / 4200 700 / 700 Balance 1704 / 1704 1074 / 1074 -515 / -515 2237 / 2237 Weight 210 lb 3 oz 211 lb 6 oz 212 lb 5 oz 212 lb 6 oz Microbiology Reports for the Last 24 Hours: Microbiology 01/16/19 12:41 Foot,Left Gram Stain - Final 01/16/19 12:41 Foot,Left Wound Culture - Preliminary Pseudomonas mendocina Gram Positive Cocci Narrative: Patient looks like she does not feel well but is not toxic appearing. Oropharynx is moist. Lungs are clear. Heart has a regular rate and rhythm. Epigastrium is soft with mild tenderness. Bowel sounds are present. Lower extremities reveal improvement in the erythema surrounding her extensive leg wounds. She still has significant tenderness along the left tibia. Wounds have less slough Assessment and Plan (1) Cellulitis of right lower leg Current visit: Yes Status: Acute Category: Medical Code(s): L03.115 - Cellulitis of right lower limb (2) Nausea & vomiting Current visit: Yes Status: Acute Category: Medical Code(s): R11.2 - Nausea with vomiting, unspecified (3) Chronic cutaneous venous stasis ulcer Current visit: Yes Status: Acute Category: Medical Code(s): I83.009 - Varicose veins of unspecified lower extremity with ulcer of unspecified site; L97.909 - Non-pressure chronic ulcer of unspecified part of unspecified lower leg with unspecified severity (4) Lymphedema Current visit: Yes Status: Acute Category: Medical Code(s): I89.0 - Lymphedema, not elsewhere classified (5) Acute kidney injury Current visit: Yes Status: Acute Category: Medical Code(s): N17.9 - Acute kidney failure, unspecified (6) Acute kidney injury (nontraumatic) Current visit: No Status: Resolved Category: Medical Code(s): N17.9 - Acute kidney failure, unspecified (7) Anemia Current visit: No Status: Chronic Qualifiers: Anemia type: due to chronic kidney disease Chronic kidney disease stage: stage 4 (severe) Qualified Code(s): N18.4 - Chronic kidney disease, stage 4 (severe); D63.1 - Anemia in chronic kidney disease Category: Medical Code(s): D64.9 - Anemia, unspecified (8) CKD (chronic kidney disease) stage 3, GFR 30-59 ml/min Current visit: No Status: Acute Category: Medical Code(s): N18.3 - Chronic kidney disease, stage 3 (moderate) (9) Obesity Current visit: No Status: Acute Qualifiers: Obesity type: due to excess calories Obesity classification: adult class 3 (BMI >= 40) Serious obesity comorbidity presence: with serious comorbidity Body mass index: BMI 40.0-44.9 Qualified Code(s): E66.01 - Morbid (severe) obesity due to excess calories; Z68.41 - Body mass index (BMI) 40.0-44.9, adult Category: Medical Code(s): E66.9 - Obesity, unspecified (10) Serratia marcescens infection Current visit: Yes Status: Acute Category: Medical Code(s): A48.8 - Other specified bacterial diseases (11) Serratia wound infection Current visit: Yes Status: Acute Category: Medical Code(s): A49.8 - Other bacterial infections of unspecified site (12) Enterococcus UTI Current visit: Yes Status: Acute Category: Medical Code(s): N39.0 - Urinary tract infection, site not specified; B95.2 - Enterococcus as the cause of diseases classified elsewhere - Assessment and plan all Dx Assessment and Plan for all problems:: 1. I am going to add some Reglan and sucralfate on for the patient's abdominal pain and she may receive benefit in her headache from the Reglan as well 2. Continue IV antibiotics. Will discuss with wound care tomorrow approach to this patient's wounds in the long-term
--- NOTE | 2019-01-23 10:36 | Progress Note ---
Internal Medicine - PN: Subj *Date: 01/23/19 *Time: 10:35 Exam Vital signs and Labs for Last 24 Hours: Temp Pulse Resp BP Pulse Ox 97.9 F 71 18 126/64 98 01/23/19 08:00 01/23/19 08:00 01/23/19 08:00 01/23/19 08:00 01/23/19 08:00 Laboratory Results - last 24 hr 01/22/19 11:50: POC Glucose 88 01/22/19 16:00: Gentamicin Peak 14.1 H* 01/22/19 16:08: POC Glucose 98 01/22/19 21:45: POC Glucose 96 01/23/19 05:13: POC Glucose 107 01/23/19 06:30: WBC 8.5, RBC 3.89 L, Hgb 10.5 L, Hct 35.0 L, MCV 90.0, MCH 27.0, MCHC 30.0 L, RDW 14.7, Plt Count 401, MPV 9.2, Neut % (Auto) 65.5, Lymph % (Auto) 21.1, [place] % (Auto) 9.6 H, Eos % (Auto) 3.6, Baso % (Auto) 0.2, Neut # (Auto) 5.6, Lymph # (Auto) 1.8, [place] # (Auto) 0.8, Eos # (Auto) 0.3, Baso # (Auto) 0.0 01/23/19 06:30: Sodium 134 L, Potassium 4.2, Chloride 100, Carbon Dioxide 25, Anion Gap 13.2, BUN 16, Creatinine 1.16 H, Estimated Creat Clear 72, Estimated GFR 47 L, Est GFR ( Amer) 56 L, Glucose 89, Calcium 7.5 L I & O for Last 24 hours: Intake & Output 01/20/19 01/21/19 01/22/19 01/23/19 23:59 23:59 23:59 23:59 Intake Total 3321 / 3321 2056 / 2056 4325 / 5540 1637 / 1637 Output Total 3400 / 4600 2400 / 3100 700 / 700 Balance 3321 / 1721 -1343 / -2543 1925 / 2440 937 / 937 Weight 95.339 kg 95.878 kg 96.303 kg 96.332 kg Microbiology Reports for the Last 24 Hours: Microbiology 01/16/19 12:41 Foot,Left Gram Stain - Final 01/16/19 12:41 Foot,Left Wound Culture - Preliminary Pseudomonas mendocina Gram Positive Cocci Assessment and Plan (1) Cellulitis of right lower leg Current visit: Yes Status: Acute Category: Medical Code(s): L03.115 - Cellulitis of right lower limb (2) Nausea & vomiting Current visit: Yes Status: Acute Category: Medical Code(s): R11.2 - Nausea with vomiting, unspecified (3) Chronic cutaneous venous stasis ulcer Current visit: Yes Status: Acute Category: Medical Code(s): I83.009 - Varicose veins of unspecified lower extremity with ulcer of unspecified site; L97.909 - Non-pressure chronic ulcer of unspecified part of unspecified lower leg with unspecified severity (4) Lymphedema Current visit: Yes Status: Acute Category: Medical Code(s): I89.0 - Lymphedema, not elsewhere classified (5) Acute kidney injury Current visit: Yes Status: Acute Category: Medical Code(s): N17.9 - Acute kidney failure, unspecified (6) Acute kidney injury (nontraumatic) Current visit: No Status: Resolved Category: Medical Code(s): N17.9 - Acute kidney failure, unspecified (7) Anemia Current visit: No Status: Chronic Qualifiers: Anemia type: due to chronic kidney disease Chronic kidney disease stage: stage 4 (severe) Qualified Code(s): N18.4 - Chronic kidney disease, stage 4 (severe); D63.1 - Anemia in chronic kidney disease Category: Medical Code(s): D64.9 - Anemia, unspecified (8) CKD (chronic kidney disease) stage 3, GFR 30-59 ml/min Current visit: No Status: Acute Category: Medical Code(s): N18.3 - Chronic kidney disease, stage 3 (moderate) (9) Obesity Current visit: No Status: Acute Qualifiers: Obesity type: due to excess calories Obesity classification: adult class 3 (BMI >= 40) Serious obesity comorbidity presence: with serious comorbidity Body mass index: BMI 40.0-44.9 Qualified Code(s): E66.01 - Morbid (severe) obesity due to excess calories; Z68.41 - Body mass index (BMI) 40.0-44.9, adult Category: Medical Code(s): E66.9 - Obesity, unspecified (10) Serratia marcescens infection Current visit: Yes Status: Acute Category: Medical Code(s): A48.8 - Other specified bacterial diseases (11) Serratia wound infection Current visit: Yes Status: Acute Category: Medical Code(s): A49.8 - Other bacterial infections of unspecified site (12) Enterococcus UTI Current visit: Yes Status: Acute Category: Medical Code(s): N39.0 - Urinary tract infection, site not specified; B95.2 - Enterococcus as the cause of diseases classified elsewhere The patient's infection will respond to the chosen ABx?: Yes Is the patient receiving the right drug, dose, and route?: Yes Could a more targeted ABx be ordered?: No (NO ABX CHANGES AT THIS TIME. MULTIPLE ORGANISMS GROWING FROM WOUND/URINE.)
[2019-01-24 07:21] LABS: Basophils % 0.3 % (0.1-2.0); Eosinophils # 0.3 K/mm3 (0.0-0.4); Eosinophils % 3.8 % (0.1-12.0); Hematocrit 31.5 % (37.0-47.0); Hemoglobin 9.5 g/dL (12.2-16.2); Lymphocytes # 1.9 K/mm3 (0.7-4.5); Lymphocytes % 23.9 % (10-50); Mean Corpuscular HGB Conc 30.1 g/dL (31.8-35.4); Mean Corpuscular Volume 89.5 fl (81-99); Mean Platelet Volume 8.1 fl (7.4-10.4); Monocytes # 0.6 K/mm3 (0.1-1.0); Monocytes % 7.3 % (1.7-9.3); Neutrophils # 5.1 K/mm3 (1.8-7.8); Neutrophils % 64.7 % (37.0-80.0); Platelet Count 431 K/mm3 (142-424); Red Blood Count 3.52 M/mm3 (4.20-5.40); Red Cell Distribution Width 14.7 % (11.5-17.5); White Blood Count 7.8 K/mm3 (4.8-10.8)
--- NOTE | 2019-01-24 07:31 | Progress Note ---
Internal Medicine - PN: Subj *Date: 01/24/19 *Time: 07:28 Interval history: Patient reports some improvement in abdominal pain as well as headache this morning. Nursing staff raises concerns over difficulty obtaining patient's blood as well as frequent need to reestablish an IV. Nursing believes PICC line would be beneficial. Concern is also been raised over the wounds on the patient's buttocks. She is sometimes resistant to repositioning. Exam Vital signs and Labs for Last 24 Hours: Temp Pulse Resp BP Pulse Ox 98.3 F 82 20 113/52 L 96 01/23/19 20:00 01/23/19 20:00 01/23/19 20:00 01/23/19 20:00 01/23/19 20:00 Laboratory Results - last 24 hr 01/23/19 06:30: Sodium 134 L, Potassium 4.2, Chloride 100, Carbon Dioxide 25, Anion Gap 13.2, BUN 16, Creatinine 1.16 H, Estimated Creat Clear 72, Estimated GFR 47 L, Est GFR ( Amer) 56 L, Glucose 89, Calcium 7.5 L 01/23/19 11:21: POC Glucose 81 01/23/19 16:45: POC Glucose 109 01/23/19 21:01: POC Glucose 131 H 01/24/19 06:25: WBC 7.8, RBC 3.52 L, Hgb 9.5 L, Hct 31.5 L, MCV 89.5, MCH 26.9 L , MCHC 30.1 L, RDW 14.7, Plt Count 431 H, MPV 8.1, Neut % (Auto) 64.7, Lymph % (Auto) 23.9, [place] % (Auto) 7.3, Eos % (Auto) 3.8, Baso % (Auto) 0.3, Neut # (Auto) 5.1, Lymph # (Auto) 1.9, [place] # (Auto) 0.6, Eos # (Auto) 0.3, Baso # (Auto) 0.0 I & O for Last 24 hours: Intake & Output 01/21/19 01/22/19 01/23/19 01/24/19 11:59 11:59 11:59 11:59 Intake Total 2674 / 2674 3685 / 3685 3357 / 3357 2504 / 2504 Output Total 1600 / 1600 4200 / 4200 700 / 700 2100 / 2100 Balance 1074 / 1074 -515 / -515 2657 / 2657 404 / 404 Weight 211 lb 6 oz 212 lb 5 oz 212 lb 6 oz Microbiology Reports for the Last 24 Hours: Microbiology 01/16/19 12:41 Foot,Left Gram Stain - Final 01/16/19 12:41 Foot,Left Wound Culture - Preliminary Pseudomonas mendocina Gram Positive Cocci Narrative: Patient does not look ill. Lungs are clear. Heart has a regular rate and rhythm. Abdomen is obese and soft without tenderness this morning. Patient has tenderness of the left tibia on palpation Assessment and Plan (1) Cellulitis of right lower leg Current visit: Yes Status: Acute Category: Medical Code(s): L03.115 - Cellulitis of right lower limb (2) Nausea & vomiting Current visit: Yes Status: Acute Category: Medical Code(s): R11.2 - Nausea with vomiting, unspecified (3) Chronic cutaneous venous stasis ulcer Current visit: Yes Status: Acute Category: Medical Code(s): I83.009 - Varicose veins of unspecified lower extremity with ulcer of unspecified site; L97.909 - Non-pressure chronic ulcer of unspecified part of unspecified lower leg with unspecified severity (4) Lymphedema Current visit: Yes Status: Acute Category: Medical Code(s): I89.0 - Lymphedema, not elsewhere classified (5) Acute kidney injury Current visit: Yes Status: Acute Category: Medical Code(s): N17.9 - Acute kidney failure, unspecified (6) Acute kidney injury (nontraumatic) Current visit: No Status: Resolved Category: Medical Code(s): N17.9 - Acute kidney failure, unspecified (7) Anemia Current visit: No Status: Chronic Qualifiers: Anemia type: due to chronic kidney disease Chronic kidney disease stage: stage 4 (severe) Qualified Code(s): N18.4 - Chronic kidney disease, stage 4 (severe); D63.1 - Anemia in chronic kidney disease Category: Medical Code(s): D64.9 - Anemia, unspecified (8) CKD (chronic kidney disease) stage 3, GFR 30-59 ml/min Current visit: No Status: Acute Category: Medical Code(s): N18.3 - Chronic kidney disease, stage 3 (moderate) (9) Obesity Current visit: No Status: Acute Qualifiers: Obesity type: due to excess calories Obesity classification: adult class 3 (BMI >= 40) Serious obesity comorbidity presence: with serious comorbidity Body mass index: BMI 40.0-44.9 Qualified Code(s): E66.01 - Morbid (severe) obesity due to excess calories; Z68.41 - Body mass index (BMI) 40.0-44.9, adult Category: Medical Code(s): E66.9 - Obesity, unspecified (10) Serratia marcescens infection Current visit: Yes Status: Acute Category: Medical Code(s): A48.8 - Other specified bacterial diseases (11) Serratia wound infection Current visit: Yes Status: Acute Category: Medical Code(s): A49.8 - Other bacterial infections of unspecified site (12) Enterococcus UTI Current visit: Yes Status: Acute Category: Medical Code(s): N39.0 - Urinary tract infection, site not specified; B95.2 - Enterococcus as the cause of diseases classified elsewhere (13) Cellulitis of leg, left Current visit: Yes Status: Acute Category: Medical Code(s): L03.116 - Cellulitis of left lower limb (14) Carbapenem-resistant Enterobacteriaceae infection Current visit: Yes Status: Acute Category: Medical Code(s): A49.8 - Other bacterial infections of unspecified site; Z16.24 - Resistance to multiple antibiotics - Assessment and plan all Dx Assessment and Plan for all problems:: 1. Continue her current antibiotics for her wound infections and cellulitis although cellulitis is improving 2. Continue her Imelda nasal lid for her UTI 3. Patient is going to need advanced imaging of the left tibia to rule out osteomyelitis 4. PICC line
[2019-01-24 07:34] LABS: Anion Gap 12.1 mEq/L (5-15); Calcium 7.5 mg/dL (8.5-10.1)
[2019-01-25 07:09] LABS: Basophils % 0.1 % (0.1-2.0); Eosinophils # 0.4 K/mm3 (0.0-0.4); Eosinophils % 4.4 % (0.1-12.0); Hematocrit 29.2 % (37.0-47.0); Hemoglobin 8.7 g/dL (12.2-16.2); Lymphocytes # 1.6 K/mm3 (0.7-4.5); Lymphocytes % 20.3 % (10-50); Mean Corpuscular HGB Conc 29.8 g/dL (31.8-35.4); Mean Corpuscular Volume 90.1 fl (81-99); Mean Platelet Volume 7.8 fl (7.4-10.4); Monocytes # 0.7 K/mm3 (0.1-1.0); Monocytes % 9.3 % (1.7-9.3); Neutrophils # 5.1 K/mm3 (1.8-7.8); Neutrophils % 65.8 % (37.0-80.0); Platelet Count 390 K/mm3 (142-424); Red Blood Count 3.24 M/mm3 (4.20-5.40); Red Cell Distribution Width 14.8 % (11.5-17.5); White Blood Count 7.8 K/mm3 (4.8-10.8)
[2019-01-25 07:13] LABS: Calcium 7.5 mg/dL (8.5-10.1)
--- NOTE | 2019-01-25 07:18 | Discharge Summary ---
General - General Admission date:: 01/16/19 Discharge date: 01/25/19 HPI HPI: 68-year-old female with history of chronic venous insufficiency that have led to a large wounds on the legs presented to the emergency department after a fall at home. Patient felt mildly nauseous and was weak and was brought to the emergency department. In the emergency department work-up was significant for cellulitis of the right lower extremity with ulceration of the lower extremity. Patient also has some open wounds on the back of the right leg and buttocks. Decision was made to admit her for IV antibiotics. This morning patient reports nausea and apparently has vomited multiple times with emesis being described as thick and green. However patient denies abdominal pain, only nausea. Regarding these ulcers she has been under the care of home health for the last several months but apparently due to a change in insurance has not had any home health nursing for wound evaluation in the last 3 weeks. During this time she and her have been trying to manage the wounds but have been running out of supplies due to her underlying health insurance issue. Hospital Course Hospital Course: Patient was admitted and placed on broad-spectrum antibiotics while simultaneously working around her multiple antibiotic allergies. Patient was placed on meropenem and gentamicin. This was an effective regimen as later on her wound cultures grew Serratia marcescens and Pseudomonas. This Serratia was a Carbapenem resistant Enterobacteriaceae. Patient had significant edema in the lower extremities on presentation as well and has a long history of lymphedema. During the entire hospitalization the patient remained bedbound with her legs elevated. By the day of discharge there was significantly less slough in the wound although the size of the wounds remain quite large and accurate measurement is documented in the wound therapist note. Edema had also improved as had erythema surrounding the wounds. Because of the extensive nature of the wound usp facility placement was sought so that patient may continue IV antibiotics as well as wound care. Patient had a successful stay earlier in the year at [facility] [place] and she will be transferred there at discharge. Patient will continue her antibiotic regimen for wounds. Wound care team was consulted while patient was hospitalized and performed dressing changes. Patient also had Enterococcus faecalis in her urine on admission. This is not the first time patient is grown this particular bacteria in her urine. Working around her antibiotic allergies it was determined Imelda nasal lid was the best option and she was placed on IV Imelda nasal lid 600 mg twice daily and should continue a 7-day course of this which would end on January 28. Patient has underlying diabetes but had nausea on admission and during her hospitalization did not require sliding scale insulin coverage nor did she require her home medications. Due to normal blood sugars and poor appetite I am going to hold her diabetic medicines at discharge. Objective Vital signs: Temp Pulse Resp BP Pulse Ox 98.3 F 76 21 122/56 L 95 01/25/19 04:00 01/25/19 04:00 01/25/19 04:00 01/25/19 04:00 01/25/19 04:00 no acute distress - *Routine Respiratory Exam Present: CTA bilaterally - *Routine Cardiovascular Exam Present: RRR, Normal S1, Normal S2 - *Routine Abdominal Exam Present: soft, normoactive bowel sounds Results Labs on day of discharge: Labs from last 24 hours 01/25/19 01/25/19 01/24/19 06:40 05:19 21:53 WBC 7.8 RBC 3.24 L Hgb 8.7 L Hct 29.2 L MCV 90.1 MCH 26.9 L MCHC 29.8 L RDW 14.8 Plt Count 390 MPV 7.8 Neut % (Auto) 65.8 Lymph % (Auto) 20.3 [place] % (Auto) 9.3 Eos % (Auto) 4.4 Baso % (Auto) 0.1 Neut # (Auto) 5.1 Lymph # (Auto) 1.6 [place] # (Auto) 0.7 Eos # (Auto) 0.4 Baso # (Auto) 0.0 Sodium Potassium Chloride Carbon Dioxide Anion Gap BUN Creatinine Estimated Creat Clear Estimated GFR Est GFR ( Amer) Glucose POC Glucose 116 H 111 H Calcium 01/24/19 01/24/19 01/24/19 16:56 06:25 06:25 WBC 7.8 RBC 3.52 L Hgb 9.5 L Hct 31.5 L MCV 89.5 MCH 26.9 L MCHC 30.1 L RDW 14.7 Plt Count 431 H MPV 8.1 Neut % (Auto) 64.7 Lymph % (Auto) 23.9 [place] % (Auto) 7.3 Eos % (Auto) 3.8 Baso % (Auto) 0.3 Neut # (Auto) 5.1 Lymph # (Auto) 1.9 [place] # (Auto) 0.6 Eos # (Auto) 0.3 Baso # (Auto) 0.0 Sodium 136 Potassium 4.1 Chloride 104 Carbon Dioxide 24 Anion Gap 12.1 BUN 13 Creatinine 1.24 H Estimated Creat Clear 67 Estimated GFR 43 L Est GFR ( Amer) 52 L Glucose 93 POC Glucose 88 Calcium 7.5 L 01/24/19 05:39 WBC RBC Hgb Hct MCV MCH MCHC RDW Plt Count MPV Neut % (Auto) Lymph % (Auto) [place] % (Auto) Eos % (Auto) Baso % (Auto) Neut # (Auto) Lymph # (Auto) [place] # (Auto) Eos # (Auto) Baso # (Auto) Sodium Potassium Chloride Carbon Dioxide Anion Gap BUN Creatinine Estimated Creat Clear Estimated GFR Est GFR ( Amer) Glucose POC Glucose 90 Calcium Preliminary micro results at discharge 01/16/19 12:41 Wound Culture - Preliminary Foot,Left Pseudomonas mendocina Gram Positive Cocci DS: Diagnosis - Discharge Diagnosis (1) Cellulitis of right lower leg Status: Acute (2) Nausea & vomiting Status: Acute (3) Chronic cutaneous venous stasis ulcer Status: Acute (4) Lymphedema Status: Acute (5) Acute kidney injury Status: Resolved (6) Acute kidney injury (nontraumatic) Status: Resolved (7) Anemia Status: Chronic (8) CKD (chronic kidney disease) stage 3, GFR 30-59 ml/min Status: Chronic (9) Obesity Status: Acute (10) Serratia marcescens infection Status: Acute (11) Serratia wound infection Status: Acute (12) Enterococcus UTI Status: Acute (13) Cellulitis of leg, left Status: Acute (14) Carbapenem-resistant Enterobacteriaceae infection Status: Acute Discharge Plan - Patient Discharge Instructions ACTIVITY: Continue current activity DIET: continue same diet Patient Instructions: How to Prevent Pressure Ulcers, Lymphedema, DI for Multiple Drug-resistant Organism (MDRO) Infection - Follow up Plan Disposition: er [facility] Home Medications: Home Medications Medication Instructions Recorded Confirmed Type Gabapentin [Gabapentin 300mg Cap] 300 mg PO DAILY 08/24/17 01/17/19 History Gabapentin [Gabapentin 300mg Cap] 600 mg PO HS 08/24/17 01/17/19 History Aspirin [Aspirin 81mg EC Tab] 81 mg PO DAILY 08/25/17 01/17/19 History Pantoprazole Sodium [Protonix 40mg 40 mg PO DAILY 11/29/17 01/17/19 History tablet] Ferrous Sulfate [Ferrous Sulfate 325 mg PO DAILY 01/16/19 01/16/19 History 325mg Tablet] Furosemide [Furosemide 20mg Tab] 20 mg PO DAILY 01/16/19 01/16/19 History Metformin HCl 500 mg PO TID 01/16/19 01/16/19 History raNITIdine HCl [Ranitidine HCl] 150 mg PO DAILY 01/16/19 01/16/19 History Docusate Sodium 100 mg PO DAILYP PRN 01/17/19 01/17/19 History Fexofenadine HCl [Lexus 180 mg PO DAILY 01/17/19 01/17/19 History Allergy] Levothyroxine Sodium 125 mcg PO DAILY 01/17/19 01/17/19 History [Levothyroxine 125mcg (0.125mg) Tab] Spironolactone 50 mg PO DAILY 01/17/19 01/17/19 History glipiZIDE [Glucotrol 5mg tablet] 5 mg PO DAILY 01/17/19 01/17/19 History Hydrocodone/Acetaminophen 1 tab PO Q6HP PRN #120 tab 01/25/19 Rx [Hydrocodone-Acetamin 10-325 mg] Prescriptions/Medication Reconciliation: New Gentamicin Sulfate [Gentamicin 80mg/2mL Vial] 360 mg IV Q48H vial Linezolid [Zyvox 600mg/300mL Premix Bag] 600 mg IV Q12H iv.soln Continued Gabapentin [Gabapentin 300mg Cap] 600 mg PO HS Gabapentin [Gabapentin 300mg Cap] 300 mg PO DAILY Pantoprazole Sodium [Protonix 40mg tablet] 40 mg PO DAILY Ferrous Sulfate [Ferrous Sulfate 325mg Tablet] 325 mg PO DAILY raNITIdine HCl [Ranitidine HCl] 150 mg PO DAILY Docusate Sodium 100 mg PO DAILYP PRN PRN Reason: Constipation Fexofenadine HCl [Lexus Allergy] 180 mg PO DAILY Spironolactone 50 mg PO DAILY Aspirin [Aspirin 81mg EC Tab] 81 mg PO DAILY Furosemide [Furosemide 20mg Tab] 20 mg PO DAILY Levothyroxine Sodium [Levothyroxine 125mcg (0.125mg) Tab] 125 mcg PO DAILY Hydrocodone/Acetaminophen [Hydrocodone-Acetamin 10-325 mg] 1 tab PO Q6HP PRN #120 tab PRN Reason: Mild To Moderate Pain Discontinued Metformin HCl 500 mg PO TID glipiZIDE [Glucotrol 5mg tablet] 5 mg PO DAILY - Problem Reconciliation Problems Reviewed?: Yes
== END 2019-01-25 11:18 | DRG 300 ==
LOC: 2ND 12:09 → ER 12:09 → 2ND 16:09
PROVIDERS: ADMIT Emergency Medicine; ATTEND Family Medicine
CPT/HCPCS: 36415; 36569; 70450; 71010; 71045; 72125; 72131; 72170; 73562; 73590; 73718; 80048; 80053; 80170; 80200; 81001; 82962; 83605; 84484; 85007; 85025; 85651; 86140; 87040; 87070; 87077; 87086; 87088; 87186; 87205; 96367; 97163; 99285; C1751; J2020; J2185; J2405

== ENCOUNTER → 2019-02-21 13:07 | Outpatient (CLI) | payer MEDICARE, BC, SELFPAY ==
[2019-02-21 13:35] LABS: Basophils % 0.3 % (0.1-2.0); Eosinophils # 0.1 K/mm3 (0.0-0.4); Eosinophils % 1.5 % (0.1-12.0); Lymphocytes # 2.5 K/mm3 (0.7-4.5); Lymphocytes % 24.7 % (10-50); Mean Corpuscular HGB Conc 30.2 g/dL (31.8-35.4); Mean Corpuscular Hemoglobin 28.3 pg (27.0-31.2); Mean Corpuscular Volume 93.6 fl (81-99); Mean Platelet Volume 8.8 fl (7.4-10.4); Monocytes # 0.7 K/mm3 (0.1-1.0); Monocytes % 7.1 % (1.7-9.3); Neutrophils # 6.6 K/mm3 (1.8-7.8); Neutrophils % 66.4 % (37.0-80.0); Platelet Count 339 K/mm3 (142-424); Red Blood Count 3.18 M/mm3 (4.20-5.40); White Blood Count 9.9 K/mm3 (4.8-10.8)
[2019-02-21 14:15] LABS: Anion Gap 17.6 mEq/L (5-15); Blood Urea Nitrogen 24 mg/dL (7-18); Calcium 8.3 mg/dL (8.5-10.1); Carbon Dioxide 20 mmol/L (21.0-32.0); Chloride 103 mmol/L (98-107); Creatinine,Serum 1.55 mg/dL (0.55-1.02); Estimated Glomerular Filt Rate 33 ml/min (>60); GFR (African American) 40 ML/MIN (>60); Glucose 87 mg/dL (74-106); Potassium 4.6 mmoL/L (3.5-5.1); Sodium 136 mmol/L (136-145)
== END ==
PROVIDERS: Visit Provider Internal Medicine
DX: N18.3 Chronic kidney disease, stage 3 (moderate) (principal); E87.5 Hyperkalemia
CPT/HCPCS: 80048; 85025

== ENCOUNTER → 2020-02-24 13:05 | Outpatient (CLI) | payer MEDICARE, BC, SELFPAY ==
[2020-02-24 13:44] LABS: Basophils # 0.1 K/mm3 (0-0.2); Basophils % 0.6 % (0.1-2.0); Eosinophils # 0.4 K/mm3 (0.0-0.4); Eosinophils % 3.9 % (0.1-12.0); Hematocrit 36.9 % (37.0-47.0); Hemoglobin 11.3 g/dL (12.2-16.2); Lymphocytes # 1.9 K/mm3 (0.7-4.5); Lymphocytes % 20.9 % (10-50); Mean Corpuscular HGB Conc 30.6 g/dL (31.8-35.4); Mean Corpuscular Hemoglobin 28.2 pg (27.0-31.2); Mean Corpuscular Volume 92.3 fl (81-99); Mean Platelet Volume 8.3 fl (7.4-10.4); Monocytes # 0.7 K/mm3 (0.1-1.0); Monocytes % 7.9 % (1.7-9.3); Neutrophils # 6.1 K/mm3 (1.8-7.8); Neutrophils % 66.7 % (37.0-80.0); Platelet Count 347 K/mm3 (142-424); Red Blood Count 3.99 M/mm3 (4.20-5.40); Red Cell Distribution Width 14.5 % (11.5-17.5); White Blood Count 9.1 K/mm3 (4.8-10.8)
[2020-02-24 13:50] LABS: Hemoglobin A1C 6.3 % (4.0-6.0)
[2020-02-24 13:54] LABS: Chloride 105 mmol/L (98-107); Potassium 5.1 mmoL/L (3.5-5.1); Sodium 141 mmol/L (136-145)
[2020-02-24 13:56] LABS: Blood Urea Nitrogen 22 mg/dl (7-17); Estimated Glomerular Filt Rate 35 ml/min (>60); GFR (African American) 42 ML/MIN (>60)
[2020-02-24 13:57] LABS: Alanine Aminotransferase 9 U/L (12-78); Albumin Level 4.2 g/dl (3.5-5.0); Alkaline Phosphatase 137 U/L (38-126); Anion Gap 16.1 mEq/L (5-15); Aspartate Amino Transferase 20 U/L (14-36); Bilirubin,Total 0.4 mg/dl (0.2-1.3); Calcium 8.9 mg/dl (8.4-10.2); Carbon Dioxide 25 mmol/L (22.0-30.0); Globulin 4.1 g/dL (1.3-3.2); Glucose 131 mg/dl (74-100); Total Protein,Serum 8.3 g/dl (6.3-8.2)
[2020-02-24 14:28] LABS: Thyroid Stimulating Hormone 2.71 uIU/mL (0.465-4.68)
== END ==
PROVIDERS: Visit Provider Family Medicine
DX: I87.333 Chronic venous hypertension (idiopathic) with ulcer and inflammation of bilateral lower extremity (principal); I13.0 Hypertensive heart and chronic kidney disease with heart failure and stage 1 through stage 4 chronic kidney disease, or unspecified chronic kidney disease; N18.30 Chronic kidney disease, stage 3 unspecified; E11.22 Type 2 diabetes mellitus with diabetic chronic kidney disease
CPT/HCPCS: 80053; 83036; 84443; 85025

== ENCOUNTER 2020-09-13 07:52 | Inpatient (IN) | payer MEDICARE, BC, SELFPAY ==
[2020-09-13] VITALS (15 sets, daily range): BP systolic 98–137; BP diastolic 42–88; PULSE 68–100; RESP 16–24; TEMP 36.6–36.8; O2SAT 88–98; BMI 48.5; BMI 44.1
--- NOTE | 2020-09-13 07:58 | ECG_ITS ---
APPROVED REPORT Exam: Resting ECG HR:89 bpm ECG Measurements Heart Rate 89 AXES QRSd 58 QRS -10 QT 318 T 38 QTc 386 Conclusion Atrial fibrillation Minimal voltage criteria for LVH, may be normal variant Anterolateral infarct, age undetermined Abnormal ECG Electronically signed by : Yann Laird MD 09/14/2020 11:39:02
--- NOTE | 2020-09-13 08:16 | HMH.EDGENADL ---
ED Disposition Clinical Impression: Hyperkalemia, Chronic wound of extremity, DALY (acute kidney injury) Disposition: Admitted As Inpatient Condition on Discharge: Fair Time of Disposition: 13:39 - Critical Care Critical Care Time: Yes Attestation: On 09/13/20, the high probability of a clinically significant, sudden or life threatening deterioration of the following system(s) required my full and direct attention, intervention and personal management. The time I documented below is in addition to time spent performing reported procedures but includes the following listed in this critical care notation. Total Critical Care Time: 65 Vital system(s) involved:: Renal Failure My critical care processes included: Assessment & monitoring of V/S, Initial and Re-exams, Data Review/Interpretation, Coordinating Care Medical Decision Making - Medical Records Medical records reviewed: Yes: I reviewed the patient's medical records. - Lonnie Inquiry Pt receiving controlled substance: No Vital Signs: 09/13/20 07:53 09/13/20 08:05 09/13/20 08:30 Temperature 98.1 F Temperature Source Oral Pulse Rate 85 88 Pulse Rate [Brachial] 90 Respiratory Rate 16 19 21 Blood Pressure 116/86 112/85 Blood Pressure [Right Arm] 118/75 Blood Pressure Mean Blood Pressure Mean [Right Arm] 89 Blood Pressure Position [Right Arm] Sitting 02 Sat by Pulse Oximetry 96 97 88 L Oxygen Delivery Method Room Air 09/13/20 09:01 09/13/20 10:31 09/13/20 11:15 Temperature Temperature Source Pulse Rate 92 H Pulse Rate [Brachial] Respiratory Rate 24 Blood Pressure 137/61 114/87 98/57 L Blood Pressure [Right Arm] Blood Pressure Mean 98 70 Blood Pressure Mean [Right Arm] Blood Pressure Position [Right Arm] 02 Sat by Pulse Oximetry Oxygen Delivery Method - Lab Data Lab results reviewed: Yes: I reviewed the patient's lab results. Lab Results 09/13/20 08:15: SARS-CoV-2 (PCR) Not detected, Influenza A Untype (PCR) Not detected, Influenza Type B (PCR) Not detected 09/13/20 08:22: WBC 10.8, RBC 3.94 L, Hgb 10.2 L, Hct 34.0 L, MCV 86.3, MCH 26.0 L, MCHC 30.1 L, RDW 16.4, Plt Count 441 H, MPV 7.2 L, Neut % (Auto) 73.2, Lymph % (Auto) 17.1, [place] % (Auto) 7.4, Eos % (Auto) 1.8, Baso % (Auto) 0.5, Neut # (Auto) 7.9 H, Lymph # (Auto) 1.8, [place] # (Auto) 0.8, Eos # (Auto) 0.2, Baso # (Auto) 0.1 09/13/20 08:22: Sodium 132 L, Potassium 8.0 H*, Chloride 104, Carbon Dioxide 17 L, Anion Gap 19.0 H, BUN 59 H, Creatinine 3.90 H, Estimated Creat Clear 10, Estimated GFR 11 L*, Est GFR ( Amer) 14 L*, Glucose 155 H, Calcium 9.2, Total Bilirubin 0.5, AST 21, ALT 13, Alkaline Phosphatase 148 H, Total Protein 9.3 H, Albumin 4.0, Globulin 5.3 H, Albumin/Globulin Ratio 0.8 L 09/13/20 08:22: Lactate 1.3 09/13/20 08:22: Procalcitonin 0.472 09/13/20 09:00: Urine Color Yellow, Urine Appearance Turbid, Urine pH 5.5, Ur Specific [place] 1.025, Urine Protein 2+, Urine Glucose (UA) Negative, Urine Ketones Negative, Urine Blood 2+, Urine Nitrate Negative, Urine Bilirubin Negative, Urine Urobilinogen 0.2, Ur Leukocyte Esterase 2+ A, Urine RBC 20-50, Urine WBC 10-20, Ur Squamous Epith Cells 3-5, Urine Bacteria 1+ 09/13/20 10:35: Sodium 135 L, Potassium 6.3 H* D, Chloride 109 H, Carbon Dioxide 17 L, Anion Gap 15.3 H, BUN 56 H, Creatinine 3.40 H, Estimated Creat Clear 12, Estimated GFR 13 L*, Est GFR ( Amer) 16 L*, Glucose 31 L* D, Calcium 8.5, Phosphorus 4.5, Albumin 3.1 L D 09/13/20 11:34: POC Glucose 100 Result diagrams: 09/13/20 08:22 09/13/20 10:35 Orders (Tests/Meds): ED MEDICATIONS Generic Name Dose Route Start Last Admin Trade Name Freq PRN Reason Stop Dose Admin Sodium Chloride 1,000 mls @ 125 mls/hr 09/13/20 13:15 Sod Chlor 0.9% 1000ml Bag IV 10/13/20 13:14 .Q8H ULISES Discontinued Medications Generic Name Dose Route Start Last Admin Trade Name Freq PRN Reason Stop Dose Admin Dextrose 50 ml 09/13/20 0
[2020-09-13 08:32] LABS: Coronavirus 19, PCR Not Detected (NotDetected); Influenza A, PCR Not Detected (NotDetected); Influenza B, PCR Not Detected (NotDetected)
[2020-09-13 08:40] LABS: Chloride 104 mmol/L (98-107); Sodium 132 mmol/L (136-145)
[2020-09-13 08:42] LABS: Basophils # 0.1 K/mm3 (0-0.2); Basophils % 0.5 % (0.1-2.0); Eosinophils # 0.2 K/mm3 (0.0-0.4); Eosinophils % 1.8 % (0.1-12.0); Hemoglobin 10.2 g/dL (12.2-16.2); Lymphocytes # 1.8 K/mm3 (0.7-4.5); Lymphocytes % 17.1 % (10-50); Mean Corpuscular HGB Conc 30.1 g/dL (31.8-35.4); Mean Corpuscular Volume 86.3 fl (81-99); Mean Platelet Volume 7.2 fl (7.4-10.4); Monocytes # 0.8 K/mm3 (0.1-1.0); Monocytes % 7.4 % (1.7-9.3); Neutrophils # 7.9 K/mm3 (1.8-7.8); Neutrophils % 73.2 % (37.0-80.0); Platelet Count 441 K/mm3 (142-424); Red Blood Count 3.94 M/mm3 (4.20-5.40); Red Cell Distribution Width 16.4 % (11.5-17.5); White Blood Count 10.8 K/mm3 (4.8-10.8)
[2020-09-13 08:43] LABS: Alanine Aminotransferase 13 U/L (12-78); Albumin/Globulin Ratio 0.8 (1.1-1.8); Alkaline Phosphatase 148 U/L (38-126); Aspartate Amino Transferase 21 U/L (14-36); Bilirubin,Total 0.5 mg/dl (0.2-1.3); Blood Urea Nitrogen 59 mg/dl (7-17); Carbon Dioxide 17 mmol/L (22.0-30.0); Creatinine Clearance Estimated 10 mL/min (50-200); Estimated Glomerular Filt Rate 11 ml/min (>60); GFR (African American) 14 ML/MIN (>60); Globulin 5.3 g/dL (1.3-3.2); Total Protein,Serum 9.3 g/dl (6.3-8.2)
[2020-09-13 08:44] LABS: Calcium 9.2 mg/dl (8.4-10.2); Glucose 155 mg/dl (74-100); Lactic Acid 1.3 mmol/L (0.7-2.1)
[2020-09-13 09:01] LABS: Procalcitonin 0.472 ng/mL (0.0-2.0)
--- NOTE | 2020-09-13 09:11 | PC.NURSE ---
ER physician aware of critical labs
[2020-09-13 10:33] LABS: Microscopic, Urine URINE MICROSCOPIC (MICROSCOPIC)
[2020-09-13 10:35] LABS: Appearance,Urine TURBID (Clear); Bilirubin,Urine Negative (Negative); Blood, Urine 2+ (Negative); Color,Urine YELLOW (Yellow); Glucose,Urine (UA) Negative (Negative); Ketones,Urine Negative (Negative); Leukocyte Esterase,Urine 2+ (Negative); Nitrate,Urine Negative (Negative); PH,Urine 5.5 (5.0-8.5); Protein,Urine 2+ (Negative); Specific Gravity, Urine 1.025 (1.005-1.030); Urobilinogen,Urine 0.2 EU/dl (0.2)
[2020-09-13 10:44] LABS: Bacteria,Urine 1+ /lpf; RBC,Urine 20-50 #/hpf (0-3)
[2020-09-13 10:48] LABS: Albumin Level 3.1 g/dl (3.5-5.0); Chloride 109 mmol/L (98-107); Sodium 135 mmol/L (136-145)
[2020-09-13 10:51] LABS: Anion Gap 15.3 mEq/L (5-15); Blood Urea Nitrogen 56 mg/dl (7-17); Calcium 8.5 mg/dl (8.4-10.2); Carbon Dioxide 17 mmol/L (22.0-30.0); Creatinine Clearance Estimated 12 mL/min (50-200); Estimated Glomerular Filt Rate 13 ml/min (>60); GFR (African American) 16 ML/MIN (>60); Phosphorous 4.5 mg/dl (2.5-4.5)
[2020-09-13 10:54] LABS: Glucose 31 mg/dl (74-100); Potassium 6.3 mmoL/L (3.5-5.1)
--- NOTE | 2020-09-13 10:54 | PC.NURSE ---
eliecer in lab called with critical results of potassium and glucose, pt name and verified. notified ER MD of critical results
--- NOTE | 2020-09-13 11:16 | PC.NURSE ---
pt and family updated on plan of care
[2020-09-13 11:41] LABS: POC Glucose,Bedside 100 (70-110)
--- NOTE | 2020-09-13 12:39 | PC.NURSE ---
Called [facility] and [facility] for transfer of pt for nephrology, both said no.
[2020-09-13 14:09] LABS: POC Glucose,Bedside 83 (70-110)
--- NOTE | 2020-09-13 14:10 | PC.NURSE ---
diet tray given
--- NOTE | 2020-09-13 14:26 | PC.NURSE ---
reviewed with md if antibiotics for lower extremities, no new orders obtained. reviewed ekg with md,, no new orders obtained
--- NOTE | 2020-09-13 14:28 | PC.NURSE ---
report to danya valencia
--- NOTE | 2020-09-13 15:10 | PC.NURSE ---
pt got to the floor at this time.
--- NOTE | 2020-09-13 15:25 | XR_ITS ---
PROCEDURE: XR FOOT LT 2V CLINICAL INDICATION: left foot pain after fall at home COMPARISON: CR XR ANKLE LT 2V from 09/13/2020 FINDINGS: There is diffuse osteopenia. Hammertoe deformity is present at the 2nd digit. The 2nd toe difficult to evaluate due to the hammertoe and diffuse osteopenia. Left ankle: Generalized osteopenia. Diffuse vascular calcification. No obvious fracture or dislocation. Other findings:None. IMPRESSION: No acute fracture. Diffuse osteopenia Hammertoe deformity 2nd toe Dictated by: Bertin Muniz MD 09/13/2020 17:29 Bertin Muniz MD in [place] 09/13/2020 17:29
--- NOTE | 2020-09-13 15:26 | HMH.HP ---
*Admission Date: 09/13/20 *Chief complaint: Fall at home *History of present illness: 69-year-old female brought to the ER after a fall at home with inability to ambulate after falling. Patient tells me she was walking from the bathroom when her left leg began to feel weak and ultimately gave out on her. Her left foot ended up being bent underneath of her when she fell and she does complain of some left foot and ankle pain. Because of inability to ambulate and get back to her feet patient was brought to the emergency department. Patient reports she also felt sick . Specifically she had noticed weakness developing over the last 2 to 3 days. Of note patient had brought a urine sample to my office yesterday which was quite cloudy, malodorous, and was nitrite positive. Urine culture is pending. During work-up in the emergency department patient was found to be hyperkalemic with a potassium of 8 with acute kidney injury. After being given dextrose, insulin, calcium gluconate, sodium bicarb patient's potassium had decreased to 6.3. Attempts were being made to transfer the patient however all hospitals with higher level services are apparently on divert. Patient was admitted for IV fluid hydration, given oral Kayexalate in the emergency department, and will have repeat BMP later this evening. Patient was also noted to have persistence/recurrence of ulcerations of both legs. Patient has long history of venous insufficiency, lymphedema and chronic leg wounds. For the last year she has been under the care of a wound care physician in [facility] but tells me in June she was told there was nothing else that could be done. Since that time her leg wounds have gradually worsened. She and her have been trying to care for them at home with the help of home health which attends to her twice per week [facility] History I have reviewed the patient's past medical history: Yes Medical History: Reports:: Congestive Heart Failure, Diabetes Mellitus Type 2, Hypertension, MRSA, Renal Disease, Urinary Tract Infection Denies:: Cancer, Coronary Artery Disease, Diabetes Mellitus Type 1, Internal Pacemaker, Lung Disease, Myocardial Infarction, Seizures *Have you ever received a pneumonia vaccine?: Yes *Have you received a flu vaccine this season?: Yes Other Medical History: Reports: Anemia, Arthritis, Fibromyalgia, Hypothyroidism, Thyroid Disease, Other (Morbid obesity) Other Surgeries: Yes: Tubal Ligation. No: Pacemaker Amputation: No Fractures: No - *Social History Smoking Status: Never smoker Alcohol Intake: never *Occupational Status:: retired Housing: house Household Members: spouse, family *Travel in the last 8 weeks: None Family Hx:: Cancer, Diabetes Review of Systems - Constitutional Denies anorexia, Denies body ache(s), Denies chills, Denies fever(s) - Eyes Denies blurry vision, Denies change in vision - ENT Denies abnormal hearing, Denies bleeding gums, Denies ear pain - *Cardiovascular Reports leg pain with activity, Reports leg swelling, Reports leg sores, Denies chest pain, Denies chest pain at rest, Denies chest pain with activity, Denies shortness of breath, Denies shortness of breath with activity, Denies generalized swelling, Denies irregular heart rhythm, Denies shortness of breath when lying down, Denies rapid, pounding, or irregular heartbeat - *Respiratory Denies chest congestion, Denies cough, Denies shortness of breath - *Gastrointestinal Denies abdominal pain, Denies belching, Denies bloating, Denies loose stools - *Genitourinary Denies difficulty urinating, Denies painful urination - *Musculoskeletal Reports abnormal walking (Ambulates very short distances with a walker), Denies joint pain - Integumentary/Breasts Reports hair loss, Denies bleeding lesions - *Neurologic Reports abnormal walking - Psychiatric Reports anxiety, Denies hearing things others do not hear, Denies behavioral changes Meds Home Medicati
--- NOTE | 2020-09-13 15:54 | PC.WOUNDNOTE ---
left lateral leg left lateral leg left lateral leg left medial leg left medial leg left anterior leg right toes right medial leg right medial leg right lateral leg right posterior leg buttock buttock buttock
[2020-09-13 16:05] LABS: Hemoglobin A1C 6.2 % (4.0-6.0)
--- NOTE | 2020-09-13 16:13 | HMH.PHAINT ---
MEDICATION RECONCILIATION COMPLETE USING LIST FROM MD OFFICE AND EXTERNAL PHARMACY FILL HISTORY.
--- NOTE | 2020-09-13 16:13 | HMH.PHAVTE ---
[facility] Pharmacy VTE Monitoring - Patient Demographics Admission date: 09/13/20 Report Date: 09/13/20 Time: 16:13 Allergies/Adverse Reactions: Patient Allergies vancomycin Allergy (Severe, Verified 06/07/18 01:41) red man syndrome ceftriaxone Allergy (Mild, Verified 06/07/18 01:41) Rash amoxicillin Allergy (Unknown, Verified 01/18/19 07:33) UNKNOWN atropine Allergy (Unknown, Verified 01/18/19 07:33) UNKNOWN aztreonam Allergy (Unknown, Verified 01/18/19 07:33) UNKNOWN ciprofloxacin Allergy (Unknown, Verified 01/18/19 07:33) UNKNOWN clindamycin Allergy (Unknown, Verified 01/18/19 07:33) UNKNOWN levofloxacin Allergy (Unknown, Verified 01/18/19 07:33) UNKNOWN morphine Allergy (Unknown, Verified 01/18/19 07:33) UNKNOWN nabumetone Allergy (Unknown, Verified 01/18/19 07:33) UNKNOWN oxytetracycline Allergy (Unknown, Verified 01/18/19 07:33) UNKNOWN Penicillins Allergy (Unknown, Verified 01/18/19 07:33) UNKNOWN polymyxin B Allergy (Unknown, Verified 01/18/19 07:33) UNKNOWN Sulfa (Sulfonamide Antibiotics) Allergy (Unknown, Verified 01/18/19 07:33) UNKNOWN tramadol Allergy (Unknown, Verified 01/18/19 07:33) UNKNOWN Height: 1.6 m Weight: 113.058 kg Patient Problems: Current Active Problems Hyperkalemia (Acute) Chronic wound of extremity (Chronic) DALY (acute kidney injury) (Acute) Stage 3a chronic kidney disease (Chronic) Personal history of diabetes mellitus (Acute) Wound with infection determined by examination (Acute) - VTE Risk Labs: VTE Related Lab Results Hgb 10.2 g/dL (12.2-16.2) L 09/13/20 08:22 Hct 34.0 % (37.0-47.0) L 09/13/20 08:22 Plt Count 441 K/mm3 (142-424) H 09/13/20 08:22 BUN 56 mg/dl (7-17) H 09/13/20 10:35 Creatinine 3.40 mg/dl (0.52-1.04) H 09/13/20 10:35 Estimated Creat Clear 12 mL/min (50-200) 09/13/20 10:35 Clinical Trial Participant: No - Prophylaxis VTE Prophylaxis Ordered?: Yes Types of VTE Prophylaxis: TEDS Knee High Location of Applied Device: Bilateral Lower Extremeties Pharmacologic Type: Heparin
[2020-09-13 16:14] LABS: Thyroid Stimulating Hormone 0.25 uIU/mL (0.465-4.68)
[2020-09-13 17:29] LABS: POC Glucose,Bedside 79 (70-110)
[2020-09-13 20:27] LABS: Chloride 107 mmol/L (98-107); Sodium 132 mmol/L (136-145)
[2020-09-13 20:28] LABS: Albumin Level 2.9 g/dl (3.5-5.0)
[2020-09-13 20:30] LABS: Blood Urea Nitrogen 50 mg/dl (7-17); Creatinine Clearance Estimated 14 mL/min (50-200); Estimated Glomerular Filt Rate 14 ml/min (>60); GFR (African American) 17 ML/MIN (>60)
[2020-09-13 20:31] LABS: Calcium 8.2 mg/dl (8.4-10.2); Carbon Dioxide 17 mmol/L (22.0-30.0); Glucose 106 mg/dl (74-100); Phosphorous 4.8 mg/dl (2.5-4.5); Potassium 6.1 mmoL/L (3.5-5.1)
[2020-09-13 20:32] LABS: Anion Gap 14.1 mEq/L (5-15)
[2020-09-13 22:00] LABS: POC Glucose,Bedside 108 (70-110)
[2020-09-14] VITALS: BP 145/72; PULSE 81; RESP 16; TEMP 35.9; O2SAT 94
--- NOTE | 2020-09-14 02:47 | PC.NURSE ---
A&OX4. TOLERATING RA WELL. AT BEGINNING OF SHIFT, PT C/O PAIN IN BLE. TREATED PER APR. CRITICAL LABS REPORTED TO MD VASQUEZ. ORDERS RECEIVED. ADMINISTERED KAYEXALATE, REGULAR INSULIN, AND AN AMP OF D50. PT TOLERATED WELL. PT HAS BEEN RESTING SINCE. PT BLE WITH LARGE ULCERATIONS PRESENT. WHITE AND GREEN EXUDATE PRESENT. REDNESS AND EXCORIATION TO BOTTOM, PT BEING TURNED TOLERATED. LEGS HAVE BEEN LEFT OPEN TO AIR. NO OTHER C/O THUS FAR, VSS WILL CONTINUE TO MONITOR.
[2020-09-14 03:12] VITALS: BP 119/52; PULSE 79; RESP 17; TEMP 37.1; O2SAT 92
[2020-09-14 05:10] VITALS: BMI 43.9
[2020-09-14 05:34] LABS: POC Glucose,Bedside 98 (70-110)
[2020-09-14 06:35] LABS: Basophils % 0.5 % (0.1-2.0); Eosinophils # 0.3 K/mm3 (0.0-0.4); Eosinophils % 4.3 % (0.1-12.0); Hematocrit 27.4 % (37.0-47.0); Lymphocytes # 1.4 K/mm3 (0.7-4.5); Lymphocytes % 19.7 % (10-50); Mean Corpuscular Hemoglobin 25.7 pg (27.0-31.2); Mean Corpuscular Volume 85.9 fl (81-99); Mean Platelet Volume 7.4 fl (7.4-10.4); Monocytes # 0.5 K/mm3 (0.1-1.0); Monocytes % 6.8 % (1.7-9.3); Neutrophils # 4.9 K/mm3 (1.8-7.8); Neutrophils % 68.7 % (37.0-80.0); Platelet Count 299 K/mm3 (142-424); Red Blood Count 3.19 M/mm3 (4.20-5.40); Red Cell Distribution Width 16.6 % (11.5-17.5); White Blood Count 7.1 K/mm3 (4.8-10.8)
[2020-09-14 06:37] LABS: Hemoglobin 8.2 g/dL (12.2-16.2)
[2020-09-14 06:39] LABS: Chloride 110 mmol/L (98-107); Potassium 5.4 mmoL/L (3.5-5.1); Sodium 135 mmol/L (136-145)
[2020-09-14 06:42] LABS: Blood Urea Nitrogen 46 mg/dl (7-17); Creatinine Clearance Estimated 15 mL/min (50-200); Estimated Glomerular Filt Rate 16 ml/min (>60); GFR (African American) 20 ML/MIN (>60)
[2020-09-14 06:43] LABS: Anion Gap 12.4 mEq/L (5-15); Calcium 7.9 mg/dl (8.4-10.2); Carbon Dioxide 18 mmol/L (22.0-30.0); Glucose 87 mg/dl (74-100)
--- NOTE | 2020-09-14 07:31 | XR_ITS ---
PROCEDURE: XR CHEST PORTABLE PICC PLAC CLINICAL HISTORY: Confirm PICC line placement COMPARISON: CR [id number] XR chest portable from 09/26/2017 CR XR CHEST AP from 01/16/2019 CR XR CHEST PORTABLE PICC PLAC from 01/24/2019 FINDINGS: There is a right upper extremity PICC line present. The PICC line is curled in the proximal subclavian region projected inferiorly and in curled back upon itself. Suggest withdrawing the line by eleven cm and then advancing once more. IMPRESSION: Abnormal position of right upper extremity PICC line Dictated by: Bertin Muniz MD 09/14/2020 16:33 Bertin Muniz MD in [place] 09/14/2020 16:33
--- NOTE | 2020-09-14 07:32 | HMH.ACPN2 ---
Internal Medicine - PN: Subj *Date: 09/14/20 *Time: 07:32 Interval history: Patient had worsening pain overnight that required IV morphine. She reports improvement in leg pains this morning. Patient also received an additional dose of oral Kayexalate. She has no new complaints. X-rays of the left foot and ankle were negative Exam Vital signs and Labs for Last 24 Hours: Temp Pulse Resp BP Pulse Ox 98.8 F 79 17 119/52 L 92 L 09/14/20 03:12 09/14/20 03:12 09/14/20 03:12 09/14/20 03:12 09/14/20 03:12 Laboratory Results - last 24 hr 09/13/20 08:15: SARS-CoV-2 (PCR) Not detected, Influenza A Untype (PCR) Not detected, Influenza Type B (PCR) Not detected 09/13/20 08:22: WBC 10.8, RBC 3.94 L, Hgb 10.2 L, Hct 34.0 L, MCV 86.3, MCH 26.0 L, MCHC 30.1 L, RDW 16.4, Plt Count 441 H, MPV 7.2 L, Neut % (Auto) 73.2, Lymph % (Auto) 17.1, [place] % (Auto) 7.4, Eos % (Auto) 1.8, Baso % (Auto) 0.5, Neut # (Auto) 7.9 H, Lymph # (Auto) 1.8, [place] # (Auto) 0.8, Eos # (Auto) 0.2, Baso # (Auto) 0.1 09/13/20 08:22: Sodium 132 L, Potassium 8.0 H*, Chloride 104, Carbon Dioxide 17 L, Anion Gap 19.0 H, BUN 59 H, Creatinine 3.90 H, Estimated Creat Clear 10, Estimated GFR 11 L*, Est GFR ( Amer) 14 L*, Glucose 155 H, Calcium 9.2, Total Bilirubin 0.5, AST 21, ALT 13, Alkaline Phosphatase 148 H, Total Protein 9.3 H, Albumin 4.0, Globulin 5.3 H, Albumin/Globulin Ratio 0.8 L 09/13/20 08:22: Lactate 1.3 09/13/20 08:22: Procalcitonin 0.472 09/13/20 08:22: TSH 0.25 L 09/13/20 09:00: Urine Color Yellow, Urine Appearance Turbid, Urine pH 5.5, Ur Specific [place] 1.025, Urine Protein 2+, Urine Glucose (UA) Negative, Urine Ketones Negative, Urine Blood 2+, Urine Nitrate Negative, Urine Bilirubin Negative, Urine Urobilinogen 0.2, Ur Leukocyte Esterase 2+ A, Urine RBC 20-50, Urine WBC 10-20, Ur Squamous Epith Cells 3-5, Urine Bacteria 1+ 09/13/20 10:35: Sodium 135 L, Potassium 6.3 H* D, Chloride 109 H, Carbon Dioxide 17 L, Anion Gap 15.3 H, BUN 56 H, Creatinine 3.40 H, Estimated Creat Clear 12, Estimated GFR 13 L*, Est GFR ( Amer) 16 L*, Glucose 31 L* D, Calcium 8.5, Phosphorus 4.5, Albumin 3.1 L D 09/13/20 10:35: Hemoglobin A1c 6.2 H 09/13/20 11:34: POC Glucose 100 09/13/20 13:50: POC Glucose 83 09/13/20 16:57: POC Glucose 79 09/13/20 20:08: Sodium 132 L, Potassium 6.1 H*, Chloride 107, Carbon Dioxide 17 L, Anion Gap 14.1, BUN 50 H, Creatinine 3.20 H, Estimated Creat Clear 14, Estimated GFR 14 L*, Est GFR ( Amer) 17 L*, Glucose 106 H D, Calcium 8.2 L, Phosphorus 4.8 H, Albumin 2.9 L 09/13/20 20:52: POC Glucose 108 09/14/20 04:59: POC Glucose 98 09/14/20 06:24: WBC 7.1 D, RBC 3.19 L, Hgb 8.2 L D, Hct 27.4 L, MCV 85.9, MCH 25.7 L, MCHC 30.0 L, RDW 16.6, Plt Count 299 D, MPV 7.4, Neut % (Auto) 68.7, Lymph % (Auto) 19.7, [place] % (Auto) 6.8, Eos % (Auto) 4.3, Baso % (Auto) 0.5, Neut # (Auto) 4.9, Lymph # (Auto) 1.4, [place] # (Auto) 0.5, Eos # (Auto) 0.3, Baso # (Auto) 0.0 09/14/20 06:24: Sodium 135 L, Potassium 5.4 H, Chloride 110 H, Carbon Dioxide 18 L, Anion Gap 12.4, BUN 46 H, Creatinine 2.90 H, Estimated Creat Clear 15, Estimated GFR 16 L*, Est GFR ( Amer) 20 L, Glucose 87, Calcium 7.9 L I & O for Last 24 hours: Intake & Output 09/11/20 09/12/20 09/13/20 09/14/20 11:59 11:59 11:59 11:59 Intake Total 1221 / 1221 Output Total 1000 / 1000 Balance 221 / 221 Weight 257 lb 248 lb 4 oz Narrative: Patient appears comfortable in bed. Lungs are clear. Heart has a regular rate and rhythm. Lower extremities have circumferential ulcerated wounds with greenish-white exudate and foul odor especially from the right leg Assessment and Plan (1) Hyperkalemia Status: Acute Category: Medical Code(s): E87.5 - Hyperkalemia (2) DALY (acute kidney injury) Status: Acute Category: Medical Code(s): N17.9 - Acute kidney failure, unspecified (3) Stage 3a chronic kidney disease Status: Chronic Category: Medical Code(s): N18.31 - Chr
[2020-09-14 08:00] VITALS: BP 127/54; PULSE 74; RESP 20; TEMP 37; O2SAT 97
[2020-09-14 09:51] VITALS: BMI 44.1
--- NOTE | 2020-09-14 10:03 | DIET.NUTRFU ---
Addendum entered by Chloe Patel 09/19/20 12:43: PO intakes 75%, weight stable, BG wnl. No changes, continuing to monitor. Addendum entered by Chloe Patel 09/17/20 12:51: PO intakes 50%, pt states she is eating normally and prioritizing protein. She is sick of Breeze, altered to 1 protein fortified food per day. Weight up 6# t/o stay. BG very well controlled- wnl-120. Renal function greatly improved and K normalized. Continuing to monitor and provide diet edu for renal/consistent cho diet with increased protein needs. Original Note: Nutritional assessment, IP/consult completed. Pt does have adequate protein intake, does try to follow nutritional recommendations for her chronic conditions. However, diet hx reveals poor nutrition knowledge/health literacy. Pt has been drinking 1-2 ensure per day which is inappropriate for advanced CKD due to high potassium and sodium content. Pt provided diet edu/counseling for appropriate and adequate protein supplementation, CKD, CHF, DM, and weight loss. Diet altered from low potassium to renal/ada which has potassium restriction as well as other important restrictions. Breeze protein supplement added to diet order once daily, though this is not low sugar it is only supplement available with 0% K and low sodium. Pt's DM is well controlled with A1C of 6.2. Will monitor to alter nutritional care plan as indicated.
[2020-09-14 11:36] VITALS: BP 106/47; PULSE 61; RESP 20; TEMP 37.1; O2SAT 96
--- NOTE | 2020-09-14 11:41 | HMH.PTWOUND ---
Rehab Inpt Wound Evaluation Rehab IP Wound Evaluation Start: 09/13/20 14:24 Freq: ONCE Status: Active Protocol: Document 09/14/20 11:30 PHORGARY (Rec: 09/14/20 11:41 PHORNE [id number]) Rehab PT Wound Assessment Subjective Subjective 69 yowf adm to [facility] with DALY, kyperkalemia and worsening chronic B LE wounds. She lives with at home, not very mobilie at baseline. Wound Left Lower Leg Wound Type Stasis Ulcer Is This a Chronic Wound Yes Wound Length (cm) 20.0 Wound Width (cm) 30.0 Wound Bed Appearance Yellow,Pale,Slough,Necrotic Wound Margins Description Indistinct Edema Type Pitting Edema Degree 2+ Query Text:1+ Trace, Barely Detectable, Rebound 15-30 seconds 2+ Moderate, Slight Indentation, Rebound 10-20 seconds 3+ Deep, Deeper Indentation, Rebound > 30 seconds 4+ Very Deep, Rebound > 60 seconds Wound Drainage Description Purulent Drainage Amount Copious Wound Topical Solution/Irrigant Antibiotic Irrigant Primary Dressing tu pad Wound Debridement Amount of Tissue Minimal Removed Dressing Change Patient Tolerance Tolerated Poorly Right Lower Leg Wound Type Stasis Ulcer Is This a Chronic Wound Yes Wound Length (cm) 25.0 Wound Width (cm) 40.0 Wound Bed Appearance Yellow,Pale,Slough,Peeling Skin,Necrotic Wound Margins Description Indistinct Surrounding Tissue Appearance Bright Red Edema Type Pitting Edema Degree 2+ Query Text:1+ Trace, Barely Detectable, Rebound 15-30 seconds 2+ Moderate, Slight Indentation, Rebound 10-20 seconds 3+ Deep, Deeper Indentation, Rebound > 30 seconds 4+ Very Deep, Rebound > 60 seconds Wound Drainage Description Purulent Drainage Amount Copious Wound Topical Solution/Irrigant Antibiotic Irrigant Primary Dressing tu pad Wound Debridement Amount of Tissue Minimal Removed Dressing Change Patient Tolerance Tolerated Poorly Plan/Recommendation Comment Pt has such large wounds with such copious amts of drainage it is difficult at best to dress them. B LE need a throughough cleansing with an antimicrobial irrigant such as
[2020-09-14 12:07] LABS: POC Glucose,Bedside 81 (70-110)
--- NOTE | 2020-09-14 16:35 | PC.NURSE ---
Pt has been tearful intermittently t/o this shift regarding all of her ailments. Wound cultures obtained this shift-results pending at this time. CRE swab obtained as well and sent to lab per protocol. PT rinsed BLE w/ diluted betadine and wrapped in white chucks. Purulent drainage noted at open sites, some areas serosaing drainage noted. Pt has remained on RA this shift. Pt has not required SSI this shift. No other acute changes or complaints, will continue to monitor.
--- NOTE | 2020-09-14 17:01 | PC.NURSE ---
WHILE RE-THREADING PICC LINE AFTER NOTIFICATION THAT IS WAS NOT IN CORRECT PLACEMENT. PT STATES THAT HER ARM WAS HURTING WHILE FLUSHING FLUIDS AND HER ARM BEGAN TO SWELL. PICC LINE REMOVED AND PRESSURE APPLIED. PT STATED SHE WISHED TO TAKE A BREAK FROM ATTEMPTING TO INSERT PICC LINE. NURSE NOTIFIED.
[2020-09-14 18:21] LABS: POC Glucose,Bedside 108 (70-110)
[2020-09-14 20:00] VITALS: BP 117/72; PULSE 74; RESP 18; TEMP 37.1; O2SAT 97
[2020-09-14 20:33] LABS: POC Glucose,Bedside 123 (70-110)
--- NOTE | 2020-09-14 20:57 | XR_ITS ---
PROCEDURE INFORMATION: Exam: XR Chest Exam date and time: 09/14/2020 8:57 PM Age: 69 years old Clinical indication: Device placement; Picc; Additional info: Picc placement TECHNIQUE: Imaging protocol: XR of the chest. Views: 1 view. COMPARISON: CR XR CHEST PORTABLE PICC PLAC 09/14/2020 4:18 PM FINDINGS: Tubes, catheters and devices: Right approach PICC line tip not well seen, but likely terminates in the SVC. If additional imaging is required, collimated view over the mediastinum is recommended. Lungs: Mild bibasilar atelectasis. Hypoventilatory study. Pleural spaces: Unremarkable. No pleural effusion. No pneumothorax. Heart/Mediastinum: Mild cardiac enlargement. Bones/joints: Unremarkable. IMPRESSION: Right approach PICC line tip not well seen, but likely terminates in the SVC.
--- NOTE | 2020-09-14 21:42 | PC.NURSE ---
spoke w/ pt's primary nurse. PICC line to not be used until verified placement w/ in house rad in the AM
[2020-09-15 04:00] VITALS: BP 131/67; PULSE 74; RESP 16; TEMP 37; O2SAT 98
[2020-09-15 04:53] VITALS: BMI 43.9
[2020-09-15 05:55] LABS: POC Glucose,Bedside 105 (70-110)
--- NOTE | 2020-09-15 07:15 | PC.NURSE ---
Pt is A/O x4, pt rested well this shift. VSS. brake operator heavy duty PICC line was being assessed and noticed that part of the line was pulled out. Called and he stated if it is not functional to pull the line. BLE are still wrapped in white chucks. Pt c/o of pain x2 this shift admin meds per MAR with relief. call light within reach, will continue to monitor.
--- NOTE | 2020-09-15 07:57 | HMH.ACPN2 ---
Internal Medicine - PN: Subj *Date: 09/15/20 *Time: 07:57 Interval history: No new complaints. PICC line was placed yesterday and somehow became dislodged overnight. Patient had wound eval yesterday with recommendations for diluted Betadine cleansing with chucks used for absorbency Exam Vital signs and Labs for Last 24 Hours: Temp Pulse Resp BP Pulse Ox 98.6 F 74 16 131/67 98 09/15/20 04:00 09/15/20 04:00 09/15/20 04:00 09/15/20 04:00 09/15/20 04:00 Laboratory Results - last 24 hr 09/14/20 11:49: POC Glucose 81 09/14/20 17:25: POC Glucose 108 09/14/20 20:26: POC Glucose 123 H 09/15/20 05:00: POC Glucose 105 I & O for Last 24 hours: Intake & Output 09/12/20 09/13/20 09/14/20 09/15/20 11:59 11:59 11:59 11:59 Intake Total 1701 / 1701 1080 / 1080 Output Total 1600 / 1600 1200 / 1200 Balance 101 / 101 -120 / -120 Weight 257 lb 249 lb 1.957 oz 248 lb 3 oz Microbiology Reports for the Last 24 Hours: Microbiology 09/13/20 09:00 Urine,Catheterized Urine Culture - Preliminary 09/14/20 13:55 Leg,Left - Wound Gram Stain - Final 09/14/20 13:55 Leg,Right - Wound Gram Stain - Final - Constitutional no acute distress - *Routine Respiratory Exam Present: CTA bilaterally - *Routine Cardiovascular Exam Present: RRR - *Routine Abdominal Exam Present: soft, normoactive bowel sounds, obese. Absent: tenderness - *Routine Extremities Exam Comments: Lower extremity wounds are unchanged Assessment and Plan (1) Hyperkalemia Status: Acute Category: Medical Code(s): E87.5 - Hyperkalemia (2) DALY (acute kidney injury) Status: Acute Category: Medical Code(s): N17.9 - Acute kidney failure, unspecified (3) Stage 3a chronic kidney disease Status: Chronic Category: Medical Code(s): N18.31 - Chronic kidney disease, stage 3a (4) Personal history of diabetes mellitus Status: Acute Category: Medical Code(s): Z86.39 - Personal history of other endocrine, nutritional and metabolic disease (5) Wound with infection determined by examination Status: Acute Category: Medical Code(s): T14.8XXA - Other injury of unspecified body region, initial encounter; L08.9 - Local infection of the skin and subcutaneous tissue, unspecified (6) Chronic wound of extremity Status: Chronic Category: Medical (7) UTI (urinary tract infection) Status: Suspected Qualifiers: Urinary tract infection type: site unspecified Hematuria presence: without hematuria Qualified Code(s): N39.0 - Urinary tract infection, site not specified Category: Medical Code(s): N39.0 - Urinary tract infection, site not specified (8) Anemia Status: Acute Qualifiers: Anemia type: other cause Other causes of anemia: chronic disease, other Qualified Code(s): D63.8 - Anemia in other chronic diseases classified elsewhere Category: Medical Code(s): D64.9 - Anemia, unspecified - Assessment and plan all Dx Assessment and Plan for all problems:: 1. Await morning labs 2. Reestablish PICC line 3. continue meropenem while awaiting wound cultures as well as blood and urine cultures
[2020-09-15 08:00] VITALS: BP 130/58; PULSE 74; RESP 17; TEMP 36.6; O2SAT 94
[2020-09-15 09:51] LABS: Basophils % 0.4 % (0.1-2.0); Eosinophils # 0.3 K/mm3 (0.0-0.4); Eosinophils % 5.2 % (0.1-12.0); Hematocrit 27.5 % (37.0-47.0); Hemoglobin 8.4 g/dL (12.2-16.2); Lymphocytes # 1.2 K/mm3 (0.7-4.5); Lymphocytes % 20.4 % (10-50); Mean Corpuscular HGB Conc 30.4 g/dL (31.8-35.4); Mean Corpuscular Hemoglobin 25.5 pg (27.0-31.2); Mean Corpuscular Volume 83.9 fl (81-99); Mean Platelet Volume 8.4 fl (7.4-10.4); Monocytes # 0.6 K/mm3 (0.1-1.0); Monocytes % 10.2 % (1.7-9.3); Neutrophils # 3.7 K/mm3 (1.8-7.8); Neutrophils % 63.8 % (37.0-80.0); Platelet Count 323 K/mm3 (142-424); Red Blood Count 3.28 M/mm3 (4.20-5.40); Red Cell Distribution Width 16.6 % (11.5-17.5); White Blood Count 5.9 K/mm3 (4.8-10.8)
[2020-09-15 10:11] LABS: Chloride 109 mmol/L (98-107); Potassium 4.3 mmoL/L (3.5-5.1); Sodium 135 mmol/L (136-145)
[2020-09-15 10:14] LABS: Anion Gap 11.3 mEq/L (5-15); Blood Urea Nitrogen 39 mg/dl (7-17); Carbon Dioxide 19 mmol/L (22.0-30.0); Creatinine Clearance Estimated 21 mL/min (50-200); Estimated Glomerular Filt Rate 25 ml/min (>60); GFR (African American) 30 ML/MIN (>60); Glucose 101 mg/dl (74-100)
[2020-09-15 12:05] LABS: POC Glucose,Bedside 100 (70-110)
[2020-09-15 15:32] VITALS: BP 119/52; PULSE 78; RESP 17; TEMP 37; O2SAT 94
--- NOTE | 2020-09-15 17:40 | XR_ITS ---
PROCEDURE INFORMATION: Exam: XR Chest Exam date and time: 09/15/20 05:40 PM Age: 69 years old Clinical indication: Device placement; Picc; Additional info: Picc line placement TECHNIQUE: Imaging protocol: XR of the chest. Views: 1 view. COMPARISON: CR XR CHEST PORTABLE PICC PLAC 09/14/20 09:01 PM FINDINGS: Tubes, catheters and devices: Left-sided PICC catheter overlies the SVC. Right-sided PICC catheter has been removed. Lungs: Unremarkable. No consolidation. Pleural spaces: Unremarkable. No pleural effusion. No pneumothorax. Heart/Mediastinum: Unremarkable. No cardiomegaly. Bones/joints: Unremarkable. IMPRESSION: Left-sided PICC catheter overlies the SVC.
[2020-09-15 17:56] LABS: POC Glucose,Bedside 88 (70-110)
--- NOTE | 2020-09-15 18:14 | PC.NURSE ---
Pt has been pleasant this shift. PICC currently being attempted at this time. Chucks on BLE have been changed this shift-bloody, purulent drainage noted at scattered areas of BLE. Pain meds requested x1 this shift, pt was sleeping w/ eyes closed at time of reassessment. No other acute changes or complaints at this time, will continue to monitor.
[2020-09-15 19:52] VITALS: BP 126/45; PULSE 77; RESP 20; TEMP 37; O2SAT 95
[2020-09-16 00:26] LABS: POC Glucose,Bedside 107 (70-110)
--- NOTE | 2020-09-16 03:33 | PC.NURSE ---
No acute changes. Pt has been resting well this shift. PRN pain med given x1 with relief. VSS. Chucks remain in place on BLE. PICC line has worked great all shift infusing NS @ 100ml/hr. Call light within reach, will continue to monitor.
[2020-09-16 03:56] VITALS: BP 115/46; PULSE 77; RESP 20; TEMP 36.9; O2SAT 96
[2020-09-16 06:00] VITALS: BMI 44.6
[2020-09-16 06:24] LABS: POC Glucose,Bedside 99 (70-110)
[2020-09-16 06:52] LABS: Chloride 111 mmol/L (98-107); Sodium 137 mmol/L (136-145)
[2020-09-16 06:53] LABS: Potassium 4.2 mmoL/L (3.5-5.1)
[2020-09-16 06:55] LABS: Blood Urea Nitrogen 30 mg/dl (7-17); Creatinine Clearance Estimated 28 mL/min (50-200); Estimated Glomerular Filt Rate 35 ml/min (>60); GFR (African American) 42 ML/MIN (>60)
[2020-09-16 06:56] LABS: Anion Gap 11.2 mEq/L (5-15); Carbon Dioxide 19 mmol/L (22.0-30.0); Glucose 89 mg/dl (74-100)
[2020-09-16 07:00] LABS: Basophils % 0.4 % (0.1-2.0); Eosinophils # 0.3 K/mm3 (0.0-0.4); Eosinophils % 4.6 % (0.1-12.0); Hemoglobin 8.4 g/dL (12.2-16.2); Lymphocytes # 1.4 K/mm3 (0.7-4.5); Lymphocytes % 21.6 % (10-50); Mean Corpuscular HGB Conc 30.9 g/dL (31.8-35.4); Mean Corpuscular Hemoglobin 26.1 pg (27.0-31.2); Mean Corpuscular Volume 84.4 fl (81-99); Mean Platelet Volume 8.2 fl (7.4-10.4); Monocytes # 0.4 K/mm3 (0.1-1.0); Monocytes % 6.8 % (1.7-9.3); Neutrophils # 4.3 K/mm3 (1.8-7.8); Neutrophils % 66.6 % (37.0-80.0); Platelet Count 301 K/mm3 (142-424); Red Blood Count 3.21 M/mm3 (4.20-5.40); Red Cell Distribution Width 16.6 % (11.5-17.5); White Blood Count 6.4 K/mm3 (4.8-10.8)
[2020-09-16 07:01] LABS: Hematocrit 27.1 % (37.0-47.0)
[2020-09-16 08:00] VITALS: BP 136/58; PULSE 80; RESP 17; TEMP 37.1; O2SAT 96
--- NOTE | 2020-09-16 08:01 | HMH.ACPN2 ---
Internal Medicine - PN: Subj *Date: 09/16/20 *Time: 08:01 Interval history: Patient reports discomfort around her bladder which she believes is related to her Childers catheter. She claims every time the Childers catheter is empty she will have some discomfort. However due to her poor mobility she is afraid to have the catheter removed during hospitalization. She denies any pain from the legs this morning. Exam Vital signs and Labs for Last 24 Hours: Temp Pulse Resp BP Pulse Ox 98.5 F 77 20 115/46 L 96 09/16/20 03:56 09/16/20 03:56 09/16/20 03:56 09/16/20 03:56 09/16/20 03:56 Laboratory Results - last 24 hr 09/15/20 09:20: Sodium 135 L, Potassium 4.3 D, Chloride 109 H, Carbon Dioxide 19 L, Anion Gap 11.3, BUN 39 H, Creatinine 2.00 H D, Estimated Creat Clear 21, Estimated GFR 25 L, Est GFR ( Amer) 30 L D, Glucose 101 H, Calcium 8.0 L 09/15/20 09:28: WBC 5.9, RBC 3.28 L, Hgb 8.4 L, Hct 27.5 L, MCV 83.9, MCH 25.5 L, MCHC 30.4 L, RDW 16.6, Plt Count 323, MPV 8.4, Neut % (Auto) 63.8, Lymph % (Auto) 20.4, [place] % (Auto) 10.2 H, Eos % (Auto) 5.2, Baso % (Auto) 0.4, Neut # (Auto) 3.7, Lymph # (Auto) 1.2, [place] # (Auto) 0.6, Eos # (Auto) 0.3, Baso # (Auto) 0.0 09/15/20 11:55: POC Glucose 100 09/15/20 16:46: POC Glucose 88 09/15/20 19:41: POC Glucose 107 09/16/20 05:35: WBC 6.4, RBC 3.21 L, Hgb 8.4 L, Hct 27.1 L, MCV 84.4, MCH 26.1 L, MCHC 30.9 L, RDW 16.6, Plt Count 301, MPV 8.2, Neut % (Auto) 66.6, Lymph % (Auto) 21.6, [place] % (Auto) 6.8, Eos % (Auto) 4.6, Baso % (Auto) 0.4, Neut # (Auto) 4.3, Lymph # (Auto) 1.4, [place] # (Auto) 0.4, Eos # (Auto) 0.3, Baso # (Auto) 0.0 09/16/20 05:35: Sodium 137, Potassium 4.2, Chloride 111 H, Carbon Dioxide 19 L, Anion Gap 11.2, BUN 30 H, Creatinine 1.50 H D, Estimated Creat Clear 28, Estimated GFR 35 L, Est GFR ( Amer) 42 L D, Glucose 89, Calcium 8.0 L 09/16/20 06:17: POC Glucose 99 I & O for Last 24 hours: Intake & Output 09/13/20 09/14/20 09/15/20 09/16/20 11:59 11:59 11:59 11:59 Intake Total 1701 / 1701 1280 / 1280 1663 / 1663 Output Total 1600 / 1600 1200 / 1200 1526 / 1526 Balance 101 / 101 80 / 80 137 / 137 Weight 257 lb 249 lb 1.957 oz 248 lb 3 oz 251 lb 12.8 oz Microbiology Reports for the Last 24 Hours: Microbiology 09/14/20 13:55 Leg,Right - Wound Gram Stain - Final 09/14/20 13:55 Leg,Right - Wound Wound Culture - Preliminary 09/14/20 13:55 Leg,Left - Wound Gram Stain - Final 09/14/20 13:55 Leg,Left - Wound Wound Culture - Preliminary Gram Negative Rods 09/13/20 09:00 Urine,Catheterized Urine Culture - Preliminary 09/13/20 08:22 Blood Blood Culture - Preliminary NO GROWTH AFTER 48 HOURS 09/13/20 08:22 Blood Blood Culture - Preliminary NO GROWTH AFTER 48 HOURS Narrative: Patient is in no distress. Lungs are clear. Heart has regular rate and rhythm. Abdomen is soft. I did witness the patient began complaining of pain over the bladder when she thought I was manipulating the catheter bag. During this time there was noted to have a sudden pritchett of urine through the catheter. Lower extremity wounds are unchanged Assessment and Plan (1) Hyperkalemia Status: Resolved Category: Medical Code(s): E87.5 - Hyperkalemia (2) DALY (acute kidney injury) Status: Resolved Category: Medical Code(s): N17.9 - Acute kidney failure, unspecified (3) Stage 3a chronic kidney disease Status: Chronic Category: Medical Code(s): N18.31 - Chronic kidney disease, stage 3a (4) Personal history of diabetes mellitus Status: Acute Category: Medical Code(s): Z86.39 - Personal history of other endocrine, nutritional and metabolic disease (5) Wound with infection determined by examination Status: Acute Category: Medical Code(s): T14.8XXA - Other injury of unspecified body region, initial encounter; L08.9 - Local infection of the skin and subcuta
[2020-09-16 12:03] LABS: POC Glucose,Bedside 94 (70-110)
[2020-09-16 16:00] VITALS: BP 108/43; PULSE 68; RESP 16; TEMP 36.8; O2SAT 94
[2020-09-16 17:48] LABS: POC Glucose,Bedside 99 (70-110)
--- NOTE | 2020-09-16 18:10 | PC.NURSE ---
Pt has done fine this shift. Pt tolerated dressing change well this shift to BLE. PICC dressing change performed this shift. Pt c/o nausea x1 this shift, PRN zofran administered. PRN pain meds given x1 this shift. No other acute changes or complaints at this time, will continue to monitor.
[2020-09-16 19:31] VITALS: BP 115/44; PULSE 73; RESP 20; TEMP 36.9; O2SAT 98
[2020-09-16 20:31] LABS: POC Glucose,Bedside 117 (70-110)
--- NOTE | 2020-09-17 03:58 | PC.NURSE ---
Pt has been restless this shift, and rested very little. Changed chucks on BLE, pt reported pain and nausea x1, admin med per MAR with relief. Pt's bottom remains very purple with excoriation in areas and has two opened areas of concern. Applied dressings to both. Pt refuses q2 turns due to the pain it causes to roll. Explained to pt the need for the turns due to condition of her bottom. PICC is in place infusing NS 100ml/hr. Toro draining clear, yellow urine with sediment in toro line. VSS, call light within reach, will continue to monitor.
[2020-09-17 04:00] VITALS: BP 129/48; PULSE 82; RESP 24; TEMP 37.1; O2SAT 96
[2020-09-17 06:00] VITALS: BMI 45.4
[2020-09-17 06:09] LABS: Chloride 112 mmol/L (98-107)
[2020-09-17 06:09] LABS: Basophils % 0.5 % (0.1-2.0); Eosinophils # 0.4 K/mm3 (0.0-0.4); Eosinophils % 7.4 % (0.1-12.0); Hematocrit 26.5 % (37.0-47.0); Hemoglobin 8.1 g/dL (12.2-16.2); Lymphocytes # 1.3 K/mm3 (0.7-4.5); Lymphocytes % 25.5 % (10-50); Mean Corpuscular HGB Conc 30.5 g/dL (31.8-35.4); Mean Corpuscular Hemoglobin 25.9 pg (27.0-31.2); Mean Corpuscular Volume 85.2 fl (81-99); Mean Platelet Volume 7.7 fl (7.4-10.4); Monocytes # 0.5 K/mm3 (0.1-1.0); Monocytes % 9.9 % (1.7-9.3); Neutrophils # 2.9 K/mm3 (1.8-7.8); Neutrophils % 56.6 % (37.0-80.0); Platelet Count 274 K/mm3 (142-424); Red Blood Count 3.11 M/mm3 (4.20-5.40); Red Cell Distribution Width 16.7 % (11.5-17.5)
[2020-09-17 06:10] LABS: Potassium 3.9 mmoL/L (3.5-5.1); Sodium 138 mmol/L (136-145)
[2020-09-17 06:12] LABS: POC Glucose,Bedside 102 (70-110)
[2020-09-17 06:13] LABS: Anion Gap 7.9 mEq/L (5-15); Blood Urea Nitrogen 25 mg/dl (7-17); Calcium 7.6 mg/dl (8.4-10.2); Carbon Dioxide 22 mmol/L (22.0-30.0); Creatinine Clearance Estimated 33 mL/min (50-200); Estimated Glomerular Filt Rate 41 ml/min (>60); GFR (African American) 49 ML/MIN (>60); Glucose 88 mg/dl (74-100)
--- NOTE | 2020-09-17 07:24 | HMH.ACPN2 ---
Internal Medicine - PN: Subj *Date: 09/17/20 *Time: 07:24 Interval history: Patient has no new complaints. She continues to complain of discomfort from the Childers catheter. Exam Vital signs and Labs for Last 24 Hours: Temp Pulse Resp BP Pulse Ox 98.8 F 82 24 129/48 L 96 09/17/20 04:00 09/17/20 04:00 09/17/20 04:00 09/17/20 04:00 09/17/20 04:00 Laboratory Results - last 24 hr 09/16/20 11:36: POC Glucose 94 09/16/20 17:39: POC Glucose 99 09/16/20 20:07: POC Glucose 117 H 09/17/20 05:51: POC Glucose 102 09/17/20 05:55: WBC 5.0, RBC 3.11 L, Hgb 8.1 L, Hct 26.5 L, MCV 85.2, MCH 25.9 L, MCHC 30.5 L, RDW 16.7, Plt Count 274, MPV 7.7, Neut % (Auto) 56.6, Lymph % (Auto) 25.5, [place] % (Auto) 9.9 H, Eos % (Auto) 7.4, Baso % (Auto) 0.5, Neut # (Auto) 2.9, Lymph # (Auto) 1.3, [place] # (Auto) 0.5, Eos # (Auto) 0.4, Baso # (Auto) 0.0 09/17/20 06:00: Sodium 138, Potassium 3.9, Chloride 112 H, Carbon Dioxide 22, Anion Gap 7.9, BUN 25 H, Creatinine 1.30 H, Estimated Creat Clear 33, Estimated GFR 41 L, Est GFR ( Amer) 49 L, Glucose 88, Calcium 7.6 L I & O for Last 24 hours: Intake & Output 09/14/20 09/15/20 09/16/20 09/17/20 11:59 11:59 11:59 11:59 Intake Total 1701 / 1701 1280 / 1280 1903 / 1903 2238 / 2238 Output Total 1600 / 1600 1200 / 1200 1526 / 1526 1400 / 1400 Balance 101 / 101 80 / 80 377 / 377 838 / 838 Weight 249 lb 1.957 oz 248 lb 3 oz 251 lb 12.8 oz 256 lb 6 oz Microbiology Reports for the Last 24 Hours: Microbiology 09/14/20 14:50 Anus CRE Surveillance Culture - Final 09/14/20 13:55 Leg,Right - Wound Gram Stain - Final 09/14/20 13:55 Leg,Right - Wound Wound Culture - Preliminary 09/14/20 13:55 Leg,Left - Wound Gram Stain - Final 09/14/20 13:55 Leg,Left - Wound Wound Culture - Preliminary Gram Negative Rods 09/13/20 09:00 Urine,Catheterized Urine Culture - Preliminary - Constitutional no acute distress - *Routine Cardiovascular Exam Present: RRR - *Routine Extremities Exam Comments: Lower extremity wound remain unchanged Assessment and Plan (1) Hyperkalemia Status: Resolved Category: Medical Code(s): E87.5 - Hyperkalemia (2) DALY (acute kidney injury) Status: Resolved Category: Medical Code(s): N17.9 - Acute kidney failure, unspecified (3) Stage 3a chronic kidney disease Status: Chronic Category: Medical Code(s): N18.31 - Chronic kidney disease, stage 3a (4) Personal history of diabetes mellitus Status: Acute Category: Medical Code(s): Z86.39 - Personal history of other endocrine, nutritional and metabolic disease (5) Wound with infection determined by examination Status: Acute Category: Medical Code(s): T14.8XXA - Other injury of unspecified body region, initial encounter; L08.9 - Local infection of the skin and subcutaneous tissue, unspecified (6) Chronic wound of extremity Status: Chronic Category: Medical (7) UTI (urinary tract infection) Status: Suspected Qualifiers: Urinary tract infection type: site unspecified Hematuria presence: without hematuria Qualified Code(s): N39.0 - Urinary tract infection, site not specified Category: Medical Code(s): N39.0 - Urinary tract infection, site not specified (8) Anemia Status: Acute Qualifiers: Anemia type: other cause Other causes of anemia: chronic disease, other Qualified Code(s): D63.8 - Anemia in other chronic diseases classified elsewhere Category: Medical Code(s): D64.9 - Anemia, unspecified - Assessment and plan all Dx Assessment and Plan for all problems:: Long discussion was had with patient about treatment options which vary. Patient would most likely benefit from LTAC but has expressed hesitancy at being outside of the [facility] and so far from home. Patient's wounds are not really amenable to treatment through home health due to their high output and need for frequent dressing lagunas
--- NOTE | 2020-09-17 07:30 | SW/DCPLANNER ---
Addendum entered by Marylu Wilson 09/21/20 10:01: PATIENT HAS BEEN ACCEPTED TO [facility], WILL DISCHARGE THERE LATER TODAY... Addendum entered by Marylu Wilson 09/21/20 06:54: CALLED TOMMY AT [facility] TO CHECK ON BED STATUS... SHES STATED THEY HAVE ONE ROOM THAT IS A SEMI-PRIVATE AND SHE IS NOT AT WORK TODAY BUT SHE WILL CONTACT THE IT SUPPORT SPECIALIST AND SEE IF THEY HAVE FILLED IT... I TOLD THEM TO COME AND SEE HER BEFORE THEY MAKE A DECISION...I WANT THEM TO LOOK AT HER LOWER EXTREMITIES SINCE HER LEGS LOOKS SO BAD... HER MAIN REASON FOR GOING IS BECAUSE SHE WILL NEED IV ANTIBIOTICS FOR 7 MORE DAYS... WAITING ON A CALLBACK.. Addendum entered by Marylu Wilson 09/20/20 10:21: SENT REFERRAL TO [facility] FOR THE SECOND TIME, DID CALL BACK AND SPOKE WITH LUCIA SHE ASKED FOR ME TO PLEASE SEND IT AGAIN AND SHE WOULD PERSONALLY LOOK AT IT AND LET ME KNOW SOMETHING TODAY.. IF I CAN'T OBTAIN A BED TODAY SHE WILL GO HOME WITH IV ANTIBIOTICS AND WILL ATTEMPT SOME WOUND CARE... Addendum entered by Marylu Wilson 09/17/20 12:32: SENT REFERRAL TO [facility] IN [place] TO SEE IF PATIENT IS A CANDIDATE FOR THEIR SKILLED CARE UNIT......SHE HAS AGREED TO ME SENDING THE REFERRAL AND I TOLD HER SOMEONE MAY BE HERE TO SEE HER, SHE STATED SHE WAS SENT THERE WHEN SHE WAS AT ... HOPEFUL THEY CAN TAKE HER.. Original Note: PATIENT ADMITTED TO [facility] ON 09/13 AFTER A FALL AT HOME... SHE HAS BEEN RESIDING AT HOME WITH HER AND HAD BEEN MANAGING OK.. HER LEGS ARE DRAINING AND LEFT UNWRAPPED ON CHUX PADS...SHE HAS BEEN IN [place] IN REHAB AND STAY FOR A LONG LENGTH OF TIME AND HER LEGS WERE ALMOST HEALED OR SO SHE SAID... SHE WISHES TO GO HOME WITH HOME HEALTH, I DID SPEAK WITH HER ABOUT [facility] AND SHE SAID SHE WILL THINK ABOUT IT..ONCE HER CULTURES COME BACK SHE WILL BE READY FOR A DISPOSITION... WILL EXPLORE SOME OPTIONS AND SHE WHAT SHE WILL AGREE TO... DISCHARGE COULD BE SOON LATER IN THE DAY...
[2020-09-17 08:00] VITALS: BP 148/50; PULSE 81; RESP 19; TEMP 36.9; O2SAT 95
--- NOTE | 2020-09-17 10:08 | HMH.OTEV ---
OT Inpatient Evaluation Rehab OT IP Evaluation Start: 09/17/20 08:43 Freq: ONCE Status: Complete Protocol: [facility]17[facility]20 [facility] (Rec: 09/17/20 10:07 [facility] [id number]) Rehab OT IP Assessment Subjective History Pt oriented x 3 on arrival. Pt agreeable to engage in therapy evaluation. Pt resting in bed on arrival. Pt was admitted via ED on 09/13/20 due to a fall at home. She has a past medical history of Congestive Heart Failure, Diabetes Mellitus Type 2, Hypertension, MRSA, Renal Disease, Urinary Tract Infection. Pt has a history of chronic leg wounds and lymphedema. Pt reports prior to being in hosptial she lived at home with her . Pt claims she was independent with dressing, bathing, and feeding. She also reports she cooked and cleaned for her . She does use a walker during ambulation; she does not drive. Subjective I am in so much pain. Objective Patient Orientation Person,Place,Birthday Upper Extremity Gross ROM WFL Bed Mobility bed mobility-scooting,bed mobility - supine/sit,bed mobility - rolling Assist Level Maximum x 2 (75% assist) Rehab OT IP prob,goals,plan Problems Date of Evaluation: 09/17/20 OT IP Problems Bed Mobility,Transfers,Gait, Balance,Self care,Safety Rehab Potential Rehab Potential Good Equipment Needs Assistive Devices Rolling / Wheeled Walker Plan OT intervention Plan Bed Mobility,Transfers,Gait, Balance,Self care,Safety, Therapeutic Exercise OT Plan Frequency BID Duration LOS Discharge Goals Bed Mobility Ability Assistance x1 Sit to Stand Chair Transfer Ability Moderate x 1 (50% assist) Chair Transfer Ability Moderate x 1 (50% assist) Chair Transfer Technique Sit to/from Ambulatory Chair Transfer Assistive Devices Rolling Walker Feeding Ability Assist with Tray Set Up Lower Body Dressing Ability Assistance X1 Upper
[2020-09-17 12:10] LABS: POC Glucose,Bedside 95 (70-110)
[2020-09-17 16:00] VITALS: BP 124/55; PULSE 77; RESP 18; TEMP 37; O2SAT 98
[2020-09-17 16:43] LABS: POC Glucose,Bedside 82 (70-110)
--- NOTE | 2020-09-17 18:34 | PC.NURSE ---
Pt has remained in bed this shift. Pt refused to be turned and repositioned. Breakdown noted to bottom that was present upon admission, dressing in place. F/C patent and draining at bedside. VSS. Ulcers noted to BLE. PICC line to LUE patent and infusing w/o difficulty. LS CTA. Pt c/o pain x2, medicated per APR. Will continue to monitor.
[2020-09-17 19:34] VITALS: BP 128/55; PULSE 66; RESP 16; TEMP 36.8; O2SAT 98
[2020-09-17 21:09] VITALS: RESP 18
[2020-09-17 21:24] LABS: POC Glucose,Bedside 88 (70-110)
[2020-09-18 03:38] VITALS: BP 135/53; PULSE 88; RESP 18; TEMP 36.8; O2SAT 95
[2020-09-18 04:26] VITALS: RESP 22
[2020-09-18 05:00] VITALS: BMI 44.9
[2020-09-18 06:31] LABS: Basophils % 0.2 % (0.1-2.0); Eosinophils # 0.3 K/mm3 (0.0-0.4); Eosinophils % 5.3 % (0.1-12.0); Hematocrit 27.2 % (37.0-47.0); Hemoglobin 8.2 g/dL (12.2-16.2); Lymphocytes # 1.5 K/mm3 (0.7-4.5); Lymphocytes % 25.5 % (10-50); Mean Corpuscular HGB Conc 30.2 g/dL (31.8-35.4); Mean Corpuscular Volume 86.2 fl (81-99); Mean Platelet Volume 7.7 fl (7.4-10.4); Monocytes # 0.5 K/mm3 (0.1-1.0); Monocytes % 7.6 % (1.7-9.3); Neutrophils # 3.6 K/mm3 (1.8-7.8); Neutrophils % 61.4 % (37.0-80.0); Platelet Count 302 K/mm3 (142-424); Red Blood Count 3.16 M/mm3 (4.20-5.40); Red Cell Distribution Width 16.6 % (11.5-17.5); White Blood Count 5.9 K/mm3 (4.8-10.8)
[2020-09-18 06:32] LABS: POC Glucose,Bedside 103 (70-110)
[2020-09-18 06:37] LABS: Chloride 111 mmol/L (98-107)
[2020-09-18 06:38] LABS: Sodium 139 mmol/L (136-145)
[2020-09-18 06:41] LABS: Blood Urea Nitrogen 23 mg/dl (7-17); Calcium 7.8 mg/dl (8.4-10.2); Carbon Dioxide 24 mmol/L (22.0-30.0); Creatinine Clearance Estimated 33 mL/min (50-200); Estimated Glomerular Filt Rate 41 ml/min (>60); GFR (African American) 49 ML/MIN (>60); Glucose 95 mg/dl (74-100)
--- NOTE | 2020-09-18 07:32 | HMH.ACPN2 ---
Internal Medicine - PN: Subj *Date: 09/18/20 *Time: 07:32 Interval history: Patient reports bladder pain from obstructed Childers catheter yesterday. Once this was relieved patient improved. Pain in her legs is controlled. She denies other problems. Care management has been working on potential placement with care continuing for continued wound care and antibiotics Exam Vital signs and Labs for Last 24 Hours: Temp Pulse Resp BP Pulse Ox 98.2 F 88 22 135/53 L 95 09/18/20 03:38 09/18/20 03:38 09/18/20 04:26 09/18/20 03:38 09/18/20 03:38 Laboratory Results - last 24 hr 09/17/20 12:00: POC Glucose 95 09/17/20 16:23: POC Glucose 82 09/17/20 21:03: POC Glucose 88 09/18/20 06:00: WBC 5.9, RBC 3.16 L, Hgb 8.2 L, Hct 27.2 L, MCV 86.2, MCH 26.0 L, MCHC 30.2 L, RDW 16.6, Plt Count 302, MPV 7.7, Neut % (Auto) 61.4, Lymph % (Auto) 25.5, [place] % (Auto) 7.6, Eos % (Auto) 5.3, Baso % (Auto) 0.2, Neut # (Auto) 3.6, Lymph # (Auto) 1.5, [place] # (Auto) 0.5, Eos # (Auto) 0.3, Baso # (Auto) 0.0 09/18/20 06:00: Sodium 139, Potassium 4.0, Chloride 111 H, Carbon Dioxide 24, Anion Gap 8.0, BUN 23 H, Creatinine 1.30 H, Estimated Creat Clear 33, Estimated GFR 41 L, Est GFR ( Amer) 49 L, Glucose 95, Calcium 7.8 L 09/18/20 06:16: POC Glucose 103 I & O for Last 24 hours: Intake & Output 09/15/20 09/16/20 09/17/20 09/18/20 11:59 11:59 11:59 11:59 Intake Total 1280 / 1280 1903 / 1903 2358 / 2358 480 / 480 Output Total 1200 / 1200 1526 / 1526 1400 / 1400 1050 / 1050 Balance 80 / 80 377 / 377 958 / 958 -570 / -570 Weight 248 lb 3 oz 251 lb 12.8 oz 256 lb 6 oz 253 lb 4 oz Microbiology Reports for the Last 24 Hours: Microbiology 09/14/20 13:55 Leg,Left - Wound Gram Stain - Final 09/14/20 13:55 Leg,Left - Wound Wound Culture - Preliminary Proteus vulgaris 09/14/20 13:55 Leg,Right - Wound Gram Stain - Final 09/14/20 13:55 Leg,Right - Wound Wound Culture - Preliminary 09/13/20 09:00 Urine,Catheterized Urine Culture - Final NO GROWTH AFTER 48 HOURS - Constitutional no acute distress - *Routine Respiratory Exam Present: CTA bilaterally - *Routine Cardiovascular Exam Present: RRR - *Routine Abdominal Exam Present: obese - *Routine Extremities Exam Comments: Wounds are unchanged Assessment and Plan (1) Wound with infection determined by examination Status: Acute Category: Medical Code(s): T14.8XXA - Other injury of unspecified body region, initial encounter; L08.9 - Local infection of the skin and subcutaneous tissue, unspecified (2) Hyperkalemia Status: Resolved Category: Medical Code(s): E87.5 - Hyperkalemia (3) DALY (acute kidney injury) Status: Resolved Category: Medical Code(s): N17.9 - Acute kidney failure, unspecified (4) Stage 3a chronic kidney disease Status: Chronic Category: Medical Code(s): N18.31 - Chronic kidney disease, stage 3a (5) Personal history of diabetes mellitus Status: Acute Category: Medical Code(s): Z86.39 - Personal history of other endocrine, nutritional and metabolic disease (6) Chronic wound of extremity Status: Chronic Category: Medical (7) UTI (urinary tract infection) Status: Suspected Qualifiers: Urinary tract infection type: site unspecified Hematuria presence: without hematuria Qualified Code(s): N39.0 - Urinary tract infection, site not specified Category: Medical Code(s): N39.0 - Urinary tract infection, site not specified (8) Anemia Status: Acute Qualifiers: Anemia type: other cause Other causes of anemia: chronic disease, other Qualified Code(s): D63.8 - Anemia in other chronic diseases classified elsewhere Category: Medical Code(s): D64.9 - Anemia, unspecified (9) Proteus infection Status: Acute Category: Medical Code(s): A49.8 - Other bacterial infections of unspecified site - Assessment and plan all Dx
[2020-09-18 08:00] VITALS: BP 120/49; PULSE 71; RESP 15; TEMP 36.9; O2SAT 96
--- NOTE | 2020-09-18 08:28 | PC.NURSE ---
pt alert and oriented. vss. picc line patent and infusing. otro draining with sediment noted. pain reported to legs and abd this shift. prn med given. warm blanket applied to abd area and repositioned which did provide some relief. pt was educated over turning and did allow us to turn a few times this shift. call light in reach. will continue to monitor
--- NOTE | 2020-09-18 11:06 | HMH.PTEV ---
Physical Therapy Evaluation Rehab PT IP Evaluation Start: 09/17/20 08:43 Freq: ONCE Status: Active Protocol: Document 09/18/20 10:52 ADI (Rec: 09/18/20 11:06 ADI [id number]) Subjective/History History History Patient is a 69 year old female admitted to [facility] 09/13/20 secondary to chronic ankle wounds resultant from fall at home. She has been seen by PT for a wound care consult. Nursing has been attending wounds at this time. She was previously non-ambulatory at home, using a motorized wheelchair. Subjective Subjective I'm in a lot of pain today, but I will try to get up. Rehab PT IP Eval Objective Appearance Patient Behavior Appropriate,Anxious Patient Orientation Person,Place,Birthday,Day of Week Difficulty following instructions none Speech Pattern Clear Ambulation Patient Able to Ambulate No Balance Ability to Arise Unable Dynamic Sitting Balance Ability Zero Transfers Bed Transfer Ability Maximum x 2 (75% assist) Pain Right Ankle Pain Intensity 9 Left Ankle Pain Intensity 9 ROM All Extremities PT ROM Status ABN Abnormal ROM Comment Held on ROM measures secondary to precautions. MMT All Extremities PT MMT ABN Abnormal MMT Grade 2/5 Rehab PT IP prob,goals,plan Problems Date of Evaluation: 09/18/20 PT IP Problems Bed Mobility,Transfers,Gait, Balance,Self care,Safety Rehab Potential Rehab Potential Poor Plan PT Intervention Plan Bed Mobility,Transfers,Self care,Safety,Therapeutic Exercise PT Plan Frequency BID Duration LOS Discharge Goals Bed Transfer Ability Moderate x 2 (50% assist) Sit to Stand Chair Transfer Ability Maximum x 2 (75% assist) Discharge Plan PT Discharge Plan Patient to discharge to SNF or rehab hospital for further rehab and wound care when found to medically stable. G -code Required No Eval Complexity Eval Charge Codes 04505 - Moderate Complexity PHYSICIAN C
[2020-09-18 12:25] LABS: POC Glucose,Bedside 94 (70-110)
[2020-09-18 16:00] VITALS: BP 109/55; PULSE 76; RESP 16; TEMP 37; O2SAT 95
[2020-09-18 18:15] LABS: POC Glucose,Bedside 102 (70-110)
--- NOTE | 2020-09-18 19:39 | PC.NURSE ---
Pt has done well this shift. Dressing changed performed today, pt required PRN pain meds. No other acute changes or complaints. Will continue to monitor
[2020-09-18 20:00] VITALS: BP 113/57; PULSE 80; RESP 16; TEMP 36.9; O2SAT 96
[2020-09-18 21:10] LABS: POC Glucose,Bedside 97 (70-110)
[2020-09-19] VITALS (8 sets, daily range): BP systolic 115–140; BP diastolic 49–72; PULSE 63–85; RESP 17–20; TEMP 36.6–37.4; O2SAT 94–97; BMI 45.6
--- NOTE | 2020-09-19 00:46 | PC.NURSE ---
She is A&Ox3. Chucks in place around BLE. She reports pain when air touches her legs. She has received PRN medication. She refuses to be turned/repositioned, but states that she can turn to her left some on her own. F/c patent with yellow urine with sediment. She reports her last BM was 09/19/20. Glucose was 97 @ HS. Left limb alert r/t PICC line. Continues in contact precautions.
[2020-09-19 05:11] LABS: POC Glucose,Bedside 93 (70-110)
[2020-09-19 05:55] LABS: Basophils % 0.2 % (0.1-2.0); Eosinophils # 0.3 K/mm3 (0.0-0.4); Eosinophils % 4.5 % (0.1-12.0); Hematocrit 28.5 % (37.0-47.0); Hemoglobin 8.6 g/dL (12.2-16.2); Lymphocytes # 1.2 K/mm3 (0.7-4.5); Lymphocytes % 17.9 % (10-50); Mean Corpuscular HGB Conc 30.1 g/dL (31.8-35.4); Mean Corpuscular Hemoglobin 25.9 pg (27.0-31.2); Mean Corpuscular Volume 86.1 fl (81-99); Mean Platelet Volume 8.9 fl (7.4-10.4); Monocytes # 0.3 K/mm3 (0.1-1.0); Monocytes % 4.8 % (1.7-9.3); Neutrophils % 72.6 % (37.0-80.0); Platelet Count 288 K/mm3 (142-424); Red Blood Count 3.31 M/mm3 (4.20-5.40); Red Cell Distribution Width 16.6 % (11.5-17.5); White Blood Count 6.9 K/mm3 (4.8-10.8)
--- NOTE | 2020-09-19 07:59 | HMH.ACPN2 ---
Internal Medicine - PN: Subj *Date: 09/19/20 *Time: 07:59 Interval history: No acute complaints. Patient remains immobile. She reports pain with even light palpation of her wounds Exam Vital signs and Labs for Last 24 Hours: Temp Pulse Resp BP Pulse Ox 98.8 F 76 18 127/60 94 L 09/19/20 04:00 09/19/20 04:00 09/19/20 04:00 09/19/20 04:00 09/19/20 04:00 Laboratory Results - last 24 hr 09/18/20 12:07: POC Glucose 94 09/18/20 17:59: POC Glucose 102 09/18/20 20:13: POC Glucose 97 09/19/20 04:56: POC Glucose 93 09/19/20 05:08: WBC 6.9, RBC 3.31 L, Hgb 8.6 L, Hct 28.5 L, MCV 86.1, MCH 25.9 L, MCHC 30.1 L, RDW 16.6, Plt Count 288, MPV 8.9, Neut % (Auto) 72.6, Lymph % (Auto) 17.9, [place] % (Auto) 4.8, Eos % (Auto) 4.5, Baso % (Auto) 0.2, Neut # (Auto) 5.0, Lymph # (Auto) 1.2, [place] # (Auto) 0.3, Eos # (Auto) 0.3, Baso # (Auto) 0.0 I & O for Last 24 hours: Intake & Output 09/16/20 09/17/20 09/18/20 09/19/20 11:59 11:59 11:59 11:59 Intake Total 1903 / 1903 2358 / 2358 940 / 940 1180 / 1180 Output Total 1526 / 1526 1400 / 1400 1050 / 1050 1150 / 1150 Balance 377 / 377 958 / 958 -110 / -110 30 / 30 Weight 251 lb 12.8 oz 256 lb 6 oz 253 lb 4 oz 257 lb 9 oz Microbiology Reports for the Last 24 Hours: Microbiology 09/14/20 13:55 Leg,Left - Wound Gram Stain - Final 09/14/20 13:55 Leg,Left - Wound Wound Culture - Final Proteus vulgaris 09/14/20 13:55 Leg,Right - Wound Gram Stain - Final 09/14/20 13:55 Leg,Right - Wound Wound Culture - Preliminary 09/13/20 08:22 Blood Blood Culture - Final NO GROWTH AFTER 5 DAYS 09/13/20 08:22 Blood Blood Culture - Final NO GROWTH AFTER 5 DAYS Narrative: Patient is in no distress. Wounds remain unchanged Assessment and Plan (1) Wound with infection determined by examination Status: Acute Category: Medical Code(s): T14.8XXA - Other injury of unspecified body region, initial encounter; L08.9 - Local infection of the skin and subcutaneous tissue, unspecified (2) Hyperkalemia Status: Resolved Category: Medical Code(s): E87.5 - Hyperkalemia (3) DALY (acute kidney injury) Status: Resolved Category: Medical Code(s): N17.9 - Acute kidney failure, unspecified (4) Stage 3a chronic kidney disease Status: Chronic Category: Medical Code(s): N18.31 - Chronic kidney disease, stage 3a (5) Personal history of diabetes mellitus Status: Acute Category: Medical Code(s): Z86.39 - Personal history of other endocrine, nutritional and metabolic disease (6) Chronic wound of extremity Status: Chronic Category: Medical (7) UTI (urinary tract infection) Status: Suspected Qualifiers: Urinary tract infection type: site unspecified Hematuria presence: without hematuria Qualified Code(s): N39.0 - Urinary tract infection, site not specified Category: Medical Code(s): N39.0 - Urinary tract infection, site not specified (8) Anemia Status: Acute Qualifiers: Anemia type: other cause Other causes of anemia: chronic disease, other Qualified Code(s): D63.8 - Anemia in other chronic diseases classified elsewhere Category: Medical Code(s): D64.9 - Anemia, unspecified (9) Proteus infection Status: Acute Category: Medical Code(s): A49.8 - Other bacterial infections of unspecified site - Assessment and plan all Dx Assessment and Plan for all problems:: We are attempting placement. Continue IV antibiotics
[2020-09-19 12:48] LABS: POC Glucose,Bedside 97 (70-110)
--- NOTE | 2020-09-19 15:46 | PC.NURSE ---
Pt a+0x4. Pt has had 2x c/o pain and 1x c/o of nausea this shift. Pt treated per MAR with satisfactory outcomes. Pt had c/o pain/pressure in bladder area. F/c was advanced and flushed with no relief. F/c was then removed and a new one was inserted. 100 ml of urine was immediately drained and Pt reports some relief afterward. Pt has been very tearful this shift saying shes not ready to be discharged home. Pt has dressings bilaterally on lower legs with ulcerations that seep serosanguineous drainage. Pt is being turned q2h. Call light within reach. Will continue to monitor.
[2020-09-19 16:23] LABS: POC Glucose,Bedside 95 (70-110)
[2020-09-20 03:47] VITALS: BP 129/52; PULSE 78; RESP 16; TEMP 37; O2SAT 94
[2020-09-20 05:00] VITALS: BMI 44.5
--- NOTE | 2020-09-20 05:17 | PC.NURSE ---
Patient voices no concerns this shift. No s/s of acute distress noted this shift, call light within reach, bed at lowest level for safety; will continue to monitor.
[2020-09-20 06:28] LABS: POC Glucose,Bedside 79 (70-110)
--- NOTE | 2020-09-20 07:21 | HMH.ACPN2 ---
Internal Medicine - PN: Subj *Date: 09/20/20 *Time: :21 Interval history: No new events. [facility] in [place] does not have beds available for the patient. Exam Vital signs and Labs for Last 24 Hours: Temp Pulse Resp BP Pulse Ox 98.6 F 78 16 129/52 L 94 L 09/20/20 03:47 09/20/20 03:47 09/20/20 03:47 09/20/20 03:47 09/20/20 03:47 Laboratory Results - last 24 hr 09/19/20 12:40: POC Glucose 97 09/19/20 16:13: POC Glucose 95 09/20/20 05:47: POC Glucose 79 I & O for Last 24 hours: Intake & Output 09/17/20 09/18/20 09/19/20 09/20/20 11:59 11:59 11:59 11:59 Intake Total 2358 / 2358 940 / 940 1420 / 1420 360 / 360 Output Total 1400 / 1400 1050 / 1050 1850 / 1850 750 / 750 Balance 958 / 958 -110 / -110 -430 / -430 -390 / -390 Weight 256 lb 6 oz 253 lb 4 oz 257 lb 9 oz 251 lb 3 oz Microbiology Reports for the Last 24 Hours: Microbiology 09/14/20 13:55 Leg,Right - Wound Gram Stain - Final 09/14/20 13:55 Leg,Right - Wound Wound Culture - Preliminary Staph cohnii ssp urealyticus Corynebacterium striatum - Constitutional no acute distress - *Routine Respiratory Exam Present: CTA bilaterally - *Routine Cardiovascular Exam Present: RRR - *Routine Extremities Exam Comments: Bilateral leg wounds unchanged Assessment and Plan (1) Wound with infection determined by examination Status: Acute Category: Medical Code(s): T14.8XXA - Other injury of unspecified body region, initial encounter; L08.9 - Local infection of the skin and subcutaneous tissue, unspecified (2) Hyperkalemia Status: Resolved Category: Medical Code(s): E87.5 - Hyperkalemia (3) DALY (acute kidney injury) Status: Resolved Category: Medical Code(s): N17.9 - Acute kidney failure, unspecified (4) Stage 3a chronic kidney disease Status: Chronic Category: Medical Code(s): N18.31 - Chronic kidney disease, stage 3a (5) Personal history of diabetes mellitus Status: Acute Category: Medical Code(s): Z86.39 - Personal history of other endocrine, nutritional and metabolic disease (6) Chronic wound of extremity Status: Chronic Category: Medical (7) UTI (urinary tract infection) Status: Suspected Qualifiers: Urinary tract infection type: site unspecified Hematuria presence: without hematuria Qualified Code(s): N39.0 - Urinary tract infection, site not specified Category: Medical Code(s): N39.0 - Urinary tract infection, site not specified (8) Anemia Status: Acute Qualifiers: Anemia type: other cause Other causes of anemia: chronic disease, other Qualified Code(s): D63.8 - Anemia in other chronic diseases classified elsewhere Category: Medical Code(s): D64.9 - Anemia, unspecified (9) Proteus infection Status: Acute Category: Medical Code(s): A49.8 - Other bacterial infections of unspecified site - Assessment and plan all Dx Assessment and Plan for all problems:: Continue to try to find placement for patient as she needs 1 more week of IV Invanz.
[2020-09-20 08:00] VITALS: BP 122/53; PULSE 85; RESP 16; TEMP 36.9; O2SAT 94
[2020-09-20 16:00] VITALS: BP 122/52; PULSE 91; RESP 17; TEMP 36.9; O2SAT 99
--- NOTE | 2020-09-20 16:27 | PC.NURSE ---
No acute changes this shift. Pt c/o pain 2x and nausea 1x thus far and was treated per MAR with favorable results. Pt leg dressing and bottom dressing changed during this shift. Currently CDI. Pt has tolerated room air well with sats above 94%. Pt has been turned 2x by this RN , pt otherwise refused. Call light within reach, will continue to monitor.
[2020-09-20 19:52] VITALS: BP 130/47; PULSE 82; RESP 16; TEMP 36.9; O2SAT 94
[2020-09-20 20:00] VITALS: O2SAT 94
[2020-09-21 03:55] VITALS: BP 113/37; PULSE 77; RESP 16; TEMP 36.6; O2SAT 92
[2020-09-21 05:00] VITALS: BMI 44.6
--- NOTE | 2020-09-21 05:35 | PC.NURSE ---
Pt c/o stomach hurting not sure if antibiotics were causing the increased pain. States it feels like extreme case of gas/bloating. She has shown no s/s of acute distress this shift. Diarrhea panel still pending results. Call light within reach, bed at lowest level for safety; will continue to monitor.
--- NOTE | 2020-09-21 07:30 | HMH.ACPN2 ---
Internal Medicine - PN: Subj *Date: 09/21/20 *Time: 07:30 Interval history: Patient is complaint of abdominal pain, nausea and diarrhea. Attempt to collect stool samples of is been unsuccessful. Symptoms coincide with administration of Zyvox Exam Vital signs and Labs for Last 24 Hours: Temp Pulse Resp BP Pulse Ox 97.9 F 77 16 113/37 L 92 L 09/21/20 03:55 09/21/20 03:55 09/21/20 03:55 09/21/20 03:55 09/21/20 03:55 I & O for Last 24 hours: Intake & Output 09/18/20 09/19/20 09/20/20 09/21/20 11:59 11:59 11:59 11:59 Intake Total 940 / 940 1420 / 1420 780 / 780 780 / 780 Output Total 1050 / 1050 1850 / 1850 750 / 750 495 / 495 Balance -110 / -110 -430 / -430 30 / 285 / 285 Weight 253 lb 4 oz 257 lb 9 oz 251 lb 3 oz 252 lb 3 oz - *Routine Abdominal Exam Present: soft, obese - *Routine Extremities Exam Comments: Leg wounds remain unchanged. They have recently been cleansed with Betadine Assessment and Plan (1) Wound with infection determined by examination Status: Acute Category: Medical Code(s): T14.8XXA - Other injury of unspecified body region, initial encounter; L08.9 - Local infection of the skin and subcutaneous tissue, unspecified (2) Hyperkalemia Status: Resolved Category: Medical Code(s): E87.5 - Hyperkalemia (3) DALY (acute kidney injury) Status: Resolved Category: Medical Code(s): N17.9 - Acute kidney failure, unspecified (4) Stage 3a chronic kidney disease Status: Chronic Category: Medical Code(s): N18.31 - Chronic kidney disease, stage 3a (5) Personal history of diabetes mellitus Status: Acute Category: Medical Code(s): Z86.39 - Personal history of other endocrine, nutritional and metabolic disease (6) Chronic wound of extremity Status: Chronic Category: Medical (7) UTI (urinary tract infection) Status: Suspected Qualifiers: Urinary tract infection type: site unspecified Hematuria presence: without hematuria Qualified Code(s): N39.0 - Urinary tract infection, site not specified Category: Medical Code(s): N39.0 - Urinary tract infection, site not specified (8) Anemia Status: Acute Qualifiers: Anemia type: other cause Other causes of anemia: chronic disease, other Qualified Code(s): D63.8 - Anemia in other chronic diseases classified elsewhere Category: Medical Code(s): D64.9 - Anemia, unspecified (9) Proteus infection Status: Acute Category: Medical Code(s): A49.8 - Other bacterial infections of unspecified site - Assessment and plan all Dx Assessment and Plan for all problems:: Awaiting word on potential transfer to hospital for behavioral medicine for continued IV antibiotics.
--- NOTE | 2020-09-21 07:33 | HMH.DCSUM ---
General - General Admission date:: 09/13/20 Discharge date: 09/21/20 HPI HPI: 69-year-old female brought to the ER after a fall at home with inability to ambulate after falling. Patient tells me she was walking from the bathroom when her left leg began to feel weak and ultimately gave out on her. Her left foot ended up being bent underneath of her when she fell and she does complain of some left foot and ankle pain. Because of inability to ambulate and get back to her feet patient was brought to the emergency department. Patient reports she also felt sick . Specifically she had noticed weakness developing over the last 2 to 3 days. Of note patient had brought a urine sample to my office yesterday which was quite cloudy, malodorous, and was nitrite positive. Urine culture is pending. During work-up in the emergency department patient was found to be hyperkalemic with a potassium of 8 with acute kidney injury. After being given dextrose, insulin, calcium gluconate, sodium bicarb patient's potassium had decreased to 6.3. Attempts were being made to transfer the patient however all hospitals with higher level services are apparently on divert. Patient was admitted for IV fluid hydration, given oral Kayexalate in the emergency department, and will have repeat BMP later this evening. Patient was also noted to have persistence/recurrence of ulcerations of both legs. Patient has long history of venous insufficiency, lymphedema and chronic leg wounds. For the last year she has been under the care of a wound care physician in [facility] but tells me in June she was told there was nothing else that could be done. Since that time her leg wounds have gradually worsened. She and her have been trying to care for them at home with the help of home health which attends to her twice per week Hospital Course Hospital Course: Patient was admitted and started on IV normal saline for her hyperkalemia and acute kidney injury. Within 4 days potassium returned to normal and creatinine had returned to patient's baseline. Urine output was monitored with Childers catheter and patient had adequate urine output. Patient complained of lower abdominal pain which turned out to be from intermittent obstruction of her Childers catheter. Generally once the obstruction was relieved patient's bladder discomfort improved. Patient has lower extremity wounds and has been battling these for up to 8 years now. On presentation to the ER she had moist macerated skin with large wounds about the legs with high output of serosanguineous drainage. Cultures were performed which grew multiple bacterial species including Proteus vulgaris, staph species, corynebacterium. Due to patient's multiple antibiotic allergies she was started on meropenem initially and this was later changed to Invanz once Pseudomonas was ruled out. Patient completed 7 days of Invanz in the hospital. Due to patient's debility and need for IV antibiotics transfer to LTAC or SNF was sought. Objective Vital signs: Temp Pulse Resp BP Pulse Ox 97.9 F 77 16 113/37 L 92 L 09/21/20 03:55 09/21/20 03:55 09/21/20 03:55 09/21/20 03:55 09/21/20 03:55 no acute distress - *Routine Respiratory Exam Present: CTA bilaterally - *Routine Cardiovascular Exam Present: RRR - *Routine Abdominal Exam Present: soft, normoactive bowel sounds. Absent: tenderness Results Labs on day of discharge: Preliminary micro results at discharge 09/14/20 13:55 Wound Culture - Preliminary Leg,Right - Wound Staph cohnii ssp urealyticus Corynebacterium striatum DS: Diagnosis - Discharge Diagnosis (1) DALY (acute kidney injury) Status: Resolved (2) Hyperkalemia Status: Resolved (3) Wound with infection determined by examination Status: Acute (4) Stage 3a chronic kidney disease Status: Chronic (5) Personal history of diabetes mellitus Status: Acute
[2020-09-21 07:49] VITALS: BP 131/53; PULSE 87; RESP 22; TEMP 36.9; O2SAT 93
--- NOTE | 2020-09-21 08:10 | HMH.ACPN ---
Internal Medicine - PN: Subj *Date: 09/21/20 *Time: 08:10 Exam Vital signs and Labs for Last 24 Hours: Temp Pulse Resp BP Pulse Ox 98.4 F 87 22 131/53 L 93 L 09/21/20 07:49 09/21/20 07:49 09/21/20 07:49 09/21/20 07:49 09/21/20 07:49 I & O for Last 24 hours: Intake & Output 09/18/20 09/19/20 09/20/20 09/21/20 23:59 23:59 23:59 23:59 Intake Total 1640 / 1640 600 / 600 1200 / 1200 Output Total 1650 / 1650 700 / 700 1200 / 1200 45 / 45 Balance -10 / -10 -100 / -100 0 / 0 -45 / -45 Weight 114.872 kg 116.828 kg 113.937 kg 114.39 kg Assessment and Plan (1) DALY (acute kidney injury) Status: Resolved Category: Medical Code(s): N17.9 - Acute kidney failure, unspecified (2) Hyperkalemia Status: Resolved Category: Medical Code(s): E87.5 - Hyperkalemia (3) Wound with infection determined by examination Status: Acute Category: Medical Code(s): T14.8XXA - Other injury of unspecified body region, initial encounter; L08.9 - Local infection of the skin and subcutaneous tissue, unspecified (4) Stage 3a chronic kidney disease Status: Chronic Category: Medical Code(s): N18.31 - Chronic kidney disease, stage 3a (5) Personal history of diabetes mellitus Status: Acute Category: Medical Code(s): Z86.39 - Personal history of other endocrine, nutritional and metabolic disease (6) Chronic wound of extremity Status: Chronic Category: Medical (7) UTI (urinary tract infection) Status: Suspected Qualifiers: Urinary tract infection type: site unspecified Hematuria presence: without hematuria Qualified Code(s): N39.0 - Urinary tract infection, site not specified Category: Medical Code(s): N39.0 - Urinary tract infection, site not specified (8) Anemia Status: Acute Qualifiers: Anemia type: other cause Other causes of anemia: chronic disease, other Qualified Code(s): D63.8 - Anemia in other chronic diseases classified elsewhere Category: Medical Code(s): D64.9 - Anemia, unspecified (9) Proteus infection Status: Acute Category: Medical Code(s): A49.8 - Other bacterial infections of unspecified site The patient's infection will respond to the chosen ABx?: Yes (PROTEUS SENSITIVE) Is the patient receiving the right drug, dose, and route?: Yes Could a more targeted ABx be ordered?: No
--- NOTE | 2020-09-21 10:59 | PC.NURSE ---
report called to [facility] was informed that she would need another 7 days of invanz. picc dressing was due to be changed on the and we have been cleaning her wounds with bedadine and wrapping chucks around them. nurse was informed about pt having multiple ulcers to ble and areas noted to buttocks with dressing intact.
== END 2020-09-21 11:12 | DRG 683 ==
LOC: ER 11:18 → 2ND 13:40
PROVIDERS: Admitting Provider Family Medicine; Emergency Provider Family Medicine; PCP Family Medicine; Visit Provider Family Medicine
DX: N17.9 Acute kidney failure, unspecified (principal); Z68.41 Body mass index [BMI] 40.0-44.9, adult; N39.0 Urinary tract infection, site not specified; I13.0 Hypertensive heart and chronic kidney disease with heart failure and stage 1 through stage 4 chronic kidney disease, or unspecified chronic kidney disease; L97.929 Non-pressure chronic ulcer of unspecified part of left lower leg with unspecified severity; L97.919 Non-pressure chronic ulcer of unspecified part of right lower leg with unspecified severity; E87.5 Hyperkalemia; Z20.822 Contact with and (suspected) exposure to COVID-19; I50.9 Heart failure, unspecified; E03.9 Hypothyroidism, unspecified; E66.01 Morbid (severe) obesity due to excess calories; Z88.8 Allergy status to other drugs, medicaments and biological substances; Z79.899 Other long term (current) drug therapy; N18.31 Chronic kidney disease, stage 3a; I89.0 Lymphedema, not elsewhere classified; Z79.4 Long term (current) use of insulin; E11.22 Type 2 diabetes mellitus with diabetic chronic kidney disease; B96.4 Proteus (mirabilis) (morganii) as the cause of diseases classified elsewhere; B95.8 Unspecified staphylococcus as the cause of diseases classified elsewhere; D63.1 Anemia in chronic kidney disease; I87.2 Venous insufficiency (chronic) (peripheral); T83.098A Other mechanical complication of other urinary catheter, initial encounter; Y84.6 Urinary catheterization as the cause of abnormal reaction of the patient, or of later complication, without mention of misadventure at the time of the procedure; M54.9 Dorsalgia, unspecified; G89.29 Other chronic pain; A49.8 Other bacterial infections of unspecified site
CPT/HCPCS: 36415; 36569; 71045; 73600; 73620; 80048; 80053; 80069; 81001; 82962; 83036; 83605; 84145; 84443; 85025; 87040; 87070; 87077; 87081; 87086; 87186; 87205; 93005; 96365; 96375; 96376; 97110; 97162; 97166; 97530; 99285; C1751; J1335; J2185; J2405; U0003

== ENCOUNTER 2020-10-07 10:55 | Inpatient (IN) | payer MEDICARE, BC, SELFPAY ==
[2020-10-07] VITALS (12 sets, daily range): BP systolic 110–150; BP diastolic 42–74; PULSE 60–78; RESP 16–22; TEMP 36.6–37.3; O2SAT 88–99; BMI 50.5; BMI 44.9
--- NOTE | 2020-10-07 11:12 | XR_ITS ---
PROCEDURE INFORMATION: Exam: XR Chest Exam date and time: 10/07/2020 11:12 AM Age: 69 years old Clinical indication: Shortness of breath; Additional info: SOB TECHNIQUE: Imaging protocol: XR of the chest. Views: 1 view. COMPARISON: CR XR CHEST PORTABLE PICC PLAC 09/15/2020 5:45 PM FINDINGS: Cardiac silhouette is the upper limits of normal in size allowing for profound hypoinflation. Bilateral streaky perihilar opacities are present. No pleural effusion or pneumothorax. IMPRESSION: Significant hypoinflation, with bilateral atelectasis. Underlying infection is not excluded in the appropriate clinical setting.
[2020-10-07 11:18] LABS: Influenza A, PCR Not Detected (NotDetected); Influenza B, PCR Not Detected (NotDetected)
--- NOTE | 2020-10-07 11:20 | HMH.EDGENADL ---
ED Disposition Clinical Impression: Pneumonia due to COVID-19 virus, Hypoxia Disposition: Admitted As Inpatient Condition on Discharge: Serious Referrals: Yann Hargrove MD [Primary Care Provider] - - Critical Care Critical Care Time: No Attestation: On , the high probability of a clinically significant, sudden or life threatening deterioration of the following system(s) required my full and direct attention, intervention and personal management. The time I documented below is in addition to time spent performing reported procedures but includes the following listed in this critical care notation. Medical Decision Making - Lonnie Inquiry Pt receiving controlled substance: No Vital Signs: 10/07/20 10:56 10/07/20 11:30 10/07/20 12:00 Temperature 98 F Temperature Source Oral Pulse Rate 63 62 Pulse Rate [Radial] 70 Respiratory Rate 22 18 16 Blood Pressure 132/51 L 122/42 L Blood Pressure [Right Arm] 123/44 L Blood Pressure Mean 72 76 Blood Pressure Mean [Right Arm] 70 Blood Pressure Position [Right Arm] Sitting 02 Sat by Pulse Oximetry 92 L 94 L 93 L Oxygen Delivery Method Nasal Cannula Nasal Cannula Nasal Cannula Oxygen Flow Rate (LPM) 6 6 6 - Lab Data Lab Results 10/07/20 11:08: SARS-CoV-2 (PCR) Detected A, Influenza A Untype (PCR) Not detected, Influenza Type B (PCR) Not detected 10/07/20 11:10: WBC 10.3, RBC 3.62 L, Hgb 9.7 L, Hct 33.9 L, MCV 93.7, MCH 26.8 L, MCHC 28.6 L, RDW 18.4 H, Plt Count 286, MPV 7.8, Neut % (Auto) 71.5, Lymph % (Auto) 21.6, Wright % (Auto) 4.5, Eos % (Auto) 1.9, Baso % (Auto) 0.4, Neut # (Auto) 7.3, Lymph # (Auto) 2.2, Wright # (Auto) 0.5, Eos # (Auto) 0.2, Baso # (Auto) 0.0 10/07/20 11:10: Sodium 140, Potassium 4.0, Chloride 107, Carbon Dioxide 23, Anion Gap 14.0, BUN 33 H, Creatinine 1.60 H, Estimated Creat Clear 28, Estimated GFR 32 L, Est GFR ( Amer) 39 L, Glucose 76, Calcium 7.9 L, Total Bilirubin 0.2, AST 35, ALT 12, Alkaline Phosphatase 144 H, Troponin I 0.02, Total Protein 6.2 L D, Albumin 2.4 L, Globulin 3.8 H, Albumin/Globulin Ratio 0.6 L 10/07/20 11:10: NT-Pro-B Natriuret Pep 4200 H 10/07/20 11:10: Lactate 0.7 10/07/20 11:10: D-Dimer 0.98 H Result diagrams: 10/07/20 11:10 10/07/20 11:10 Orders (Tests/Meds): ORDERS Category Date Time Status Troponin I Q3H Lab 10/07/20 14:30 Ordered Troponin I Q3H Lab 10/07/20 17:30 Ordered Blood Culture Stat Micro 10/07/20 11:10 Received - Radiology Data #1 Image(s): Chest Image Reviewed: Yes I have reviewed radiologist's interpretation PROCEDURE INFORMATION: Exam: XR Chest Exam date and time: 10/07/2020 11:12 AM Age: 69 years old Clinical indication: Shortness of breath; Additional info: SOB TECHNIQUE: Imaging protocol: XR of the chest. Views: 1 view. COMPARISON: CR XR CHEST PORTABLE PICC PLAC 09/15/2020 5:45 PM FINDINGS: Cardiac silhouette is the upper limits of normal in size allowing for profound hypoinflation. Bilateral streaky perihilar opacities are present. No pleural effusion or pneumothorax. IMPRESSION: Significant hypoinflation, with bilateral atelectasis. Underlying infection is not excluded in the appropriate clinical setting. - ECG Data Tracing #1 EKG interpreted by Van Orellana MD: Rhythm: sinus Rate: 60 [place]: normal Ectopy: none Conduction: normal ST Segment Changes: none T Wave Changes: none Q Waves: none No evidence of acute ischemia or injury Poor R wave progression. Low voltage QRS. - Physician Consults Physician Consulted: Linh Time: 13:26 Reason -: Pt condition Comment/Response: He will discuss with Dr. Hargrove and call back. 1:45 PM: He has discussed with Dr. Hargrove. The patient was recently admitted and discharged on oxygen as needed. Her new oxygen requirement is new and increasing. Therefore requests admission to the hospital. Treated with me
[2020-10-07 11:32] LABS: Chloride 107 mmol/L (98-107); Sodium 140 mmol/L (136-145)
[2020-10-07 11:34] LABS: Alanine Aminotransferase 12 U/L (12-78); Aspartate Amino Transferase 35 U/L (14-36); Blood Urea Nitrogen 33 mg/dl (7-17); Creatinine Clearance Estimated 28 mL/min (50-200); Estimated Glomerular Filt Rate 32 ml/min (>60); GFR (African American) 39 ML/MIN (>60)
[2020-10-07 11:35] LABS: Albumin Level 2.4 g/dl (3.5-5.0); Albumin/Globulin Ratio 0.6 (1.1-1.8); Alkaline Phosphatase 144 U/L (38-126); Bilirubin,Total 0.2 mg/dl (0.2-1.3); Calcium 7.9 mg/dl (8.4-10.2); Carbon Dioxide 23 mmol/L (22.0-30.0); Globulin 3.8 g/dL (1.3-3.2); Glucose 76 mg/dl (74-100); Lactic Acid 0.7 mmol/L (0.7-2.1); Total Protein,Serum 6.2 g/dl (6.3-8.2)
[2020-10-07 11:36] LABS: Basophils % 0.4 % (0.1-2.0); Eosinophils # 0.2 K/mm3 (0.0-0.4); Eosinophils % 1.9 % (0.1-12.0); Hematocrit 33.9 % (37.0-47.0); Hemoglobin 9.7 g/dL (12.2-16.2); Lymphocytes # 2.2 K/mm3 (0.7-4.5); Lymphocytes % 21.6 % (10-50); Mean Corpuscular HGB Conc 28.6 g/dL (31.8-35.4); Mean Corpuscular Hemoglobin 26.8 pg (27.0-31.2); Mean Corpuscular Volume 93.7 fl (81-99); Mean Platelet Volume 7.8 fl (7.4-10.4); Monocytes # 0.5 K/mm3 (0.1-1.0); Monocytes % 4.5 % (1.7-9.3); Neutrophils # 7.3 K/mm3 (1.8-7.8); Neutrophils % 71.5 % (37.0-80.0); Platelet Count 286 K/mm3 (142-424); Red Blood Count 3.62 M/mm3 (4.20-5.40); Red Cell Distribution Width 18.4 % (11.5-17.5); White Blood Count 10.3 K/mm3 (4.8-10.8)
[2020-10-07 11:40] LABS: Coronavirus 19, PCR Detected (NotDetected)
[2020-10-07 11:44] LABS: NT Pro Brain Natriuretic Pep. 4200 pg/mL (0-125)
[2020-10-07 11:47] LABS: Troponin I 0.02 ng/ml (0.00-0.034)
[2020-10-07 11:54] LABS: D-Dimer 0.98 ug/mL (0.0-0.5)
--- NOTE | 2020-10-07 12:27 | ECG_ITS ---
APPROVED REPORT Exam: Resting ECG HR:60 bpm ECG Measurements Heart Rate 60 AXES WA 150 P 66 QRSd 88 QRS 12 QT 390 T 57 QTc 390 Conclusion Normal sinus rhythm Poor r wave progression Isolated Q in III Abnormal ECG Electronically signed by : Yann Laird MD 10/07/2020 17:04:01
--- NOTE | 2020-10-07 13:15 | PC.NURSE ---
dr brian shin
--- NOTE | 2020-10-07 14:00 | PC.NURSE ---
PT RESTING OFFERS NO C/O AT PRESENT
--- NOTE | 2020-10-07 15:03 | PC.NURSE ---
REPORT CALLED TO ADELE FLANNERY
--- NOTE | 2020-10-07 15:09 | HMH.PHAVTE ---
[facility] Pharmacy VTE Monitoring - Patient Demographics Admission date: 10/07/20 Report Date: 10/07/20 Time: 15:09 Allergies/Adverse Reactions: Patient Allergies vancomycin Allergy (Severe, Verified 06/07/18 01:41) red man syndrome ceftriaxone Allergy (Mild, Verified 06/07/18 01:41) Rash amoxicillin Allergy (Unknown, Verified 01/18/19 07:33) UNKNOWN atropine Allergy (Unknown, Verified 01/18/19 07:33) UNKNOWN aztreonam Allergy (Unknown, Verified 01/18/19 07:33) UNKNOWN ciprofloxacin Allergy (Unknown, Verified 01/18/19 07:33) UNKNOWN clindamycin Allergy (Unknown, Verified 01/18/19 07:33) UNKNOWN levofloxacin Allergy (Unknown, Verified 01/18/19 07:33) UNKNOWN morphine Allergy (Unknown, Verified 01/18/19 07:33) UNKNOWN nabumetone Allergy (Unknown, Verified 01/18/19 07:33) UNKNOWN oxytetracycline Allergy (Unknown, Verified 01/18/19 07:33) UNKNOWN Penicillins Allergy (Unknown, Verified 01/18/19 07:33) UNKNOWN polymyxin B Allergy (Unknown, Verified 01/18/19 07:33) UNKNOWN Sulfa (Sulfonamide Antibiotics) Allergy (Unknown, Verified 01/18/19 07:33) UNKNOWN tramadol Allergy (Unknown, Verified 01/18/19 07:33) UNKNOWN Height: 1.6 m Weight: 129.274 kg Patient Problems: Current Active Problems Pneumonia due to COVID-19 virus (Acute) Hypoxia (Acute) - VTE Risk Labs: VTE Related Lab Results Hgb 9.7 g/dL (12.2-16.2) L 10/07/20 11:10 Hct 33.9 % (37.0-47.0) L 10/07/20 11:10 Plt Count 286 K/mm3 (142-424) 10/07/20 11:10 BUN 33 mg/dl (7-17) H 10/07/20 11:10 Creatinine 1.60 mg/dl (0.52-1.04) H 10/07/20 11:10 Estimated Creat Clear 28 mL/min (50-200) 10/07/20 11:10 Clinical Trial Participant: No - Prophylaxis VTE Prophylaxis Ordered?: Yes Types of VTE Prophylaxis: TEDS Knee High
[2020-10-07 17:37] LABS: POC Glucose,Bedside 72 (70-110)
[2020-10-07 21:39] LABS: POC Glucose,Bedside 94 (70-110)
[2020-10-08] VITALS (8 sets, daily range): BP systolic 111–134; BP diastolic 47–70; PULSE 53–96; RESP 17–22; TEMP 36.7–37.1; O2SAT 94–100; BMI 44.9
--- NOTE | 2020-10-08 02:05 | PC.WOUNDNOTE ---
Open areas to bottom, dressings applied C,D,I Severe tissue damage to BLE, dressing C,D,I Heels are black with severe tissue damage, heel protectors applied
--- NOTE | 2020-10-08 04:16 | PC.NURSE ---
Pt seemed confused beginning of shift. Could state her name and location where she was. She could not state , time. T/O shift pt started to reorientate and could state Name, , Place. Pt has c/o of pain x1 in groin area this shift. Pt remains on a venturi mask on 9L and tolerating well with O2 stats >95%. Pt's toro is draining clear, yellow, urine. BLE have severe tissue damage, dressing's were applied day shift and are C/D/I. Pt's bottom area has x3 dressing's. Upper arms and abdomen skin is very dry and peeling. IV is patent and infusing NS @ 100ml/hr. Call light within reach, will continue to monitor.
[2020-10-08 06:55] LABS: Chloride 109 mmol/L (98-107); Potassium 4.5 mmoL/L (3.5-5.1); Sodium 141 mmol/L (136-145)
[2020-10-08 06:58] LABS: Alanine Aminotransferase 10 U/L (12-78); Albumin Level 2.4 g/dl (3.5-5.0); Albumin/Globulin Ratio 0.7 (1.1-1.8); Alkaline Phosphatase 117 U/L (38-126); Anion Gap 16.5 mEq/L (5-15); Aspartate Amino Transferase 29 U/L (14-36); Bilirubin,Total 0.2 mg/dl (0.2-1.3); Blood Urea Nitrogen 29 mg/dl (7-17); Carbon Dioxide 20 mmol/L (22.0-30.0); Creatinine Clearance Estimated 35 mL/min (50-200); Estimated Glomerular Filt Rate 45 ml/min (>60); GFR (African American) 54 ML/MIN (>60); Globulin 3.5 g/dL (1.3-3.2); Total Protein,Serum 5.9 g/dl (6.3-8.2)
[2020-10-08 06:59] LABS: Calcium 7.8 mg/dl (8.4-10.2); Glucose 127 mg/dl (74-100)
--- NOTE | 2020-10-08 07:00 | CA_ITS ---
APPROVED REPORT EXAM: Comprehensive 2D, Doppler, and color-flow Echocardiogram Respiratory Care Program Director: Kathryn Victoria CRT Ht: 5 ft 3 in Wt: 285lbs BSA: 2.25 BP: 122/42 mmHg Indications: Congestive Heart Failure, Obesity, DNR, Breast CA, 2D Dimensions LVOT 2.00 cm (M/F) 1.5-2.5 M-Mode Dimensions RVDd 2.62 cm (0.9-2.6) LA Diam 4.32 cm (1.9-4.0) LVDd 5.01 cm (3.5-5.7) Ao Diam 3.56 cm (2.0-3.7) LVDs 3.57 cm (3.5-5.7) IVSd 1.75 cm (0.6-1.1) PWd 0.84 cm (0.6-1.1) EF (Teich) 55.10% FS 28.70% EDV (Teich) 118.80 mL ESV (Teich) 53.30 mL Pulmonary Valve PV Peak Velocity 97.00 (50-150 cm/s) Tricuspid Valve TR P. Velocity 248.00 cm/s RAP Estimate 10.00 mmHg RVSP 34.60 mmHg Left Ventricle Technically very difficult and poor study, valvular structure and endocardial surfaces are very poorly visualized. Left atrium appears to be moderately enlarged, left ventricle appears to be normal size, there is mild concentric left ventricular hypertrophy, visually estimated ejection fraction approximately 50% in the obtained views. Right Ventricle Limited view of the right-sided chambers seen, right ventricle appears to be mildly enlarged with normal contractility. Aortic Valve Aortic valve is thickened and calcified without significant aortic stenosis or aortic insufficiency. M Mitral Valve Mitral valve leaflets are minimally thickened, there is mild mitral regurgitation. Tricuspid Valve Tricuspid valve is not well visualized, there is mild tricuspid regurgitation, tricuspid regurgitation jet velocity is inadequate for calculation of the right ventricular systolic pressure. Pulmonic Valve Pulmonic valve is poorly visualized. Great Vessels Ascending aorta above sinotubular junction appears to be mildly enlarged. Pericardium No significant pericardial effusion noted. Conclusion 1. Technically difficult and very poor study as described above 2. Normal left ventricular size, mild concentric left ventricular hypertrophy, visually estimated ejection fraction is probably 50% with no regional wall motion abnormality in the obtained views, diastolic parameters are inconclusive in the study. 3. Mildly enlarged right ventricle with normal contractility. 4. Thickened and calcified aortic valve without Doppler evidence of aortic stenosis or aortic insufficiency. 5. Mild mitral and tricuspid regurgitation. 6. No significant pericardial effusion noted. Electronically signed by : Yehuda Osman MD 10/09/2020 06:33:48
--- NOTE | 2020-10-08 07:07 | HMH.HP ---
*Admission Date: 10/07/20 *Chief complaint: Increasing oxygen requirement *History of present illness: 69-year-old female diagnosed with COVID-19 pneumonia on October 01 while she was a resident at a local correction developed increasing oxygen requirement starting Thursday, October 06 and proceeding into the . When patient reached the limit of what the nursing facility was able to provide she was sent to the ER. Patient was requiring oxygen via nasal cannula at a rate of 6 L/min. Patient had received Regeneron as an outpatient. This morning to me the patient denies shortness of breath or cough. Due to patient's increasing oxygen requirement and COVID-19 status patient was admitted and has been started on Remdesivir in addition to IV antibiotics to cover the possibility of superimposed bacterial pneumonia. Chest x-ray was rather unremarkable. Patient also reports body aches sore throat and nasal congestion. [facility] History Medical History: Reports:: Congestive Heart Failure, Diabetes Mellitus Type 2, Hypertension, MRSA, Renal Disease, Urinary Tract Infection Denies:: Cancer, Coronary Artery Disease, Diabetes Mellitus Type 1, Internal Pacemaker, Lung Disease, Myocardial Infarction, Seizures *Have you ever received a pneumonia vaccine?: Yes *Have you received a flu vaccine this season?: Yes Other Medical History: Reports: Anemia, Arthritis, Fibromyalgia, Hypothyroidism, Thyroid Disease, Other (Morbid obesity) Other Surgeries: Yes: No Previous Surgery, Tubal Ligation. No: Pacemaker Amputation: No Fractures: No - *Social History Smoking Status: Never smoker Alcohol Intake: never *Occupational Status:: retired, disabled Housing: correction Household Members: other *Travel in the last 8 weeks: None Family Hx:: Cancer, Diabetes Review of Systems - Constitutional Reports body ache(s), Reports chills, Reports lack of energy - Eyes Denies change in vision - ENT Denies abnormal hearing, Denies difficulty swallowing - *Cardiovascular Denies chest pain, Denies chest pain at rest - *Respiratory Reports chest congestion, Denies change in phlegm color, Denies cough, Denies shortness of breath - *Gastrointestinal Denies abdominal pain - *Genitourinary Denies painful urination - *Musculoskeletal Reports joint pain, Reports back pain - Integumentary/Breasts Reports dry skin, Reports skin ulcer, Denies hair loss - *Neurologic Reports headache(s) - Psychiatric Reports lack of enjoyment Meds Home Medications Medication Instructions Recorded Confirmed Type Gabapentin [Gabapentin 300mg Cap] 300 mg PO TID 08/24/17 10/07/20 History Aspirin [Aspirin 81mg EC Tab] 81 mg PO DAILY 08/25/17 10/07/20 History Pantoprazole Sodium [Protonix 40mg 40 mg PO DAILY 11/29/17 10/07/20 History tablet] Ferrous Sulfate [Ferrous Sulfate 325 mg PO DAILY 01/16/19 10/07/20 History 325mg Tablet] Docusate Sodium 100 mg PO DAILYP PRN 01/17/19 10/07/20 History Fexofenadine HCl [Lexus 180 mg PO DAILY 01/17/19 10/07/20 History Allergy] Levothyroxine Sodium 250 mcg PO DAILY 01/17/19 10/07/20 History [Levothyroxine 125mcg (0.125mg) Tab] Hydrocodone/Acetaminophen 1 tab PO Q6HP PRN #120 tab 01/25/19 10/07/20 Rx [Hydrocodone-Acetamin 10-325 mg] Folic Acid [Folic Acid 1mg tablet] 1 mg PO DAILY 09/13/20 10/07/20 History Furosemide [Furosemide 20mg Tab*] 20 mg PO DAILY 09/13/20 10/07/20 History Sennosides [Senna] 17.2 mg PO HSP PRN 09/13/20 10/07/20 History Spironolactone [Spironolactone 25 mg PO DAILY 09/13/20 10/07/20 History 25mg Tablet] Allergies Allergy/AdvReac Type Severity Reaction Status Date / Time vancomycin Allergy Severe red man Verified 06/07/18 01:41 syndrome ceftriaxone Allergy Mild Rash Verified 06/07/18 01:41 amoxicillin Allergy Unknown UNKNOWN Verified 01/18/19 07:33 atropine Allergy Unknown UNKNOWN Verified 01/18/19 07:33 aztreonam Allergy Unknown UNKNOWN Verified 01/18/19 07:33 andreiro
--- NOTE | 2020-10-08 08:41 | CT_ITS ---
PROCEDURE: CT ANGIO CHEST PE PROTOCOL CLINCIAL INDICATION: hypoxia, covid-19 COMPARISON: CT CT LUMBAR SPINE WO CON from 01/16/2019 CR XR CHEST PORTABLE from 10/07/2020 TECHNIQUE: IV Contrast: 70ML Isovue 370 Axial images obtained with sagittal and coronal reformats. All CT scans at the facility use one or more dose reduction, viz: automated exposure control, ma/kV adjustment per patient size (including targeted exams where dose is matched to indication, i.e. head), or iterative reconstruction technique. FINDINGS: HEART AND MEDIASTINAL STRUCTURES: No evidence of central pulmonary embolus. Peripheral pulmonary arteries not well delineated secondary to motion and atelectasis. No evidence of aortic aneurysm or dissection. LUNGS AND PLEURAL SPACES: There are atelectatic changes in the lung bases with low lung volumes. No effusions. No ground-glass opacities. BONY STRUCTURES: There are degenerative changes of the thoracic spine with mild thoracic scoliosis convex right. Mild wedging of T11 and T12 vertebral bodies not significantly changed. UPPER ABDOMEN: Unremarkable. ADDITIONAL FINDINGS: No other significant abnormalities. IMPRESSION: No evidence of pulmonary embolus. Low lung volumes with bibasilar atelectatic changes Dictated by: Bertin Muniz MD 10/08/2020 11:29 Bertin Muniz MD in [place] 10/08/2020 11:29
--- NOTE | 2020-10-08 09:01 | HMH.PTWOUND ---
Rehab Inpt Wound Evaluation Rehab IP Wound Evaluation Start: 10/08/20 07:03 Freq: ONCE Status: Active Protocol: Document 10/08/20 08:54 TRISTA (Rec: 10/08/20 09:01 KARJACQUELINE [id number]) Rehab PT Wound Assessment Patient Status Premedicated Prior to Dressing Change No Subjective Subjective Pt confused - alert to only name, and burthday - when asked where she was she repeated birthday year, when asked where she lived she reported [facility] - pt is well known to therapist for long history of hospitalizations and wound care needs - pt is normally A& Ox3 - pt moaned w/ pain and discomfort as BLE dressings removed and redressed - wounds encompass entire lower leg bilaterally Wound Left Lower Leg Wound Type Stasis Ulcer Is This a Chronic Wound Yes Superficial wound not involving tendon, w/ ischemia and infection capsule or bone Wound Length (cm) 20 Wound Width (cm) 15 Wound Bed Appearance Beefy Red,Yellow Percentage Granulated (%) 10 Percentage of Slough (%) 90 Percentage of Eschar (Yellow) (%) 90 Wound Margins Description Indistinct Surrounding Tissue Appearance Antlers Surrounding Tissue Temperature Warm Wound Drainage Description Sanguineous Drainage Amount Small Drainage Odor No Odor Dressing Status Dry & Intact,Changed Primary Dressing Absorbant Pad Comment ABD pad Wound Secondary Dressing Type Gauze Roll/Wrap Comment kerlix Wound Debridement Amount of Tissue None Removed Dressing Change Patient Tolerance Tolerated Poorly Right Lower Leg Wound Type Stasis Ulcer Is This a Chronic Wound Yes Superficial wound not involving tendon, w/ ischemia and infection capsule or bone Wound Length (cm) 20 Wound Width (cm) 15 Wound Bed Appearance Beefy Red,Yellow Percentage Granulated (%) 10 Percentage of Slough (%) 90 Percentage of Eschar (Yellow) (%) 90 Wound Margins Description Indistinct Surrounding Tissue Appearance Antlers Drainage Amount Small Drainage Odor No Odor Dressing Status Dry & Intact,Changed Pr
--- NOTE | 2020-10-08 09:17 | HMH.ITSTN ---
nurse to call back about IV
--- NOTE | 2020-10-08 09:50 | HMH.PHAINT ---
MEDICATION RECONCILIATION COMPLETED USING EXTERNAL PHARMACY FILL HISTORY AND MAR FROM [facility].
--- NOTE | 2020-10-08 10:34 | PC.NURSE ---
Pt down for CTA @ this time
--- NOTE | 2020-10-08 11:00 | PC.NURSE ---
Pt unable to produce sputum sample at this time. Instruction given and specimen cup left at bedside.
[2020-10-08 11:14] LABS: POC Glucose,Bedside 126 (70-110)
--- NOTE | 2020-10-08 11:41 | SW/DCPLANNER ---
Addendum entered by Marylu Wilson 10/10/20 12:05: [facility] BE PROVIDING CARE FOR THIS PATIENT... I HAVE SPOKEN WITH HER ON THE PHONE AND ATTEMPTED TO GET HIM TO LET ME PLACE HER BUT HE STATED SHE WANTS TO GO HOME.. I TOLD HIM SHE REQUIRES A LOT OF CARE... HE STATED HE IS WILLING TO PAY SOMEBODY TO COME IN AND HELP THEM BUT ITS GOING TO BE DIFFICULT SINCE SHE IS A COVID PATIENT AND ALSO HAS WOUND CARE ISSUES.. SETTING HER UP WITH HOME 02 AND PROVIDING A SITTERS LIST TO ...SHE WILL DISCHARGE TO HOME VIA AMBULANCE. Addendum entered by Marylu Wilson 10/10/20 07:31: PATIENT IS DISCHARGING HOME TODAY WITH ... WILL ATTEMPT TO FIND A HOME HEALTH AGENCY THAT WILL ACCEPT PATIENT. PATIENT MAY ALSO NEED HOME 02 WILL FOLLOW UP WITH THE NURSE ON A ROOM AIR SAT... Addendum entered by Marylu Wilson 10/09/20 13:51: CALLED MR MACEDO TO DISCUSS DISCHARGE PLANS WITH HIM REGARDING HIS ...MR MACEDO WENT AND PICKED UP PATIENTS BELONGINGS AT PURCHASE AND HER LAST ADMISSION IT WAS HARD FOR ME TO FIND A BED FOR HER.. WAITING TO HEAR BACK FROM HIM... Original Note: PATIENT PRESENTED INTO THE HOSPITAL FROM [facility] WHERE SHE WAS SKILLED UNDER HER MEDICARE SKILLED BENEFIT.. PATIENT IS IN ISOLATION WITH COVID DIAGNOSIS, HER WENT THIS WEEKEND AND PICKED UP HER THINGS AND STATED SHE IS NOT GOING BACK THERE WHEN READY FOR DISCHARGE... WILL CONTACT TO SEE WHAT THE PLAN IS FOR MS MACED[facility] WHEN SHE IS READY FOR A DISPOSITION... DISCHARGE UNCERTAIN WILL CONTINUE TO FOLLOW AND ASSIST INDICATED..
[2020-10-08 11:50] LABS: POC Glucose,Bedside 131 (70-110)
--- NOTE | 2020-10-08 16:40 | PC.NURSE ---
Shift summary. Pt has been oriented to name and place only. Pt has voiced no complaints to staff. She has tolerated 3 L nc well with sats in upper 90s. Pt has refused turns most of shift claiming she is comfortable. Pt has been tearful t/o shift saying she wants to go home. Pt currently laying in bed talking to .
--- NOTE | 2020-10-08 19:25 | PC.NURSE ---
PT UNABLE TO PRODUCE SPUTUM AT THIS TIME. LEFT CUP AT BEDSIDE.
--- NOTE | 2020-10-08 19:27 | PC.NURSE ---
Noted pt had taken off nc when entering room. Pt sats 98% RA. Removed O2 nc at this time. Pt tolerating well, no s/s SOA.
[2020-10-08 23:32] LABS: POC Glucose,Bedside 149 (70-110)
[2020-10-09] VITALS (7 sets, daily range): BP systolic 106–156; BP diastolic 48–68; PULSE 63–88; RESP 16–22; TEMP 36.2–37; O2SAT 84–97
--- NOTE | 2020-10-09 07:07 | HMH.ACPN2 ---
Internal Medicine - PN: Subj *Date: 10/09/20 *Time: 07:07 Interval history: Patient has no complaints for me this morning. Nursing staff reports patient had been complaining of some abdominal pain. She has not had any nausea or vomiting. Patient was found to have removed her oxygen late yesterday evening but O2 sats were being maintained in the 90s and patient has remained on room air overnight. This morning at the time of rounding patient does not answer questions appropriately. As an example when asked for her location she gives me her date of . Patient underwent CT angiogram of the chest yesterday to rule out pulmonary embolism due to her rapidly increasing oxygen requirement since admission. CT angiogram was negative. Other findings included bibasilar atelectasis but no focal infiltrates Exam Vital signs and Labs for Last 24 Hours: Temp Pulse Resp BP Pulse Ox 98.7 F 96 H 19 115/64 94 L 10/08/20 20:00 10/08/20 20:00 10/08/20 20:00 10/08/20 20:00 10/08/20 20:00 Laboratory Results - last 24 hr 10/08/20 05:21: POC Glucose 126 H 10/08/20 11:41: POC Glucose 131 H 10/08/20 22:32: POC Glucose 149 H I & O for Last 24 hours: Intake & Output 10/06/20 10/07/20 10/08/20 10/09/20 11:59 11:59 11:59 11:59 Intake Total 1038 / 1038 240 / 240 Output Total 950 / 950 800 / 800 Balance 88 / 88 -560 / -560 Weight 285 lb 253 lb 8.505 oz - Constitutional no acute distress, obese - *Routine HEENT Exam Head: Present: normocephalic Eye: Present: conjunctivae pink ENT: Present: mucous membranes dry - *Routine Neck Exam Present: supple. Absent: JVD - *Routine Respiratory Exam Present: CTA bilaterally - *Routine Cardiovascular Exam Present: RRR - *Routine Abdominal Exam Present: soft, obese. Absent: tenderness - *Routine Extremities Exam Present: edema - *Routine Skin Exam Comments: Lower extremities remain dressed Assessment and Plan (1) Acute respiratory failure with hypoxia Status: Acute Category: Medical Code(s): J96.01 - Acute respiratory failure with hypoxia (2) Pneumonia due to COVID-19 virus Status: Acute Category: Medical Code(s): U07.1 - COVID-19; J12.82 - Pneumonia due to coronavirus disease 2019 (3) BMI 40.0-44.9, adult Status: Acute Category: Medical Code(s): Z68.41 - Body mass index [BMI]40.0-44.9, adult (4) Obesity Status: Acute Qualifiers: Obesity type: due to excess calories Obesity classification: adult class 3 (BMI >= 40) Serious obesity comorbidity presence: with serious comorbidity Body mass index: BMI 40.0-44.9 Qualified Code(s): E66.01 - Morbid (severe) obesity due to excess calories; Z68.41 - Body mass index (BMI) 40.0-44.9, adult Category: Medical Code(s): E66.9 - Obesity, unspecified (5) Personal history of diabetes mellitus Status: Acute Category: Medical Code(s): Z86.39 - Personal history of other endocrine, nutritional and metabolic disease (6) Anemia Status: Chronic Qualifiers: Anemia type: due to chronic kidney disease Chronic kidney disease stage: stage 4 (severe) Qualified Code(s): N18.4 - Chronic kidney disease, stage 4 (severe); D63.1 - Anemia in chronic kidney disease Category: Medical Code(s): D64.9 - Anemia, unspecified (7) Chronic wound of extremity Status: Chronic Category: Medical (8) Stage 3a chronic kidney disease Status: Chronic Category: Medical Code(s): N18.31 - Chronic kidney disease, stage 3a - Assessment and plan all Dx Assessment and Plan for all problems:: 1. From a pulmonary standpoint patient seems to be improving as she is now weaned to room air. Continue to monitor closely for hypoxia 2. Patient remains confused. Suspect a metabolic encephalopathy caused by her infection. 3. We will reach out to family to discuss plans for discharge in the future.
[2020-10-09 07:12] LABS: Basophils # 0.1 K/mm3 (0-0.2); Basophils % 0.6 % (0.1-2.0); Eosinophils % 0.4 % (0.1-12.0); Hematocrit 31.9 % (37.0-47.0); Hemoglobin 9.3 g/dL (12.2-16.2); Lymphocytes # 1.2 K/mm3 (0.7-4.5); Lymphocytes % 14.9 % (10-50); Mean Corpuscular Hemoglobin 26.5 pg (27.0-31.2); Mean Corpuscular Volume 91.3 fl (81-99); Mean Platelet Volume 8.8 fl (7.4-10.4); Monocytes # 0.4 K/mm3 (0.1-1.0); Monocytes % 4.3 % (1.7-9.3); Neutrophils # 6.5 K/mm3 (1.8-7.8); Neutrophils % 79.8 % (37.0-80.0); Platelet Count 360 K/mm3 (142-424); Red Cell Distribution Width 18.7 % (11.5-17.5); White Blood Count 8.2 K/mm3 (4.8-10.8)
[2020-10-09 07:56] LABS: POC Glucose,Bedside 140 (70-110)
[2020-10-09 08:25] LABS: Chloride 110 mmol/L (98-107); Sodium 142 mmol/L (136-145)
[2020-10-09 08:26] LABS: Potassium 4.3 mmoL/L (3.5-5.1)
[2020-10-09 08:28] LABS: Alanine Aminotransferase 11 U/L (12-78); Albumin Level 2.4 g/dl (3.5-5.0); Albumin/Globulin Ratio 0.7 (1.1-1.8); Alkaline Phosphatase 104 U/L (38-126); Anion Gap 20.3 mEq/L (5-15); Aspartate Amino Transferase 30 U/L (14-36); Bilirubin,Total 0.3 mg/dl (0.2-1.3); Blood Urea Nitrogen 29 mg/dl (7-17); Calcium 8.3 mg/dl (8.4-10.2); Carbon Dioxide 16 mmol/L (22.0-30.0); Creatinine Clearance Estimated 39 mL/min (50-200); Estimated Glomerular Filt Rate 49 ml/min (>60); GFR (African American) 60 ML/MIN (>60); Globulin 3.6 g/dL (1.3-3.2); Glucose 131 mg/dl (74-100)
[2020-10-09 11:15] LABS: POC Glucose,Bedside 134 (70-110)
--- NOTE | 2020-10-09 18:37 | PC.NURSE ---
Pt has been confused this shift, only at times pt has known where she is-but never year or situation. Pt has been a q2h turn. Dressing change performed this shift: xeroform, ABD pads, wrapped in kerlix w/ perforated tape. Pt has been incontinent of bowel this shift. Upon entering pt's room during nursing rounds, pt was noted to be playing in her stool. Urine remains cloudy, purulent w/ mucus plugs noted. No other acute changes or complaints, will continue to monitor
[2020-10-10 00:47] LABS: POC Glucose,Bedside 127 (70-110)
[2020-10-10 00:47] LABS: POC Glucose,Bedside 139 (70-110)
--- NOTE | 2020-10-10 02:48 | PC.NURSE ---
pt refused vitals assessment
[2020-10-10 04:00] VITALS: BP 129/59; PULSE 62; RESP 14; TEMP 35.8; O2SAT 98
[2020-10-10 05:17] VITALS: BMI 44.4
--- NOTE | 2020-10-10 06:00 | PC.NURSE ---
Pt has rested well this shift. Pt becomes emotional at times during nursing assessments and interventions. Pt is currently on RA. One desat noted. Pt reminded to take some deap breaths. O2 recovered. Other VSS. Will continue to monitor.
--- NOTE | 2020-10-10 06:32 | PC.NURSE ---
Pt looks uncomfortable and is crying. Pt declined pain medication this AM.
--- NOTE | 2020-10-10 07:05 | HMH.ACPN2 ---
Internal Medicine - PN: Subj *Date: 10/10/20 *Time: 07:05 Interval history: No acute events overnight. Patient denies problems. Nursing staff reports one episode of desaturation overnight that corrected with deep breathing. Patient was confused intermittently overnight. Patient refused offer of pain medication as well as refused to have her vital signs checked as well. Exam Vital signs and Labs for Last 24 Hours: Temp Pulse Resp BP Pulse Ox 96.5 F L 62 14 129/59 L 98 10/10/20 04:00 10/10/20 04:00 10/10/20 04:00 10/10/20 04:00 10/10/20 04:00 Laboratory Results - last 24 hr 10/09/20 06:54: Sodium 142, Potassium 4.3, Chloride 110 H, Carbon Dioxide 16 L, Anion Gap 20.3 H, BUN 29 H, Creatinine 1.10 H, Estimated Creat Clear 39, Estimated GFR 49 L, Est GFR ( Amer) 60, Glucose 131 H, Calcium 8.3 L, Total Bilirubin 0.3, AST 30, ALT 11 L, Alkaline Phosphatase 104, Total Protein 6.0 L, Albumin 2.4 L, Globulin 3.6 H, Albumin/Globulin Ratio 0.7 L 10/09/20 06:54: WBC 8.2, RBC 3.50 L, Hgb 9.3 L, Hct 31.9 L, MCV 91.3, MCH 26.5 L, MCHC 29.0 L, RDW 18.7 H, Plt Count 360 D, MPV 8.8, Neut % (Auto) 79.8, Lymph % (Auto) 14.9, Evangeline % (Auto) 4.3, Eos % (Auto) 0.4, Baso % (Auto) 0.6, Neut # (Auto) 6.5, Lymph # (Auto) 1.2, Evangeline # (Auto) 0.4, Eos # (Auto) 0.0, Baso # (Auto) 0.1 10/09/20 07:38: POC Glucose 140 H 10/09/20 11:07: POC Glucose 134 H 10/09/20 17:40: POC Glucose 139 H 10/09/20 22:25: POC Glucose 127 H I & O for Last 24 hours: Intake & Output 10/07/20 10/08/20 10/09/20 10/10/20 11:59 11:59 11:59 11:59 Intake Total 1038 / 1038 610 / 610 240 / 240 Output Total 950 / 950 1475 / 1475 1300 / 1300 Balance 88 / 88 -865 / -865 -1060 / -1060 Weight 285 lb 253 lb 8.505 oz 250 lb 8 oz Microbiology Reports for the Last 24 Hours: Microbiology 10/07/20 11:10 Blood Blood Culture - Preliminary NO GROWTH AFTER 48 HOURS 10/07/20 11:10 Blood Blood Culture - Preliminary NO GROWTH AFTER 48 HOURS Narrative: This morning patient answers questions appropriately. She is oriented to place but not time. Lungs are clear. Heart has a regular rate and rhythm. Abdomen is obese and soft. Childers catheter is draining reddish-yellow urine with sediment. Both lower extremities remain dressed Assessment and Plan (1) Acute respiratory failure with hypoxia Status: Acute Category: Medical Code(s): J96.01 - Acute respiratory failure with hypoxia (2) Pneumonia due to COVID-19 virus Status: Resolved Category: Medical Code(s): U07.1 - COVID-19; J12.82 - Pneumonia due to coronavirus disease 2019 (3) BMI 40.0-44.9, adult Status: Acute Category: Medical Code(s): Z68.41 - Body mass index [BMI]40.0-44.9, adult (4) Obesity Status: Acute Qualifiers: Obesity type: due to excess calories Obesity classification: adult class 3 (BMI >= 40) Serious obesity comorbidity presence: with serious comorbidity Body mass index: BMI 40.0-44.9 Qualified Code(s): E66.01 - Morbid (severe) obesity due to excess calories; Z68.41 - Body mass index (BMI) 40.0-44.9, adult Category: Medical Code(s): E66.9 - Obesity, unspecified (5) Personal history of diabetes mellitus Status: Acute Category: Medical Code(s): Z86.39 - Personal history of other endocrine, nutritional and metabolic disease (6) Anemia Status: Chronic Qualifiers: Anemia type: due to chronic kidney disease Chronic kidney disease stage: stage 4 (severe) Qualified Code(s): N18.4 - Chronic kidney disease, stage 4 (severe); D63.1 - Anemia in chronic kidney disease Category: Medical Code(s): D64.9 - Anemia, unspecified (7) Chronic wound of extremity Status: Chronic Category: Medical (8) Stage 3a chronic kidney disease Status: Chronic Category: Medical Code(s): N18.31 - Chronic kidney disease, stage 3a (9) Encephalopathy, metabolic Status: Acute Category
--- NOTE | 2020-10-10 07:22 | HMH.DCSUM ---
General - General Admission date:: 10/07/20 Discharge date: 10/10/20 HPI HPI: 69-year-old female diagnosed with COVID-19 pneumonia on October 01 while she [facility] developed increasing oxygen requirement starting Thursday, October 06 and proceeding into the . When patient reached the limit of what the nursing facility was able to provide she was sent to the ER. Patient was requiring oxygen via nasal cannula at a rate of 6 L/min. Patient had received Regeneron as an outpatient. This morning to me the patient denies shortness of breath or cough. Due to patient's increasing oxygen requirement and COVID-19 status patient was admitted and has been started on Remdesivir in addition to IV antibiotics to cover the possibility of superimposed bacterial pneumonia. Chest x-ray was rather unremarkable. Patient also reports body aches sore throat and nasal congestion. Hospital Course Hospital Course: Patient was admitted due to increasing oxygen requirement associated with COVID-19 infection. Patient was admitted and started on intravenous dexamethasone and was requiring supplemental oxygen via nasal cannula at 6 L/min and on the first night of admission and this was escalated to a Ventimask. Chest x-ray and CT of the chest ultimately showed only basilar atelectasis with no signs of focal infiltrates consistent with COVID-19 pneumonia. There was suspicion for overlying bacterial infection whether pneumonia in nature or bacteremia. Blood cultures ultimately were negative as well. Within 36 hours of admission patient was weaned to room air and maintain sats in the 90s. Patient had a single desat to 84% the evening before discharge. Home oxygen will be arranged. Patient's COVID-19 infection, which was treated with Regeneron when she was living in the nursing facility, did cause significant mental status changes. Patient was confused at times in addition to being weak. As hospitalization progressed patient remained oriented to person but sometimes had difficulty with time. Patient's level of weakness made her most suitable for discharge to [facility] facility for continued rehab. Patient's longstanding lower extremity wounds also require attention that would best be served by placement in [facility] or a long-term acute care facility. Due to patient's Covid status very few facilities are an option. Patient's family did not wish her to go outside of the local area and therefore chose to take her home. Home health will be arranged for physical therapy, wound care. Objective Vital signs: Temp Pulse Resp BP Pulse Ox 96.5 F L 62 14 129/59 L 98 10/10/20 04:00 10/10/20 04:00 10/10/20 04:00 10/10/20 04:00 10/10/20 04:00 no acute distress - *Routine Respiratory Exam Present: CTA bilaterally - *Routine Cardiovascular Exam Present: RRR - *Routine Abdominal Exam Present: soft, normoactive bowel sounds. Absent: tenderness - *Routine Extremities Exam Present: edema Results Labs on day of discharge: Labs from last 24 hours 10/09/20 10/09/20 10/09/20 22:25 17:40 11:07 Sodium Potassium Chloride Carbon Dioxide Anion Gap BUN Creatinine Estimated Creat Clear Estimated GFR Est GFR ( Amer) Glucose POC Glucose 127 H 139 H 134 H Calcium Total Bilirubin AST ALT Alkaline Phosphatase Total Protein Albumin Globulin Albumin/Globulin Ratio 10/09/20 10/09/20 07:38 06:54 Sodium 142 Potassium 4.3 Chloride 110 H Carbon Dioxide 16 L Anion Gap 20.3 H BUN 29 H Creatinine 1.10 H Estimated Creat Clear 39 Estimated GFR 49 L Est GFR ( Amer) 60 Glucose 131 H POC Glucose 140 H Calcium 8.3 L Total Bilirubin 0.3 AST 30 ALT 11 L Alkaline Phosphatase 104 Total Protein 6.0 L Albumin 2.4 L Globulin 3.6 H Albumin/Globulin Ratio 0.7 L Prelimin
[2020-10-10 08:00] VITALS: BP 125/46; PULSE 74; RESP 18; TEMP 36.8; O2SAT 94
[2020-10-10 08:14] LABS: Basophils % 0.3 % (0.1-2.0); Eosinophils % 0.2 % (0.1-12.0); Hemoglobin 9.2 g/dL (12.2-16.2); Lymphocytes # 1.2 K/mm3 (0.7-4.5); Lymphocytes % 16.4 % (10-50); Mean Corpuscular HGB Conc 29.7 g/dL (31.8-35.4); Mean Corpuscular Hemoglobin 26.5 pg (27.0-31.2); Mean Corpuscular Volume 89.1 fl (81-99); Mean Platelet Volume 10.2 fl (7.4-10.4); Monocytes # 0.5 K/mm3 (0.1-1.0); Monocytes % 6.4 % (1.7-9.3); Neutrophils # 5.7 K/mm3 (1.8-7.8); Neutrophils % 76.7 % (37.0-80.0); Platelet Count 345 K/mm3 (142-424); Red Blood Count 3.47 M/mm3 (4.20-5.40); Red Cell Distribution Width 18.9 % (11.5-17.5); White Blood Count 7.4 K/mm3 (4.8-10.8)
[2020-10-10 08:24] LABS: Alanine Aminotransferase 11 U/L (12-78); Albumin Level 2.3 g/dl (3.5-5.0); Albumin/Globulin Ratio 0.7 (1.1-1.8); Alkaline Phosphatase 84 U/L (38-126); Anion Gap 15.1 mEq/L (5-15); Aspartate Amino Transferase 29 U/L (14-36); Bilirubin,Total 0.4 mg/dl (0.2-1.3); Blood Urea Nitrogen 29 mg/dl (7-17); Calcium 8.4 mg/dl (8.4-10.2); Carbon Dioxide 20 mmol/L (22.0-30.0); Chloride 111 mmol/L (98-107); Creatinine Clearance Estimated 43 mL/min (50-200); Estimated Glomerular Filt Rate 62 ml/min (>60); GFR (African American) 75 ML/MIN (>60); Globulin 3.5 g/dL (1.3-3.2); Glucose 147 mg/dl (74-100); Potassium 4.1 mmoL/L (3.5-5.1); Sodium 142 mmol/L (136-145); Total Protein,Serum 5.8 g/dl (6.3-8.2)
[2020-10-10 10:48] LABS: POC Glucose,Bedside 152 (70-110)
[2020-10-10 11:30] VITALS: BP 116/57; PULSE 79; RESP 18; TEMP 36.8; O2SAT 96
== END 2020-10-10 14:33 | disposition home health service (06) | DRG 177 ==
LOC: ER 13:50 → 2ND 10-08 07:18
PROVIDERS: Admitting Provider Internal Medicine Adolescent Medicine; Emergency Provider Emergency Medicine; PCP Family Medicine; Visit Provider Family Medicine
DX: U07.1 COVID-19 (principal); J12.82 Pneumonia due to coronavirus disease 2019; J96.01 Acute respiratory failure with hypoxia; I13.0 Hypertensive heart and chronic kidney disease with heart failure and stage 1 through stage 4 chronic kidney disease, or unspecified chronic kidney disease; Z68.41 Body mass index [BMI] 40.0-44.9, adult; N18.4 Chronic kidney disease, stage 4 (severe); L97.909 Non-pressure chronic ulcer of unspecified part of unspecified lower leg with unspecified severity; I50.9 Heart failure, unspecified; E66.01 Morbid (severe) obesity due to excess calories; E11.22 Type 2 diabetes mellitus with diabetic chronic kidney disease; D63.1 Anemia in chronic kidney disease; Z99.81 Dependence on supplemental oxygen; E11.9 Type 2 diabetes mellitus without complications; I11.0 Hypertensive heart disease with heart failure
CPT/HCPCS: 36415; 71045; 71275; 80053; 82962; 83605; 83880; 84484; 85025; 85378; 87040; 93005; 93306; 93308; 94760; 96365; 99284; J2185; Q9967; U0003

== ENCOUNTER 2020-11-13 11:31 | Emergency (ER) | payer MEDICARE, BC, SELFPAY ==
[2020-11-13 11:31] VITALS: BP 124/94; PULSE 105; RESP 18; TEMP 36.7; O2SAT 99; BMI 45.5
--- NOTE | 2020-11-13 11:58 | HMH.EDGENADL ---
ED Disposition Clinical Impression: Chronic wound of extremity Disposition: Home, Self-Care Condition on Discharge: Good Instructions: DI for Skin Abscess Referrals: Yann Hargrove MD [Primary Care Provider] - 3 days Time of Disposition: 12:03 - Critical Care Critical Care Time: No Attestation: On 11/13/20, the high probability of a clinically significant, sudden or life threatening deterioration of the following system(s) required my full and direct attention, intervention and personal management. The time I documented below is in addition to time spent performing reported procedures but includes the following listed in this critical care notation. Medical Decision Making - Medical Records Medical records reviewed: Yes: I reviewed the patient's medical records. - Lonnie Inquiry Pt receiving controlled substance: No Vital Signs: 11/13/20 11:31 11/13/20 12:30 Temperature 98.1 F Temperature Source Oral Pulse Rate 107 H Pulse Rate [Right Radial] 105 H Respiratory Rate 18 18 Blood Pressure 102/50 L Blood Pressure [Right Arm] 124/94 H Blood Pressure Mean 67 Blood Pressure Mean [Right Arm] 104 Blood Pressure Source [Right Arm] Automatic Cuff Blood Pressure Position [Right Arm] Sitting 02 Sat by Pulse Oximetry 99 97 Oxygen Delivery Method Room Air Room Air Orders (Tests/Meds): ORDERS Category Date Time Status Complete Blood Count Auto Diff Stat Lab 11/13/20 11:33 Ordered Comprehensive Metabolic Panel Stat Lab 11/13/20 11:33 Ordered Procalcitonin Stat Lab 11/13/20 11:33 Ordered Medical Decision Narrative: 70yo F evaluated for possible bone visible in a chronic wound. On physical exam, there is no bone visible. The structure that was visualized is most likely the peroneus longus tendon. There is no drainage currently. There is no surrounding erythema or warmth. Patient does not have an acute finding. Patient does not need to be admitted at this time. She can follow-up with wound care for further discussion of wound management versus amputation. General Adult HPI - General Chief complaint: Skin/Abscess/Foreign Body Stated complaint: leg ulcers Time Seen by Provider: 11/13/20 11:58 Mode of Arrival: EMS Limitations: No Limitations Description of Symptoms (Recalled from ER Triage Doc. by RN): pt reports home health was at her house this morning to rewrap her legs, states home health told her there wasn't anything else they could do for her legs. Pt reports they did a collagen treatment on her legs last week, states her L leg has been draining more than normal and R leg has been having more pain. Pt reports the wound on R leg has gotten worse since they did the collagen treatment on it. Large wounds noted to BLE, found smelling odor from both legs, drainage noted on previous dressings. Possibly tendon visibile on posterior R lower leg. Wound on R leg is all the way around RLE. - History of Present Illness HPI narrative: 70yo F sent to the emergency department from home by her home health nurse with concern for visible bone in her lower extremity. Patient has chronic wounds to bilateral lower extremities that she has been dealing with for over a year. Patient reports they recently tried a new treatment and that has not seemed to do any better. Home health replaced the collagen dressings on most of her wounds today. Patient denies any systemic signs of infection. She complains of chronic pain to bilateral lower extremities. Patient reports numerous other physicians have discussed possible amputation with her but one physician at encouraged her not to do this and she hopes her legs will improve. Patient has not been ambulatory for approximately 2 to 3 months. - Related Data Home Medications Medication Instructions Recorded Confirmed Gabapentin [Gabapentin 300mg Cap] 300 mg PO TID 08/24/17 10/07/20 Aspirin [Aspirin 81mg EC Tab] 81 mg PO DAILY 08/25/17 10/07/20 Pantoprazole
[2020-11-13 12:30] VITALS: BP 102/50; PULSE 107; RESP 18; O2SAT 97
--- NOTE | 2020-11-13 12:32 | PC.NURSE ---
waiting president ergonomic consulting back from pt home health nurse Bakari Farnsworth from [facility]
--- NOTE | 2020-11-13 12:45 | PC.NURSE ---
ANGELICA ZARCO speaking with pt home health nurse eliazar argueta
--- NOTE | 2020-11-13 13:20 | PC.NURSE ---
notified [facility] of need for transport of pt
--- NOTE | 2020-11-13 13:40 | PC.NURSE ---
pt BLE rewrapped with kerlix and heels floated. pt reported she had urinated, bed changed and this time. When rolling pt over, pt entire buttocks noted to bed red. Encouraged pt to be turning herself to take the pressure off her buttocks every 2 hours while at home. Pt verbalized understanding.
[2020-11-13 14:47] VITALS: BP 105/48; PULSE 90; RESP 18; TEMP 36.7; O2SAT 97
== END 2020-11-13 14:47 | disposition home or self-care (01) ==
PROVIDERS: Emergency Provider Family Medicine; PCP Family Medicine
DX: L03.115 Cellulitis of right lower limb (principal); L03.116 Cellulitis of left lower limb; E03.9 Hypothyroidism, unspecified; E11.9 Type 2 diabetes mellitus without complications; I10 Essential (primary) hypertension; M79.7 Fibromyalgia; Z88.0 Allergy status to penicillin; Z88.5 Allergy status to narcotic agent; Z88.8 Allergy status to other drugs, medicaments and biological substances
CPT/HCPCS: 99281